=== PATIENT | female | born 1950 | race Caucasian/White ===

== ENCOUNTER 2017-05-03 12:04 | Inpatient (IN) | payer OTHER ==
[~2017-05-03 12:04] MED LIST: LISI-515 PO; METO25TA3 PO
[2017-05-03 18:00] VITALS: BP 169/82; PULSE 104; RESP 24; TEMP 98.5; O2SAT 98
[2017-05-03] MEDS ORDERED: MORPHINE SULFATE 2 MG/ML INJ ONE (19:46)
[2017-05-03] MEDS ORDERED: ONDANSETRON HCL 4 MG/2 ML VIAL ONE (19:46)
[2017-05-03 20:00] VITALS: BP 162/89; PULSE 101; RESP 21; TEMP 97.6; O2SAT 100
[2017-05-03] MEDS ORDERED: SODIUM CHLORIDE 0.9% FLUSH 10 ML FLUSH IV FLUSH PRN ×2 (20:00)
[2017-05-03] MEDS ORDERED: BISACODYL 10 MG SUPP RECTAL PRN (20:00)
[2017-05-03] MEDS ORDERED: ACETAMINOPHEN/HYDROcodone 325 MG/5 MG TAB PO PRN (20:00)
[2017-05-03] MEDS ORDERED: SENNOSIDES 8.6 MG TAB PO PRN (20:00)
[2017-05-03] MEDS ORDERED: GLUCAGON 1 MG/ML VIAL IM PRN (20:00)
[2017-05-03] MEDS ORDERED: DEXTROSE 50% IN WATER 50 ML VIAL(D50) IV PUSH PRN (20:00)
[2017-05-03] MEDS ORDERED: LACTULOSE SYRUP 20 GM/30 ML CUP PO PRN (20:00)
[2017-05-03] MEDS ORDERED: RESP: ALBUTEROL 2.5 MG/3 ML NEB (PRN) INH (20:00)
[2017-05-03] MEDS ORDERED: LABETALOL HCL 100 MG/20 ML VIAL IV PUSH PRN (20:00)
[2017-05-03] MEDS ORDERED: hydrALAZINE HCL 20 MG/ML VIAL IV PUSH PRN (20:00)
[2017-05-03] MEDS ORDERED: ACETAMINOPHEN 325 MG TAB PO PRN (20:00)
[2017-05-03] MEDS ORDERED: CHLORHEXIDINE GLUCONATE 2 % 1 PACK (2 CLOTHS) TOP PRN (20:00)
[2017-05-03] MEDS ORDERED: HEPARIN SODIUM - SQ 10,000 UNITS/ML VIAL SQ SCH (20:00)
[2017-05-03] MEDS ORDERED: MAGNESIUM HYDROXIDE SUSP 30 ML CUP PO PRN (20:00)
[2017-05-03] MEDS ORDERED: Vancomycin Consult Pharmacy 1 EA OTHER SCH (20:00)
[2017-05-03] MEDS ORDERED: NITROGLYCERIN 2% OINT 1 GM PACKET TOPICAL PRN (20:00)
[2017-05-03] MEDS ORDERED: MISCELLANEOUS NURSING INFORMATION XX SCH ×2 (20:00)
--- NOTE | 2017-05-03 20:05 | PD.PROCEDR ---
Procedure Note Procedure Thoracentesis, US guided Indication: Large right pleural effusion A time-out was completed verifying correct patient, procedure, site, positioning , and special equipment if applicable. The patients right side was prepped and draped in a sterile manner after the appropriate infiltration level was confirmed by ultrasound. 1% lidocaine was used anesthetize the surrounding skin. A 10-blade scalpel used to make the incision. The thoracentesis Angio cath was then introduced without difficulty and needle was removed. Catheter was connected to vacutainer bottle and -1500 ml of blood tinged pleural fluid was removed. A post-procedure chest x-ray was ordered and the fluid will be sent for several studies. Estimated Blood Loss: <1 ml The patient tolerated the procedure well and there were no immediate complications. Delmar Foster MD May 03, 2017 20:05
--- NOTE | 2017-05-03 20:34 | RADRPT ---
EXAM DATE/TIME: 05/03/2017 20:14 [facility] COMPARISON: No previous studies available for comparison. INDICATIONS : Post right side thoracentesis MEDICAL HISTORY : Hypertension. SURGICAL HISTORY : None. ENCOUNTER: Initial ACUITY: 1 day PAIN SCORE: 0/10 LOCATION: Right chest FINDINGS: A moderate-sized left pleural effusion is noted. Increased interstitial markings are noted bilaterall y consistent with probable moderate pulmonary vascular congestion. The heart is enlarged. Degenerativ e changes and scoliosis of the thoracic spine are noted. CONCLUSION: Moderate-sized left pleural effusion. Probable moderate pulmonary vascular congestion. Cardiomegaly. Degenerative changes and scoliosis of the thoracic spine. Yong Cox MD on May 03, 2017 at 20:32 Board Certified Radiologist. This report was verified electronically.
[2017-05-03] MEDS ORDERED: FUROSEMIDE 20 MG/2 ML VIAL IV PUSH SCH (20:45)
--- NOTE | 2017-05-03 20:46 | HHI.HP ---
[facility] Service Critical Care Medicine Primary Care Physician No Primary Care Physician Admission Diagnosis Diagnosis: (1) Acute hypoxemic respiratory failure Diagnosis: Principal (2) Sepsis Diagnosis: Principal (3) CAP (community acquired pneumonia) Diagnosis: Principal (4) Elevated brain natriuretic peptide (BNP) level Diagnosis: Principal (5) Elevated troponin Diagnosis: Principal (6) Probable CHF Diagnosis: Principal (7) Acute kidney injury Diagnosis: Principal (8) Hypertension Diagnosis: Secondary Chief Complaint: Shortness of breath and cough hypoxia Travel History International Travel<30 Days: No Contact w/Intl Traveler <30 Da: No Traveled to Known Affected Are: No Sepsis Criteria SIRS Criteria (2 or more): Heart rate over 90, RR > 20 or PaCO2 < 32 Sepsis Criteria (SIRS+source): Infect source susp/known Severe Sepsis (+one): Acute Oliguria/Renal Failure Criteria Outcome: Meets sepsis criteria History of Present Illness Patient is a 66-year-old female with past medical history only significant for hypertension who presented to the [facility] ED with 2 day history of productive cough increasing shortness of breath and weakness. She thought that she had flu but did not seek treatment. She also has nausea and vomiting and some epigastric abdominal pain. Initial oxygen saturation in [facility] ED 86% on room air. Tachycardic heart rate 107. An ABG on 3 L nasal cannula showed PO2 of 55. WBC count was normal, creatinine was elevated at 1.6 and a BNP was elevated at 2340 troponin elevated mildly at 0.23. Patient denies chest pain. A chest x-ray showed bilateral pleural effusions moderate- sized versus infiltrate. Patient received azithromycin and Rocephin in the ED. Transferred to [facility] for admission. I evaluated the patient in the [place] ICU. She appears to be in moderate distress due to dyspnea. Cannot lie down flat. Bedside ultrasound showed large bilateral pleural effusions. I performed a diagnostic and therapeutic right thoracentesis and removed 1.5 L of L blood tinged fluid. Fluid studies are pending at this time. Patient appears to have CHF and pneumonia. A 2D echo is pending. I will place patient on cefepime and azithromycin. Give single dose of vancomycin. Also due to elevated BNP and bilateral large effusions and hypoxia, start IV Lasix 20 mg every 12. Received 40 mg of Lasix and [place] ED. Review of Systems ROS Limitations: Clinical Condition, Other (as per HPI, limited due to SOB) Past Family Social History Allergies: Coded Allergies: No Known Allergies (Unverified , 05/03/17) Past Medical History Hypertension Past Surgical History No past surgical history Reported Medications Metoprolol Lisinopril Active Ordered Medications Received Rocephin and Zithromax and IV Lasix 40 mg in the return to ER Family History Niece had breast cancer bilaterally Social History Never smoked, no alcohol abuse Physical Exam Vital Signs Vital Signs Date Time Temp Pulse Resp B/P (MAP) Pulse Ox O2 Delivery O2 Flow Rate FiO2 05/03/17 18:00 98.5 104 24 169/82 (388) 98 Physical Exam GENERAL: 66-year-old ill-appearing female who is in moderate distress SKIN: warm/dry. HEAD: Atraumatic. Normocephalic. EYES: Pupils equal and round. No scleral icterus. No injection or drainage. ENT: No nasal bleeding or discharge. Mucous membranes moist. NECK: Trachea midline. No JVD. CARDIOVASCULAR: Tachycardic with heart rate 107. No murmur appreciated. RESPIRATORY: Air entry is diminished at the bilateral bases. Positive accessory muscle use, clearly has orthopnea. GASTROINTESTINAL: Abdomen soft, nondistended. Mild epigastric tenderness MUSCULOSKELETAL: No obvious deformities. No edema. NEUROLOGICAL: Awake and alert. No obvious cranial nerve deficits. Motor grossly within normal limits. Normal speech. Imaging Chest x-ray shows bilateral pleural effusions Septic Shock Reassessment Septic shock perfusion: reassessment completed Caprini VTE Risk Assessment Caprini VTE Risk Assessment: Mod/High Risk (score >= 2) VTE Pharm Contraindication: Hemorrhage Caprini Risk Assessment Model Point Value = 1 Point Value = 2 Point Value = 3 Point Value = 5 Age 41-60 Minor surgery BMI > 25 kg/m2 Swollen legs Varicose veins or History of unexplained or recurrent spontaneous Oral contraceptives or hormone replacement Sepsis (< 1 month) Serious lung disease, including pneumonia (< 1 month) Abnormal pulmonary function Acute myocardial infarction Congestive heart failure (< 1 month) History of inflammatory bowel disease Medical patient at bed rest Age 61-74 Arthroscopic surgery Major open surgery (> 45 min) Laparoscopic surgery (> 45 min) Malignancy Confined to bed (> 72 hours) Immobilizing plaster cast Central venous access Age >= 75 History of VTE Family history of VTE Factor V Leiden Prothrombin [id number] Lupus anticoagulant Anticardiolipin antibodies Elevated serum homocysteine Heparin-induced thrombocytopenia Other congenital or acquired thrombophilia Stroke (< 1 month) Elective arthroplasty Hip, pelvis, or leg fracture Acute spinal cord injury (< 1 month) Prophylaxis Regimen Total Risk Factor Score Risk Level Prophylaxis Regimen 0-1 Low Early ambulation 2 Moderate Order ONE of the following: *Sequential Compression Device (SCD) *Heparin 5000 units SQ BID 3-4 Higher Order ONE of the following medications: *Heparin 5000 units SQ TID *Enoxaparin/Lovenox 40 mg SQ daily (WT < 150 kg, CrCl > 30 mL/min) *Enoxaparin/Lovenox 30 mg SQ daily (WT < 150 kg, CrCl > 10-29 mL/min) *Enoxaparin/Lovenox 30 mg SQ BID (WT < 150 kg, CrCl > 30 mL/min) AND/OR *Sequential Compression Device (SCD) 5 or more Highest Order ONE of the following medications: *Heparin 5000 units SQ TID (Preferred with Epidurals) *Enoxaparin/Lovenox 40 mg SQ daily (WT < 150 kg, CrCl > 30 mL/min) *Enoxaparin/Lovenox 30 mg SQ daily (WT < 150 kg, CrCl > 10-29 mL/min) *Enoxaparin/Lovenox 30 mg SQ BID (WT < 150 kg, CrCl > 30 mL/min) AND *Sequential Compression Device (SCD) Assessment and Plan Assessment and Plan NEURO: Pain control -As needed morphine for pain along with Zofran for nausea and vomiting RESP: Acute hypoxemic respiratory failure Bilateral large pleural effusions, hemorrhagic Probable community-acquired pneumonia -Oxygen by partial nonrebreather to keep saturation more than 90% -DuoNeb every 6 hours as needed -Use BiPAP if needed -Fluid studies sent -Cefepime and azithromycin CV: Elevated BNP Mild troponin elevation Probable CHF -IV Lasix 20 mg every 12 -Cardiology consult, 2D echo -Blood pressure control with hydralazine, continue home metoprolol hold lisinopril -Hold ASA or Heparin due to hemorrhagic effusion GI: Epigastric abdominal pain -NPO, IV Protonix -CT abdomen pelvis stat : -Monitor renal function closely. Place Jiménez catheter. -IV Lasix as above monitor renal function closely ID: Sepsis Community-acquired pneumonia with effusion -IV vancomycin 1 g 1. Continue cefepime and azithromycin as ordered -Check blood cultures, urine culture, sputum culture, urine for Legionella and pneumococcal antigen, influenza A and B. HEME: -Monitor CBC, CMP, coags ENDO: -Electrolyte replacement per protocol PROPH: -Bilateral lower extremity SCDs/ROBEL. Avoid heparin due to hemorrhagic effusion. IV Protonix for GI prophylaxis LINES: -Utilize peripheral IVs, central line if needed CC time 45 min excluding procedures Code Status Full Discussed Condition With Bedside RN, patient and family Problem Qualifiers (1) Hypertension: Qualified Codes: I10 - Essential (primary) hypertension Delmar Foster MD May 03, 2017 20:46
[2017-05-03] MEDS ORDERED: MORPHINE SULFATE 2 MG/ML INJ IV PUSH PRN (21:00)
[2017-05-03] MEDS ORDERED: SODIUM CHLORIDE 0.9% FLUSH 10 ML FLUSH IV FLUSH SCH (21:00)
[2017-05-03] MEDS: RESP: ALBUTEROL 2.5 MG/IPRATROPIUM 0.5 MG NEB (SCH) INH (21:14)
[2017-05-03] MEDS ORDERED: VANCOMYCIN INJ 1,000 MG in SODIUM CHLOR 0.9% 250 ML INJ 250 ML IV ONE (21:15)
[2017-05-03 21:17] VITALS: O2SAT 97
[2017-05-03] MEDS: AZITHROMYCIN INJ 500 MG in SODIUM CHLOR 0.9% 250 ML INJ 250 ML IV SCH (21:33)
[2017-05-03] MEDS: CEFEPIME INJ 2,000 MG in SODIUM CHLORIDE 0.9% INJ 100 ML IV SCH (21:34)
[2017-05-03] MEDS: DOCUSATE SODIUM 50 MG/SENNA 8.6 MG TAB PO SCH (21:36)
[2017-05-03] MEDS: SODIUM CHLORIDE 0.9% FLUSH 10 ML FLUSH IV FLUSH SCH (21:36)
[2017-05-03 21:59] LABS: TOTAL PROTEIN,PLEURAL FLUID 1.8 GM/DL
[2017-05-03 22:00] LABS: ALBUMIN 3.3 GM/DL (3.4-5.0); AST (GOT) 27 U/L (15-37); BICARBONATE 25.3 MEQ/L (21.0-32.0); BLOOD UREA NITROGEN 40 MG/DL (7-18); CALCIUM 9.5 MG/DL (8.5-10.1); CHLORIDE 100 MEQ/L (98-107); CREATININE 1.69 MG/DL (0.50-1.00); GLOMERULAR FILTRATION RATE 30 ML/MIN (>89); GLUCOSE,RANDOM 204 MG/DL (74-106); SODIUM (NA) 142 MEQ/L (136-145)
[2017-05-03 22:01] LABS: ALT (GPT) 18 U/L (10-53)
[2017-05-03 22:15] LABS: ALKALINE PHOSPHATASE 103 U/L (45-117); TOTAL BILIRUBIN ADULT 0.4 MG/DL (0.2-1.0); TOTAL PROTEIN 6.6 GM/DL (6.4-8.2)
--- NOTE | 2017-05-03 22:34 | RADRPT ---
EXAM DATE/TIME: 05/03/2017 22:11 [facility] COMPARISON: CT THORAX W/O CONTRAST, May 03, 2017, 22:11. INDICATIONS : Patient complains of abdominal pain. ORAL CONTRAST: No oral contrast ingested. RADIATION DOSE: 16.37 CTDIvol (mGy) ; Combined studies - Thorax/Abdomen/Pelvis MEDICAL HISTORY : Cardiovascular disease. Congestive heart failure. SURGICAL HISTORY : None. ENCOUNTER: Initial ACUITY: 1 day PAIN SCALE: 5/10 LOCATION: abdomen TECHNIQUE: Volumetric scanning of the abdomen and pelvis was performed. Using automated exposure control and ad justment of the mA and/or kV according to patient size, radiation dose was kept as low as reasonably achievable to obtain optimal diagnostic quality images. DICOM format image data is available electro nically for review and comparison. FINDINGS: There is a moderate-sized left pleural effusion. Small right pleural effusion is noted. Diffuse alveo lar consolidation is noted involving the visualized portion of the right lung as well as to a lesser extent the left lung base consistent with asymmetric pulmonary edema versus pneumonia. The heart is e nlarged. Small pericardial effusion is noted. There is a complex pelvic mass measuring 9.5 x 11.8 x 13.9 cm which raises the possibility of left ov arnaldo neoplasm until proven otherwise. Some ascites is noted within the pelvis. The uterus is unremar kable. No bowel obstruction is noted. Evaluation of the solid organs of the abdomen is limited by the lack of intravenous contrast. CONCLUSION: 1. Complex pelvic mass measuring 9.5 x 11.8 x 13.9 cm which raises the possibility of left ovarian ne oplasm until proven otherwise. 2. Some ascites within the pelvis. 3. Moderate-sized left pleural effusion. 4. Small right pleural effusion. 5. Diffuse alveolar consolidation of the right lung and to a lesser extent the left lung base consist ent with asymmetric pulmonary edema versus pneumonia. 6. Cardiomegaly. 7. Small pericardial effusion. Yong Cox MD on May 03, 2017 at 22:26 Board Certified Radiologist. This report was verified electronically.
[2017-05-03 22:51] LABS: PLEURAL FLUID LYMPHS 49 %; PLEURAL FLUID MESOTHELIAL 6 %; PLEURAL FLUID MONOS 1 %; PLEURAL FLUID POLYS (SEGS) 44 %; PLEURAL FLUID RBC 11732 /MM3 (0-0); PLEURAL FLUID WBC 481 /MM3 (0-10)
[2017-05-03] MEDS ORDERED: VANCOMYCIN INJ 1,750 MG in SODIUM CHLORID 0.9% 500 ML INJ 500 ML IV ONE (23:00)
--- NOTE | 2017-05-03 23:06 | RADRPT ---
EXAM DATE/TIME: 05/03/2017 22:11 [facility] COMPARISON: No previous studies available for comparison. INDICATIONS : Bilateral infiltrates. RADIATION DOSE: 16.37 CTDIvol (mGy) ; Combined studies - Thorax/Abdomen/Pelvis MEDICAL HISTORY : Cardiovascular disease. Congestive heart failure. SURGICAL HISTORY : None. ENCOUNTER: Initial ACUITY: 1 day PAIN SCALE: 5/10 LOCATION: Bilateral chest TECHNIQUE: Volumetric scanning of the chest was performed. Using automated exposure control and adjustment of t he mA and/or kV according to patient size, radiation dose was kept as low as reasonably achievable to obtain optimal diagnostic quality images. DICOM format image data is available electronically for r eview and comparison. Follow-up recommendations for detected pulmonary nodules are based at a minimum on nodule size and pa tient risk factors according to Fleischner Society Guidelines. FINDINGS: There is a moderate-sized left pleural effusion and a small right pleural effusion. Diffuse alveolar consolidation is noted involving the right mid and lower lung field and to a lesser extent the aerate d portion of the left upper lung consistent with asymmetric pulmonary edema and/or pneumonia. Clinica l correlation is recommended. The heart is enlarged. Coronary artery calcifications are noted. Small pericardial effusion is noted no pulmonary nodule is noted. No significant mediastinal, hilar or axil vaishali lymphadenopathy is noted left basilar compressive atelectasis and/or infiltrate is noted. Degene rative changes are noted throughout the thoracic spine. Cholelithiasis is noted. CONCLUSION: 1. Moderate-sized left pleural effusion and small right pleural effusion. 2. Diffuse alveolar consolidation throughout the right mid and lower lung field and to a lesser exten t the aerated portion left upper lung consistent with asymmetric pulmonary edema and/or pneumonia. Cl inical correlation is recommended. 3. Left basilar compressive atelectasis and/or infiltrate. 4. Cardiomegaly and coronary artery calcifications. 5. Small pericardial effusion. 6. Cholelithiasis. 7. Degenerative changes within the thoracic spine. Yong Cox MD on May 03, 2017 at 23:01 Board Certified Radiologist. This report was verified electronically.
[2017-05-04] VITALS (32 sets, daily range): BP systolic 92–178; BP diastolic 55–90; PULSE 84–107; RESP 10–35; TEMP 97.3–98.6; O2SAT 92–99
[2017-05-04 02:09] LABS: AUTOMATED NEUTROPHIL # 8.6 TH/MM3 (1.8-7.7); BASOPHIL # 0.1 TH/MM3 (0-0.2); BASOPHIL % 0.9 % (0.0-2.0); HEMATOCRIT 30.6 % (35.0-46.0); HEMOGLOBIN 9.9 GM/DL (11.6-15.3); LYMPH % 6.7 % (9.0-44.0); LYMPHOCYTE # 0.7 TH/MM3 (1.0-4.8); MEAN CELL VOLUME 81.2 FL (80.0-100.0); MEAN CORPUSCULAR HEMOGLOBIN 26.2 PG (27.0-34.0); MEAN CORPUSCULAR HGB CONC 32.2 % (32.0-36.0); MEAN PLATELET VOLUME 7.8 FL (7.0-11.0); MONO % 5.6 % (0.0-8.0); MONOCYTE # 0.6 TH/MM3 (0-0.9); NEUT % 86.8 % (16.0-70.0); PLATELET COUNT 220 TH/MM3 (150-450); RED BLOOD COUNT 3.77 MIL/MM3 (4.00-5.30); RED CELL DISTRIBUTION WIDTH 14.7 % (11.6-17.2); WHITE BLOOD COUNT 9.9 TH/MM3 (4.0-11.0)
[2017-05-04 02:21] LABS: INTERNATIONAL NORMALIZED RATIO 1.3 RATIO; PROTHROMBIN TIME - PATIENT 13.1 SEC (9.8-11.6)
[2017-05-04 02:30] LABS: ALBUMIN 2.9 GM/DL (3.4-5.0); ALT (GPT) 16 U/L (10-53); AST (GOT) 23 U/L (15-37); BLOOD UREA NITROGEN 43 MG/DL (7-18); CALCIUM 8.8 MG/DL (8.5-10.1); CHLORIDE 103 MEQ/L (98-107); CHOLESTEROL 235 MG/DL (120-200); GLOMERULAR FILTRATION RATE 32 ML/MIN (>89); GLUCOSE,RANDOM 229 MG/DL (74-106); MAGNESIUM 1.5 MG/DL (1.5-2.5); SODIUM (NA) 142 MEQ/L (136-145); TRIGLYCERIDES 150 MG/DL (42-150)
[2017-05-04 02:39] LABS: ALKALINE PHOSPHATASE 81 U/L (45-117); CHOLESTEROL/ HDL RATIO 7.03 RATIO; HDL CHOLESTEROL 33.4 MG/DL (40.0-60.0); LDL CHOLESTEROL 172 MG/DL (0-99); PHOSPHORUS 4.4 MG/DL (2.5-4.9); TOTAL BILIRUBIN ADULT 0.4 MG/DL (0.2-1.0)
[2017-05-04 03:05] LABS: CA 125 228.9 U/ML (0.0-30.2); CA 19-9 28.5 U/ML (0.0-35.0)
[2017-05-04] MEDS: RESP: ALBUTEROL 2.5 MG/IPRATROPIUM 0.5 MG NEB (SCH) INH ×4 (03:49→21:19)
[2017-05-04] MEDS: CHLORHEXIDINE GLUCONATE 2 % 1 PACK (2 CLOTHS) TOP SCH (04:00)
--- NOTE | 2017-05-04 05:20 | RADRPT ---
EXAM DATE/TIME: 05/04/2017 04:23 [facility] COMPARISON: CT THORAX W/O CONTRAST, May 03, 2017, 22:11. CHEST SINGLE AP, May 03, 2017, 20:14. INDICATIONS : Shortness of breath, possible pulmonary disease. MEDICAL HISTORY : Hypertension. SURGICAL HISTORY : None. ENCOUNTER: Subsequent ACUITY: 2 days PAIN SCORE: Non-responsive. LOCATION: Bilateral chest FINDINGS: Persistent large left pleural effusion obscuring the entire left heart border. On the right side, in terval development of opacity obscuring the right hemidiaphragm and right heart border suggesting a c ombination of pleural effusion and consolidation. CONCLUSION: Large left pleural effusion stable. Significant increase in size of right pleural effusion, almost a s large as the contralateral side, with probable associated parenchymal consolidation. Bobby Brambila MD on May 04, 2017 at 5:18 Board Certified Radiologist. This report was verified electronically.
[2017-05-04 05:33] LABS: BACTERIA, URINE OCC /hpf; BILIRUBIN, URINE NEG (NEG); BLOOD, URINE NEG (NEG); GLUCOSE,URINE TRACE mg/dL (NEG); HYALINE CAST, URINE 7 /lpf (RARE); KETONE, URINE 10 mg/dL (NEG); NITRITE,URINE NEG (NEG); URINE COLOR YELLOW (YELLW/STRAW); URINE LEUKOCYTE ESTERASE NEG (NEG)
[2017-05-04] MEDS: CEFEPIME INJ 2,000 MG in SODIUM CHLORIDE 0.9% INJ 100 ML IV SCH ×3 (05:56→23:07)
[2017-05-04] MEDS: ONDANSETRON HCL 4 MG/2 ML VIAL IV PUSH PRN ×3 (06:03→14:24)
[2017-05-04] MEDS ORDERED: ASPIRIN 81 MG CHEW TAB CHEW SCH (09:00)
[2017-05-04] MEDS: DOCUSATE SODIUM 50 MG/SENNA 8.6 MG TAB PO SCH ×2 (09:00→21:00)
[2017-05-04] MEDS ORDERED: FUROSEMIDE 20 MG/2 ML VIAL IV PUSH SCH (09:00)
[2017-05-04] MEDS ORDERED: METOPROLOL TARTRATE 25 MG TAB PO SCH (09:00)
[2017-05-04] MEDS ORDERED: PANTOPRAZOLE SODIUM 40 MG VIAL IV PUSH SCH (09:00)
[2017-05-04] MEDS ORDERED: MIDAZOLAM HCL 2 MG/2 ML VIAL IV PUSH ONE (09:00)
[2017-05-04] MEDS: SODIUM CHLORIDE 0.9% FLUSH 10 ML FLUSH IV FLUSH SCH ×2 (09:00→21:11)
--- NOTE | 2017-05-04 09:07 | EKG ---
Date Performed: 05/03/2017 Time Performed: 20:36:44 PTAGE: 66 years EKG: SINUS TACHYCARDIA PATTERN CONSISTENT WITH PULMONARY DISEASE POSSIBLE RIGHT VENTRICULAR COND UCTION DELAY MODERATE VOLTAGE CRITERIA FOR LVH, CONSIDER NORMAL VARIANT INFERIOR MYOCARDIAL INFARCTIO N , OF INDETERMINATE AGE WITH POSTERIOR EXTENSION ST DEPRESSION, CONSIDER SUBENDOCARDIAL INJURY ABNOR MAL ECG NO PREVIOUS TRACING DOCTOR: Migue Harkins Interpretating Date/Time 05/04/2017 09:06:28
--- NOTE | 2017-05-04 09:32 | PD.PROCEDR ---
Procedure Note Procedure Date of procedure: [] Procedure: Left sided thoracentesis, ultrasound-guided Indication: Large left-sided pleural effusion Operators: Donis Delgado M.D. Details of procedure: Informed consent was obtained. The patient was laid supine with head of bed elevated approximately 30. The pleural effusion was localized with ultrasound device. The lateral chest wall was cleaned with ChloraPrep twice. Regional sterile drapes were applied. Other barrier precautions included sterile gloves and face mask. 1% lidocaine was used for local anesthesia. A skin incision was made with a scalpel blade. An 18 gauge introducer needle was inserted into the pleural space with return of 15 cc fluid, an 8 FR catheter was advanced, and the needle was removed. Approximately 900 mL of fluid was removed and sent for analysis and cultures. The catheter was removed and hemostasis was achieved by direct pressure. The site was cleansed with an alcohol swab and a Band-Aid was applied. Estimated blood loss: 1 cc Complications: None immediately apparent. Stat chest x-ray was ordered. Donis Delgado MD May 04, 2017 09:32
--- NOTE | 2017-05-04 10:01 | RADRPT ---
EXAM DATE/TIME: 05/04/2017 09:44 [facility] COMPARISON: CHEST SINGLE AP, May 04, 2017, 4:23. INDICATIONS : Post left sided thoracentesis MEDICAL HISTORY : Hypertension. SURGICAL HISTORY : None. ENCOUNTER: Initial ACUITY: 1 day PAIN SCORE: 0/10 LOCATION: Left chest FINDINGS: A single portable expiration view of the chest shows bibasilar consolidation more pronounced on the r ight. Tiny effusions bilaterally. The effusion on the left is smaller from the prior study. No pneumo thorax. Heart is normal in size. CONCLUSION: No pneumothorax following thoracentesis. Bibasilar consolidations more pronounced on the right with t iny bilateral pleural effusions. Bobby Herndon Jr., MD on May 04, 2017 at 9:59 Board Certified Radiologist. This report was verified electronically.
[2017-05-04] MEDS: PROCHLORPERAZINE INJ 10 MG/2 ML VIAL IV PUSH PRN ×2 (10:56→19:29)
[2017-05-04 11:02] LABS: ALBUMIN, PLEURAL FLUID 1.2 G/DL; TOTAL PROTEIN,PLEURAL FLUID 1.8 GM/DL
[2017-05-04 11:11] LABS: PLEURAL FLUID RBC 21638 /MM3 (0-0); PLEURAL FLUID WBC 614 /MM3 (0-10)
[2017-05-04 11:13] LABS: PLEURAL FLUID LYMPHS 80 %; PLEURAL FLUID MESOTHELIAL 3 %; PLEURAL FLUID MONOS 6 %; PLEURAL FLUID POLYS (SEGS) 11 %
[2017-05-04] MEDS ORDERED: HEPARIN-NS/PF FLUSH BAG 2,000 ML IV FLUSH ONE (11:14)
[2017-05-04] MEDS ORDERED: HEPARIN SODIUM - IV 10,000 UNITS/10 ML VIAL ONE (11:44)
[2017-05-04] MEDS ORDERED: FUROSEMIDE 40 MG/4 ML VIAL ONE (11:47)
[2017-05-04] MEDS ORDERED: CLOPIDOGREL 300 MG TAB ONE (11:57)
[2017-05-04] MEDS ORDERED: TIROFIBAN INFUSION INJ 250 ML IV ONE (11:57)
--- NOTE | 2017-05-04 12:00 | OTSOAPIP ---
RECEIVED OCCUPATIONAL THERAPY ORDERS FROM DR. ELAINE. REVIEWED ELECTRONIC MEDICAL RECORD. PATIENT IS S/P THORACENTESIS THIS MORNING FOR LEFT LUNG. ATTEMPTED TO SEE PATIENT THIS DATE FOR INITIAL EVALUATION HOWEVER UPON ARRIVAL, PATIENT PREPARING TO GO OFF FLOOR FOR CARDIAC CATHETERIZATION. WILL REATTEMPT TOMORROW. INTERDISCIPLINARY COMMUNICATION: REVIEWED ELECTRONIC MEDICAL RECORD, SPOKE WITH CESIA LING Therapist: Maggie Preston, OTR/L Signature on file
--- NOTE | 2017-05-04 12:19 | CATHPROC ---
[facility] HIS Report Study Information Study Number Admission Scheduled Start Study Start [id number] May 03 2017 5:52PM 05/04/2017 May 04 2017 10:52AM [facility] Service Cardiac Catheterization Admit Source Facility Department Emergency department [facility] - Senior Business Objects Developer Physician and Clinical Staff Initial Mario Root Industrial Tractor Driver Tim Stephenson,CESIA Industrial Tractor Driver Rae Mallory,CESIA Recorder Adelia Contreras,RT(R) ScrTara Pan,RT(R) (BS) Procedures Performed Procedure Location (Site) Vessel Name Coronary Angiograms LCA Left Coronary Coronary Angiograms RCA Right Coronary LV Gram-hand inj. LV LV Ventricle PTCA LAD Mid Left Coronary Stent LAD Mid Left Coronary Wire insertion Fem Art (right) Femoral Art Equipment Time New Car Make Ready Worker Description Size Mfg Part Number Used/Scraped [id number] 11:48 [employer] WIRE, ASAHI PROWATER 180CM 180CM Used *[id number] CATHETER, FR5 SWAN MIKE 11:29 PriceTag FR 5 [id number] *[id number] Used MONITOR TRANSDUCER, TRUWAVE [id number] 10:57 SANTILLAN ARAIZA * Used W/STOCKCOCK *[id number] 538-420 *[id number] 538-421 *[id number] *[id number] 10:57 MEDLINE INDUSTRIES PACK, CCL CUSTOM * Used *[id number] 10:57 [employer] PACER PEN, SKIN DUAL W/ RULER * Used *[id number] 11:50 MEDTRONIC BALLOON, 2.5 X 12MM EUPHORA 12MM Used *[id number] [id number] 11:54 MEDTRONIC STENT, 2.5 18 INTEGRITY 2.5 18 Used *[id number] 11:51 [facility] 30 ELANA INDEFLATOR Used *[id number] 11:46 [facility] SHEATH, FR6.5 PRELUDE 11CM FR 6.5 038ACT Used *[id number] 10:57 [facility] WIRE, 3MMJ .035 180CM 180CM Used *[id number] 10:57 NAMIC MANIFOLD, 4 PORT * Used *[id number] 10:57 NYCOMED OMNIPAQUE, 350 MG, 150ML 150ML [id number] Used [id number] 10:57 [employer] BLANKET,WARM AIR CCL * Used *[id number] [id number] 10:57 TERUMO MEDICAL SHEATH, FR4 TERUMO (10CM) FR 4 Used *[id number] 11:29 TERUMO MEDICAL SHEATH, FR6 TERUMO (10CM) FR 6 Used *[id number] Equipment Model, Serial, Lot Number and Expiration Data Description Model Number Serial Number Lot Number Expiration Date STENT, 2.5 18 INTEGRITY [id number] 10-18-2018 History: Current Medications Medication Dosage/Unit Route Frequency Last Date/Time Taken LISINOPRIL LOPRESSOR ASA LASIX History: Allergies Allergy Reaction No Known Allergies History: Risk Factors Family History of Hypertension Dyslipidemia Previous IN Previous Heart Failure Premature CAD Yes No No No No Prior Valve Prior PCI Prior CABG Surgery No No No Cerebrovascular Peripheral Artery Chronic Lung On Dialysis Diabetes Disease Disease Disease No No No No No History: Symptoms/Diagnosis Selection Items SOB History: Stress Tests Stress or Imaging Studies Performed No History: Other Current Smoker No Labs Hgb (g/dl) Hct (%) WBC (l/cumm) Platelets (thousands) 11.60-17.00 35.00-51.00 4.00-11.00 150.00-450.00 9.9 30.6 9.9 220 Glucose (mg/dl) BUN (mg/dl) Creatinine (mg/dl) BUN:Creatinine (1:x) 74.00-106.00 7.00-18.00 0.50-1.30 10.00-20.00 229 43 1.6 26.9 Na (meq/l) K (meq/l) 136.00-145.00 3.50-5.10 142 3.5 INR (PTT:PT) 0.90-1.10 1.3 Troponin I (ng/ml) 0.02-0.05 0.3 Medication Medication Total Dose (Bolus/Oral) Medication Total Dosage/Unit 1% XYLOCAINE 20 mL AGGRASTAT BOLUS 35.5 mL HEPARIN 5000 units LASIX 40 mg NTG (IC) 200 mcg PLAVIX 600 mg Medications (Bolus/Oral) Medication Time Given Dosage/Unit Administered By Reason 1% XYLOCAINE 05/04/2017 11:30:18 AM 20 mL Mario Beckett 20 mL 1% XYLOCAINE given in lab by Mario Beckett in Right Groin via Subcutaneous. HEPARIN 05/04/2017 11:44:50 AM 5000 units Tim Stephenson 5000 units HEPARIN given in lab by Tim Stephenson RN in Left Forearm via Peripheral IV. Ordered by Mario Morrison. LASIX 05/04/2017 11:49:34 AM 40 mg Rae Mallory 40 mg LASIX given in lab by Rae Mallory RN in Left Forearm via Peripheral IV. Ordered by Mario Beckett. NTG (IC) 05/04/2017 11:57:19 AM 200 mcg Tara Bose 200 mcg NTG (IC) given in lab by Tara Bose, RT(R) (BS) in Right Groin via Intra-coronary. Orde red by Mario Beckett. AGGRASTAT BOLUS 05/04/2017 12:01:21 PM 35.5 mL Tim Stephenson 35.5 mL AGGRASTAT BOLUS given in lab by Tim Stephenson RN in Left Forearm via Peripheral IV. Ordered by Mario Beckett. PLAVIX 05/04/2017 12:02:13 PM 600 mg Tim Stephenson 600 mg PLAVIX given in lab by Tim Stephenson RN via Oral. Ordered by Mario Beckett. Medication (Drip) Medication Time Given Dosage/Unit Concentration/Unit Diluent (ml) Solution AGGRASTAT DRIP 05/04/2017 12:04:51 PM 0.075 mcg/kg/min 12.5 mg 250 NaCl .9 0.075 mcg/kg/min AGGRASTAT DRIP given in lab by Tim Stephenson RN in Left Forearm via Peripheral IV. Pump/Drip Flow = 6.4 ml/hr using NaCl .9 with a concentration of 12.5 mg in 250 ml. Ordered by Mario eBckett. IV Solutions 05/04/2017 11:04:50 AM 50 mL (IV) NaCl .9 IV Solutions given in lab by Tim Stephenson RN in Left Forearm via Peripheral IV. Pump/Drip Flow usin g NaCl .9. Initial Case Assessment Cardiovascular HR Rhythm NIBP Chest Pain 89 SR 153/88 0 Edema Present Skin color Skin Moderate Normal Warm Dry Circulatory - Right Pulses Dorsalis Pedis Femoral d 3 Scale (0,1,2,3,4,d) Scale (0,1,2,3,4,d) Neurological State Oriented to time-place- Drowsy Moves all extremities person Respiration - General Respiration Rate SpO2 (%) O2 (lpm) (B/min) 8 95 6 Chronological Log Time Study Chronological Log 11:04:36 Patient Name, D.O.B, / Armband Verified By R.N. 11:04:37 Consent signed by the physician and the patient and verified by the Senior Business Objects Developer staff. 11:04:37 Pre-op and post- op instructions given; patient acknowledges understanding of instructions. 11:04:38 Verbal Stimulation=2 Physical Stimulation=1 Airway=1 Respiration=1 TOTAL=5. (0=absent, 1=li mited, 2=present) 11:04:40 Presedation assessment performed by Senior Business Objects Developer RN. 11:04:41 Patient has been NPO for More than 6Hrs. 11:04:42 Skin Breakdown- none 11:04:42 Patient Warmer Placed on the Table. 11:04:44 Mykel Prominences Protected 11:04:48 A # 20 IV was noted in the Forearm (left). Grade = 0 11:04:48 A # 20 IV was noted in the Forearm (right). Grade = 0 11:04:50 IV Solutions given in lab by Tim Stephenson RN in Left Forearm via Peripheral IV. Pump/Drip Flow using NaCl .9. 11:04:52 History and physical on the chart or being dictated. Assessment: Initial Case, HR=89 BPM, Rhythm=SR, BHNV=343/88 mmhg, Chest Pain=0, Edema=Mod, [place] r=Normal, Skin = Warm, Dry 11:04:53 Right Pulses: Mario Ped=d, Femoral=3 Neurological: State=Drowsy, Ox3, VILLEDA Respiration: Resp=8 B/min, SpO2=95 %, O2=6 lpm 11:11:57 Reference ECG taken Vitals capture started with the following parameters, Patient=Adult, Interval=5 min, Initial Pr dpfvld=931 mmHg, 11:12:02 Deflation Rate=5 mmHg, Cuff placed on Left Arm 11:12:38 HR=89 bpm, GIWS=186/88 mmhg, SpO2=96.0 %, Resp=6 B/min 11:17:00 Right groin prepped with 2% chlorhexidine, and draped after a 3 min. waiting time. 11:17:33 paged 11:17:40 HR=90 bpm, JXRS=538/87 mmhg, SpO2=94.0 %, Resp=20 B/min 11:19:21 MD arrived. 11:20:16 Pressure channel 1 zeroed. 11:22:41 HR=90 bpm, LFGH=834/84 mmhg, SpO2=94.0 %, Resp=8 B/min 11:27:40 HR=90 bpm, ABHW=067/87 mmhg, SpO2=94.0 %, Resp=14 B/min Time Out. Correct patient, correct procedure, correct physician, power injector not loaded with contrast with surgical 11:29:50 team present. Time Out Concurred by MD and individual staff in procedure. 11:30:03 Case Start 11:30:18 20 mL 1% XYLOCAINE given in lab by Mario Beckett in Right Groin via Subcutaneous. 11:31:07 Access site was Right Femoral Artery. 11:31:14 A SHEATH, FR4 TERUMO (10CM) FR 4 was advanced into the Fem Art (right) using the Percutaneo us technique. 11:31:54 Saturation: Site=Ao (Aorta) , O2=94.3 %, Hgb=9.9 gm/dl, Condition=Condition 1. Used in calc ulation. 11:32:27 Access site was Right Femoral Vein. 11:32:33 A SHEATH, FR6 TERUMO (10CM) FR 6 was advanced into the Fem Vein (right) using the Percutane ous technique. 11:32:41 HR=91 bpm, RQHW=562/88 mmhg, SpO2=94.0 %, Resp=13 B/min 11:33:07 A CATHETER, FR5 SWAN MIKE MONITOR FR 5 was inserted via Fem Vein (right) Recorded Pressure: PCW, HR=96, Condition=Condition 1 11:34:39 (Pulmonary Capillary Wedge) PCW 38/43/33 Recorded Pressure: MPA, HR=91, Condition=Condition 1 11:35:09 (Main Pulmonary Artery) MPA 62/31/46 11:35:19 Saturation: Site=PA (Pulmonary Artery) , O2=68.9 %, Hgb=9.9 gm/dl, Condition=Condition 1. U sed in calculation. Recorded Pressure: RV, HR=91, Condition=Condition 1 11:36:05 (Right Ventricle) RV 62/11/16 Recorded Pressure: RA, HR=91, Condition=Condition 1 11:36:20 (Right Atrium) RA 15/14/13 11:37:05 Saturation: Site=RA (Right Atrium) , O2=66 %, Hgb=9.9 gm/dl, Condition=Condition 1. Used in calculation. 11:37:14 [place] Mike Catheter Removed A JR 4.0 INFINITI CATHETER FR 4 was advanced over a wire. OMNIPAQUE, 350 MG, 150ML 150ML was us ed for 11:37:35 injections. 11:37:44 HR=91 bpm, QSRY=584/88 mmhg, SpO2=95.0 %, Resp=5 B/min Recorded Pressure: LV, HR=91, Condition=Condition 1 11:38:13 (Left Ventricle) LV 159/22/34 11:38:24 The LV was manually injected with 6 cc's and visualized. OMNIPAQUE, 350 MG, 150ML 150ML use d. Recorded Pressure: LV, Ao, HR=90, Condition=Condition 1 11:38:31 (Left Ventricle) LV 157/20/36, (Aorta) Ao 158/88/118 Recorded Pressure: Ao, HR=90, Condition=Condition 1 11:39:52 (Aorta) Ao 151/85/114 11:40:11 The RCA was injected and visualized at various angles. OMNIPAQUE, 350 MG, 150ML 150ML used . 11:40:28 Catheter was removed A JL 4.0 INFINITI CATHETER FR 4 was advanced over a wire. OMNIPAQUE, 350 MG, 150ML 150ML was us ed for 11:40:30 injections. 11:41:48 The LCA was injected and visualized at various angles. OMNIPAQUE, 350 MG, 150ML 150ML used . 11:42:45 HR=90 bpm, PJRI=819/85 mmhg, SpO2=94.0 %, Resp=6 B/min 11:44:33 Catheter was removed 11:44:50 5000 units HEPARIN given in lab by Tim Stephenson, RN in Left Forearm via Peripheral IV. Ord ered by Mario Beckett. A SHEATH, FR6.5 PRELUDE 11CM FR 6.5 was exchanged in the Fem Art (right). This was necessary in order to 11:45:43 accomodate a larger catheter. A XB 3.5 GUIDE CATHETER FR 6 was advanced over a wire. OMNIPAQUE, 350 MG, 150ML 150ML was used for 11:47:23 injections. 11:47:44 HR=90 bpm, JMQY=328/78 mmhg, SpO2=94.0 %, Resp=17 B/min 11:48:20 A WIRE, ASAHI PROWATER 180CM 180CM was inserted via Fem Art (right). 11:49:34 40 mg LASIX given in lab by Rae Mallory, RN in Left Forearm via Peripheral IV. Ordered b y Mario Beckett. 11:49:57 Interventional wire has crossed the lesion in the LAD A BALLOON, 2.5 X 12MM EUPHORA 12MM was inserted over WIRE, ASAHI PROWATER 180CM 180CM via the F em Art 11:50:18 (right). A BALLOON, 2.5 X 12MM EUPHORA 12MM over a WIRE, ASAHI PROWATER 180CM 180CM in the LAD Mid was i nflated 11:51:17 using a 30 ELANA INDEFLATOR at 6 elana for 18 sec. A BALLOON, 2.5 X 12MM EUPHORA 12MM over a WIRE, ASAHI PROWATER 180CM 180CM in the LAD Mid was i nflated 11:51:56 using a 30 ELANA INDEFLATOR at 5 elana for 14 sec. 11:52:47 HR=87 bpm, DTBT=722/64 mmhg, SpO2=95.0 %, Resp=17 B/min 11:53:04 Balloon Removed. 11:53:43 Activated Clotting Time Drawn An STENT, 2.5 18 INTEGRITY 2.5 18 Bare Metal Stent was inserted through a XB 3.5 GUIDE CATHETER FR 6 over a 11:54:32 WIRE, ASAHI PROWATER 180CM 180CM. A STENT, 2.5 18 INTEGRITY 2.5 18 was deployed using a 30 ELANA INDEFLATOR at 10 atmospheres for 1 5 seconds in 11:55:10 the LAD Mid. 11:56:49 Delivery device removed 200 mcg NTG (IC) given in lab by Tara Bose, RT(R) (BS) in Right Groin via Intra-coronary . Ordered by Sophy, 11:57:19 Mario. 11:57:38 HR=89 bpm, CNLI=118/79 mmhg, Resp=10 B/min 11:58:29 Wire removed 11:58:40 Case End 35.5 mL AGGRASTAT BOLUS given in lab by Tim Stephenson RN in Left Forearm via Peripheral IV. Or dered by Sophy 12:01:21 Mario. 12:02:13 600 mg PLAVIX given in lab by Tim Stephenson RN via Oral. Ordered by Mario Beckett. 12:02:47 HR=90 bpm, POQE=488/70 mmhg, Resp=22 B/min 12:04:01 In the Fem Art (right) the SHEATH, FR6 TERUMO (10CM) FR [address] by Tara Bose RT(R) (BS). 12:04:35 In the Fem Art (right) the SHEATH, FR6.5 PRELUDE 11CM FR 6.[address] by Tara Guevara RT(R) (BS). 0.075 mcg/kg/min AGGRASTAT DRIP given in lab by Tim Stephenson RN in Left Forearm via Periphera l IV. Pump/Drip 12:04:51 Flow = 6.4 ml/hr using NaCl .9 with a concentration of 12.5 mg in 250 ml. Ordered by Mario Beckett. 12:05:06 ACT (Normal Range 90-180) = 292 12:07:19 Sterile dressing applied to site 12:07:20 No case complications noted. 12:07:25 Cine recording checked. 12:07:27 IMC notified of successful intervention and to have A and V lines ready. 12:07:41 Bedside Report will be given. 12:07:42 Implantable Device card placed in patient's chart. 12:07:44 HR=91 bpm, DIMJ=887/82 mmhg, SpO2=93.0 %, Resp=13 B/min 12:07:48 A Left and Right Heart Cath was performed. 12:12:41 Vitals capture stopped. 12:12:49 Patient moved to bed. End Study - Contrast Media Used In Study Contrast Total Opened (mL) Total Used (mL) Total Wasted (mL) Omnipaque 110 110 0 End Study - Maximum Contrast Load Max Contrast Load (mL) 221.9 End Study - Radiation Exposure Fluoro Time (minutes) 6.6 End Study - Patient Disposition Complications Transferred To Interventional Outcome No Critical Care Bed successful
[2017-05-04] MEDS ORDERED: SODIUM CHLORIDE 0.9% FLUSH 10 ML FLUSH IV FLUSH PRN (12:30)
[2017-05-04] MEDS ORDERED: BACITRACIN OINT 0.9 GM PKT TOP ONE (12:30)
[2017-05-04] MEDS ORDERED: ATORVASTATIN 80 MG TAB PO ONE (12:30)
[2017-05-04] MEDS ORDERED: CLOPIDOGREL 300 MG TAB PO ONE (12:30)
[2017-05-04] MEDS ORDERED: MISC INFORMATION XX ONE (12:30)
--- NOTE | 2017-05-04 12:42 | MB ---
cc: Guanako Cash MD DATE OF CONSULT: 05/04/2017 TIME OF CONSULTATION: 9:45 a.m. CONSULTATION REQUESTED BY: The critical care service. REASON FOR CONSULTATION: The patient with a large pelvic mass, appears to be arising from the left adnexa. CHIEF COMPLAINT: 1. Ms. Simpson reports a several week history of progressive difficulty breathing. 2. General malaise. 3. Abdominal pain, belching and bloating, all of which is associated with decreased appetite. HISTORY OF PRESENT ILLNESS: Ms. Simpson is a 66-year-old female from [place], [place]. Ms Simpson presented to the [facility] in [place] with the above noted complaints. At presentation she was noted to be in hypoxic respiratory failure, she was initiated on oxygen supplementation via a Venturi mask, ABG was performed and she was noted to have an O2 partial pressure of 55 mmHg. She was transferred to [facility] and was admitted to the critical care unit. Imaging studies including CT scan of the chest, abdomen and pelvis was performed. She was noted to have a large left-sided pleural effusion associated with diffuse alveolar consolidation throughout the right mid and right lower lung. She was also noted to have cardiomegaly. CT scan of the abdomen revealed a large cystic mass involving the pelvis, the tumor appeared to arise from the left adnexa, there was concern for possible ovarian origin. Some ascites within the pelvis was noted. The oncology service has been asked to see her for further workup and management of these radiographic findings. 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 Thus far this hospitalization she has undergone a therapeutic/diagnostic left thoracentesis with removal of 900 mL of pleural fluid; this was performed at about 9:00 a.m. on 05/04/2017. PAST MEDICAL HISTORY: Hypertension. PAST SURGICAL HISTORY: The patient had a depressed skull fracture when she was a child. GYNECOLOGIC HISTORY: 4, para 4. Her children are aged between 48 and 30. SOCIAL HISTORY: The patient is , she lives at home with her adult daughter. The patient is originally from [place] but moved to [place] about 30 years ago. She had previously worked as an SALES PROMOTION REPRESENTATIVE. The patient denies having ever been a smoker. She denies alcohol abuse or illicit drug use. ALLERGIES: NO KNOWN DRUG ALLERGIES. FAMILY HISTORY: The patient's mother is living, she is healthy. Father at a younger age, he was murdered. The patient has a maternal aunt with history of breast cancer and a maternal cousin with breast cancer, both of them are living. MEDICATIONS: CURRENT INPATIENT MEDICATIONS: 1. Compazine 5 mg IV q. 6 hours as needed for nausea. 2. Zofran 4 mg IV q. 6 hours as needed for nausea. 3. Azithromycin 500 mg IV once daily. 4. Cefepime 2 grams IV q. 8 hours. 5. Vancomycin 1750 mg IV x 1. 6. DuoNebs 2.5 mg inhaled q. 2 hours as needed for wheezing. 7. Aspirin 162 mg chewable once a day. 8. Lasix 20 mg IV x 1. 9. Lasix 20 mg IV q. 12 hours. 10. Heparin 5000 units subcu q. 12 hours. 11. Lactulose 30 mL p.o. daily as needed for constipation. 12. Metoprolol 25 mg p.o. daily. REVIEW OF SYSTEMS: A 13-point review of systems are obtained with the following pertinent positives: GENERAL: The patient reports weakness, fatigue, loss of appetite and weight loss over the past two months. HEENT: Denies headaches, blurry vision, difficulty swallowing, soreness in the throat. RESPIRATORY: Reports difficultly breathing, cough without hemoptysis, phlegm production. CARDIOLOGY: Denies anginal-like chest pain, PND, orthopnea, she denies palpitations. GI: She reports nausea, she reports vomiting, she reports belching. She denies hematochezia or melena. : No complaints. MAINTENANCE CARPENTER: Denies any focal sensory or motor deficits. SKIN: No complaints. PHYSICAL EXAMINATION: VITAL SIGNS: Temperature 97.8 degrees Fahrenheit, heart rate 89 beats per minute, respiratory rate 12, blood pressure 156/80, 02 SATs are 97% on 6 liters via nasal cannula. GENERAL PHYSICAL APPEARANCE: Ms. Simpson is an elderly lady, she is sitting up in bed, she appears to be uncomfortable and nauseated. HEENT: Head is atraumatic, normocephalic, conjunctivae are mildly pale, sclerae are anicteric, EOMI, PERRLA. ORAL EXAM: No pharyngeal erythema. NECK: No palpable cervical or supraclavicular lymphadenopathy. RESPIRATORY EXAM: Good air movement bilaterally. Decreased bibasilar breath sounds, more so on the left compared to the right side, she has inspiratory crepitus. Relatively better air movement over the middle and upper lung zones. CARDIOVASCULAR: Regular rate and rhythm, S1, S2. No obvious murmurs, rubs or gallops. ABDOMINAL EXAM: Protuberant belly, soft, fullness noted in the pelvic area, some tenderness but no organ enlargement. LOWER EXTREMITIES: Bilateral pretibial edema. No calf tenderness, her limbs are cool to the touch. No other abnormal findings noted. LABORATORY FINDINGS: Blood work dated 05/04/2017: Sodium 142, potassium 3.5, chloride 103, bicarb 27, BUN 43, creatinine 1.6, EGFR is 32, random glucose 229, calcium 8.8, phosphorus 4.4, magnesium 1.5, total bilirubin 0.4, AST 23, ALT 16, alkaline phosphatase 81, troponin-I is elevated at 0.3, albumin is 2.9, triglycerides 150. CA-125 level is 229 (upper limit of normal is 30). IMAGING STUDIES: CT scan of the thorax dated 05/03/2017: Moderate-sized left-sided pleural effusion and small right-sided pleural effusion. Diffuse alveolar consolidation throughout the right middle and right lower lung field, and to a lesser extent the aerated portion of the left upper lung consistent with asymmetric pneumonia. CT scan of the abdomen and pelvis dated 05/03/2017 revealed a complex pelvic mass measuring 5.9 x 11.8 x 13.9 cm, concerning for left ovarian neoplasm until proven otherwise. Some ascites within the pelvis. Moderate-sized left-sided pleural effusion. ASSESSMENT: Ms. Simpson is a 66-year-old female who presents to [facility] with complaints of increasing difficulty breathing, cough, abdominal distention, pain and belching. She was noted to be in hypoxic respiratory failure. CT of the chest revealed a moderate to large-sized left-sided pleural effusion associated with alveolar infiltrates involving the right and the left lung concerning for multifocal pneumonia. She has undergone a therapeutic/diagnostic thoracentesis with 900 mL pleural fluid removed from the left hemithorax. CT imaging of the abdomen and pelvis revealed a large complex cystic mass arising from the left adnexa, findings were described as ovarian carcinoma until proven otherwise by our radiologist. Her CA-125 level is elevated as well. Additional medical issues that are active at this time include elevated cardiac enzymes as well as renal insufficiency, the chronicity of which is not known. RECOMMENDATIONS: 1. Large complex mass involving the left adnexa: Findings concerning for ovarian neoplasm. I will request our gynecologic oncologist, Dr. Becker to evaluate the patient on 05/06/2017. She will require a tissue diagnosis at some point to confirm the diagnosis. We have submitted about 900 mL of pleural fluid. I will request cytology on this to rule out malignant pleural effusion. 2. From an acute issue standpoint the patient has multiple issues which are ongoing which include multifocal pneumonia, possible acute coronary syndrome as well as renal insufficiency. I would recommend continuing antibiotic therapy for management of the pneumonia, I would like to allow cardiology to fully work up and optimize her cardiac condition and she ought to be hydrated for management of her renal insufficiency at this point. Possible ureteric obstruction secondary to pelvic/adnexal mass ought to be ruled out should her renal insufficiency not improve. The oncology/gynecologic oncology service will follow along with you. MD MARVEL Cole/TL/ , 10:35 AM , 12:00 PM
[2017-05-04] MEDS: TIROFIBAN INFUSION INJ 250 ML IV SCH ×2 (13:48→21:14)
[2017-05-04] MEDS: MORPHINE SULFATE 4 MG/ML INJ IV PUSH PRN (14:25)
--- NOTE | 2017-05-04 14:43 | HHI.CCPN ---
Subjective Remarks/Hospital Course Patient is a 66-year-old female with past medical history only significant for hypertension who presented to the [facility] ED with 2 day history of productive cough increasing shortness of breath and weakness. She thought that she had flu but did not seek treatment. She also has nausea and vomiting and some epigastric abdominal pain. Initial oxygen saturation in [facility] ED 86% on room air. Tachycardic heart rate 107. An ABG on 3 L nasal cannula showed PO2 of 55. WBC count was normal, creatinine was elevated at 1.6 and a BNP was elevated at 2340 troponin elevated mildly at 0.23. Patient denies chest pain. A chest x-ray showed bilateral pleural effusions moderate- sized versus infiltrate. Patient received azithromycin and Rocephin in the ED. Transferred to [facility] for admission. I evaluated the patient in the [place] ICU. She appears to be in moderate distress due to dyspnea. Cannot lie down flat. Bedside ultrasound showed large bilateral pleural effusions. I performed a diagnostic and therapeutic right thoracentesis and removed 1.5 L of L blood tinged fluid. Fluid studies are pending at this time. Patient appears to have CHF and pneumonia. A 2D echo is pending. I will place patient on cefepime and azithromycin. Give single dose of vancomycin. Also due to elevated BNP and bilateral large effusions and hypoxia, start IV Lasix 20 mg every 12. Received 40 mg of Lasix and [place] ED. Subjective 05/05: -900 cc blood-tinged fluid removed from left pleural effusion today. Stent placed LAD by Dr. Beckett. Currently on nasal cannula. Denies chest pain, main complaint is nausea. Objective Vital Signs Date Time Temp Pulse Resp B/P (MAP) Pulse Ox O2 Delivery O2 Flow Rate FiO2 05/04/17 10:00 89 05/04/17 08:00 97.8 22 156/80 (105) 97 05/04/17 07:46 Nasal Cannula 6.00 05/03/17 21:17 50 Intake and Output 05/04/17 05/04/17 05/05/17 08:00 16:00 00:00 Intake Total 600 ml Output Total 675 ml Balance -75 ml Result Diagram: 05/04/17 0157 05/04/17 0157 Other Results Microbiology Date/Time Source Procedure Growth Status 05/03/17 21:07 Blood Peripheral Aerobic Blood Culture - Preliminary NO GROWTH IN 1 DAY Resulted 05/03/17 21:07 Blood Peripheral Anaerobic Blood Culture - Preliminary NO GROWTH IN 1 DAY Resulted 05/03/17 20:00 Fluid Pleural Fluid Fungal Smear - Final NO FUNGAL ELEMENTS SEEN. Resulted 05/03/17 20:00 Fluid Pleural Fluid Fungal Culture Pending Resulted 05/04/17 04:39 Sputum Expectorated Sputum Gram Stain - Final Resulted 05/04/17 04:39 Sputum Expectorated Sputum Sputum Culture Pending Resulted 05/04/17 04:39 Urine Catheterized Urine Urine Culture Pending Received Imaging Last Impressions Chest X-Ray 05/04/17 0000 Signed Impressions: Service Date/Time: Thursday, May 04, 2017 09:44 - CONCLUSION: No pneumothorax following thoracentesis. Bibasilar consolidations more pronounced on the right with tiny bilateral pleural effusions. Bobby Herndon Jr., MD Chest CT 05/03/17 0000 Signed Impressions: Service Date/Time: Wednesday, May 03, 2017 22:11 - CONCLUSION: 1. Moderate- sized left pleural effusion and small right pleural effusion. 2. Diffuse alveolar consolidation throughout the right mid and lower lung field and to a lesser extent the aerated portion left upper lung consistent with asymmetric pulmonary edema and/or pneumonia. Clinical correlation is recommended. 3. Left basilar compressive atelectasis and/or infiltrate. 4. Cardiomegaly and coronary artery calcifications. 5. Small pericardial effusion. 6. Cholelithiasis. 7. Degenerative changes within the thoracic spine. Yong Cox MD Abdomen/Pelvis CT 05/03/17 0000 Signed Impressions: Service Date/Time: Wednesday, May 03, 2017 22:11 - CONCLUSION: 1. Complex pelvic mass measuring 9.5 x 11.8 x 13.9 cm which raises the possibility of left ovarian neoplasm until proven otherwise. 2. Some ascites within the pelvis. 3. Moderate-sized left pleural effusion. 4. Small right pleural effusion. 5. Diffuse alveolar consolidation of the right lung and to a lesser extent the left lung base consistent with asymmetric pulmonary edema versus pneumonia. 6. Cardiomegaly. 7. Small pericardial effusion. Yong Cox MD Objective Remarks GENERAL: 66-year-old male resting in bed in no acute distress SKIN: warm/dry. Well perfused HEAD: Atraumatic. Normocephalic. EYES: Pupils equal and round about 2 mm bilaterally and reactive. No scleral icterus. No injection or drainage. ENT: No nasal bleeding or discharge. Mucous membranes moist. NECK: Trachea midline. No JVD. CARDIOVASCULAR: T RRR. S1, S2 no S4. Without murmur. RESPIRATORY: Decreased breath sounds bilateral lower lobes right greater than left. No wheezing. GASTROINTESTINAL: Abdomen soft, nondistended. Hypoactive bowel sounds are appreciated. MUSCULOSKELETAL: No obvious deformities. No edema. NEUROLOGICAL: Awake and alert. No obvious cranial nerve deficits. Motor grossly within normal limits. Normal speech. Urinary Catheter: No Assessment to: Continue Vascular Central Line Catheter: No Assessment to: Continue A/P Assessment and Plan NEURO/PSYCH: Acetaminophen 650 mg p.o. every 6 hours as needed fever Hydrocodone/acetaminophen 5/325 1 tablet every 4 hours as needed pain 1-5 Morphine sulfate 2 mg IV every 3 hours as needed pain 6-10 RESP: Acute hypoxemic respiratory failure Bilateral large pleural effusions, hemorrhagic Community-acquired pneumonia Currently on nasal cannula to maintain saturations greater than equal to 92% Incentive spirometry while awake Albuterol/ipratropium aerosols every 6 hours with albuterol aerosols every 2 hours as needed dyspnea CT thorax revealed left greater than right pleural effusions, and small pericardial effusion. -Use BiPAP if needed -Pleural fluid studies have been sent on 05/03 and 05/04. Follow-up on results Pending serum LDH CV: Coronary artery disease status post stent to LAD 05/04 Non-STEMI Probable CHF 2D echo pending Dyslipidemia Cardiology consult with Dr. Beckett, 2D echo pending As needed blood pressure control with hydralazine, labetalol Nitropaste Currently on carvedilol 6.25 mg p.o. twice daily Continue with aspirin 162 mg p.o. daily on 05/05 along with clopidogrel bisulfate 25 mg p.o. daily as stent has been placed. Careful monitoring with hemorrhagic effusion Home medications include metoprolol tartrate 25 mg daily and lisinopril 20 mg p.o. daily. Cholesterol 235. LDL elevated 172. On atorvastatin 80 mg p.o. daily Continue furosemide 40 mg IV daily. GI: Epigastric abdominal pain Cholelithiasis Currently on ADA diet Pantoprazole for GI prophylaxis Docusate sodium/senna 1 tablet twice daily for bowel regimen Check amylase/lipase -CT abdomen pelvis did reveal cholelithiasis. See below guide Renal/: Acute kidney injury Negative urine eosinophils. Possible urethral obstruction with ovarian mass. Monitor urine output Accurate I's and O's No signs of hydronephrosis on CT abdomen/pelvis -Monitor renal function closely. Place Jiménez catheter. -IV Lasix as above monitor renal function closely ID: Sepsis Community-acquired pneumonia with effusion -IV vancomycin ordered per pharmacy protocol. Continue cefepime and azithromycin day #2 Follow-up on blood cultures, urine culture, sputum culture, urine for Legionella and pneumococcal antigen, influenza A and B. HEME: Normocytic anemia -Monitor CBC, CMP, coags ENDO: Hyperglycemia Sliding scale insulin with Novulin R with Accu-Cheks to maintain euglycemia before meals/at bedtime medium protocol Check hemoglobin A1c TSH 1.08 FEN Hypomagnesia Hypopotassemia 2 g mag sulfate IV 1 now. 30 mg KCl p.o. 1 now. Recheck in a.m. [employer] Pelvic mass 9.5 x 11.8 x 13.9 cm. Possible ovarian CA versus other Dr. Becker to evaluate 05/06. Dr. Cash currently following CA 125-228.9 PROPH: -Bilateral lower extremity SCDs/ROBEL. Avoid heparin due to hemorrhagic effusion with concomitant aspirin and clopidogrel bisulfate use. Protonix for GI prophylaxis LINES: -Utilize peripheral IVs, central line if needed Level 2 follow-up Donis Delgado MD May 04, 2017 14:43
[2017-05-04] MEDS ORDERED: GLUCAGON 1 MG/ML VIAL OTHER PRN (14:45)
[2017-05-04] MEDS ORDERED: DEXTROSE 50% IN WATER 50 ML VIAL(D50) IV PUSH PRN (14:45)
[2017-05-04] MEDS ORDERED: NITROGLYCERIN 2% OINT 1 GM PACKET TOPICAL PRN (14:45)
[2017-05-04] MEDS ORDERED: hydrALAZINE HCL 20 MG/ML VIAL IV PUSH PRN (14:45)
[2017-05-04] MEDS ORDERED: LABETALOL HCL 100 MG/20 ML VIAL IV PUSH PRN (14:45)
[2017-05-04] MEDS ORDERED: POTASSIUM CHLORIDE 10 MEQ CONTROLLED RELEASE TAB PO ONE (15:00)
[2017-05-04] MEDS: MAGNESIUM SULFATE 1 GM PREMIX 100 ML IV SCH ×2 (15:13→16:00)
--- NOTE | 2017-05-04 16:39 | MB ---
cc: Mario Beckett MD DATE OF CONSULT: 05/04/2017 HISTORY OF PRESENT ILLNESS: Bhumi is a very pleasant 66-year-old lady who has no significant past medical history began developing shortness of breath 2 days prior to admission. The shortness of breath became severe. She went to the emergency room. She denies any chest pain, fevers or chills, GI/ bleeding, pain, orthopnea, syncope, or dizziness. She is coughing up "phlegm." She also complains of nausea, vomiting, epigastric abdominal pain. Found to have a saturation of 86% in the [facility] ED. PAST MEDICAL HISTORY: Includes hypertension. ALLERGIES: NONE. SOCIAL HISTORY: Denies tobacco or alcohol use. MEDICATIONS PRIOR TO ADMISSION: Metoprolol and lisinopril. MEDICATIONS IN THE HOSPITAL: Metoprolol 25 daily, Lasix 20 IV b.i.d. PHYSICAL EXAMINATION: VITAL SIGNS: Blood pressure 156/80, pulse 89, temperature 97.8, respiratory rate 22, sats 97% on 6 L. GENERAL: Note, the patient is sitting up 30 degrees due to severe orthopnea. She is alert and oriented in no acute distress. NECK: Supple. No JVD. No bruit. CARDIOVASCULAR: S1, S2. No murmurs, rubs, gallops. LUNGS: Notable for decreased air movement at the bases bilaterally. ABDOMEN: Soft, nontender, nondistended with positive bowel sounds. EXTREMITIES: No extremity edema. IMAGING: Chest x-ray: Moderate size left pleural effusion, probable moderate pulmonary vascular congestion, cardiomegaly. Chest CT: Moderate size left pleural effusion, small right pleural effusion, diffuse alveolar consolidation throughout the right mid and lower lung field and to a lesser extent the area portion left upper lung consistent with asymmetric pulmonary edema and/or pneumonia, left basilar compressive atelectasis and/or infiltrate, cardiomegaly and coronary artery calcification, small pericardial effusion, cholelithiasis, degenerative changes within the thoracic spine. Abdominopelvic CT: Complex pelvic mass measuring 9.5 x 11.8 x 13.9 cm, which raises the possibility of left ovarian neoplasm until proven otherwise, some ascites within the pelvis, moderate size left pleural effusion, small right pleural effusion, diffuse alveolar consolidation of the right lung and to a lesser extent the left lung base consistent with asymmetric pulmonary edema versus pneumonia, cardiomegaly, small pericardial effusion. Chest x-ray from today: Large left pleural effusion, significant increase in the size of right pleural effusion almost as large as contralateral side with probable associated parenchymal consolidation. EKG reveals sinus tachycardia at 103 bpm, right bundle branch block, left anterior fascicular block. LABORATORY DATA: White count 9.9, hemoglobin 9.9, hematocrit 30.6, platelet count 220. Sodium 142, potassium 3.5, chloride 103, bicarb 27.0, BUN 43, creatinine 1.60, glucose 229. Troponin is 0.30. Albumin 2.9, LDL is 172. LFTs normal. CA-125 antigen is 228.9, which is high. TSH is 1.080. DIAGNOSES: She has the following diagnoses: 1. Non-ST elevated myocardial infarction. 2. Large ovarian mass. 3. Pleural effusions. 4. Decompensated congestive heart failure. 5. Pneumonia. 6. Hyperlipidemia. 7. Acute renal failure. 8. Hypokalemia. 9. Anemia. 10. Hypertension. 11. Left anterior fascicular block. 12. Right bundle branch block. DISCUSSION: At this point in time, the patient has a very high risk presentation with decompensated congestive heart failure, elevated troponin and [place] [employer] Class IV congestive heart failure. I have talked to Dr. Delgado about her case and anticipating that she may need surgery, we need to rule out high grade large myocardial territory-type stenosis. Therefore, I do think right heart catheterization and left heart catheterization are medically necessary. Mario Beckett MD AWC/cc , 12:26 PM , 04:38 PM
[2017-05-04] MEDS: INSULIN NovoLIN REGULAR SUPPLEMENTAL SCALE SQ SCH ×2 (17:00→21:00)
[2017-05-04] MEDS ORDERED: FUROSEMIDE 40 MG/4 ML VIAL IV PUSH SCH (18:00)
--- NOTE | 2017-05-04 20:03 | MR ---
cc: Mario Beckett MD, Arthur W MD 05/04/2017 PROCEDURE: Right heart catheterization, left heart catheterization, left angiography, coronary angiography, direct PCI bare metal stent of the mid LAD. INDICATIONS: Non-STEMI, decompensated congestive heart failure, cardiomyopathy, preoperative noncardiac surgery. PROCEDURE IN DETAIL: The patient was brought to the cardiac catheterization laboratory, prepped and draped in usual sterile fashion. Lidocaine 10 mL, 1% was used to locally anesthetize the right common femoral artery. A 4-Dutch sheath placed in right common femoral artery, 5.5 sheath placed in the right common femoral vein. Right heart catheterization was performed first with the following findings: The pulmonary capillary wedge pressure was 38/43/33, V wave to 43 mmHg. PA pressure 62/31/46. RV pressure 62/11/16. RA pressure 15/14/13. On 6 liters nasal cannula, the femoral artery sat was 94.3%, PA sat 68.9% and the right atrial sat was 66.0%. By Preet, the cardiac output is 6.5 liters per minute. Cardiac index 6 liters per m2 per minute and the SVR is 1241.9 dynes. Left heart catheterization was then performed with a 4-Dutch JR4, JL4 catheter with the following findings: LV pressure is 160/21/29. The ejection fraction is 40% to 45%. Wall motion appears to be preserved in all segments in the [place] view. I note there is also mitral annular calcification of mild to moderate degree fluoroscopically. The right coronary artery is dominant, appears to have diffuse disease in the proximal to mid segment up to 30% to 40% angiographically. Mid to distal segment has moderate diffuse disease 50% angiographically. The right SHAYY has a proximal 70% stenosis reference vessel diameter of 2.25 mm in diameter. Right PDA is tortuous reference vessel diameter of 2 mm with no focal segmental stenosis. The left main coronary artery has no significant disease angiographically. The left circumflex vessel is a small vessel which is a 3.0 vessel proximally and then tapers down to about a 2 mm vessel supplying a small obtuse marginal vessel. This transition is about 70% to 75% stenotic, reference vessel diameter of 1.5 mm. There appears to be two high OMs/ramus vessels that are small vessel, 1 to 1.5 mm reference vessel diameter with the more medial branch having no significant disease and the more lateral branch being smaller with a mid 75% stenosis. LAD has mild disease proximally up to 10% to 20% angiographically. The first diagonal artery is a small vessel, reference vessel diameter 1 mm, with mild diffuse disease in the proximal segment up to 20% to 30% angiographically. Second diagonal artery also is a small vessel, 0.5 mm reference vessel diameter, with an ostial 40% to 50% stenosis. The third diagonal artery also is a small vessel 0.5 mm in diameter with no significant disease angiographically. The LAD is probably a 3.5 vessel proximal to the first septal fnp and then tapers down to probably a 2.5 mm reference vessel diameter. Between the second and third diagonal artery, there does appear to be a high-grade stenosis, particularly comparing to the more proximal reference vessel diameter. The vessel distal to this lesion probably has a reference vessel diameter of 2 mm, so it is a little bit difficult to differentiate how much of this is focal stenosis versus partially related to vessel tapering. Nevertheless, it does appear to be high grade. The patient is in significant decompensated congestive heart failure, orthopneic, unable to lie beyond 30 degrees, has what appears to be severe MR with a V wave to 43 by right heart pressure determination. I do think it is medically necessary to attempt PCI of this vessel. She does have a newly discovered ovarian mass and may require surgery. However, again I think the patient would be very high risk to undergo anesthesia and any surgery with the very profoundly decompensated congestive heart failure and coronary artery disease. I can only speculate that revascularization of this middle LAD may improve her hemodynamics, oxygenation status and symptoms. Therefore, a 4-Dutch sheath was exchanged for a 6-Dutch sheath. Heparin 70 units/kg was given ACT 292. A 6- Dutch XB 3.5 guide 0.014 [place] guidewire and a 2.5 x 12 Euphora balloon were used to pre-dilate the lesion 2 inflations of up to 6 atmospheres. Note: With just the balloon across the lesion, contrast was partially obstructed and the patient's pressure dropped immediately from about 150 down to about 100. There was JAVIER II flow around the un-inflated balloon. I then placed a 2.5 x 18 Integrity stent deployed with 1 inflation of 10 atmospheres for 20 seconds. CONCLUSION: 1. Non-ST elevation myocardial infarction decompensated congestive heart failure, markedly elevated left ventricular diastolic pressure and V wave to 43 mmHg suggesting moderate to severe mitral regurgitation, moderate to severe pulmonary hypertension. Suspect the culprit 90% stenosis in the mid left anterior descending. 2. Successful percutaneous coronary intervention bare metal stent of the mid left anterior descending from 90% to 0% with JAVIER III flow. 3. Otherwise, moderate to severe 3-vessel coronary artery disease in a right dominant system. 4. Mild to moderate left ventricular systolic dysfunction, ejection fraction of 40% to 45%. The cardiac index is 3.7 liters per m2 per minute. 5. Recommend Plavix 600 mg by mouth load, then 75 mg a day for at least 2 weeks preferably 4 weeks, optimally 6 weeks and 12 to 15 months if tolerated thereafter per Food and Drug Administration guidelines. Aspirin 162 mg daily, Aggrastat drip. I have given the patient 40 of IV Lasix in the catheterization lab. We will increase her daily dose to 40 IV b.i.d. Note: At this point in time, the patient remains high risk for noncardiac procedure given the profoundly decompensated congestive heart failure and markedly elevated left ventricular diastolic pressure equal to 29 mmHg. Hopefully, her hemodynamics and respiratory status will improve with revascularization, diuresis and her preoperative risk will decrease. MD SHER Garcia//rh , 12:15 PM , 06:47 PM
[2017-05-04] MEDS ORDERED: SODIUM CHLORIDE 0.9% FLUSH 10 ML FLUSH IV FLUSH SCH (21:00)
[2017-05-04] MEDS ORDERED: CARVEDILOL 3.125 MG TAB PO SCH ×2 (21:00)
[2017-05-04] MEDS: AZITHROMYCIN INJ 500 MG in SODIUM CHLOR 0.9% 250 ML INJ 250 ML IV SCH (21:11)
[2017-05-04] MEDS: CARVEDILOL 3.125 MG TAB PO SCH (21:11)
[2017-05-05] VITALS (24 sets, daily range): BP systolic 91–166; BP diastolic 43–74; PULSE 66–98; RESP 13–28; TEMP 97.9–98.6; O2SAT 93–100
[2017-05-05] MEDS: PROCHLORPERAZINE INJ 10 MG/2 ML VIAL IV PUSH PRN ×2 (02:01→19:44)
[2017-05-05] MEDS: RESP: ALBUTEROL 2.5 MG/IPRATROPIUM 0.5 MG NEB (SCH) INH ×4 (03:02→20:23)
[2017-05-05] MEDS: CHLORHEXIDINE GLUCONATE 2 % 1 PACK (2 CLOTHS) TOP SCH (03:49)
[2017-05-05] MEDS: CEFEPIME INJ 2,000 MG in SODIUM CHLORIDE 0.9% INJ 100 ML IV SCH ×3 (05:28→22:45)
[2017-05-05 06:03] LABS: BASOPHIL % 0.3 % (0.0-2.0); EOSINOPHIL % 0.4 % (0.0-4.0); HEMATOCRIT 28.7 % (35.0-46.0); HEMOGLOBIN 9.7 GM/DL (11.6-15.3); LYMPH % 8.7 % (9.0-44.0); LYMPHOCYTE # 0.7 TH/MM3 (1.0-4.8); MEAN CELL VOLUME 81.1 FL (80.0-100.0); MEAN CORPUSCULAR HEMOGLOBIN 27.4 PG (27.0-34.0); MEAN CORPUSCULAR HGB CONC 33.8 % (32.0-36.0); MEAN PLATELET VOLUME 8.1 FL (7.0-11.0); MONOCYTE # 0.8 TH/MM3 (0-0.9); NEUT % 81.6 % (16.0-70.0); PLATELET COUNT 203 TH/MM3 (150-450); RED BLOOD COUNT 3.54 MIL/MM3 (4.00-5.30); WHITE BLOOD COUNT 8.5 TH/MM3 (4.0-11.0)
--- NOTE | 2017-05-05 06:05 | RADRPT ---
EXAM DATE/TIME: 05/05/2017 03:42 [facility] COMPARISON: CHEST SINGLE AP, May 04, 2017, 9:44. INDICATIONS : Shortness of breath, possible pulmonary disease. MEDICAL HISTORY : Hypertension. SURGICAL HISTORY : None. ENCOUNTER: Subsequent ACUITY: 3 days PAIN SCORE: Non-responsive. LOCATION: Bilateral chest FINDINGS: Persistent bilateral lower lung partially consolidative infiltrates, stable on the right and increase d on the left. The upper lungs are clear. CONCLUSION: Bilateral lower lung infiltrates, stable on the right, and increasing on the left. Bobby Brambila MD on May 05, 2017 at 6:03 Board Certified Radiologist. This report was verified electronically.
[2017-05-05 06:36] LABS: ALBUMIN 2.6 GM/DL (3.4-5.0); ALKALINE PHOSPHATASE 71 U/L (45-117); ALT (GPT) 15 U/L (10-53); AST (GOT) 38 U/L (15-37); BICARBONATE 27.3 MEQ/L (21.0-32.0); BLOOD UREA NITROGEN 49 MG/DL (7-18); CALCIUM 8.5 MG/DL (8.5-10.1); CHLORIDE 104 MEQ/L (98-107); CREATININE 1.69 MG/DL (0.50-1.00); GLOMERULAR FILTRATION RATE 30 ML/MIN (>89); GLUCOSE,RANDOM 198 MG/DL (74-106); MAGNESIUM 2.1 MG/DL (1.5-2.5); PHOSPHORUS 3.5 MG/DL (2.5-4.9); RANDOM VANCOMYCIN 12.8 COMMENT; SODIUM (NA) 141 MEQ/L (136-145); TOTAL BILIRUBIN ADULT 0.5 MG/DL (0.2-1.0); TOTAL PROTEIN 5.5 GM/DL (6.4-8.2)
[2017-05-05] MEDS: INSULIN NovoLIN REGULAR SUPPLEMENTAL SCALE SQ SCH ×4 (08:00→21:00)
[2017-05-05] MEDS: FUROSEMIDE 40 MG/4 ML VIAL IV PUSH SCH (09:00)
[2017-05-05] MEDS: ASPIRIN 81 MG CHEW TAB PO SCH (09:17)
[2017-05-05] MEDS: CARVEDILOL 3.125 MG TAB PO SCH ×2 (09:17→21:37)
[2017-05-05] MEDS: DOCUSATE SODIUM 50 MG/SENNA 8.6 MG TAB PO SCH ×2 (09:17→21:00)
[2017-05-05] MEDS: CLOPIDOGREL 75 MG TAB PO SCH (09:18)
[2017-05-05] MEDS: PANTOPRAZOLE SOD 40 MG DELAYED RELEASE TAB PO SCH (09:18)
--- NOTE | 2017-05-05 12:17 | ECHRPT ---
Indication: cp CONCLUSIONS Normal left ventricular size. The left ventricular systolic function is moderately reduced with an estimated ejection fraction in the range of 40-45%. Global hypokinesis Mild mitral valve regurgitation. No aortic valve regurgitation. No aortic valve stenosis. There is mild tricuspid valve regurgitation. The estimated pulmonary arterial pressure is 34.6 mmHg. BP: / HR: Rhythm: MEASUREMENTS (Male / Female) Normal Values Technical Quality:Fair 2D ECHO LV Diastolic Diameter PLAX 4.8 cm 4.2 - 5.9 / 3.9 - 5.3 cm LV Systolic Diameter PLAX 4.0 cm IVS Diastolic Thickness 1.8 cm 0.6 - 1.0 / 0.6 - 0.9 cm LVPW Diastolic Thickness 1.1 cm 0.6 - 1.0 / 0.6 - 0.9 cm LV Relative Wall Thickness 0.6 RV Internal Dim ED PLAX 2.6 cm M-MODE Aortic Root Diameter MM 3.0 cm LA Systolic Diameter MM 3.7 cm LA Ao Ratio MM 1.2 AV Cusp Separation MM 1.5 cm DOPPLER Mitral E Point Velocity 82.9 cm/s Mitral A Point Velocity 52.3 cm/s Mitral E to A Ratio 1.6 LV E' Lateral Velocity 4.7 cm/s Mitral E to LV E' Lateral Ratio 17.7 LV E' Septal Velocity 4.0 cm/s Mitral E to LV E' Septal Ratio 20.7 TR Peak Velocity 248.0 cm/s TR Peak Gradient 24.6 mmHg Right Atrial Pressure 10.0 mmHg Pulmonary Artery Systolic Pressu 34.6 mmHg Right Ventricular Systolic Press 34.6 mmHg FINDINGS LEFT VENTRICLE Normal left ventricular size. The left ventricular systolic function is moderately reduced with an estimated ejection fraction in the range of 40-45%. RIGHT VENTRICLE Normal right ventricular size and systolic function. LEFT ATRIUM The left atrial size is normal. RIGHT ATRIUM The right atrial size is normal. ATRIAL SEPTUM Normal atrial septal thickness without atrial level shunting by limited color doppler interrogation. AORTA The aortic root and proximal ascending aorta are normal in size on limited imaging. MITRAL VALVE Structurally normal mitral valve. Mild mitral valve regurgitation. AORTIC VALVE Trileaflet aortic valve. No aortic valve regurgitation. No aortic valve stenosis. TRICUSPID VALVE Structurally normal tricuspid valve. There is mild tricuspid valve regurgitation. The estimated pulmonary arterial pressure is 34.6 mmHg. PULMONARY VALVE No pulmonary valve regurgitation or stenosis. VESSELS The inferior vena cava is normal in size. PERICARDIUM No pericardial effusion. Mariel Venegas MD, FACC (Electronically Signed) Final Date:05 May 2017 12:16
--- NOTE | 2017-05-05 12:45 | PD.CARD.PN ---
Subjective Subjective Remarks feels much better Objective Medications Current Medications Medications (Trade) Dose Ordered Sig/Lidia Route Start Time Stop Time Status Last Admin (NS Flush) 2 ml UNSCH PRN IV FLUSH 05/03/17 20:00 (NS Flush) 2 ml BID IV FLUSH 05/03/17 21:00 05/04/17 21:11 (Tylenol) 650 mg Q6H PRN PO 05/03/17 20:00 ([place] 5-325 Mg) 1 tab Q4H PRN PO 05/03/17 20:00 (Morphine Inj) 2 mg Q2H PRN IV PUSH 05/03/17 20:00 05/04/17 14:25 (Zofran Inj) 4 mg Q6H PRN IV PUSH 05/03/17 20:00 05/04/17 14:24 (Duoneb Neb) 1 ampule Q6HR NEB INH 05/03/17 22:00 05/05/17 08:38 (Albuterol Neb) 2.5 mg Q2HR NEB PRN INH 05/03/17 20:00 Miscellaneous Information 1 Q361D XX 05/03/17 20:00 (Chlorhexidine 2% Cloth) 3 pack Taper DAILY@04 TOP 05/04/17 04:00 04/30/18 03:59 05/05/17 03:49 (Chlorhexidine 2% Cloth) 3 pack UNSCH PRN TOP 05/03/17 20:00 ([place]-Colace) 1 tab BID PO 05/03/17 21:00 05/05/17 09:17 (Milk Of Magnesia Liq) 30 ml Q12H PRN PO 05/03/17 20:00 (Senokot) 17.2 mg Q12H PRN PO 05/03/17 20:00 (Dulcolax Supp) 10 mg DAILY PRN RECTAL 05/03/17 20:00 (Lactulose Liq) 30 ml DAILY PRN PO 05/03/17 20:00 Pharmacy Profile Note 0 ml @ 0 mls/hr UNSCH OTHER 05/03/17 20:00 Cefepime HCl 2000 mg/Sodium Chloride 100 ml @ 200 mls/hr Q8H IV 05/03/17 22:00 05/05/17 05:28 Azithromycin 500 mg/Sodium Chloride 250 ml @ 250 mls/hr Q24H IV 05/03/17 20:00 05/04/17 21:11 (Compazine Inj) 5 mg Q6H PRN IV PUSH 05/04/17 10:30 05/04/17 19:29 (Lipitor) 80 mg HS PO 05/05/17 21:00 (Aspirin Chew) 162 mg DAILY PO 05/05/17 09:00 05/05/17 09:17 (Plavix) 75 mg DAILY PO 05/05/17 09:00 05/05/17 09:18 Tirofiban/Sodium Chloride 250 ml @ 6.39 mls/hr Q24H IV 05/04/17 14:00 05/05/17 13:59 05/04/17 21:14 (D50w (Vial) Inj) 50 ml UNSCH PRN IV PUSH 05/04/17 14:45 (Glucagon Inj) 1 mg UNSCH PRN OTHER 05/04/17 14:45 (NovoLIN R SUPPLEMENTAL SCALE) 1 ACHS SLIDING SCALE SQ 05/04/17 17:00 05/05/17 09:58 (Trandate Inj) 10 mg Q1HR PRN IV PUSH 05/04/17 14:45 (Apresoline Inj) 10 mg Q1HR PRN IV PUSH 05/04/17 14:45 (Nitroglycerin 2% Oint) 2 inch Q6HR PRN TOPICAL 05/04/17 14:45 (Lasix Inj) 40 mg DAILY IV PUSH 05/05/17 09:00 05/05/17 09:00 (Protonix) 40 mg DAILY PO 05/05/17 09:00 05/05/17 09:18 (Compazine Inj) 5 mg Q6H PRN IV PUSH 05/04/17 20:00 05/05/17 02:01 (Coreg) 3.125 mg BID PO 05/04/17 21:00 05/05/17 09:17 Vital Signs / I&O Vital Signs Date Time Temp Pulse Resp B/P (MAP) Pulse Ox O2 Delivery O2 Flow Rate FiO2 05/05/17 10:00 87 05/05/17 09:45 91 22 96 05/05/17 09:30 91 27 94 05/05/17 09:15 90 24 97 05/05/17 09:00 91 20 123/59 (80) 94 05/05/17 08:45 90 19 100 05/05/17 08:39 98 Nasal Cannula 2.00 05/05/17 08:30 87 14 97 05/05/17 08:15 87 16 97 05/05/17 08:00 91 05/05/17 08:00 98.0 91 18 116/60 (78) 97 05/05/17 06:00 86 05/05/17 04:00 91 05/05/17 04:00 97.9 91 16 136/73 (94) 97 05/05/17 03:02 94 Nasal Cannula 3.00 05/05/17 03:00 90 13 136/69 (91) 95 05/05/17 02:00 86 05/05/17 02:00 86 27 166/74 (104) 96 05/05/17 01:00 80 28 111/60 (77) 94 05/05/17 00:00 81 05/05/17 00:00 98.2 81 15 110/59 (76) 93 05/04/17 23:00 84 14 112/61 (78) 96 05/04/17 22:30 87 16 109/55 (73) 96 05/04/17 22:00 92 05/04/17 22:00 92 15 109/57 (74) 95 05/04/17 21:30 93 19 120/60 (80) 97 05/04/17 21:19 95 Nasal Cannula 3.00 05/04/17 21:00 91 24 111/59 (76) 96 05/04/17 20:30 94 16 111/61 (78) 96 05/04/17 20:15 94 20 112/58 (76) 95 05/04/17 20:00 98.6 92 16 103/57 (72) 96 Arterial Line 05/04/17 20:00 92 05/04/17 19:50 87 35 92/59 (70) 92 Arterial Line 05/04/17 18:00 96 05/04/17 17:00 96 10 138/82 (100) 97 05/04/17 17:00 96 10 138/82 (100) 97 05/04/17 16:00 98.0 93 22 138/78 (98) 98 05/04/17 16:00 96 10 123/61 (81) 97 05/04/17 16:00 96 05/04/17 15:15 96 10 123/61 (81) 97 05/04/17 15:00 95 13 124/60 (81) 97 05/04/17 14:45 93 15 131/61 (84) 99 05/04/17 14:30 91 17 173/83 (113) 95 05/04/17 14:15 93 18 167/81 (109) 95 05/04/17 14:00 96 05/04/17 14:00 94 15 175/87 (116) 99 05/04/17 13:45 93 20 173/85 (114) 97 05/04/17 13:30 93 16 176/87 (116) 98 05/04/17 13:15 93 18 174/90 (118) 98 05/04/17 13:00 93 16 178/90 (119) 99 05/04/17 12:45 92 18 177/89 (118) 97 I/O 05/04/17 05/04/17 05/04/17 05/05/17 05/05/17 05/05/17 07:00 15:00 23:00 07:00 15:00 23:00 Intake Total 850 ml 700 ml 757 ml Output Total 675 ml 800 ml 650 ml Balance 175 ml -100 ml 107 ml Intake Oral 250 ml 480 ml IV Total 850 ml 450 ml 277 ml Output Urine Total 675 ml 800 ml 650 ml # Voids 2 # Bowel Movements 0 Physical Exam GENERAL: SKIN: Warm and dry. HEAD: Normocephalic. EYES: No scleral icterus. No injection or drainage. NECK: Supple, trachea midline. No JVD or lymphadenopathy. CARDIOVASCULAR: Regular rate and rhythm without murmurs, gallops, or rubs. RESPIRATORY: Breath sounds equal bilaterally. No accessory muscle use. GASTROINTESTINAL: Abdomen soft, non-tender, nondistended. MUSCULOSKELETAL: No cyanosis, or edema. BACK: Nontender without obvious deformity. No CVA tenderness. Laboratory Laboratory Tests Test 05/05/17 05:07 White Blood Count 8.5 TH/MM3 Red Blood Count 3.54 MIL/MM3 Hemoglobin 9.7 GM/DL Hematocrit 28.7 % Mean Corpuscular Volume 81.1 FL Mean Corpuscular Hemoglobin 27.4 PG Mean Corpuscular Hemoglobin Concent 33.8 % Red Cell Distribution Width 15.0 % Platelet Count 203 TH/MM3 Mean Platelet Volume 8.1 FL Neutrophils (%) (Auto) 81.6 % Lymphocytes (%) (Auto) 8.7 % Monocytes (%) (Auto) 9.0 % Eosinophils (%) (Auto) 0.4 % Basophils (%) (Auto) 0.3 % Neutrophils # (Auto) 7.0 TH/MM3 Lymphocytes # (Auto) 0.7 TH/MM3 Monocytes # (Auto) 0.8 TH/MM3 Eosinophils # (Auto) 0.0 TH/MM3 Basophils # (Auto) 0.0 TH/MM3 CBC Comment DIFF FINAL Differential Comment Blood Urea Nitrogen 49 MG/DL Creatinine 1.69 MG/DL Random Glucose 198 MG/DL Total Protein 5.5 GM/DL Albumin 2.6 GM/DL Calcium Level 8.5 MG/DL Phosphorus Level 3.5 MG/DL Magnesium Level 2.1 MG/DL Alkaline Phosphatase 71 U/L Aspartate Amino Transf (AST/SGOT) 38 U/L Alanine Aminotransferase (ALT/SGPT) 15 U/L Total Bilirubin 0.5 MG/DL Sodium Level 141 MEQ/L Potassium Level 3.4 MEQ/L Chloride Level 104 MEQ/L Carbon Dioxide Level 27.3 MEQ/L Anion Gap 10 MEQ/L Estimat Glomerular Filtration Rate 30 ML/MIN Total Creatine Kinase 268 U/L Creatine Kinase MB 11.0 NG/ML Creatine Kinase MB % 4.1 % B-Type Natriuretic Peptide 1022 PG/ML Random Vancomycin Level 12.8 COMMENT Imaging Last 24 hours Impressions Chest X-Ray 05/05/17 0600 Signed Impressions: Service Date/Time: Friday, May 05, 2017 03:42 - CONCLUSION: Bilateral lower lung infiltrates, stable on the right, and increasing on the left. Bobby Brambila MD Assessment and Plan Problem List: (1) CAD (coronary artery disease) ICD Codes: I25.10 - Atherosclerotic heart disease of [place] coronary artery without angina pectoris (2) CHF (congestive heart failure) ICD Codes: I50.9 - Heart failure, unspecified (3) Cardiomyopathy ICD Codes: I42.9 - Cardiomyopathy, unspecified (4) Ovarian mass ICD Codes: N83.9 - Noninflammatory disorder of ovary, fallopian tube and broad ligament, unspecified (5) Acute hypoxemic respiratory failure ICD Codes: J96.01 - Acute respiratory failure with hypoxia Assessment and Plan 1.) CAD - pod#1 bms mid lad, clinically improved, continue aspirin, plavix, 2.) CHF - f/u bnp Mario Beckett MD May 05, 2017 12:45
--- NOTE | 2017-05-05 13:44 | HHI.CCPN ---
Subjective Remarks/Hospital Course Patient is a 66-year-old female with past medical history only significant for hypertension who presented to the [facility] ED with 2 day history of productive cough increasing shortness of breath and weakness. She thought that she had flu but did not seek treatment. She also has nausea and vomiting and some epigastric abdominal pain. Initial oxygen saturation in [facility] ED 86% on room air. Tachycardic heart rate 107. An ABG on 3 L nasal cannula showed PO2 of 55. WBC count was normal, creatinine was elevated at 1.6 and a BNP was elevated at 2340 troponin elevated mildly at 0.23. Patient denies chest pain. A chest x-ray showed bilateral pleural effusions moderate- sized versus infiltrate. Patient received azithromycin and Rocephin in the ED. Transferred to [facility] for admission. I evaluated the patient in the [place] ICU. She appears to be in moderate distress due to dyspnea. Cannot lie down flat. Bedside ultrasound showed large bilateral pleural effusions. I performed a diagnostic and therapeutic right thoracentesis and removed 1.5 L of L blood tinged fluid. Fluid studies are pending at this time. Patient appears to have CHF and pneumonia. A 2D echo is pending. I will place patient on cefepime and azithromycin. Give single dose of vancomycin. Also due to elevated BNP and bilateral large effusions and hypoxia, start IV Lasix 20 mg every 12. Received 40 mg of Lasix and [place] [facility]. Subjective 05/05: -900 cc blood-tinged fluid removed from left pleural effusion today. Stent placed LAD by Dr. Beckett. Currently on nasal cannula. Denies chest pain, main complaint is nausea. 05/05: FiO2 requirement significantly decreased, post thoracentesis yesterday. Currently on 3 L per nasal cannula. Patient continues to complain of moderate nausea relieved with Compazine. Denies any chest pain. Objective Vital Signs Date Time Temp Pulse Resp B/P (MAP) Pulse Ox O2 Delivery O2 Flow Rate FiO2 05/05/17 10:00 87 05/05/17 09:45 22 96 05/05/17 09:00 123/59 (80) 05/05/17 08:39 Nasal Cannula 2.00 05/05/17 08:00 98.0 05/03/17 21:17 50 Intake and Output 05/05/17 05/05/17 05/06/17 08:00 16:00 00:00 Intake Total 657 ml Output Total 650 ml Balance 7 ml Result Diagram: 05/05/17 0507 05/05/17 0507 Other Results Microbiology Date/Time Source Procedure Growth Status 05/04/17 04:39 Urine Catheterized Urine Legionella Antigen - Final PRESUMPTIVE NEGATIVE FOR LEGIONELLA P... Complete 05/04/17 04:39 Urine Catheterized Urine Streptococcus pneumoniae Antigen (M - Final PRESUMPTIVE NEGATIVE FOR STREPTOCOCCU... Complete Imaging Last Impressions Chest X-Ray 05/05/17 0600 Signed Impressions: Service Date/Time: Friday, May 05, 2017 03:42 - CONCLUSION: Bilateral lower lung infiltrates, stable on the right, and increasing on the left. Bobby Brambila MD Chest CT 05/03/17 0000 Signed Impressions: Service Date/Time: Wednesday, May 03, 2017 22:11 - CONCLUSION: 1. Moderate- sized left pleural effusion and small right pleural effusion. 2. Diffuse alveolar consolidation throughout the right mid and lower lung field and to a lesser extent the aerated portion left upper lung consistent with asymmetric pulmonary edema and/or pneumonia. Clinical correlation is recommended. 3. Left basilar compressive atelectasis and/or infiltrate. 4. Cardiomegaly and coronary artery calcifications. 5. Small pericardial effusion. 6. Cholelithiasis. 7. Degenerative changes within the thoracic spine. Yong Cox MD Abdomen/Pelvis CT 05/03/17 0000 Signed Impressions: Service Date/Time: Wednesday, May 03, 2017 22:11 - CONCLUSION: 1. Complex pelvic mass measuring 9.5 x 11.8 x 13.9 cm which raises the possibility of left ovarian neoplasm until proven otherwise. 2. Some ascites within the pelvis. 3. Moderate-sized left pleural effusion. 4. Small right pleural effusion. 5. Diffuse alveolar consolidation of the right lung and to a lesser extent the left lung base consistent with asymmetric pulmonary edema versus pneumonia. 6. Cardiomegaly. 7. Small pericardial effusion. Yong Cox MD Last Impressions Chest X-Ray 05/04/17 0000 Signed Impressions: Service Date/Time: Thursday, May 04, 2017 09:44 - CONCLUSION: No pneumothorax following thoracentesis. Bibasilar consolidations more pronounced on the right with tiny bilateral pleural effusions. Bobby Herndon Jr., MD Chest CT 05/03/17 Signed Impressions: Service Date/Time: Wednesday, May 03, 2017 22:11 - CONCLUSION: 1. Moderate- sized left pleural effusion and small right pleural effusion. 2. Diffuse alveolar consolidation throughout the right mid and lower lung field and to a lesser extent the aerated portion left upper lung consistent with asymmetric pulmonary edema and/or pneumonia. Clinical correlation is recommended. 3. Left basilar compressive atelectasis and/or infiltrate. 4. Cardiomegaly and coronary artery calcifications. 5. Small pericardial effusion. 6. Cholelithiasis. 7. Degenerative changes within the thoracic spine. Yong Cox MD Abdomen/Pelvis CT 05/03/17 Signed Impressions: Service Date/Time: Wednesday, May 03, 2017 22:11 - CONCLUSION: 1. Complex pelvic mass measuring 9.5 x 11.8 x 13.9 cm which raises the possibility of left ovarian neoplasm until proven otherwise. 2. Some ascites within the pelvis. 3. Moderate-sized left pleural effusion. 4. Small right pleural effusion. 5. Diffuse alveolar consolidation of the right lung and to a lesser extent the left lung base consistent with asymmetric pulmonary edema versus pneumonia. 6. Cardiomegaly. 7. Small pericardial effusion. Yong Cox MD Procedures 05/04-left thoracentesis-900 cc Objective Remarks GENERAL: 66-year-old male resting in bed in no acute distress SKIN: warm/dry. Well perfused HEAD: Atraumatic. Normocephalic. EYES: Pupils equal and round about 2 mm bilaterally and reactive. No scleral icterus. No injection or drainage. ENT: No nasal bleeding or discharge. Mucous membranes moist. NECK: Trachea midline. No JVD. CARDIOVASCULAR: Regular rate and rhythm. S1, S2 no S4. Without murmur. RESPIRATORY: Decreased breath sounds bilateral lower lobes right greater than left. No wheezing. GASTROINTESTINAL: Abdomen soft, nondistended. Hypoactive bowel sounds are appreciated. MUSCULOSKELETAL: No obvious deformities. No edema. NEUROLOGICAL: GCS 15 Awake and alert. No obvious cranial nerve deficits. Motor grossly within normal limits. Normal speech. Urinary Catheter: Yes Assessment to: Continue Jiménez insert reason: ICU Pt Getting Diuretics Date of Insertion: May 03, 2017 A/P Assessment and Plan NEURO/PSYCH: Acetaminophen 650 mg p.o. every 6 hours as needed fever Hydrocodone/acetaminophen 5/325 1 tablet every 4 hours as needed pain 1-5 Morphine sulfate 2 mg IV every 3 hours as needed pain 6-10 RESP: Acute hypoxemic respiratory failure Bilateral large pleural effusions, hemorrhagic Community-acquired pneumonia Currently on nasal cannula to maintain saturations greater than equal to 92% Incentive spirometry while awake Albuterol/ipratropium aerosols every 6 hours with albuterol aerosols every 2 hours as needed dyspnea CT thorax revealed left greater than right pleural effusions, and small pericardial effusion. -Use BiPAP if needed -Pleural fluid studies have been sent on 05/03 and 05/04. Follow-up on results -Serum LDH 321 - F/U CXR in am CV: Coronary artery disease status post stent to LAD 05/04 Non-STEMI CHF Dyslipidemia Cardiology consult with Dr. Beckett, 2D echo pending As needed blood pressure control with hydralazine, labetalol Nitropaste Currently on carvedilol 6.25 mg p.o. twice daily Continue with aspirin 162 mg p.o. daily on 05/05 along with clopidogrel bisulfate 25 mg p.o. daily as stent has been placed. Careful monitoring with hemorrhagic effusion Home medications include metoprolol tartrate 25 mg daily and lisinopril 20 mg p.o. daily. Cholesterol 235. LDL elevated 172. On atorvastatin 80 mg p.o. daily Continue furosemide 40 mg IV daily. 05/05 -2D Echo-EF 40-45 %, global hypokinesis,PAP 34, mild TR GI: Epigastric abdominal pain Cholelithiasis Currently on ADA diet Pantoprazole for GI prophylaxis Docusate sodium/senna 1 tablet twice daily for bowel regimen -CT abdomen pelvis did reveal cholelithiasis. See below guide Renal/: Acute kidney injury Negative urine eosinophils. Possible urethral obstruction with ovarian mass. Monitor urine output Accurate I's and O's No signs of hydronephrosis on CT abdomen/pelvis -Monitor renal function closely. Place Jiménez catheter. -IV Lasix as above monitor renal function closely- Creatinine 1.69 ID: Sepsis Community-acquired pneumonia with effusion -IV vancomycin ordered per pharmacy protocol. Continue cefepime and azithromycin day #2 Follow-up on blood cultures, urine culture, sputum culture, 3/ urine for Legionella and pneumococcal antigen, influenza A and B.- Negative HEME: Normocytic anemia -Monitor CBC, CMP, coags ENDO: Hyperglycemia Sliding scale insulin with Novulin R with Accu-Cheks to maintain euglycemia before meals/at bedtime medium protocol Hemoglobin A1c- pending TSH 1.08 FEN Electrolyte derangement Replete electrolytes per ICU protocol [employer] Pelvic mass 9.5 x 11.8 x 13.9 cm. Possible ovarian CA versus other Dr. Becker to evaluate 05/06. Dr. Cash currently following CA 125-228.9 PROPH: -Bilateral lower extremity SCDs/ROBEL. Avoid heparin due to hemorrhagic effusion with concomitant aspirin and clopidogrel bisulfate use. Protonix for GI prophylaxis LINES: -Utilize peripheral IVs, central line if needed Level 2 follow-up Physician Neena Arias MD May 05, 2017 13:44
[2017-05-05] MEDS ORDERED: VANCOMYCIN INJ 1,250 MG in SODIUM CHLOR 0.9% 250 ML INJ 250 ML IV ONE (16:00)
--- NOTE | 2017-05-05 16:59 | PD.ONC.PN ---
Subjective Subjective Remarks The patient was seen and examined, vital signs, labs, medications, procedure notes reviewed. Subjectively the patient admits her breathing is improved, she feels overall improved when compared to yesterday. She is laying in bed and it is hard for her to make eye contact, she seems very disinterested and somewhat withdrawn. She tells me she feels depressed, he tells me this is a chronic problem for her and that she has not been on treatment for depression in the past. She denies overt bleeding, chest pain and her breathing is better compared to yesterday. Objective Data Date Time Temp Pulse Resp B/P (MAP) Pulse Ox O2 Delivery O2 Flow Rate FiO2 05/05/17 16:00 66 05/05/17 16:00 98.6 82 22 113/55 (74) 98 05/05/17 14:00 66 05/05/17 12:00 98.6 98 22 91/43 (59) 98 05/05/17 12:00 66 05/05/17 10:00 87 05/05/17 09:45 91 22 96 05/05/17 09:30 91 27 94 05/05/17 09:15 90 24 97 05/05/17 09:00 91 20 123/59 (80) 94 05/05/17 08:45 90 19 100 05/05/17 08:39 98 Nasal Cannula 2.00 05/05/17 08:30 87 14 97 05/05/17 08:15 87 16 97 05/05/17 08:00 91 05/05/17 08:00 98.0 91 18 116/60 (78) 97 05/05/17 06:00 86 05/05/17 04:00 91 05/05/17 04:00 97.9 91 16 136/73 (94) 97 05/05/17 03:02 94 Nasal Cannula 3.00 05/05/17 03:00 90 13 136/69 (91) 95 05/05/17 02:00 86 05/05/17 02:00 86 27 166/74 (104) 96 05/05/17 01:00 80 28 111/60 (77) 94 05/05/17 00:00 81 05/05/17 00:00 98.2 81 15 110/59 (76) 93 05/04/17 23:00 84 14 112/61 (78) 96 05/04/17 22:30 87 16 109/55 (73) 96 05/04/17 22:00 92 05/04/17 22:00 92 15 109/57 (74) 95 05/04/17 21:30 93 19 120/60 (80) 97 05/04/17 21:19 95 Nasal Cannula 3.00 05/04/17 21:00 91 24 111/59 (76) 96 05/04/17 20:30 94 16 111/61 (78) 96 05/04/17 20:15 94 20 112/58 (76) 95 05/04/17 20:00 98.6 92 16 103/57 (72) 96 Arterial Line 05/04/17 20:00 92 05/04/17 19:50 87 35 92/59 (70) 92 Arterial Line 05/04/17 18:00 96 05/04/17 17:00 96 10 138/82 (100) 97 05/04/17 17:00 96 10 138/82 (100) 97 05/05/17 05/05/17 05/05/17 07:00 15:00 23:00 Intake Total 757 ml Output Total 650 ml Balance 107 ml Result Diagram: 05/05/17 0507 05/05/17 0507 Laboratory Results Laboratory Tests Test 05/05/17 05:07 White Blood Count 8.5 TH/MM3 Red Blood Count 3.54 MIL/MM3 Hemoglobin 9.7 GM/DL Hematocrit 28.7 % Mean Corpuscular Volume 81.1 FL Mean Corpuscular Hemoglobin 27.4 PG Mean Corpuscular Hemoglobin Concent 33.8 % Red Cell Distribution Width 15.0 % Platelet Count 203 TH/MM3 Mean Platelet Volume 8.1 FL Neutrophils (%) (Auto) 81.6 % Lymphocytes (%) (Auto) 8.7 % Monocytes (%) (Auto) 9.0 % Eosinophils (%) (Auto) 0.4 % Basophils (%) (Auto) 0.3 % Neutrophils # (Auto) 7.0 TH/MM3 Lymphocytes # (Auto) 0.7 TH/MM3 Monocytes # (Auto) 0.8 TH/MM3 Eosinophils # (Auto) 0.0 TH/MM3 Basophils # (Auto) 0.0 TH/MM3 CBC Comment DIFF FINAL Differential Comment Blood Urea Nitrogen 49 MG/DL Creatinine 1.69 MG/DL Random Glucose 198 MG/DL Total Protein 5.5 GM/DL Albumin 2.6 GM/DL Calcium Level 8.5 MG/DL Phosphorus Level 3.5 MG/DL Magnesium Level 2.1 MG/DL Alkaline Phosphatase 71 U/L Aspartate Amino Transf (AST/SGOT) 38 U/L Alanine Aminotransferase (ALT/SGPT) 15 U/L Total Bilirubin 0.5 MG/DL Sodium Level 141 MEQ/L Potassium Level 3.4 MEQ/L Chloride Level 104 MEQ/L Carbon Dioxide Level 27.3 MEQ/L Anion Gap 10 MEQ/L Estimat Glomerular Filtration Rate 30 ML/MIN Total Creatine Kinase 268 U/L Creatine Kinase MB 11.0 NG/ML Creatine Kinase MB % 4.1 % B-Type Natriuretic Peptide 1022 PG/ML Random Vancomycin Level 12.8 COMMENT Culture Results Microbiology Date/Time Source Procedure Growth Status 05/03/17 21:07 Blood Peripheral Aerobic Blood Culture - Preliminary NO GROWTH IN 2 DAYS Resulted 05/03/17 21:07 Blood Peripheral Anaerobic Blood Culture - Preliminary NO GROWTH IN 2 DAYS Resulted 05/03/17 21:01 Blood Peripheral Aerobic Blood Culture - Preliminary NO GROWTH IN 2 DAYS Resulted 05/03/17 21:01 Blood Peripheral Anaerobic Blood Culture - Preliminary NO GROWTH IN 2 DAYS Resulted 05/03/17 20:00 Fluid Pleural Fluid Fungal Smear - Final NO FUNGAL ELEMENTS SEEN. Resulted 05/03/17 20:00 Fluid Pleural Fluid Fungal Culture Pending Resulted 05/03/17 20:00 Fluid Pleural Fluid Acid Fast Stain - Final NO ACID FAST BACILLI SEEN Resulted 05/03/17 20:00 Fluid Pleural Fluid Mycobacterial Culture Pending Resulted 05/03/17 20:00 Fluid Pleural Fluid Gram Stain - Final Resulted 05/03/17 20:00 Fluid Pleural Fluid Body Fluid Culture - Preliminary NO GROWTH IN 48 HOURS. Resulted 05/04/17 04:39 Sputum Expectorated Sputum Gram Stain - Final Resulted 05/04/17 04:39 Sputum Expectorated Sputum Sputum Culture - Preliminary HEAVY GROWTH NORMAL RESPIRATORY PAMELA... Resulted 05/04/17 04:39 Urine Catheterized Urine Urine Culture - Preliminary NO GROWTH IN 24 HOURS. Resulted 05/04/17 04:39 Urine Catheterized Urine Legionella Antigen - Final PRESUMPTIVE NEGATIVE FOR LEGIONELLA P... Complete 05/04/17 04:39 Urine Catheterized Urine Streptococcus pneumoniae Antigen (M - Final PRESUMPTIVE NEGATIVE FOR STREPTOCOCCU... Complete Imaging Studies Last 24 hours Impressions Chest X-Ray 05/05/17 0600 Signed Impressions: Service Date/Time: Friday, May 05, 2017 03:42 - CONCLUSION: Bilateral lower lung infiltrates, stable on the right, and increasing on the left. Bobby Brambila MD Administered Medications Medications (Trade) Dose Ordered Sig/Lidia Route PRN Reason Start Time Stop Time Status Last Admin Dose Admin Sodium Chloride (NS Flush) 2 ml BID IV FLUSH 05/03/17 21:00 05/04/17 21:11 Morphine Sulfate (Morphine Inj) 2 mg Q2H PRN IV PUSH PAIN SCALE 6 TO 10 05/03/17 20:00 05/04/17 14:25 Ondansetron HCl (Zofran Inj) 4 mg Q6H PRN IV PUSH NAUSEA OR VOMITING 05/03/17 20:00 05/04/17 14:24 Albuterol/ Ipratropium (Duoneb Neb) 1 ampule Q6HR NEB INH 05/03/17 22:00 05/05/17 14:05 Chlorhexidine Gluconate (Chlorhexidine 2% Cloth) 3 pack Taper DAILY@04 TOP 05/04/17 04:00 04/30/18 03:59 05/05/17 03:49 Senna/Docusate Sodium ([place]-Colace) 1 tab BID PO 05/03/17 21:00 05/05/17 09:17 Cefepime HCl 2000 mg/Sodium Chloride 100 ml @ 200 mls/hr Q8H IV 05/03/17 22:00 05/05/17 05:28 Azithromycin 500 mg/Sodium Chloride 250 ml @ 250 mls/hr Q24H IV 05/03/17 20:00 05/04/17 21:11 Prochlorperazine Edisylate (Compazine Inj) 5 mg Q6H PRN IV PUSH NAUSEA OR VOMITING 05/04/17 10:30 05/04/17 19:29 Aspirin (Aspirin Chew) 162 mg DAILY PO 05/05/17 09:00 05/05/17 09:17 Clopidogrel Bisulfate (Plavix) 75 mg DAILY PO 05/05/17 09:00 05/05/17 09:18 Insulin Human Regular (NovoLIN R SUPPLEMENTAL SCALE) 1 ACHS SLIDING SCALE SQ 05/04/17 17:00 05/05/17 09:58 Furosemide (Lasix Inj) 40 mg DAILY IV PUSH 05/05/17 09:00 05/05/17 09:00 Pantoprazole Sodium (Protonix) 40 mg DAILY PO 05/05/17 09:00 05/05/17 09:18 Prochlorperazine Edisylate (Compazine Inj) 5 mg Q6H PRN IV PUSH Breakthrough nausea 05/04/17 20:00 05/05/17 02:01 Carvedilol (Coreg) 3.125 mg BID PO 05/04/17 21:00 05/05/17 09:17 Objective Remarks GENERAL PHYSICAL APPEARANCE: Ms. Simpson is an elderly lady, she is sitting up in bed, she appears to be uncomfortable and nauseated. HEENT: Head is atraumatic, normocephalic, conjunctivae are mildly pale, sclerae are anicteric, EOMI, PERRLA. ORAL EXAM: No pharyngeal erythema. NECK: No palpable cervical or supraclavicular lymphadenopathy. RESPIRATORY EXAM: Good air movement over the upper and middle lung zones, decreased bibasilar breath sounds. CARDIOVASCULAR: Regular rate and rhythm, S1, S2. No obvious murmurs, rubs or gallops. ABDOMINAL EXAM: Protuberant belly, soft, fullness noted in the pelvic area, some tenderness but no organ enlargement. LOWER EXTREMITIES: Bilateral pretibial edema. No calf tenderness, her limbs are cool to the touch. No other abnormal findings noted. Assessment/Plan Assessment Ms. Simpson is a 66-year-old female who presents to [facility] with complaints of increasing difficulty breathing, cough, abdominal distention, pain and belching. She was noted to be in hypoxic respiratory failure. CT of the chest revealed a moderate to large-sized left-sided pleural effusion associated with alveolar infiltrates involving the right and the left lung concerning for multifocal pneumonia. She has undergone a therapeutic/diagnostic thoracentesis with 900 mL pleural fluid removed from the left hemithorax. CT imaging of the abdomen and pelvis revealed a large complex cystic mass arising from the left adnexa, findings were described as ovarian carcinoma until proven otherwise by our radiologist. Her CA-125 level is elevated as well. Additional medical issues that are active at this time include elevated cardiac enzymes as well as renal insufficiency, the chronicity of which is not known. Plan 1. Left pelvic mass arising from the left ovary: Await pleural fluid cytology. 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 If her pleural fluid cytology is negative, it appears we will have to wait at least 4 weeks before the patient can be taken off of Plavix to perform a biopsy on the pelvic mass. Per Dr. Beckett's note, 6 weeks of Plavix therapy is considered optimal following placement of a bare metal stent. 2. Coronary artery disease associated with congestive heart failure: Status post bare metal stent placement on 05/04/2017 to the mid left anterior descending artery with pentecostalism of arterial flow. 3. Multifocal pneumonia: On broad-spectrum antibiotics. I will sign this patient out to Dr. Becker our gynecologic oncologist so he may evaluate the patient on 05/06/2017. Guanako Cash MD May 05, 2017 16:59
[2017-05-05] MEDS: SODIUM CHLORIDE 0.9% FLUSH 10 ML FLUSH IV FLUSH SCH ×2 (21:00→21:37)
[2017-05-05] MEDS: LORazepam 0.5 MG TAB PO PRN (21:37)
[2017-05-05] MEDS: ATORVASTATIN 80 MG TAB PO SCH (21:37)
[2017-05-05] MEDS: AZITHROMYCIN INJ 500 MG in SODIUM CHLOR 0.9% 250 ML INJ 250 ML IV SCH (21:37)
[2017-05-06] VITALS (14 sets, daily range): BP systolic 98–115; BP diastolic 50–61; PULSE 74–83; RESP 19–27; TEMP 97.6–98.4; O2SAT 91–99
[2017-05-06] MEDS: CHLORHEXIDINE GLUCONATE 2 % 1 PACK (2 CLOTHS) TOP SCH (04:00)
[2017-05-06] MEDS: RESP: ALBUTEROL 2.5 MG/IPRATROPIUM 0.5 MG NEB (SCH) INH ×4 (04:14→21:14)
--- NOTE | 2017-05-06 05:41 | RADRPT ---
EXAM DATE/TIME: 05/06/2017 04:08 [place] COMPARISON: CT THORAX W/O CONTRAST, May 03, 2017, 22:11. CHEST SINGLE AP, May 05, 2017, 3:42. INDICATIONS : Shortness of breath, possible pulmonary. MEDICAL HISTORY : Hypertension. SURGICAL HISTORY : None. ENCOUNTER: Subsequent ACUITY: 4 - 6 days PAIN SCORE: Non-responsive. LOCATION: Bilateral chest FINDINGS: Rotated portable AP view of the chest demonstrates a normal-sized cardiac silhouette. There are bibas ilar pleural-parenchymal opacities with increased airspace opacity in the left midlung zone. No pneum othorax is visualized. The bones and soft tissues demonstrate no acute finding. CONCLUSION: Persistent but increased bibasilar opacities likely representing pleural effusions with associated vo lume loss and/or airspace consolidation. Cristian Dewitt MD on May 06, 2017 at 5:38 Board Certified Radiologist. This report was verified electronically.
[2017-05-06] MEDS: CEFEPIME INJ 2,000 MG in SODIUM CHLORIDE 0.9% INJ 100 ML IV SCH ×3 (05:42→21:33)
[2017-05-06] MEDS: INSULIN NovoLIN REGULAR SUPPLEMENTAL SCALE SQ SCH ×4 (08:00→20:38)
[2017-05-06] MEDS ORDERED: IOHEXOL 350 MG/ML 100 ML BTL (for Cath Lab) OTHER ONE (08:24)
[2017-05-06] MEDS ORDERED: IOHEXOL 350 MG/ML 50 ML BTL (for Cath Lab) OTHER ONE (08:24)
--- NOTE | 2017-05-06 08:42 | PD.CONS ---
History of Present Illness Service wellness assistant/onc Consult Requested By Dr. Foster Reason for Consult pelvic mass appears to be arising from left ovary elevated CA 125 Primary Care Physician No Primary Care Physician Diagnoses: (1) Ovarian mass History of Present Illness This is a 66 year old female who presented to [facility] ER for respiratory distress. She reports she thought she had the flu and was having difficulty breathing for a couple of days. She denies any abdominal pain, vaginal bleeding or fevers. She states she has a PMH of reflux and thought that had gotten worse recently with nausea for the past few days. CT scan obtained in ER shown large left plural effusion, smaller right effusion and left large complex pelvic mass. Her oxygen saturation was low at 88% and the concern was with elevated BNP and troponin that she needed cardiac workup for CHF and cardiac event. She was transferred to [place] in [facility] to ICU for respiratory failure, CHF and cardiac evaluation. She was seen in consult by Dr. Beckett and cardiac cath shown blockage to LAD, stent placed and she was started on daily anticoagulation for which she will have to stay on for at least 6 weeks. She has also had bilateral drainage of plural effusions. She was seen in consult by Dr. Cash who ordered fluid to be sent for cytology in hopes to obtain diagnosis. Review of Systems Constitutional: COMPLAINS OF: Fatigue, Change in appetite Respiratory: COMPLAINS OF: Shortness of breath Cardiovascular: COMPLAINS OF: Lower Extremity Edema Gastrointestinal: COMPLAINS OF: Nausea Past Family Social History Allergies: Coded Allergies: No Known Allergies (Unverified , 05/03/17) Past Medical History Hypertension 4, para 4, all vaginal births Past Surgical History The patient had a depressed skull fracture when she was a child. Reported Medications per EMR Active Ordered Medications Current Medications Ondansetron HCl (Zofran Inj) 4 mg STK-MED ONCE .ROUTE Last administered on at 20:00; Start 05/03/17 at 19:46; Stop 05/03/17 at 19:47; Status DC Morphine Sulfate (Morphine Inj) 2 mg STK-MED ONCE .ROUTE ; Start 05/03/17 at 19: 46; Stop 05/03/17 at 19:47; Status DC Sodium Chloride (NS Flush) 2 ml UNSCH PRN IV FLUSH FLUSH AFTER USING IV ACCESS ; Start 05/03/17 at 20:00 Sodium Chloride (NS Flush) 2 ml BID IV FLUSH Last administered on 05/05/17at 21: 00; Start 05/03/17 at 21:00 Acetaminophen (Tylenol) 650 mg Q6H PRN PO FOR FEVER; Start 05/03/17 at 20:00 Acetaminophen/ Hydrocodone Bitart (Hudson 5-325 Mg) 1 tab Q4H PRN PO PAIN SCALE 1 TO 5; Start 05/03/17 at 20:00 Morphine Sulfate (Morphine Inj) 2 mg Q2H PRN IV PUSH PAIN SCALE 6 TO 10 Last administered on 05/04/17at 14:25; Start 05/03/17 at 20:00 Pantoprazole Sodium (Protonix Inj) 40 mg DAILY IV PUSH Last administered on 05/04at 09:39; Start 05/04/17 at 09:00; Stop 05/04/17 at 14:45; Status DC Ondansetron HCl (Zofran Inj) 4 mg Q6H PRN IV PUSH NAUSEA OR VOMITING Last administered on 05/04/17at 14:24; Start 05/03/17 at 20:00 Albuterol/ Ipratropium (Duoneb Neb) 1 ampule Q6HR NEB INH Last administered on 05/06/17at 04:14; Start 05/03/17 at 22:00 Albuterol Sulfate (Albuterol Neb) 2.5 mg Q2HR NEB PRN INH SOB/WHEEZING; Start 05/03/17 at 20:00 Heparin Sodium (Porcine) (Heparin Inj) 5,000 units Q12H SQ Last administered on 05/03/17at 21:34; Start 05/03/17 at 20:00; Stop 05/04/17 at 12:50; Status DC Miscellaneous Information 1 Q361D XX ; Start 05/03/17 at 20:00 Chlorhexidine Gluconate (Chlorhexidine 2% Cloth) 3 pack Taper DAILY@04 TOP Last administered on 05/05/17at 03:49; Start 05/04/17 at 04:00; Stop 04/30/18 at 03 :59 Chlorhexidine Gluconate (Chlorhexidine 2% Cloth) 3 pack UNSCH PRN TOP HYGIENIC CARE; Start 05/03/17 at 20:00 Senna/Docusate Sodium (Carolina-Colace) 1 tab BID PO Last administered on 05/05/17at 09:17; Start 05/03/17 at 21:00 Magnesium Hydroxide (Milk Of Magnesia Liq) 30 ml Q12H PRN PO Mild constipation ; Start 05/03/17 at 20:00 Sennosides (Senokot) 17.2 mg Q12H PRN PO Moderate constipation; Start 05/03/17 at 20:00 Bisacodyl (Dulcolax Supp) 10 mg DAILY PRN RECTAL SEVERE CONSITIPATION; Start at 20:00 Lactulose (Lactulose Liq) 30 ml DAILY PRN PO SEVERE CONSITIPATION; Start at 20:00 Dextrose (D50w (Vial) Inj) 50 ml UNSCH PRN IV PUSH HYPOGLYCEMIA-SEE COMMENTS; Start 05/03/17 at 20:00; Stop 05/04/17 at 14:33; Status DC Glucagon (Glucagon Inj) 1 mg STAT PRN IM HYPOGLYCEMIA-SEE COMMENTS; Start at 20:00; Stop 05/04/17 at 14:33; Status DC Sodium Chloride (NS Flush) 2 ml UNSCH PRN IV FLUSH FLUSH AFTER USING IV ACCESS ; Start 05/03/17 at 20:00; Status UNV Sodium Chloride (NS Flush) 2 ml BID IV FLUSH ; Start 05/03/17 at 21:00; Status UNV Pharmacy Profile Note 0 ml @ 0 mls/hr UNSCH OTHER ; Start 05/03/17 at 20:00 Cefepime HCl 2000 mg/Sodium Chloride 100 ml @ 200 mls/hr Q8H IV Last administered on 05/06/17at 05:42; Start 05/03/17 at 22:00 Azithromycin 500 mg/Sodium Chloride 250 ml @ 250 mls/hr Q24H IV Last administered on 05/05/17at 21:37; Start 05/03/17 at 20:00 Miscellaneous Information 1 Q361D XX ; Start 05/03/17 at 20:00; Status UNV Aspirin (Aspirin Chew) 162 mg DAILY CHEW Last administered on 05/04/17at 09:40; Start 05/04/17 at 09:00; Stop 05/04/17 at 12:50; Status DC Metoprolol Tartrate (Lopressor) 25 mg DAILY PO Last administered on 05/04/17at 09 :40; Start 05/04/17 at 09:00; Stop 05/04/17 at 12:33; Status DC Labetalol HCl (Trandate Inj) 10 mg Q1HR PRN IV PUSH SBP>160, DBP>90, HR>65 Last administered on 05/04/17at 06:37; Start 05/03/17 at 20:00; Stop 05/04/17 at 14: 41; Status DC Hydralazine HCl (Apresoline Inj) 10 mg Q1HR PRN IV PUSH SBP>160, DBP>90 Last administered on 05/04/17at 14:25; Start 05/03/17 at 20:00; Stop 05/04/17 at 14:41; Status DC Nitroglycerin (Nitroglycerin 2% Oint) 2 inch Q6HR PRN TOPICAL SBP>160, DBP>90; Start 05/03/17 at 20:00; Stop 05/04/17 at 14:42; Status DC Furosemide (Lasix Inj) 20 mg ONCE IV PUSH ; Start 05/03/17 at 20:45; Stop at 21:00; Status DC Furosemide (Lasix Inj) 20 mg BID@,18 IV PUSH Last administered on 05/04/17at 09 :40; Start 05/04/17 at 09:00; Stop 05/04/17 at 12:29; Status DC Morphine Sulfate (Morphine Inj) 2 mg Q3H PRN IV PUSH pain 5-10; Start 05/03/17 at 21:00; Stop 05/04/17 at 14:45; Status DC Vancomycin HCl 1750 mg/Sodium Chloride 517.5 ml @ 250 mls/hr ONCE ONCE IV Last administered on 05/03/17at 23:53; Start 05/03/17 at 23:00; Stop 05/04/17 at 01: 04; Status DC Vancomycin HCl 1000 mg/Sodium Chloride 250 ml @ 250 mls/hr ONCE ONCE IV ; Start 05/03/17 at 21:15; Stop 05/03/17 at 22:14; Status UNV Midazolam HCl (Versed Inj) 2 mg ONCE ONCE IV PUSH Last administered on at 09:38; Start 05/04/17 at 09:00; Stop 05/04/17 at 09:01; Status DC Fentanyl Citrate (fentaNYL INJ) 50 mcg ONCE ONCE IV PUSH Last administered on 05/04/17at 09:39; Start 05/04/17 at 09:00; Stop 05/04/17 at 09:01; Status DC Prochlorperazine Edisylate (Compazine Inj) 5 mg Q6H PRN IV PUSH NAUSEA OR VOMITING Last administered on 05/05/17at 19:44; Start 05/04/17 at 10:30 Heparin Sodium/ Sodium Chloride 2,000 ml @ As Directed STK-MED ONCE IV FLUSH ; Start 05/04/17 at 11:14; Stop 05/04/17 at 11:15; Status DC Heparin Sodium (Porcine) (Heparin Inj) 10,000 units STK-MED ONCE .ROUTE ; Start 05/04/17 at 11:44; Stop 05/04/17 at 11:45; Status DC Furosemide (Lasix Inj) 40 mg STK-MED ONCE .ROUTE ; Start 05/04/17 at 11:47; Stop 05/04/17 at 11:48; Status DC Clopidogrel Bisulfate (Plavix) 600 mg STK-MED ONCE .ROUTE ; Start 05/04/17 at 11: 57; Stop 05/04/17 at 11:58; Status DC Tirofiban/Sodium Chloride 250 ml @ As Directed STK-MED ONCE IV ; Start 05/04/17 at 11:57; Stop 05/04/17 at 11:58; Status DC Furosemide (Lasix Inj) 40 mg BID@ IV PUSH ; Start 05/04/17 at 18:00; Stop at 18:00; Status DC Atorvastatin Calcium (Lipitor) 80 mg ONCE ONCE PO Last administered on at 14:12; Start 05/04/17 at 12:30; Stop 05/04/17 at 12:45; Status DC Atorvastatin Calcium (Lipitor) 80 mg HS PO Last administered on 05/05/17at 21:37 ; Start 05/05/17 at 21:00 Sodium Chloride (NS Flush) 2 ml UNSCH PRN IV FLUSH FLUSH AFTER USING IV ACCESS ; Start 05/04/17 at 12:30; Stop 05/04/17 at 12:50; Status DC Sodium Chloride (NS Flush) 2 ml BID IV FLUSH ; Start 05/04/17 at 21:00; Stop 05/04 at 21:00; Status DC Aspirin (Aspirin Chew) 162 mg DAILY PO Last administered on 05/05/17at 09:17; Start 05/05/17 at 09:00 Clopidogrel Bisulfate (Plavix) 600 mg ONCE ONCE PO ; Start 05/04/17 at 12:30; Stop 05/04/17 at 12:48; Status DC Clopidogrel Bisulfate (Plavix) 75 mg DAILY PO Last administered on 05/05/17at 09: 18; Start 05/05/17 at 09:00 Tirofiban/Sodium Chloride 250 ml @ 6.39 mls/hr Q24H IV Last administered on 05/04/17at 21:14; Start 05/04/17 at 14:00; Stop 05/05/17 at 13:59; Status DC Miscellaneous Information 1 ONCE ONCE XX ; Start 05/04/17 at 12:30; Stop at 12:49; Status DC Bacitracin (Bacitracin Oint Packet) 0.9 gm ONCE ONCE TOP ; Start 05/04/17 at 12: 30; Stop 05/04/17 at 12:47; Status DC Carvedilol (Coreg) 3.125 mg BID PO ; Start 05/04/17 at 21:00; Stop 05/04/17 at 21: 00; Status DC Dextrose (D50w (Vial) Inj) 50 ml UNSCH PRN IV PUSH HYPOGLYCEMIA-SEE COMMENTS; Start 05/04/17 at 14:45 Glucagon (Glucagon Inj) 1 mg UNSCH PRN OTHER HYPOGLYCEMIA-SEE COMMENTS; Start 05/04/17 at 14:45 Insulin Human Regular (NovoLIN R SUPPLEMENTAL SCALE) 1 ACHS SLIDING SCALE SQ Last administered on 05/05/17at 17:00; Start 05/04/17 at 17:00 Labetalol HCl (Trandate Inj) 10 mg Q1HR PRN IV PUSH SBP>160, DBP>90, HR>65; Start 05/04/17 at 14:45 Hydralazine HCl (Apresoline Inj) 10 mg Q1HR PRN IV PUSH SBP>160, DBP>90; Start 05/04/17 at 14:45 Nitroglycerin (Nitroglycerin 2% Oint) 2 inch Q6HR PRN TOPICAL SBP>160, DBP>90; Start 05/04/17 at 14:45 Carvedilol (Coreg) 6.25 mg BID PO ; Start 05/04/17 at 21:00; Stop 05/04/17 at 21: 00; Status DC Furosemide (Lasix Inj) 40 mg DAILY IV PUSH Last administered on 05/05/17 09:00 ; Start 05/05/17 at 09:00 Pantoprazole Sodium (Protonix) 40 mg DAILY PO Last administered on 05/05/17 09: 18; Start 05/05/17 at 09:00 Magnesium Sulfate/ Dextrose 100 ml @ 100 mls/hr Q1H IV Last administered on 16:00; Start 05/04/17 at 15:00; Stop 05/04/17 at 16:59; Status DC Potassium Chloride (KCl) 30 meq ONCE ONCE PO Last administered on 05/04/17at 15: 12; Start 05/04/17 at 15:00; Stop 05/04/17 at 15:01; Status DC Prochlorperazine Edisylate (Compazine Inj) 5 mg Q6H PRN IV PUSH Breakthrough nausea Last administered on 05/05/17at 02:01; Start 05/04/17 at 20:00 Carvedilol (Coreg) 3.125 mg BID PO Last administered on 05/05/17at 21:37; Start 05/04/17 at 21:00 Vancomycin HCl 1250 mg/Sodium Chloride 262.5 ml @ 250 mls/hr ONCE ONCE IV Last administered on 05/05/17 16:00; Start 05/05/17 at 16:00; Stop 05/05/17 at 17: 02; Status DC Citalopram Hydrobromide (CeleXA) 20 mg DAILY PO ; Start 05/06/17 at 09:00 Lorazepam (Ativan) 0.5 mg Q8H PRN PO ANXIETY Last administered on 05/05/17 21: 37; Start 05/05/17 at 21:15 Family History denies any cancer Social History The patient is , she lives at home with her adult daughter. worked as IT COMPLIANCE MANAGER Physical Exam Vital Signs Vital Signs Date Time Temp Pulse Resp B/P (MAP) Pulse Ox O2 Delivery O2 Flow Rate FiO2 05/06/17 06:00 81 05/06/17 04:00 98.3 81 19 115/61 (79) 91 05/06/17 04:00 81 05/06/17 02:00 77 05/06/17 00:00 98.3 74 19 101/54 (70) 94 05/06/17 00:00 74 05/05/17 22:00 82 05/05/17 20:23 95 Nasal Cannula 3.00 05/05/17 20:00 81 05/05/17 20:00 98.2 81 25 106/58 (74) 98 05/05/17 18:00 66 05/05/17 16:00 66 05/05/17 16:00 98.6 82 22 113/55 (74) 98 05/05/17 14:00 66 05/05/17 12:00 98.6 98 22 91/43 (59) 98 05/05/17 12:00 66 05/05/17 10:00 87 05/05/17 09:45 91 22 96 05/05/17 09:30 91 27 94 05/05/17 09:15 90 24 97 05/05/17 09:00 91 20 123/59 (80) 94 05/05/17 08:45 90 19 100 05/05/17 08:39 98 Nasal Cannula 2.00 05/05/17 08:30 87 14 97 Physical Exam GENERAL: This is a well-nourished, well-developed patient, in no apparent distress. SKIN: No rashes, ecchymoses or lesions. Cool and dry. HEAD: Atraumatic. Normocephalic. No temporal or scalp tenderness. EYES: Pupils equal round and reactive. Extraocular motions intact. No scleral icterus. No injection or drainage. CARDIOVASCULAR: Regular rate and rhythm without murmurs, gallops, or rubs. RESPIRATORY: Clear to auscultation. Breath sounds equal bilaterally. No wheezes , rales, or rhonchi. diminished in bases bilat GASTROINTESTINAL: Abdomen soft, non-tender, nondistended. No guarding. MUSCULOSKELETAL: Extremities without clubbing, cyanosis, or edema. Negative Homans sign bilaterally. NEUROLOGICAL: Awake and alert. Normal speech. Laboratory Date/Time Source Procedure Growth Status 05/03/17 21:07 Blood Peripheral Aerobic Blood Culture - Preliminary NO GROWTH IN 2 DAYS Resulted 05/03/17 21:07 Blood Peripheral Anaerobic Blood Culture - Preliminary NO GROWTH IN 2 DAYS Resulted 05/03/17 20:00 Fluid Pleural Fluid Fungal Smear - Final NO FUNGAL ELEMENTS SEEN. Resulted 05/03/17 20:00 Fluid Pleural Fluid Fungal Culture Pending Resulted 05/04/17 04:39 Sputum Expectorated Sputum Gram Stain - Final Resulted 05/04/17 04:39 Sputum Expectorated Sputum Sputum Culture - Preliminary HEAVY GROWTH NORMAL RESPIRATORY PAMELA... Resulted 05/04/17 04:39 Urine Catheterized Urine Urine Culture - Preliminary NO GROWTH IN 24 HOURS. Resulted Result Diagram: 05/05/17 0507 05/05/17 0507 Imaging Last Impressions Chest X-Ray 05/06/17 0600 Signed Impressions: Service Date/Time: Saturday, May 06, 2017 04:08 - CONCLUSION: Persistent but increased bibasilar opacities likely representing pleural effusions with associated volume loss and/or airspace consolidation. Cristian Dewitt MD Chest CT 05/03/17 0000 Signed Impressions: Service Date/Time: Wednesday, May 03, 2017 22:11 - CONCLUSION: 1. Moderate- sized left pleural effusion and small right pleural effusion. 2. Diffuse alveolar consolidation throughout the right mid and lower lung field and to a lesser extent the aerated portion left upper lung consistent with asymmetric pulmonary edema and/or pneumonia. Clinical correlation is recommended. 3. Left basilar compressive atelectasis and/or infiltrate. 4. Cardiomegaly and coronary artery calcifications. 5. Small pericardial effusion. 6. Cholelithiasis. 7. Degenerative changes within the thoracic spine. Yong Cox MD Abdomen/Pelvis CT 05/03/17 0000 Signed Impressions: Service Date/Time: Wednesday, May 03, 2017 22:11 - CONCLUSION: 1. Complex pelvic mass measuring 9.5 x 11.8 x 13.9 cm which raises the possibility of left ovarian neoplasm until proven otherwise. 2. Some ascites within the pelvis. 3. Moderate-sized left pleural effusion. 4. Small right pleural effusion. 5. Diffuse alveolar consolidation of the right lung and to a lesser extent the left lung base consistent with asymmetric pulmonary edema versus pneumonia. 6. Cardiomegaly. 7. Small pericardial effusion. Yong Cox MD Assessment and Plan Problem List: (1) Ovarian mass ICD Codes: N83.9 - Noninflammatory disorder of ovary, fallopian tube and broad ligament, unspecified Status: Acute Plan: patient's recent LAD stent placement and anticoagulation therapy limits ability to consider surgery at this time plural effusion drainage was sent for cytology and is pending. CA 125: 228.9 I explained to patient we maybe able to get diagnosis from cytology but possible that we will not. If we do then once she is cleared by cardiology and discharged home then we can see her as outpt and further discuss with her starting IV chemotherapy and then the possible consideration of surgery in the future. If we do not get a diagnosis then we are in a difficult position having to wait and get clearance from her cardiology doctors to be able to either consider surgery or possible IR to biopsy mass in hopes of obtaining diagnosis. patient stated understanding. no questions at this time. Physician Attestation This consult will be discussed with Dr. Becker in detail and any orders will follow. Breann Elias May 06, 2017 08:42
[2017-05-06] MEDS: SODIUM CHLORIDE 0.9% FLUSH 10 ML FLUSH IV FLUSH SCH ×2 (08:44→20:34)
[2017-05-06] MEDS: FUROSEMIDE 40 MG/4 ML VIAL IV PUSH SCH (08:44)
[2017-05-06] MEDS: PROCHLORPERAZINE INJ 10 MG/2 ML VIAL IV PUSH PRN ×2 (08:44→14:10)
[2017-05-06] MEDS: DOCUSATE SODIUM 50 MG/SENNA 8.6 MG TAB PO SCH ×2 (09:17→20:45)
[2017-05-06] MEDS: CITALOPRAM HYDROBROMIDE 20 MG TAB PO SCH (09:41)
[2017-05-06] MEDS: CLOPIDOGREL 75 MG TAB PO SCH (09:41)
[2017-05-06] MEDS: ASPIRIN 81 MG CHEW TAB PO SCH (09:41)
[2017-05-06] MEDS: CARVEDILOL 3.125 MG TAB PO SCH ×2 (09:41→20:35)
[2017-05-06] MEDS: PANTOPRAZOLE SOD 40 MG DELAYED RELEASE TAB PO SCH (09:41)
[2017-05-06] MEDS: LORazepam 0.5 MG TAB PO PRN ×2 (10:46→20:35)
--- NOTE | 2017-05-06 15:27 | MB ---
cc: Jacque Becker MD DATE OF CONSULT: 05/06/2017 PHYSICIAN REQUESTING CONSULTATION: Delmar Foster MD, hair boiler operator REASON FOR CONSULTATION: Pelvic mass, ascites, pleural effusions. REASON FOR ADMISSION: Respiratory distress, cardiac event. She is seen, her findings are reviewed, she is counseled by me and examined by me in conjunction with a nurse practitioner (Breann Elias). I agree with her findings, assessment, and plan of care. HISTORY OF PRESENT ILLNESS: This is a 66-year-old female who presented in respiratory distress, found to have bilateral effusions, especially on the left side. Troponin was elevated. There was evidence of congestive heart failure. She is undergoing cardiac evaluation and cardiac cath showed a blockage at the left anterior descending artery. Stent was placed and now she is on anticoagulation. Advice is to stay on that for at least 6 weeks. She has also had her bilateral pleural effusions drained, each drained separately. The fluid has been sent for cytology. Results are pending. In the process of evaluation, imaging showed a large mass in the left pelvis that seems to be probably arising from the left ovary. It is complex in nature with both cystic and solid components. It extends to the level of the umbilicus. Its largest measurement is estimated to be 14 cm in diameter. Three-dimensionally, it seems a bit larger than that. There is ascites, pleural effusions, pericardial effusion as noted. There is also diffuse alveolar consolidation, right lung, cardiomegaly, small pericardial effusion. What is not seen is any obvious omental thickening, intraperitoneal nodules, or retroperitoneal adenopathy. Labs show AFP normal at 2.1, CA 19-9 normal at 28.5, CA-125 modestly elevated at 229. Most recent H and H 9.7, and 28.7, white count 8.5, platelets 203. Electrolytes: Potassium 3.4 BUN and creatinine 49 and 1.69. Glucose 198. PAST MEDICAL HISTORY, SURGICAL HISTORY, MEDICATIONS, FAMILY HISTORY, REVIEW OF SYSTEMS, ALLERGIES: They are all reviewed and as are documented in the chart. Nothing to add in that regard. From a Credit Assessment Analyst history or symptomatology, she reports no postmenopausal bleeding. She has not had any pain or sense of distention in her pelvis or abdomen. She was completely unaware of this mass effect until she presented to the emergency room with cardiac and respiratory symptomatology. Her abdomen is nontender. She does report only some nausea, although she has been able to eat and drink. No other significant symptomatology. PHYSICAL EXAMINATION: She is afebrile, pulse ranging 74-83, respirations 19-27, blood pressure 107-115/56-61, O2 saturations currently 97%. She is alert and oriented x 3. Respirations are mildly labored at rest. SKIN: Warm and dry. ABDOMEN: Mildly distended. On deep palpation, the mass effect can be outlined in the right lower quadrant, extends to the level of the umbilicus. There is no other mass or nodularity. Small amount of ascites. GYNECOLOGIC: Exam deferred until more optimal setting. EXTREMITIES: No palpable cords. NEUROVASCULAR: Intact. Time is spent in discussion with her. She is accompanied by her sister and her daughter, who are in the room. I explained the reason for Credit Assessment Analyst/Oncology consultation, explained the findings of the complex mass and the fluid. It is uncertain whether or not the ascites, pleural effusion, cardiac effusion are due to her cardiac and pulmonary issues or whether or not they are related to the mass. There are benign masses that can create ascites and pleural effusions, although more commonly it is associated with a malignant mass. There is a modestly elevated CA-125. Fluid has been obtained for cytology with results forthcoming. I explained that at some point, we may want to consider surgical resection. Whatever this is, be it benign or malignant, it has probably been there for many, many months. It has been asymptomatic and given her current cardiac events and her current performance status as well as the need for anticoagulation, we would not recommend surgical intervention at any time in the near future. We will wait to see if cytology of the fluid answers questions regarding benign versus malignant, as confirmation of malignancy could potentially have us considering chemotherapy prior to or in lieu of surgery, depending on her overall status. Discussion ensued, questions were answered. We agree that she would be seeing me at some point as an outpatient followup in my office. I will follow along in her care as an inpatient as well, but from a Credit Assessment Analyst/Oncology standpoint, no immediate intervention recommended from a surgical standpoint. ASSESSMENT: 1. Large complex mass of probable ovarian origin with ascites, pleural effusion, cardiac effusion, modestly elevated CA-125. 2. Fluid has been sent for cytology, results pending. 3. Current cardiac and respiratory status with need for anticoagulation after stent placement precludes any recommendations for surgery at this time. 4. Extensive discussion. PLAN: 1. Continue present management. Priority is on her cardiac and pulmonary issues. 2. We will await cytology results. This may impact our recommendations. 3. At some point when she is cleared from a cardiac and respiratory standpoint, we may need to reevaluate and reconsider the issue of surgical resection of pelvic mass. Thank you for the consultation. We will follow along in her care. Jacque Becker MD KLM/TI , 02:59 PM , 03:25 PM
[2017-05-06 16:12] LABS: HEMOGLOBIN A1C 9.2 % (4.3-6.0)
--- NOTE | 2017-05-06 16:13 | HHI.CCPN ---
Subjective Remarks/Hospital Course Patient is a 66-year-old female with past medical history only significant for hypertension who presented to the [facility] ED with 2 day history of productive cough increasing shortness of breath and weakness. She thought that she had flu but did not seek treatment. She also has nausea and vomiting and some epigastric abdominal pain. Initial oxygen saturation in [facility] ED 86% on room air. Tachycardic heart rate 107. An ABG on 3 L nasal cannula showed PO2 of 55. WBC count was normal, creatinine was elevated at 1.6 and a BNP was elevated at 2340 troponin elevated mildly at 0.23. Patient denies chest pain. A chest x-ray showed bilateral pleural effusions moderate- sized versus infiltrate. Patient received azithromycin and Rocephin in the ED. Transferred to [facility] for admission. I evaluated the patient in the [place] ICU. She appears to be in moderate distress due to dyspnea. Cannot lie down flat. Bedside ultrasound showed large bilateral pleural effusions. I performed a diagnostic and therapeutic right thoracentesis and removed 1.5 L of L blood tinged fluid. Fluid studies are pending at this time. Patient appears to have CHF and pneumonia. A 2D echo is pending. I will place patient on cefepime and azithromycin. Give single dose of vancomycin. Also due to elevated BNP and bilateral large effusions and hypoxia, start IV Lasix 20 mg every 12. Received 40 mg of Lasix and [facility] ED. Subjective 05/05: -900 cc blood-tinged fluid removed from left pleural effusion today. Stent placed LAD by Dr. Beckett. Currently on nasal cannula. Denies chest pain, main complaint is nausea. 05/05: FiO2 requirement significantly decreased, post thoracentesis yesterday. Currently on 3 L per nasal cannula. Patient continues to complain of moderate nausea relieved with Compazine. Denies any chest pain. 05/06: Chest x-ray revealing continued pleural effusions. Potassium level pending , planned Lasix 40 mg IV x 1 dose today. Patient tolerating smoothie shakes, continues to have a poor appetite. Objective Vital Signs Date Time Temp Pulse Resp B/P (MAP) Pulse Ox O2 Delivery O2 Flow Rate FiO2 05/06/17 14:00 74 05/06/17 12:00 97.6 27 107/59 (75) 97 05/06/17 09:17 Nasal Cannula 4.00 05/03/17 21:17 50 Intake and Output 05/06/17 05/06/17 05/07/17 08:00 16:00 00:00 Intake Total 480 ml Output Total 950 ml Balance -470 ml Result Diagram: 05/05/17 0507 05/05/17 0507 Other Results Microbiology Date/Time Source Procedure Growth Status 05/03/17 20:00 Fluid Pleural Fluid Gram Stain - Final Complete 05/03/17 20:00 Fluid Pleural Fluid Body Fluid Culture - Final NO GROWTH IN 72 HRS.--AEROBICALLY OR ... Complete 05/04/17 04:39 Sputum Expectorated Sputum Gram Stain - Final Complete 05/04/17 04:39 Sputum Expectorated Sputum Sputum Culture - Final HEAVY GROWTH NORMAL RESPIRATORY PAMELA Complete 05/04/17 04:39 Urine Catheterized Urine Urine Culture - Final NO GROWTH IN 48 HOURS. Complete 05/04/17 04:39 Urine Catheterized Urine Legionella Antigen - Final PRESUMPTIVE NEGATIVE FOR LEGIONELLA P... Complete 05/04/17 04:39 Urine Catheterized Urine Streptococcus pneumoniae Antigen (M - Final PRESUMPTIVE NEGATIVE FOR STREPTOCOCCU... Complete Imaging Last Impressions Chest X-Ray 05/05/17 0600 Signed Impressions: Service Date/Time: Friday, May 05, 2017 03:42 - CONCLUSION: Bilateral lower lung infiltrates, stable on the right, and increasing on the left. Bobby Brambila MD Chest CT 05/03/17 0000 Signed Impressions: Service Date/Time: Wednesday, May 03, 2017 22:11 - CONCLUSION: 1. Moderate- sized left pleural effusion and small right pleural effusion. 2. Diffuse alveolar consolidation throughout the right mid and lower lung field and to a lesser extent the aerated portion left upper lung consistent with asymmetric pulmonary edema and/or pneumonia. Clinical correlation is recommended. 3. Left basilar compressive atelectasis and/or infiltrate. 4. Cardiomegaly and coronary artery calcifications. 5. Small pericardial effusion. 6. Cholelithiasis. 7. Degenerative changes within the thoracic spine. Yong Cox MD Abdomen/Pelvis CT 05/03/17 0000 Signed Impressions: Service Date/Time: Wednesday, May 03, 2017 22:11 - CONCLUSION: 1. Complex pelvic mass measuring 9.5 x 11.8 x 13.9 cm which raises the possibility of left ovarian neoplasm until proven otherwise. 2. Some ascites within the pelvis. 3. Moderate-sized left pleural effusion. 4. Small right pleural effusion. 5. Diffuse alveolar consolidation of the right lung and to a lesser extent the left lung base consistent with asymmetric pulmonary edema versus pneumonia. 6. Cardiomegaly. 7. Small pericardial effusion. Yong Cox MD Last Impressions Chest X-Ray 05/04/17 Signed Impressions: Service Date/Time: Thursday, May 04, 2017 09:44 - CONCLUSION: No pneumothorax following thoracentesis. Bibasilar consolidations more pronounced on the right with tiny bilateral pleural effusions. Bobby Herndon Jr., MD Chest CT 05/03/17 0000 Signed Impressions: Service Date/Time: Wednesday, May 03, 2017 22:11 - CONCLUSION: 1. Moderate- sized left pleural effusion and small right pleural effusion. 2. Diffuse alveolar consolidation throughout the right mid and lower lung field and to a lesser extent the aerated portion left upper lung consistent with asymmetric pulmonary edema and/or pneumonia. Clinical correlation is recommended. 3. Left basilar compressive atelectasis and/or infiltrate. 4. Cardiomegaly and coronary artery calcifications. 5. Small pericardial effusion. 6. Cholelithiasis. 7. Degenerative changes within the thoracic spine. Yong Cox MD Abdomen/Pelvis CT 05/03/17 Signed Impressions: Service Date/Time: Wednesday, May 03, 2017 22:11 - CONCLUSION: 1. Complex pelvic mass measuring 9.5 x 11.8 x 13.9 cm which raises the possibility of left ovarian neoplasm until proven otherwise. 2. Some ascites within the pelvis. 3. Moderate-sized left pleural effusion. 4. Small right pleural effusion. 5. Diffuse alveolar consolidation of the right lung and to a lesser extent the left lung base consistent with asymmetric pulmonary edema versus pneumonia. 6. Cardiomegaly. 7. Small pericardial effusion. Yong Cox MD Procedures 05/04-left thoracentesis-900 cc Objective Remarks GENERAL: 66-year-old male resting in bed in no acute distress SKIN: warm/dry. Well perfused HEAD: Atraumatic. Normocephalic. EYES: Pupils equal and round about 2 mm bilaterally and reactive. No scleral icterus. No injection or drainage. ENT: No nasal bleeding or discharge. Mucous membranes moist. NECK: Trachea midline. No JVD. CARDIOVASCULAR: Regular rate and rhythm. S1, S2 no S4. Without murmur. RESPIRATORY: Decreased breath sounds bilateral lower lobes right greater than left. No wheezing.O2 via nasal cannula @ 4LPM GASTROINTESTINAL: Abdomen soft, nondistended. Hypoactive bowel sounds are appreciated. MUSCULOSKELETAL: No obvious deformities. No edema. NEUROLOGICAL: GCS 15 Awake and alert. No obvious cranial nerve deficits. Motor grossly within normal limits. Normal speech. Date of Insertion: May 03, 2017 A/P Assessment and Plan NEURO/PSYCH: Acetaminophen 650 mg p.o. every 6 hours as needed fever Hydrocodone/acetaminophen 5/325 1 tablet every 4 hours as needed pain 1-5 Morphine sulfate 2 mg IV every 3 hours as needed pain 6-10 RESP: Acute hypoxemic respiratory failure Bilateral large pleural effusions, hemorrhagic Community-acquired pneumonia Currently on nasal cannula to maintain saturations greater than equal to 92% Incentive spirometry while awake Albuterol/ipratropium aerosols every 6 hours with albuterol aerosols every 2 hours as needed dyspnea CT thorax revealed left greater than right pleural effusions, and small pericardial effusion. -Use BiPAP if needed -Pleural fluid studies have been sent on 05/03 and 05/04. Follow-up on results -Serum LDH 321 - 05/06 CXR - pleural effusions CV: Coronary artery disease status post stent to LAD 05/04 Non-STEMI CHF Dyslipidemia Cardiology consult with Dr. Beckett, 2D echo pending As needed blood pressure control with hydralazine, labetalol Nitropaste Currently on carvedilol 6.25 mg p.o. twice daily Continue with aspirin 162 mg p.o. daily on 05/05 along with clopidogrel bisulfate 25 mg p.o. daily as stent has been placed. Careful monitoring with hemorrhagic effusion Home medications include metoprolol tartrate 25 mg daily and lisinopril 20 mg p.o. daily. Cholesterol 235. LDL elevated 172. On atorvastatin 80 mg p.o. daily Continue furosemide 40 mg IV daily. 05/05 -2D Echo-EF 40-45 %, global hypokinesis,PAP 34, mild TR Pt to follow up with outpatient office Dr. Beckett visit on 21 May 2017 GI: Epigastric abdominal pain Cholelithiasis Currently on ADA diet Pantoprazole for GI prophylaxis Docusate sodium/senna 1 tablet twice daily for bowel regimen -CT abdomen pelvis did reveal cholelithiasis. See below guide Renal/: Acute kidney injury Negative urine eosinophils. Possible urethral obstruction with ovarian mass. Monitor urine output Accurate I's and O's No signs of hydronephrosis on CT abdomen/pelvis -Monitor renal function closely. Place Jiménez catheter. -IV Lasix as above monitor renal function closely ID: Sepsis Community-acquired pneumonia with effusion -IV vancomycin ordered per pharmacy protocol. Continue cefepime and azithromycin day #2 Follow-up on blood cultures, urine culture, sputum culture, 3/4 urine for Legionella and pneumococcal antigen, influenza A and B.- Negative HEME: Normocytic anemia -Monitor CBC, CMP, coags ENDO: Hyperglycemia Sliding scale insulin with Novulin R with Accu-Cheks to maintain euglycemia before meals/at bedtime medium protocol Hemoglobin A1c- pending TSH 1.08 FEN Electrolyte derangement Replete electrolytes per ICU protocol [employer] Pelvic mass 9.5 x 11.8 x 13.9 cm. Possible ovarian CA versus other Dr. Becker to evaluate 3/. Dr. Cash currently following CA 125-228.9 PROPH: -Bilateral lower extremity SCDs/ROBEL. Avoid heparin due to hemorrhagic effusion with concomitant aspirin and clopidogrel bisulfate use. Protonix for GI prophylaxis LINES: -Utilize peripheral IVs, central line if needed Level 2 [facility]. [facility] Physician Neena Arias MD May 06, 2017 16:13
[2017-05-06] MEDS ORDERED: POTASSIUM CHLORIDE 25 MEQ EFFERVESCENT TAB PO PRN (16:15)
[2017-05-06] MEDS ORDERED: POTASSIUM PHOSPHATE MONOBASIC 500 MG TAB PO/TUBE PRN (16:15)
[2017-05-06] MEDS ORDERED: MAGNESIUM OXIDE 400 MG TAB PO PRN (16:15)
[2017-05-06] MEDS ORDERED: MAGNESIUM SULFATE INJ 2 GM in SODIUM CHLORIDE 0.9% INJ 96 ML IV PRN (16:15)
[2017-05-06] MEDS ORDERED: MAGNESIUM SULFATE INJ 4 GM in SODIUM CHLORIDE 0.9% INJ 92 ML IV PRN (16:15)
[2017-05-06] MEDS ORDERED: SODIUM PHOSPHATE INJ 30 MMOL in SODIUM CHLOR 0.9% 250 ML INJ 240 ML IV PRN (16:15)
[2017-05-06] MEDS ORDERED: POTASSIUM PHOSPHATE MONOBASIC 500 MG TAB PO PRN (16:15)
[2017-05-06] MEDS ORDERED: POTASSIUM PHOSPHATE INJ 30 MMOL in SODIUM CHLOR 0.9% 250 ML INJ 250 ML IV PRN (16:15)
[2017-05-06] MEDS ORDERED: POTASSIUM CHLOR 20 MEQ PREMIX 100 ML IV PRN (16:15)
[2017-05-06] MEDS ORDERED: POTASSIUM CHLOR 40 MEQ PREMIX 100 ML IV PRN ×2 (16:15)
[2017-05-06 17:39] LABS: HEMOGLOBIN 8.7 GM/DL (11.6-15.3); MEAN CELL VOLUME 79.4 FL (80.0-100.0); MEAN CORPUSCULAR HEMOGLOBIN 27.6 PG (27.0-34.0); MEAN CORPUSCULAR HGB CONC 34.8 % (32.0-36.0); MEAN PLATELET VOLUME 8.2 FL (7.0-11.0); PLATELET COUNT 152 TH/MM3 (150-450); RED BLOOD COUNT 3.15 MIL/MM3 (4.00-5.30); RED CELL DISTRIBUTION WIDTH 15.1 % (11.6-17.2); WHITE BLOOD COUNT 7.1 TH/MM3 (4.0-11.0)
[2017-05-06 18:02] LABS: BICARBONATE 30.1 MEQ/L (21.0-32.0); CALCIUM 8.8 MG/DL (8.5-10.1); CREATININE 2.29 MG/DL (0.50-1.00); MAGNESIUM 1.8 MG/DL (1.5-2.5)
[2017-05-06 18:04] LABS: PHOSPHORUS 2.7 MG/DL (2.5-4.9)
[2017-05-06 18:05] LABS: RANDOM VANCOMYCIN 21.8 COMMENT
[2017-05-06] MEDS: POTASSIUM CHLOR 20 MEQ PREMIX 100 ML IV PRN ×3 (18:43→23:52)
[2017-05-06] MEDS: PROCHLORPERAZINE MALEATE 5 MG TAB PO PRN ×2 (18:43→21:32)
[2017-05-06] MEDS ORDERED: FUROSEMIDE 40 MG/4 ML VIAL IV PUSH ONE (18:45)
--- NOTE | 2017-05-06 20:19 | PD.CARD.PN ---
Subjective Subjective Remarks feels better Objective Medications Current Medications Medications (Trade) Dose Ordered Sig/Lidia Route Start Time Stop Time Status Last Admin (NS Flush) 2 ml UNSCH PRN IV FLUSH 05/03/17 20:00 (NS Flush) 2 ml BID IV FLUSH 05/03/17 21:00 05/06/17 08:44 (Tylenol) 650 mg Q6H PRN PO 05/03/17 20:00 ([place] 5-325 Mg) 1 tab Q4H PRN PO 05/03/17 20:00 (Morphine Inj) 2 mg Q2H PRN IV PUSH 05/03/17 20:00 05/04/17 14:25 (Zofran Inj) 4 mg Q6H PRN IV PUSH 05/03/17 20:00 05/04/17 14:24 (Duoneb Neb) 1 ampule Q6HR NEB INH 05/03/17 22:00 05/06/17 16:20 (Albuterol Neb) 2.5 mg Q2HR NEB PRN INH 05/03/17 20:00 Miscellaneous Information 1 Q361D XX 05/03/17 20:00 (Chlorhexidine 2% Cloth) 3 pack Taper DAILY@04 TOP 05/04/17 04:00 04/30/18 03:59 05/05/17 03:49 (Chlorhexidine 2% Cloth) 3 pack UNSCH PRN TOP 05/03/17 20:00 ([place]-Colace) 1 tab BID PO 05/03/17 21:00 05/05/17 09:17 (Milk Of Magnesia Liq) 30 ml Q12H PRN PO 05/03/17 20:00 (Senokot) 17.2 mg Q12H PRN PO 05/03/17 20:00 (Dulcolax Supp) 10 mg DAILY PRN RECTAL 05/03/17 20:00 (Lactulose Liq) 30 ml DAILY PRN PO 05/03/17 20:00 Pharmacy Profile Note 0 ml @ 0 mls/hr UNSCH OTHER 05/03/17 20:00 Cefepime HCl 2000 mg/Sodium Chloride 100 ml @ 200 mls/hr Q8H IV 05/03/17 22:00 05/06/17 14:10 Azithromycin 500 mg/Sodium Chloride 250 ml @ 250 mls/hr Q24H IV 05/03/17 20:00 05/05/17 21:37 (Compazine Inj) 5 mg Q6H PRN IV PUSH 05/04/17 10:30 05/06/17 14:10 (Lipitor) 80 mg HS PO 05/05/17 21:00 05/05/17 21:37 (Aspirin Chew) 162 mg DAILY PO 05/05/17 09:00 05/06/17 09:41 (Plavix) 75 mg DAILY PO 05/05/17 09:00 05/06/17 09:41 (D50w (Vial) Inj) 50 ml UNSCH PRN IV PUSH 05/04/17 14:45 (Glucagon Inj) 1 mg UNSCH PRN OTHER 05/04/17 14:45 (NovoLIN R SUPPLEMENTAL SCALE) 1 ACHS SLIDING SCALE SQ 05/04/17 17:00 05/06/17 13:09 (Trandate Inj) 10 mg Q1HR PRN IV PUSH 05/04/17 14:45 (Apresoline Inj) 10 mg Q1HR PRN IV PUSH 05/04/17 14:45 (Nitroglycerin 2% Oint) 2 inch Q6HR PRN TOPICAL 05/04/17 14:45 (Lasix Inj) 40 mg DAILY IV PUSH 05/05/17 09:00 05/06/17 08:44 (Protonix) 40 mg DAILY PO 05/05/17 09:00 05/06/17 09:41 (Compazine Inj) 5 mg Q6H PRN IV PUSH 05/04/17 20:00 05/05/17 02:01 (Coreg) 3.125 mg BID PO 05/04/17 21:00 05/06/17 09:41 (CeleXA) 20 mg DAILY PO 05/06/17 09:00 05/06/17 09:41 (Ativan) 0.5 mg Q8H PRN PO 05/05/17 21:15 05/06/17 10:46 Potassium Chloride 100 ml @ 50 mls/hr Q2H PRN IV 05/06/17 16:15 Potassium Chloride 100 ml @ 50 mls/hr Q2H PRN IV 05/06/17 16:15 05/06/17 18:43 (K-Lyte Cl Eff) 50 meq UNSCH PRN PO 05/06/17 16:15 Potassium Chloride 100 ml @ 25 mls/hr UNSCH PRN IV 05/06/17 16:15 Potassium Chloride 100 ml @ 50 mls/hr Q2H PRN IV 05/06/17 16:15 Magnesium Sulfate 4 gm/Sodium Chloride 100 ml @ 50 mls/hr UNSCH PRN IV 05/06/17 16:15 (Mag-Ox) 800 mg UNSCH PRN PO 05/06/17 16:15 Magnesium Sulfate 2 gm/Sodium Chloride 100 ml @ 50 mls/hr UNSCH PRN IV 05/06/17 16:15 (K-Phos) 2,000 mg Q4H PRN PO 05/06/17 16:15 Sodium Phosphate 30 mmol/Sodium Chloride 250 ml @ 42 mls/hr UNSCH PRN IV 05/06/17 16:15 (K-Phos) 2,000 mg UNSCH PRN PO/TUBE 05/06/17 16:15 Potassium Phosphate 30 mmol/ Sodium Chloride 260 ml @ 42 mls/hr UNSCH PRN IV 05/06/17 16:15 (Compazine) 5 mg Q6H PRN PO 05/06/17 17:30 05/06/17 18:43 (Compazine) 5 mg Q6H PRN PO 05/06/17 17:30 Vital Signs / I&O Vital Signs Date Time Temp Pulse Resp B/P (MAP) Pulse Ox O2 Delivery O2 Flow Rate FiO2 05/06/17 18:00 75 05/06/17 16:00 98.3 78 24 98/50 (66) 92 05/06/17 16:00 78 05/06/17 14:00 74 05/06/17 12:00 79 05/06/17 12:00 97.6 79 27 107/59 (75) 97 05/06/17 10:00 83 05/06/17 09:17 99 Nasal Cannula 4.00 05/06/17 08:00 74 05/06/17 08:00 74 05/06/17 08:00 98.3 74 23 112/56 (74) 95 05/06/17 06:00 81 05/06/17 04:00 98.3 81 19 115/61 (79) 91 05/06/17 04:00 81 05/06/17 02:00 77 05/06/17 00:00 98.3 74 19 101/54 (70) 94 05/06/17 00:00 74 05/05/17 22:00 82 05/05/17 20:23 95 Nasal Cannula 3.00 I/O 05/05/17 05/05/17 05/05/17 05/06/17 05/06/17 05/06/17 07:00 15:00 23:00 07:00 15:00 23:00 Intake Total 757 ml 1354 ml 580 ml 100 ml 350 ml Output Total 650 ml 1500 ml 950 ml 350 ml Balance 107 ml -146 ml -370 ml 100 ml 0 ml Intake Oral 480 ml 480 ml 480 ml 350 ml IV Total 277 ml 874 ml 100 ml 100 ml Output Urine Total 650 ml 1500 ml 950 ml 350 ml # Bowel Movements 0 Physical Exam GENERAL: SKIN: Warm and dry. HEAD: Normocephalic. EYES: No scleral icterus. No injection or drainage. NECK: Supple, trachea midline. No JVD or lymphadenopathy. CARDIOVASCULAR: Regular rate and rhythm without murmurs, gallops, or rubs. RESPIRATORY: Breath sounds equal bilaterally. No accessory muscle use. GASTROINTESTINAL: Abdomen soft, non-tender, nondistended. MUSCULOSKELETAL: No cyanosis, or edema. BACK: Nontender without obvious deformity. No CVA tenderness. Laboratory Laboratory Tests Test 05/06/17 16:02 White Blood Count 7.1 TH/MM3 Red Blood Count 3.15 MIL/MM3 Hemoglobin 8.7 GM/DL Hematocrit 25.0 % Mean Corpuscular Volume 79.4 FL Mean Corpuscular Hemoglobin 27.6 PG Mean Corpuscular Hemoglobin Concent 34.8 % Red Cell Distribution Width 15.1 % Platelet Count 152 TH/MM3 Mean Platelet Volume 8.2 FL Blood Urea Nitrogen 49 MG/DL Creatinine 2.29 MG/DL Random Glucose 111 MG/DL Calcium Level 8.8 MG/DL Phosphorus Level 2.7 MG/DL Magnesium Level 1.8 MG/DL Sodium Level 141 MEQ/L Potassium Level 3.0 MEQ/L Chloride Level 101 MEQ/L Carbon Dioxide Level 30.1 MEQ/L Anion Gap 10 MEQ/L Estimat Glomerular Filtration Rate 21 ML/MIN B-Type Natriuretic Peptide 1275 PG/ML Random Vancomycin Level 21.8 COMMENT Imaging Last 24 hours Impressions Chest X-Ray 05/06/17 0600 Signed Impressions: Service Date/Time: Saturday, May 06, 2017 04:08 - CONCLUSION: Persistent but increased bibasilar opacities likely representing pleural effusions with associated volume loss and/or airspace consolidation. Cristian Dewitt MD Assessment and Plan Problem List: (1) CAD (coronary artery disease) ICD Codes: I25.10 - Atherosclerotic heart disease of [place] coronary artery without angina pectoris (2) CHF (congestive heart failure) ICD Codes: I50.9 - Heart failure, unspecified (3) Cardiomyopathy ICD Codes: I42.9 - Cardiomyopathy, unspecified (4) Ovarian mass ICD Codes: N83.9 - Noninflammatory disorder of ovary, fallopian tube and broad ligament, unspecified Status: Acute (5) Acute hypoxemic respiratory failure ICD Codes: J96.01 - Acute respiratory failure with hypoxia Assessment and Plan 1.) CAD - pod#2 bms mid lad, clinically improved, continue aspirin, plavix, 2.) CHF - continue coreg, lasix, altagracia held due to arf, f/u bnp/bmp Mario Beckett MD May 06, 2017 20:19
[2017-05-06] MEDS: AZITHROMYCIN INJ 500 MG in SODIUM CHLOR 0.9% 250 ML INJ 250 ML IV SCH (20:34)
[2017-05-06] MEDS: ATORVASTATIN 80 MG TAB PO SCH (20:35)
[2017-05-07] VITALS (9 sets, daily range): BP systolic 94–112; BP diastolic 57–67; PULSE 73–85; RESP 16–29; TEMP 97.8–98.6; O2SAT 92–96
[2017-05-07] MEDS: MORPHINE SULFATE 4 MG/ML INJ IV PUSH PRN (01:05)
[2017-05-07] MEDS: PROCHLORPERAZINE MALEATE 5 MG TAB PO PRN ×4 (01:05→18:03)
[2017-05-07] MEDS: POTASSIUM CHLOR 20 MEQ PREMIX 100 ML IV PRN (02:18)
[2017-05-07] MEDS: RESP: ALBUTEROL 2.5 MG/IPRATROPIUM 0.5 MG NEB (SCH) INH ×4 (03:40→20:51)
[2017-05-07] MEDS: CHLORHEXIDINE GLUCONATE 2 % 1 PACK (2 CLOTHS) TOP SCH (04:00)
[2017-05-07] MEDS: CEFEPIME INJ 2,000 MG in SODIUM CHLORIDE 0.9% INJ 100 ML IV SCH ×3 (05:22→22:36)
--- NOTE | 2017-05-07 06:22 | RADRPT ---
EXAM DATE/TIME: 05/07/2017 05:03 [place] COMPARISON: CHEST SINGLE AP, May 06, 2017, 4:08. INDICATIONS : Short of breath. MEDICAL HISTORY : Hypertension. SURGICAL HISTORY : None. ENCOUNTER: Subsequent ACUITY: 4 - 6 days PAIN SCORE: 0/10 LOCATION: Bilateral chest FINDINGS: Portable AP view of the chest demonstrates a normal-sized cardiac silhouette. Lungs are markedly unde rinflated. There are moderate-sized bibasilar pleural-parenchymal opacities, left greater than right. No pneumothorax is visualized. Bones and soft tissues demonstrate no acute finding. CONCLUSION: Persistent moderate-sized bibasilar opacities representing pleural effusions with associated volume l oss and/or airspace consolidation. The changes on the left have slightly increased from yesterday's e xamination. Cristian Dewitt MD on May 07, 2017 at 6:19 Board Certified Radiologist. This report was verified electronically.
[2017-05-07 06:35] LABS: AUTOMATED NEUTROPHIL # 4.3 TH/MM3 (1.8-7.7); BASOPHIL % 0.5 % (0.0-2.0); EOSINOPHIL # 0.2 TH/MM3 (0-0.4); EOSINOPHIL % 2.5 % (0.0-4.0); HEMATOCRIT 25.1 % (35.0-46.0); HEMOGLOBIN 8.5 GM/DL (11.6-15.3); LYMPH % 13.7 % (9.0-44.0); LYMPHOCYTE # 0.8 TH/MM3 (1.0-4.8); MEAN CELL VOLUME 80.3 FL (80.0-100.0); MEAN CORPUSCULAR HEMOGLOBIN 27.1 PG (27.0-34.0); MEAN CORPUSCULAR HGB CONC 33.7 % (32.0-36.0); MEAN PLATELET VOLUME 8.2 FL (7.0-11.0); MONOCYTE # 0.7 TH/MM3 (0-0.9); NEUT % 72.3 % (16.0-70.0); PLATELET COUNT 141 TH/MM3 (150-450); RED BLOOD COUNT 3.12 MIL/MM3 (4.00-5.30)
[2017-05-07 07:09] LABS: BICARBONATE 29.2 MEQ/L (21.0-32.0); CALCIUM 8.2 MG/DL (8.5-10.1); CREATININE 2.35 MG/DL (0.50-1.00); MAGNESIUM 1.7 MG/DL (1.5-2.5); PHOSPHORUS 2.9 MG/DL (2.5-4.9); RANDOM VANCOMYCIN 18.5 COMMENT
[2017-05-07] MEDS: INSULIN NovoLIN REGULAR SUPPLEMENTAL SCALE SQ SCH ×4 (08:00→21:00)
--- NOTE | 2017-05-07 10:22 | HHI.PR ---
Subjective Remarks Follow-up respiratory failure, pleural effusions, pneumonia. Patient states that her shortness of breath has improved. She complains of nausea, but no vomiting. No diarrhea or constipation. Objective Vitals Vital Signs Date Time Temp Pulse Resp B/P (MAP) Pulse Ox O2 Delivery O2 Flow Rate FiO2 05/07/17 10:03 93 Nasal Cannula 3.00 05/07/17 08:52 96 Simple Mask 8.00 05/07/17 08:50 96 Nasal Cannula 4.00 Humidified 05/07/17 08:00 80 05/07/17 08:00 97.8 80 18 112/58 (76) 95 05/07/17 07:12 92 Simple Mask 8.00 05/07/17 04:00 80 05/07/17 04:00 98.4 80 16 108/61 (77) 93 05/07/17 00:00 98.6 73 110/57 (74) 96 05/07/17 00:00 73 05/06/17 22:00 77 05/06/17 21:18 93 Nasal Cannula 4.00 05/06/17 20:00 81 05/06/17 20:00 98.4 80 22 110/57 (74) 94 05/06/17 19:00 98 Nasal Cannula 4.00 05/06/17 18:00 75 05/06/17 16:00 98.3 78 24 98/50 (66) 92 05/06/17 16:00 78 05/06/17 14:00 74 05/06/17 12:00 79 05/06/17 12:00 97.6 79 27 107/59 (75) 97 I/O 05/06/17 05/06/17 05/06/17 05/07/17 05/07/17 05/07/17 07:00 15:00 23:00 07:00 15:00 23:00 Intake Total 580 ml 100 ml 800 ml 400 ml Output Total 950 ml 350 ml 250 ml 250 ml Balance -370 ml 100 ml 450 ml 150 ml -250 ml Intake Oral 480 ml 350 ml IV Total 100 ml 100 ml 450 ml 400 ml Output Urine Total 950 ml 350 ml 250 ml 250 ml # Bowel Movements 0 0 Result Diagram: 05/07/1743405/07/17434 Imaging Last Impressions Chest X-Ray 05/07/17 06 Signed Impressions: Service Date/Time: Sunday, May 07, 2017 05:03 - CONCLUSION: Persistent moderate-sized bibasilar opacities representing pleural effusions with associated volume loss and/or airspace consolidation. The changes on the left have slightly increased from yesterday's examination. Cristian Dewitt MD Chest CT 05/03/17 0000 Signed Impressions: Service Date/Time: Wednesday, May 03, 2017 22:11 - CONCLUSION: 1. Moderate- sized left pleural effusion and small right pleural effusion. 2. Diffuse alveolar consolidation throughout the right mid and lower lung field and to a lesser extent the aerated portion left upper lung consistent with asymmetric pulmonary edema and/or pneumonia. Clinical correlation is recommended. 3. Left basilar compressive atelectasis and/or infiltrate. 4. Cardiomegaly and coronary artery calcifications. 5. Small pericardial effusion. 6. Cholelithiasis. 7. Degenerative changes within the thoracic spine. Yong Cox MD Abdomen/Pelvis CT 05/03/17 0000 Signed Impressions: Service Date/Time: Wednesday, May 03, 2017 22:11 - CONCLUSION: 1. Complex pelvic mass measuring 9.5 x 11.8 x 13.9 cm which raises the possibility of left ovarian neoplasm until proven otherwise. 2. Some ascites within the pelvis. 3. Moderate-sized left pleural effusion. 4. Small right pleural effusion. 5. Diffuse alveolar consolidation of the right lung and to a lesser extent the left lung base consistent with asymmetric pulmonary edema versus pneumonia. 6. Cardiomegaly. 7. Small pericardial effusion. Yong Cox MD Objective Remarks General: No acute distress. Heart: Regular rate and rhythm. No murmur. Lungs: Decreased breath sounds throughout. No wheezing noted. Abdomen: Soft, nontender, nondistended. Extremities: No lower extremity edema. SCDs. Psych: Alert and oriented. Procedures 3/-left thoracentesis-900 cc Urinary Catheter: Yes Assessment to: Remove Date of Insertion: May 03, 2017 Vascular Central Line Catheter: No A/P Problem List: (1) Acute hypoxemic respiratory failure ICD Code: J96.01 - Acute respiratory failure with hypoxia (2) Sepsis ICD Code: A41.9 - Sepsis, unspecified organism (3) CAP (community acquired pneumonia) ICD Code: J18.9 - Pneumonia, unspecified organism (4) Elevated brain natriuretic peptide (BNP) level ICD Code: R79.89 - Other specified abnormal findings of blood chemistry (5) Elevated troponin ICD Code: R74.8 - Abnormal levels of other serum enzymes (6) Probable CHF (7) Acute kidney injury ICD Code: N17.9 - Acute kidney failure, unspecified (8) Hypertension ICD Code: I10 - Essential (primary) hypertension Assessment and Plan 1. Acute hypoxemic respiratory failure, bilateral pleural effusions, community- acquired pneumonia: Continue supplemental oxygen. Continue antibiotics. Continue bronchodilators, incentive spirometry. Status post thoracentesis. Patient had increased oxygen requirement overnight. Now weaned back to 3 L per nasal cannula. Consult pulmonology. 2. Coronary artery disease, non-ST elevation HI: Status post cardiac catheterization with stent placement. Continue aspirin and Plavix. 3. Congestive heart failure, chronic systolic: Continue beta-darvin, aspirin, Plavix, DELANO inhibitor, statin. 4. Hyperlipidemia: Continue statin. 5. Acute kidney injury superimposed on chronic kidney disease: Consult nephrology. Monitor strict intake/output. Jiménez catheter in place. 6. Hypokalemia: Improved. Monitor labs and supplement as needed. 7. Pelvic mass: Appreciate medical and gynecologic oncology recommendations. Cytology is pending from thoracentesis. 8. DVT prophylaxis: ROBEL Linares. Chemical prophylaxis contraindicated secondary to hemorrhagic pleural effusion. 9. GI prophylaxis: Protonix. Problem Qualifiers (1) Hypertension: Qualified Codes: I10 - Essential (primary) hypertension Marino Moore MD May 07, 2017 10:22
[2017-05-07] MEDS: ASPIRIN 81 MG CHEW TAB PO SCH (10:26)
[2017-05-07] MEDS: CITALOPRAM HYDROBROMIDE 20 MG TAB PO SCH (10:26)
[2017-05-07] MEDS: CLOPIDOGREL 75 MG TAB PO SCH (10:26)
[2017-05-07] MEDS: CARVEDILOL 3.125 MG TAB PO SCH ×2 (10:26→19:36)
[2017-05-07] MEDS: PANTOPRAZOLE SOD 40 MG DELAYED RELEASE TAB PO SCH (10:27)
[2017-05-07] MEDS: DOCUSATE SODIUM 50 MG/SENNA 8.6 MG TAB PO SCH ×2 (10:30→19:36)
[2017-05-07] MEDS: SODIUM CHLORIDE 0.9% FLUSH 10 ML FLUSH IV FLUSH SCH ×2 (10:30→22:38)
--- NOTE | 2017-05-07 12:57 | PD.CONS ---
HPI Consult Requested By Reason for Consult Acute renal sufficiency. Question of chronic kidney disease. Primary Care Physician No Primary Care Physician History of Present Illness This patient is a 66-year-old female apparently was not having regular medical follow-up prior to this admission. She presented to the emergency room and Deltasone or complaining of shortness of breath and was noted to have evidence of a large left pleural effusion as well as a smaller right pleural effusion. Evaluation included an echocardiogram which showed an ejection fraction that was reduced and she subsequently underwent cardiac catheterization May with placement of a cardiac stent in the LAD. Patient also has a history of progressive weight loss and imaging studies have revealed the presence of a large left adnexal mass in the pelvis. Oncology following the patient. Creatinine level at time of presentation 1.69 with an estimated GFR of 30. No previous values available. Creatinine level has deteriorated to 2.35 with an estimated GFR of 21. Patient has been receiving vancomycin, Protonix as well as furosemide. Furosemide was reduced on day of consultation from 40 mg IV daily to 20 mg IV daily. Review of Systems Constitutional: COMPLAINS OF: Fatigue, Weight loss, DENIES: Diaphoretic episodes, Fever, Weight gain, Chills, Dizziness, Change in appetite, Night Sweats Cardiovascular: COMPLAINS OF: Dyspnea on Exertion (improved since admission.), Lower Extremity Edema (improved.), Orthopnea (improved.), DENIES: Chest pain, Palpitations, Syncope, PND, Claudication Gastrointestinal: DENIES: Abdominal pain, Black stools, Bloody stools, Constipation, Diarrhea, Nausea, Vomiting, Difficulty Swallowing, Anorexia Past Family Social History Allergies: Coded Allergies: No Known Allergies (Unverified , 05/03/17) Past Medical History Poor medical follow-up predating this admission. Hypertension. Newly diagnosed left adnexal mass. Newly diagnosed coronary disease with placement of stent LAD this admission. Newly diagnosed CHF this admission. Past Surgical History Cardiac catheterization as above. Reported Medications Reported Meds & Active Scripts Active Reported Metoprolol Tartrate 25 Mg Tab 25 Mg PO DAILY Lisinopril 20 Mg Tab 25 Mg PO DAILY Active Ordered Medications Current Medications Ondansetron HCl (Zofran Inj) 4 mg STK-MED ONCE .ROUTE Last administered on at 20:00; Start 05/03/17 at 19:46; Stop 05/03/17 at 19:47; Status DC Morphine Sulfate (Morphine Inj) 2 mg STK-MED ONCE .ROUTE ; Start 05/03/17 at 19: 46; Stop 05/03/17 at 19:47; Status DC Sodium Chloride (NS Flush) 2 ml UNSCH PRN IV FLUSH FLUSH AFTER USING IV ACCESS ; Start 05/03/17 at 20:00 Sodium Chloride (NS Flush) 2 ml BID IV FLUSH Last administered on 05/07/17at 10: 30; Start 05/03/17 at 21:00 Acetaminophen (Tylenol) 650 mg Q6H PRN PO FOR FEVER; Start 05/03/17 at 20:00 Acetaminophen/ Hydrocodone Bitart ([place] 5-325 Mg) 1 tab Q4H PRN PO PAIN SCALE 1 TO 5; Start 05/03/17 at 20:00 Morphine Sulfate (Morphine Inj) 2 mg Q2H PRN IV PUSH PAIN SCALE 6 TO 10 Last administered on 05/07/17at 01:05; Start 05/03/17 at 20:00 Pantoprazole Sodium (Protonix Inj) 40 mg DAILY IV PUSH Last administered on 05/04at 09:39; Start 05/04/17 at 09:00; Stop 05/04/17 at 14:45; Status DC Ondansetron HCl (Zofran Inj) 4 mg Q6H PRN IV PUSH NAUSEA OR VOMITING Last administered on 05/04/17at 14:24; Start 05/03/17 at 20:00 Albuterol/ Ipratropium (Duoneb Neb) 1 ampule Q6HR NEB INH Last administered on 05/07/17at 10:03; Start 05/03/17 at 22:00; Stop 05/07/17 at 10:15; Status DC Albuterol Sulfate (Albuterol Neb) 2.5 mg Q2HR NEB PRN INH SOB/WHEEZING; Start 05/03/17 at 20:00 Heparin Sodium (Porcine) (Heparin Inj) 5,000 units Q12H SQ Last administered on 05/03/17at 21:34; Start 05/03/17 at 20:00; Stop 05/04/17 at 12:50; Status DC Miscellaneous Information 1 Q361D XX ; Start 05/03/17 at 20:00 Chlorhexidine Gluconate (Chlorhexidine 2% Cloth) 3 pack Taper DAILY@04 TOP Last administered on 05/07/17at 04:00; Start 05/04/17 at 04:00; Stop 04/30/18 at 03 :59 Chlorhexidine Gluconate (Chlorhexidine 2% Cloth) 3 pack UNSCH PRN TOP HYGIENIC CARE; Start 05/03/17 at 20:00 Senna/Docusate Sodium ([place]-Colace) 1 tab BID PO Last administered on 05/05/17at 09:17; Start 05/03/17 at 21:00 Magnesium Hydroxide (Milk Of Magnesia Liq) 30 ml Q12H PRN PO Mild constipation ; Start 05/03/17 at 20:00 Sennosides (Senokot) 17.2 mg Q12H PRN PO Moderate constipation; Start 05/03/17 at 20:00 Bisacodyl (Dulcolax Supp) 10 mg DAILY PRN RECTAL SEVERE CONSITIPATION; Start at 20:00 Lactulose (Lactulose Liq) 30 ml DAILY PRN PO SEVERE CONSITIPATION; Start at 20:00 Dextrose (D50w (Vial) Inj) 50 ml UNSCH PRN IV PUSH HYPOGLYCEMIA-SEE COMMENTS; Start 05/03/17 at 20:00; Stop 05/04/17 at 14:33; Status DC Glucagon (Glucagon Inj) 1 mg STAT PRN IM HYPOGLYCEMIA-SEE COMMENTS; Start at 20:00; Stop 05/04/17 at 14:33; Status DC Sodium Chloride (NS Flush) 2 ml UNSCH PRN IV FLUSH FLUSH AFTER USING IV ACCESS ; Start 05/03/17 at 20:00; Status UNV Sodium Chloride (NS Flush) 2 ml BID IV FLUSH ; Start 05/03/17 at 21:00; Status UNV Pharmacy Profile Note 0 ml @ 0 mls/hr UNSCH OTHER ; Start 05/03/17 at 20:00 Cefepime HCl 2000 mg/Sodium Chloride 100 ml @ 200 mls/hr Q8H IV Last administered on 05/07/17at 05:22; Start 05/03/17 at 22:00 Azithromycin 500 mg/Sodium Chloride 250 ml @ 250 mls/hr Q24H IV Last administered on 05/06/17at 20:34; Start 05/03/17 at 20:00 Miscellaneous Information 1 Q361D XX ; Start 05/03/17 at 20:00; Status UNV Aspirin (Aspirin Chew) 162 mg DAILY CHEW Last administered on 05/04/17at 09:40; Start 05/04/17 at 09:00; Stop 05/04/17 at 12:50; Status DC Metoprolol Tartrate (Lopressor) 25 mg DAILY PO Last administered on 05/04/17at 09 :40; Start 05/04/17 at 09:00; Stop 05/04/17 at 12:33; Status DC Labetalol HCl (Trandate Inj) 10 mg Q1HR PRN IV PUSH SBP>160, DBP>90, HR>65 Last administered on 05/04/17at 06:37; Start 05/03/17 at 20:00; Stop 05/04/17 at 14: 41; Status DC Hydralazine HCl (Apresoline Inj) 10 mg Q1HR PRN IV PUSH SBP>160, DBP>90 Last administered on 05/04/17at 14:25; Start 05/03/17 at 20:00; Stop 05/04/17 at 14:41; Status DC Nitroglycerin (Nitroglycerin 2% Oint) 2 inch Q6HR PRN TOPICAL SBP>160, DBP>90; Start 05/03/17 at 20:00; Stop 05/04/17 at 14:42; Status DC Furosemide (Lasix Inj) 20 mg ONCE IV PUSH ; Start 05/03/17 at 20:45; Stop at 21:00; Status DC Furosemide (Lasix Inj) 20 mg BID@,18 IV PUSH Last administered on 05/04/17at 09 :40; Start 05/04/17 at 09:00; Stop 05/04/17 at 12:29; Status DC Morphine Sulfate (Morphine Inj) 2 mg Q3H PRN IV PUSH pain 5-10; Start 05/03/17 at 21:00; Stop 05/04/17 at 14:45; Status DC Vancomycin HCl 1750 mg/Sodium Chloride 517.5 ml @ 250 mls/hr ONCE ONCE IV Last administered on 05/03/17at 23:53; Start 05/03/17 at 23:00; Stop 05/04/17 at 01: 04; Status DC Vancomycin HCl 1000 mg/Sodium Chloride 250 ml @ 250 mls/hr ONCE ONCE IV ; Start 05/03/17 at 21:15; Stop 05/03/17 at 22:14; Status UNV Midazolam HCl (Versed Inj) 2 mg ONCE ONCE IV PUSH Last administered on at 09:38; Start 05/04/17 at 09:00; Stop 05/04/17 at 09:01; Status DC Fentanyl Citrate (fentaNYL INJ) 50 mcg ONCE ONCE IV PUSH Last administered on 05/04/17at 09:39; Start 05/04/17 at 09:00; Stop 05/04/17 at 09:01; Status DC Prochlorperazine Edisylate (Compazine Inj) 5 mg Q6H PRN IV PUSH NAUSEA OR VOMITING Last administered on 05/06/17at 14:10; Start 05/04/17 at 10:30 Heparin Sodium/ Sodium Chloride 2,000 ml @ As Directed STK-MED ONCE IV FLUSH ; Start 05/04/17 at 11:14; Stop 05/04/17 at 11:15; Status DC Heparin Sodium (Porcine) (Heparin Inj) 10,000 units STK-MED ONCE .ROUTE ; Start 05/04/17 at 11:44; Stop 05/04/17 at 11:45; Status DC Furosemide (Lasix Inj) 40 mg STK-MED ONCE .ROUTE ; Start 05/04/17 at 11:47; Stop 05/04/17 at 11:48; Status DC Clopidogrel Bisulfate (Plavix) 600 mg STK-MED ONCE .ROUTE ; Start 05/04/17 at 11: 57; Stop 05/04/17 at 11:58; Status DC Tirofiban/Sodium Chloride 250 ml @ As Directed STK-MED ONCE IV ; Start 05/04/17 at 11:57; Stop 05/04/17 at 11:58; Status DC Furosemide (Lasix Inj) 40 mg BID@18 IV PUSH ; Start 05/04/17 at 18:00; Stop at 18:00; Status DC Atorvastatin Calcium (Lipitor) 80 mg ONCE ONCE PO Last administered on at 14:12; Start 05/04/17 at 12:30; Stop 05/04/17 at 12:45; Status DC Atorvastatin Calcium (Lipitor) 80 mg HS PO Last administered on 05/06/17at 20:35 ; Start 05/05/17 at 21:00 Sodium Chloride (NS Flush) 2 ml UNSCH PRN IV FLUSH FLUSH AFTER USING IV ACCESS ; Start 05/04/17 at 12:30; Stop 05/04/17 at 12:50; Status DC Sodium Chloride (NS Flush) 2 ml BID IV FLUSH ; Start 05/04/17 at 21:00; Stop 05/04 at 21:00; Status DC Aspirin (Aspirin Chew) 162 mg DAILY PO Last administered on 05/07/17at 10:26; Start 05/05/17 at 09:00 Clopidogrel Bisulfate (Plavix) 600 mg ONCE ONCE PO ; Start 05/04/17 at 12:30; Stop 05/04/17 at 12:48; Status DC Clopidogrel Bisulfate (Plavix) 75 mg DAILY PO Last administered on 05/07/17at 10: 26; Start 05/05/17 at 09:00 Tirofiban/Sodium Chloride 250 ml @ 6.39 mls/hr Q24H IV Last administered on 05/04/17at 21:14; Start 05/04/17 at 14:00; Stop 05/05/17 at 13:59; Status DC Miscellaneous Information 1 ONCE ONCE XX ; Start 05/04/17 at 12:30; Stop at 12:49; Status DC Bacitracin (Bacitracin Oint Packet) 0.9 gm ONCE ONCE TOP ; Start 05/04/17 at 12: 30; Stop 05/04/17 at 12:47; Status DC Carvedilol (Coreg) 3.125 mg BID PO ; Start 05/04/17 at 21:00; Stop 05/04/17 at 21: 00; Status DC Dextrose (D50w (Vial) Inj) 50 ml UNSCH PRN IV PUSH HYPOGLYCEMIA-SEE COMMENTS; Start 05/04/17 at 14:45 Glucagon (Glucagon Inj) 1 mg UNSCH PRN OTHER HYPOGLYCEMIA-SEE COMMENTS; Start 05/04/17 at 14:45 Insulin Human Regular (NovoLIN R SUPPLEMENTAL SCALE) 1 ACHS SLIDING SCALE SQ Last administered on 05/06/17at 20:38; Start 05/04/17 at 17:00 Labetalol HCl (Trandate Inj) 10 mg Q1HR PRN IV PUSH SBP>160, DBP>90, HR>65; Start 05/04/17 at 14:45 Hydralazine HCl (Apresoline Inj) 10 mg Q1HR PRN IV PUSH SBP>160, DBP>90; Start 05/04/17 at 14:45 Nitroglycerin (Nitroglycerin 2% Oint) 2 inch Q6HR PRN TOPICAL SBP>160, DBP>90; Start 05/04/17 at 14:45 Carvedilol (Coreg) 6.25 mg BID PO ; Start 05/04/17 at 21:00; Stop 05/04/17 at 21: 00; Status DC Furosemide (Lasix Inj) 40 mg DAILY IV PUSH Last administered on 05/06/17at 08:44 ; Start 05/05/17 at 09:00; Stop 05/07/17 at 10:15; Status DC Pantoprazole Sodium (Protonix) 40 mg DAILY PO Last administered on 05/07/17at 10: 27; Start 05/05/17 at 09:00 Magnesium Sulfate/ Dextrose 100 ml @ 100 mls/hr Q1H IV Last administered on 05/04/17at 16:00; Start 05/04/17 at 15:00; Stop 05/04/17 at 16:59; Status DC Potassium Chloride (KCl) 30 meq ONCE ONCE PO Last administered on 05/04/17at 15: 12; Start 05/04/17 at 15:00; Stop 05/04/17 at 15:01; Status DC Prochlorperazine Edisylate (Compazine Inj) 5 mg Q6H PRN IV PUSH Breakthrough nausea Last administered on 05/05/17at 02:01; Start 05/04/17 at 20:00 Carvedilol (Coreg) 3.125 mg BID PO Last administered on 05/07/17 10:26; Start 05/04/17 at 21:00 Vancomycin HCl 1250 mg/Sodium Chloride 262.5 ml @ 250 mls/hr ONCE ONCE IV Last administered on 05/05/17at 16:00; Start 05/05/17 at 16:00; Stop 05/05/17 at 17: 02; Status DC Citalopram Hydrobromide (CeleXA) 20 mg DAILY PO Last administered on 05/07/17at 10:26; Start 05/06/17 at 09:00 Lorazepam (Ativan) 0.5 mg Q8H PRN PO ANXIETY Last administered on 05/06/17at 20: 35; Start 05/05/17 at 21:15 Iohexol (OMNIPAQUE 350 INJ (Bar Attendant)) 100 ml STK-MED ONCE OTHER ; Start at 08:24; Stop 05/06/17 at 08:25; Status DC Iohexol (OMNIPAQUE 350 INJ (Bar Attendant)) 50 ml STK-MED ONCE OTHER ; Start 05/06/17 at 08:24; Stop 05/06/17 at 08:25; Status DC Potassium Chloride 100 ml @ 50 mls/hr Q2H PRN IV For Potassium 2.8 - 3.2 mEq/L ; Start 05/06/17 at 16:15 Potassium Chloride 100 ml @ 50 mls/hr Q2H PRN IV For Potassium 2.8 - 3.2 mEq/ L Last administered on 05/07/17at 02:18; Start 05/06/17 at 16:15 Potassium Bicarb/ Potassium Chloride (K-Lyte Cl Eff) 50 meq UNSCH PRN PO For Potassium 3.3 - 3.5 mEq/L; Start 05/06/17 at 16:15 Potassium Chloride 100 ml @ 25 mls/hr UNSCH PRN IV For Potassium 3.3 - 3.5 mEq /L; Start 05/06/17 at 16:15 Potassium Chloride 100 ml @ 50 mls/hr Q2H PRN IV For Potassium 3.3 - 3.5 mEq/L ; Start 05/06/17 at 16:15 Magnesium Sulfate 4 gm/Sodium Chloride 100 ml @ 50 mls/hr UNSCH PRN IV For Magnesium 0.9 - 1.1 mg/dL; Start 05/06/17 at 16:15 Magnesium Oxide (Mag-Ox) 800 mg UNSCH PRN PO For Magnesium 1.2 - 1.6 mg/dL; Start 05/06/17 at 16:15 Magnesium Sulfate 2 gm/Sodium Chloride 100 ml @ 50 mls/hr UNSCH PRN IV For Magnesium 1.2 - 1.6 mg/dL; Start 05/06/17 at 16:15 Potassium Phosphate (K-Phos) 2,000 mg Q4H PRN PO For Phosphorus < 2.5 mg/dL; Start 05/06/17 at 16:15 Sodium Phosphate 30 mmol/Sodium Chloride 250 ml @ 42 mls/hr UNSCH PRN IV For Phosphorus < 2.5 mg/dL; Start 05/06/17 at 16:15 Potassium Phosphate (K-Phos) 2,000 mg UNSCH PRN PO/TUBE SEE LABEL COMMENTS; Start 05/06/17 at 16:15 Potassium Phosphate 30 mmol/ Sodium Chloride 260 ml @ 42 mls/hr UNSCH PRN IV SEE LABEL COMMENTS; Start 05/06/17 at 16:15 Prochlorperazine Maleate (Compazine) 5 mg Q6H PRN PO NAUSEA OR VOMITING Last administered on 05/07/17at 08:40; Start 05/06/17 at 17:30 Prochlorperazine Maleate (Compazine) 5 mg Q6H PRN PO BREAKTHROUGH NAUSEA Last administered on 05/07/17at 05:22; Start 05/06/17 at 17:30 Furosemide (Lasix Inj) 40 mg ONCE ONCE IV PUSH Last administered on 05/07/17at 05:23; Start 05/06/17 at 18:45; Stop 05/06/17 at 18:46; Status DC Vancomycin HCl 1000 mg/Sodium Chloride 250 ml @ 250 mls/hr ONCE ONCE IV ; Start 05/07/17 at 16:00; Stop 05/07/17 at 16:59 Albuterol/ Ipratropium (Duoneb Neb) 1 ampule Q6HR NEB INH ; Start 05/07/17 at 16 :00 Furosemide (Lasix Inj) 20 mg DAILY IV PUSH ; Start 05/08/17 at 09:00 Family History Noncontributory to current complaint. Social History Please see H&P for details. Physical Exam Vital Signs Vital Signs Date Time Temp Pulse Resp B/P (MAP) Pulse Ox O2 Delivery O2 Flow Rate FiO2 05/07/17 12:00 81 05/07/17 12:00 98.3 81 23 111/59 (76) 94 05/07/17 10:03 93 Nasal Cannula 3.00 05/07/17 08:52 96 Simple Mask 8.00 05/07/17 08:50 96 Nasal Cannula 4.00 Humidified 05/07/17 08:00 80 05/07/17 08:00 97.8 80 18 112/58 (76) 95 05/07/17 07:12 92 Simple Mask 8.00 05/07/17 04:00 80 05/07/17 04:00 98.4 80 16 108/61 (77) 93 05/07/17 00:00 98.6 73 110/57 (74) 96 05/07/17 00:00 73 05/06/17 22:00 77 05/06/17 21:18 93 Nasal Cannula 4.00 05/06/17 20:00 81 05/06/17 20:00 98.4 80 22 110/57 (74) 94 05/06/17 19:00 98 Nasal Cannula 4.00 05/06/17 18:00 75 05/06/17 16:00 98.3 78 24 98/50 (66) 92 05/06/17 16:00 78 05/06/17 14:00 74 Physical Exam GENERAL: Patient appeared older than her stated age. Chronic ill appearance. SKIN: Warm and dry. HEAD: Normocephalic. EYES: No scleral icterus. No injection or drainage. NECK: Supple, trachea midline. No JVD or lymphadenopathy. CARDIOVASCULAR: Regular rate and rhythm without murmurs, gallops, or rubs. RESPIRATORY: Breath sounds equal bilaterally. No accessory muscle use. GASTROINTESTINAL: Abdomen soft, non-tender, nondistended. MUSCULOSKELETAL: No cyanosis, or edema. BACK: Nontender without obvious deformity. No CVA tenderness. Laboratory Laboratory Tests Test 05/06/17 16:02 05/07/17 04:35 White Blood Count 7.1 6.0 Red Blood Count 3.15 3.12 Hemoglobin 8.7 8.5 Hematocrit 25.0 25.1 Mean Corpuscular Volume 79.4 80.3 Mean Corpuscular Hemoglobin 27.6 27.1 Mean Corpuscular Hemoglobin Concent 34.8 33.7 Red Cell Distribution Width 15.1 15.0 Platelet Count 152 141 Mean Platelet Volume 8.2 8.2 Blood Urea Nitrogen 49 49 Creatinine 2.29 2.35 Random Glucose 111 115 Calcium Level 8.8 8.2 Phosphorus Level 2.7 2.9 Magnesium Level 1.8 1.7 Sodium Level 141 139 Potassium Level 3.0 4.0 Chloride Level 101 103 Carbon Dioxide Level 30.1 29.2 Anion Gap 10 7 Estimat Glomerular Filtration Rate 21 21 B-Type Natriuretic Peptide 1275 1215 Random Vancomycin Level 21.8 18.5 Neutrophils (%) (Auto) 72.3 Lymphocytes (%) (Auto) 13.7 Monocytes (%) (Auto) 11.0 Eosinophils (%) (Auto) 2.5 Basophils (%) (Auto) 0.5 Neutrophils # (Auto) 4.3 Lymphocytes # (Auto) 0.8 Monocytes # (Auto) 0.7 Eosinophils # (Auto) 0.2 Basophils # (Auto) 0.0 CBC Comment DIFF FINAL Differential Comment Date/Time Source Procedure Growth Status 05/03/17 21:07 Blood Peripheral Aerobic Blood Culture - Preliminary NO GROWTH IN 4 DAYS Resulted 05/03/17 21:07 Blood Peripheral Anaerobic Blood Culture - Preliminary NO GROWTH IN 4 DAYS Resulted 05/03/17 20:00 Fluid Pleural Fluid Fungal Smear - Final NO FUNGAL ELEMENTS SEEN. Resulted 05/03/17 20:00 Fluid Pleural Fluid Fungal Culture Pending Resulted 05/04/17 04:39 Sputum Expectorated Sputum Gram Stain - Final Complete 05/04/17 04:39 Sputum Expectorated Sputum Sputum Culture - Final HEAVY GROWTH NORMAL RESPIRATORY PAMELA Complete 05/04/17 04:39 Urine Catheterized Urine Urine Culture - Final NO GROWTH IN 48 HOURS. Complete Result Diagram: 05/07/17 0435 05/07/17 0435 Imaging Last 48 hours Impressions Chest X-Ray 05/07/17 06 Signed Impressions: Service Date/Time: Sunday, May 07, 2017 05:03 - CONCLUSION: Persistent moderate-sized bibasilar opacities representing pleural effusions with associated volume loss and/or airspace consolidation. The changes on the left have slightly increased from yesterday's examination. Cristian Dewitt MD Chest X-Ray 05/06/17 06 Signed Impressions: Service Date/Time: Saturday, May 06, 2017 04:08 - CONCLUSION: Persistent but increased bibasilar opacities likely representing pleural effusions with associated volume loss and/or airspace consolidation. Cristian Dewitt MD Assessment and Plan Problem List: (1) Acute renal injury ICD Codes: N17.9 - Acute kidney failure, unspecified Status: Acute Plan: May be related to some degree of contrast nephrotoxicity status post cat a catheterization. A hemodynamic factors may be contributory with need for diuresis with congestive heart failure. Vancomycin toxicity is also a consideration. Would recommend reevaluation of vancomycin utilization pending stabilization of renal function. Disease consultation if required. Check renal ultrasound. Urine for eosinophils. C3, C4 (2) CKD (chronic kidney disease) stage 3, GFR 30-59 ml/min ICD Codes: N18.3 - Chronic kidney disease, stage 3 (moderate) Plan: Patient may have chronic kidney disease related to nephrosclerosis of hypertension but unfortunately previous recent outpatient laboratory studies are not available as apparently patient has been somewhat poorly followed as an outpatient from a medical point of view. (3) Pelvic mass ICD Codes: R19.00 - Intra-abdominal and pelvic swelling, mass and lump, unspecified site Plan: Oncology following patient. (4) CHF (congestive heart failure) ICD Codes: I50.9 - Heart failure, unspecified (5) Cardiomyopathy ICD Codes: I42.9 - Cardiomyopathy, unspecified Status: Chronic Plan: Status post chronic catheterization with placement of a stent LAD May. Problem Qualifiers (1) CHF (congestive heart failure): Agatha Rosales MD May 07, 2017 12:57
[2017-05-07 15:00] LABS: LIPASE BODY FLUID LESS THAN 10 U/L; LIPASE SOURCE PLEURAL
--- NOTE | 2017-05-07 15:12 | RADRPT ---
EXAM DATE/TIME: 05/07/2017 14:35 [facility] COMPARISON: CT ABDOMEN & PELVIS W/O CONTRAST, May 03, 2017, 22:11. CHEST SINGLE AP, May 07, 2017, 5:03. INDICATIONS : Increased BUN/Creatinine. MEDICAL HISTORY : Hypertension. Congestive heart failure. SURGICAL HISTORY : Tonsillectomy. ENCOUNTER: Initial ACUITY: 1 day PAIN SCORE: 0/10 LOCATION: Bilateral flank MEASUREMENTS: RIGHT KIDNEY: 11.7 x 4.5 x 4.5 cm LEFT KIDNEY: 11.8 x 5.9 x 5.6 cm FINDINGS: RIGHT KIDNEY: Renal cortex is normal in thickness and echotexture. No hydronephrosis, stone, or mass. LEFT KIDNEY: Renal cortex is normal in thickness and echotexture. No hydronephrosis, stone, or mass. BLADDER: There is a large complex mass in the pelvis. This has been previously described on patient's prior CT abdomen/pelvis. There is some free fluid in the pelvis. This mass measures 11.3 x 10.7 x 12.0 cm. Th e urinary bladder is not well visualized. There are bilateral pleural effusions. CONCLUSION: 1. No evidence of hydronephrosis. 2. Bilateral pleural effusions. 3. Large complex cystic/solid mass in the pelvis. Max Carvajal MD on May 07, 2017 at 15:08 Board Certified Radiologist. This report was verified electronically.
[2017-05-07] MEDS ORDERED: VANCOMYCIN 1,000 MG/NS 250 ML IV ONE ×2 (16:00)
[2017-05-07 16:24] LABS: AMYLASE BODY FLUID 17 U/L; AMYLASE BODY FLUID TYPE PLEURAL
--- NOTE | 2017-05-07 17:19 | PD.CARD.PN ---
Subjective Subjective Remarks feels better Objective Medications Current Medications Medications (Trade) Dose Ordered Sig/Lidia Route Start Time Stop Time Status Last Admin (NS Flush) 2 ml UNSCH PRN IV FLUSH 05/03/17 20:00 (NS Flush) 2 ml BID IV FLUSH 05/03/17 21:00 05/07/17 10:30 (Tylenol) 650 mg Q6H PRN PO 05/03/17 20:00 ([place] 5-325 Mg) 1 tab Q4H PRN PO 05/03/17 20:00 (Morphine Inj) 2 mg Q2H PRN IV PUSH 05/03/17 20:00 05/07/17 01:05 (Zofran Inj) 4 mg Q6H PRN IV PUSH 05/03/17 20:00 05/04/17 14:24 (Albuterol Neb) 2.5 mg Q2HR NEB PRN INH 05/03/17 20:00 Miscellaneous Information 1 Q361D XX 05/03/17 20:00 (Chlorhexidine 2% Cloth) 3 pack Taper DAILY@04 TOP 05/04/17 04:00 04/30/18 03:59 05/07/17 04:00 (Chlorhexidine 2% Cloth) 3 pack UNSCH PRN TOP 05/03/17 20:00 ([place]-Colace) 1 tab BID PO 05/03/17 21:00 05/05/17 09:17 (Milk Of Magnesia Liq) 30 ml Q12H PRN PO 05/03/17 20:00 (Senokot) 17.2 mg Q12H PRN PO 05/03/17 20:00 (Dulcolax Supp) 10 mg DAILY PRN RECTAL 05/03/17 20:00 (Lactulose Liq) 30 ml DAILY PRN PO 05/03/17 20:00 Pharmacy Profile Note 0 ml @ 0 mls/hr UNSCH OTHER 05/03/17 20:00 Cefepime HCl 2000 mg/Sodium Chloride 100 ml @ 200 mls/hr Q8H IV 05/03/17 22:00 05/07/17 14:29 Azithromycin 500 mg/Sodium Chloride 250 ml @ 250 mls/hr Q24H IV 05/03/17 20:00 05/06/17 20:34 (Compazine Inj) 5 mg Q6H PRN IV PUSH 05/04/17 10:30 05/06/17 14:10 (Lipitor) 80 mg HS PO 05/05/17 21:00 05/06/17 20:35 (Aspirin Chew) 162 mg DAILY PO 05/05/17 09:00 05/07/17 10:26 (Plavix) 75 mg DAILY PO 05/05/17 09:00 05/07/17 10:26 (D50w (Vial) Inj) 50 ml UNSCH PRN IV PUSH 05/04/17 14:45 (Glucagon Inj) 1 mg UNSCH PRN OTHER 05/04/17 14:45 (NovoLIN R SUPPLEMENTAL SCALE) 1 ACHS SLIDING SCALE SQ 05/04/17 17:00 05/07/17 12:49 (Trandate Inj) 10 mg Q1HR PRN IV PUSH 05/04/17 14:45 (Apresoline Inj) 10 mg Q1HR PRN IV PUSH 05/04/17 14:45 (Nitroglycerin 2% Oint) 2 inch Q6HR PRN TOPICAL 05/04/17 14:45 (Protonix) 40 mg DAILY PO 05/05/17 09:00 05/07/17 10:27 (Compazine Inj) 5 mg Q6H PRN IV PUSH 05/04/17 20:00 05/05/17 02:01 (Coreg) 3.125 mg BID PO 05/04/17 21:00 05/07/17 10:26 (CeleXA) 20 mg DAILY PO 05/06/17 09:00 05/07/17 10:26 (Ativan) 0.5 mg Q8H PRN PO 05/05/17 21:15 05/06/17 20:35 (Compazine) 5 mg Q6H PRN PO 05/06/17 17:30 05/07/17 08:40 (Compazine) 5 mg Q6H PRN PO 05/06/17 17:30 05/07/17 05:22 (Duoneb Neb) 1 ampule Q6HR NEB INH 05/07/17 16:00 05/07/17 16:54 (Lasix Inj) 20 mg DAILY IV PUSH 05/08/17 09:00 Vital Signs / I&O Vital Signs Date Time Temp Pulse Resp B/P (MAP) Pulse Ox O2 Delivery O2 Flow Rate FiO2 05/07/17 16:00 84 3/6/18 16:00 98.3 84 29 94/67 (76) 93 05/07/17 12:00 81 05/07/17 12:00 98.3 81 23 111/59 (76) 94 05/07/17 10:03 93 Nasal Cannula 3.00 05/07/17 08:52 96 Simple Mask 8.00 05/07/17 08:50 96 Nasal Cannula 4.00 Humidified 05/07/17 08:00 80 05/07/17 08:00 97.8 80 18 112/58 (76) 95 05/07/17 07:12 92 Simple Mask 8.00 05/07/17 04:00 80 05/07/17 04:00 98.4 80 16 108/61 (77) 93 05/07/17 00:00 98.6 73 110/57 (74) 96 05/07/17 00:00 73 05/06/17 22:00 77 05/06/17 21:18 93 Nasal Cannula 4.00 05/06/17 20:00 81 05/06/17 20:00 98.4 80 22 110/57 (74) 94 05/06/17 19:00 98 Nasal Cannula 4.00 05/06/17 18:00 75 I/O 05/06/17 05/06/17 05/06/17 05/07/17 05/07/17 05/07/17 07:00 15:00 23:00 07:00 15:00 23:00 Intake Total 580 ml 100 ml 800 ml 400 ml Output Total 950 ml 350 ml 250 ml 250 ml 500 ml Balance -370 ml 100 ml 450 ml 150 ml -250 ml -500 ml Intake Oral 480 ml 350 ml IV Total 100 ml 100 ml 450 ml 400 ml Output Urine Total 950 ml 350 ml 250 ml 250 ml 500 ml # Bowel Movements 0 0 1 Physical Exam GENERAL: SKIN: Warm and dry. HEAD: Normocephalic. EYES: No scleral icterus. No injection or drainage. NECK: Supple, trachea midline. No JVD or lymphadenopathy. CARDIOVASCULAR: Regular rate and rhythm without murmurs, gallops, or rubs. RESPIRATORY: Breath sounds equal bilaterally. No accessory muscle use. GASTROINTESTINAL: Abdomen soft, non-tender, nondistended. MUSCULOSKELETAL: No cyanosis, or edema. BACK: Nontender without obvious deformity. No CVA tenderness. Laboratory Laboratory Tests Test 05/07/17 04:35 White Blood Count 6.0 TH/MM3 Red Blood Count 3.12 MIL/MM3 Hemoglobin 8.5 GM/DL Hematocrit 25.1 % Mean Corpuscular Volume 80.3 FL Mean Corpuscular Hemoglobin 27.1 PG Mean Corpuscular Hemoglobin Concent 33.7 % Red Cell Distribution Width 15.0 % Platelet Count 141 TH/MM3 Mean Platelet Volume 8.2 FL Neutrophils (%) (Auto) 72.3 % Lymphocytes (%) (Auto) 13.7 % Monocytes (%) (Auto) 11.0 % Eosinophils (%) (Auto) 2.5 % Basophils (%) (Auto) 0.5 % Neutrophils # (Auto) 4.3 TH/MM3 Lymphocytes # (Auto) 0.8 TH/MM3 Monocytes # (Auto) 0.7 TH/MM3 Eosinophils # (Auto) 0.2 TH/MM3 Basophils # (Auto) 0.0 TH/MM3 CBC Comment DIFF FINAL Differential Comment Blood Urea Nitrogen 49 MG/DL Creatinine 2.35 MG/DL Random Glucose 115 MG/DL Calcium Level 8.2 MG/DL Phosphorus Level 2.9 MG/DL Magnesium Level 1.7 MG/DL Sodium Level 139 MEQ/L Potassium Level 4.0 MEQ/L Chloride Level 103 MEQ/L Carbon Dioxide Level 29.2 MEQ/L Anion Gap 7 MEQ/L Estimat Glomerular Filtration Rate 21 ML/MIN B-Type Natriuretic Peptide 1215 PG/ML Random Vancomycin Level 18.5 COMMENT Imaging Last 24 hours Impressions Chest X-Ray 05/07/17 0600 Signed Impressions: Service Date/Time: Sunday, May 07, 2017 05:03 - CONCLUSION: Persistent moderate-sized bibasilar opacities representing pleural effusions with associated volume loss and/or airspace consolidation. The changes on the left have slightly increased from yesterday's examination. Cristian Dewitt MD Renal Ultrasound 05/07/17 0000 Signed Impressions: Service Date/Time: Sunday, May 07, 2017 14:35 - CONCLUSION: 1. No evidence of hydronephrosis. 2. Bilateral pleural effusions. 3. Large complex cystic/ solid mass in the pelvis. Max Carvajal MD Assessment and Plan Problem List: (1) CAD (coronary artery disease) ICD Codes: I25.10 - Atherosclerotic heart disease of [place] coronary artery without angina pectoris (2) CHF (congestive heart failure) ICD Codes: I50.9 - Heart failure, unspecified (3) Cardiomyopathy ICD Codes: I42.9 - Cardiomyopathy, unspecified Status: Chronic (4) Ovarian mass ICD Codes: N83.9 - Noninflammatory disorder of ovary, fallopian tube and broad ligament, unspecified Status: Acute (5) Acute hypoxemic respiratory failure ICD Codes: J96.01 - Acute respiratory failure with hypoxia Assessment and Plan 1.) CAD - pod#3 bms mid lad, clinically improved, continue aspirin, plavix, 2.) CHF - continue coreg, lasix, altagracia held due to arf, f/u bnp/bmp Problem Qualifiers (1) CHF (congestive heart failure): Mario Beckett MD May 07, 2017 17:19
[2017-05-07 17:59] LABS: BACTERIA, URINE RARE /hpf; BILIRUBIN, URINE NEG (NEG); BLOOD, URINE MOD (NEG); GLUCOSE,URINE 150 mg/dL (NEG); KETONE, URINE TRACE mg/dL (NEG); MUCUS URINE FEW /lpf (OCC); NITRITE,URINE NEG (NEG); PH, URINE 5.5 (5.0-8.5); SQUAMOUS EPITHELIAL CELL URINE 2 /hpf (0-5); URINE COLOR YELLOW (YELLW/STRAW); URINE LEUKOCYTE ESTERASE MOD (NEG)
[2017-05-07] MEDS: ONDANSETRON HCL 4 MG/2 ML VIAL IV PUSH PRN (19:35)
[2017-05-07] MEDS: AZITHROMYCIN INJ 500 MG in SODIUM CHLOR 0.9% 250 ML INJ 250 ML IV SCH (19:35)
[2017-05-07] MEDS: LORazepam 0.5 MG TAB PO PRN (19:36)
[2017-05-07] MEDS: ATORVASTATIN 80 MG TAB PO SCH (19:36)
[2017-05-07] MEDS: PROCHLORPERAZINE INJ 10 MG/2 ML VIAL IV PUSH PRN (22:35)
[2017-05-08] VITALS (12 sets, daily range): BP systolic 107–131; BP diastolic 58–67; PULSE 76–91; RESP 17–29; TEMP 97.6–98.6; O2SAT 91–100
[2017-05-08] MEDS ORDERED: LORazepam 2 MG/ML VIAL IV PUSH ONE (00:45)
[2017-05-08] MEDS: RESP: ALBUTEROL 2.5 MG/IPRATROPIUM 0.5 MG NEB (SCH) INH ×4 (03:36→19:51)
[2017-05-08] MEDS: CHLORHEXIDINE GLUCONATE 2 % 1 PACK (2 CLOTHS) TOP SCH (04:00)
[2017-05-08 05:38] LABS: AUTOMATED NEUTROPHIL # 3.7 TH/MM3 (1.8-7.7); BASOPHIL % 0.4 % (0.0-2.0); EOSINOPHIL # 0.1 TH/MM3 (0-0.4); EOSINOPHIL % 2.2 % (0.0-4.0); HEMATOCRIT 26.2 % (35.0-46.0); HEMOGLOBIN 8.6 GM/DL (11.6-15.3); LYMPH % 16.9 % (9.0-44.0); LYMPHOCYTE # 0.9 TH/MM3 (1.0-4.8); MEAN CELL VOLUME 80.3 FL (80.0-100.0); MEAN CORPUSCULAR HEMOGLOBIN 26.5 PG (27.0-34.0); MEAN PLATELET VOLUME 8.7 FL (7.0-11.0); MONO % 12.8 % (0.0-8.0); MONOCYTE # 0.7 TH/MM3 (0-0.9); NEUT % 67.7 % (16.0-70.0); PLATELET COUNT 129 TH/MM3 (150-450); RED BLOOD COUNT 3.26 MIL/MM3 (4.00-5.30); RED CELL DISTRIBUTION WIDTH 14.8 % (11.6-17.2); WHITE BLOOD COUNT 5.4 TH/MM3 (4.0-11.0)
[2017-05-08 05:53] LABS: BICARBONATE 28.5 MEQ/L (21.0-32.0); CALCIUM 8.6 MG/DL (8.5-10.1); CREATININE 2.36 MG/DL (0.50-1.00); MAGNESIUM 1.7 MG/DL (1.5-2.5)
[2017-05-08] MEDS: CEFEPIME INJ 2,000 MG in SODIUM CHLORIDE 0.9% INJ 100 ML IV SCH (06:00)
[2017-05-08 06:09] LABS: COMPLEMENT C3 91 MG/DL (90-180); COMPLEMENT C4 26 MG/DL (10-40)
[2017-05-08] MEDS: INSULIN NovoLIN REGULAR SUPPLEMENTAL SCALE SQ SCH ×4 (08:00→21:00)
--- NOTE | 2017-05-08 08:35 | HHI.PR ---
Subjective Remarks Follow-up respiratory failure, nausea, pleural effusions, pneumonia. The patient has continued to have nausea. She has not been able to tolerate medications by mouth. She states that she feels anxious. She was given 1 dose of IV Ativan overnight, and states that it helped her significantly. Objective Vitals Vital Signs Date Time Temp Pulse Resp B/P (MAP) Pulse Ox O2 Delivery O2 Flow Rate FiO2 05/08/17 07:16 96 Partial Rebreather 12.00 05/08/17 04:30 98 Partial Rebreather 12.00 05/08/17 04:00 79 05/08/17 04:00 97.7 79 21 107/58 (74) 94 05/08/17 02:00 80 05/08/17 00:00 83 05/08/17 00:00 97.6 83 24 115/63 (80) 98 05/07/17 20:53 94 Nasal Cannula 4.00 05/07/17 20:00 85 05/07/17 20:00 98.4 85 29 93 05/07/17 19:00 95 Nasal Cannula 2.00 05/07/17 16:00 84 05/07/17 16:00 98.3 84 29 94/67 (76) 93 05/07/17 12:00 81 05/07/17 12:00 98.3 81 23 111/59 (76) 94 05/07/17 10:03 93 Nasal Cannula 3.00 05/07/17 08:52 96 Simple Mask 8.00 05/07/17 08:50 96 Nasal Cannula 4.00 Humidified I/O 05/07/17 05/07/17 05/07/17 05/08/17 05/08/17 05/08/17 06:59 14:59 22:59 06:59 14:59 22:59 Intake Total 400 ml 850 ml 40 ml Output Total 250 ml 250 ml 500 ml Balance 150 ml -250 ml 350 ml 40 ml Intake Oral 750 ml 40 ml IV Total 400 ml 100 ml Output Urine Total 250 ml 250 ml 500 ml # Bowel Movements 0 1 1 Result Diagram: 05/08/1743405/08/17434 Imaging Last Impressions Chest X-Ray 05/07/17 0600 Signed Impressions: Service Date/Time: Sunday, May 07, 2017 05:03 - CONCLUSION: Persistent moderate-sized bibasilar opacities representing pleural effusions with associated volume loss and/or airspace consolidation. The changes on the left have slightly increased from yesterday's examination. Cristian Dewitt MD Renal Ultrasound 05/07/17 0000 Signed Impressions: Service Date/Time: Sunday, May 07, 2017 14:35 - CONCLUSION: 1. No evidence of hydronephrosis. 2. Bilateral pleural effusions. 3. Large complex cystic/ solid mass in the pelvis. Max Carvajal MD Chest CT 05/03/17 0000 Signed Impressions: Service Date/Time: Wednesday, May 03, 2017 22:11 - CONCLUSION: 1. Moderate- sized left pleural effusion and small right pleural effusion. 2. Diffuse alveolar consolidation throughout the right mid and lower lung field and to a lesser extent the aerated portion left upper lung consistent with asymmetric pulmonary edema and/or pneumonia. Clinical correlation is recommended. 3. Left basilar compressive atelectasis and/or infiltrate. 4. Cardiomegaly and coronary artery calcifications. 5. Small pericardial effusion. 6. Cholelithiasis. 7. Degenerative changes within the thoracic spine. Yong Cox MD Abdomen/Pelvis CT 05/03/17 0000 Signed Impressions: Service Date/Time: Wednesday, May 03, 2017 22:11 - CONCLUSION: 1. Complex pelvic mass measuring 9.5 x 11.8 x 13.9 cm which raises the possibility of left ovarian neoplasm until proven otherwise. 2. Some ascites within the pelvis. 3. Moderate-sized left pleural effusion. 4. Small right pleural effusion. 5. Diffuse alveolar consolidation of the right lung and to a lesser extent the left lung base consistent with asymmetric pulmonary edema versus pneumonia. 6. Cardiomegaly. 7. Small pericardial effusion. Yong Cox MD Objective Remarks General: No acute distress. On nonrebreather mask. Heart: Regular rate and rhythm. No murmur. Lungs: Decreased breath sounds throughout. No wheezing noted. Abdomen: Soft, nontender, nondistended. Extremities: No lower extremity edema. SCDs. Psych: Alert and oriented. Procedures 05/04-left thoracentesis-900 cc Urinary Catheter: No Vascular Central Line Catheter: No A/P Problem List: (1) Acute hypoxemic respiratory failure ICD Code: J96.01 - Acute respiratory failure with hypoxia (2) Sepsis ICD Code: A41.9 - Sepsis, unspecified organism (3) CAP (community acquired pneumonia) ICD Code: J18.9 - Pneumonia, unspecified organism (4) Elevated brain natriuretic peptide (BNP) level ICD Code: R79.89 - Other specified abnormal findings of blood chemistry (5) Elevated troponin ICD Code: R74.8 - Abnormal levels of other serum enzymes (6) Probable CHF (7) Acute kidney injury ICD Code: N17.9 - Acute kidney failure, unspecified (8) Hypertension ICD Code: I10 - Essential (primary) hypertension Assessment and Plan 1. Acute hypoxemic respiratory failure, bilateral pleural effusions, community- acquired pneumonia: Continue supplemental oxygen. Continue antibiotics. Continue bronchodilators, incentive spirometry. Status post thoracentesis. Requiring nonrebreather. Pulmonology consult is pending. Vancomycin discontinued secondary to renal failure. Infectious disease consult pending. 2. Coronary artery disease, non-ST elevation CA: Status post cardiac catheterization with stent placement. Continue aspirin and Plavix. 3. Congestive heart failure, chronic systolic: Continue beta-darvin, aspirin, Plavix, DELANO inhibitor, statin. 4. Hyperlipidemia: Continue statin. 5. Acute kidney injury superimposed on chronic kidney disease: Appreciate nephrology recommendations. Monitor strict intake/output. Jiménez catheter in place. Creatinine remains elevated. 6. Hypokalemia: Improved. Monitor labs and supplement as needed. 7. Pelvic mass: Appreciate medical and gynecologic oncology recommendations. Cytology from thoracentesis is negative for malignant cells. 8. DVT prophylaxis: SCDs, ROBEL hose. Chemical prophylaxis contraindicated secondary to hemorrhagic pleural effusion. 9. GI prophylaxis: Protonix. Problem Qualifiers (1) Hypertension: Qualified Codes: I10 - Essential (primary) hypertension Marino Moore MD May 08, 2017 08:34
[2017-05-08] MEDS: ASPIRIN 81 MG CHEW TAB PO SCH (08:52)
[2017-05-08] MEDS: CARVEDILOL 3.125 MG TAB PO SCH ×2 (08:52→21:00)
[2017-05-08] MEDS: PANTOPRAZOLE SOD 40 MG DELAYED RELEASE TAB PO SCH (08:52)
[2017-05-08] MEDS: CLOPIDOGREL 75 MG TAB PO SCH (08:52)
[2017-05-08] MEDS: CITALOPRAM HYDROBROMIDE 20 MG TAB PO SCH (08:52)
[2017-05-08] MEDS: DOCUSATE SODIUM 50 MG/SENNA 8.6 MG TAB PO SCH ×2 (08:52→21:00)
[2017-05-08] MEDS: SODIUM CHLORIDE 0.9% FLUSH 10 ML FLUSH IV FLUSH SCH ×2 (08:53→21:48)
[2017-05-08] MEDS: FUROSEMIDE 40 MG/4 ML VIAL IV PUSH SCH (08:53)
--- NOTE | 2017-05-08 10:16 | EKG ---
Date Performed: 05/08/2017 Time Performed: 09:10:26 PTAGE: 66 years EKG: Sinus rhythm INCOMPLETE RIGHT BUNDLE BRANCH BLOCK VOLTAGE CRITERIA FOR LVH INFERIOR MYOCARDIAL INFARCTION , PROBA GOSIA OLD ST DEVIATION AND MODERATE T-WAVE ABNORMALITY, CONSIDER LATERAL ISCHEMIA ABNORMAL ECG PREVIOUS TRACING : 05/03/2017 20.36 DOCTOR: Migue Harkins Interpretating Date/Time 05/08/2017 10:15:00
[2017-05-08] MEDS: PROCHLORPERAZINE INJ 10 MG/2 ML VIAL IV PUSH PRN ×2 (12:51→18:36)
--- NOTE | 2017-05-08 14:18 | PD.CARD.PN ---
Subjective Subjective Remarks denies chest pain Objective Medications Current Medications Medications (Trade) Dose Ordered Sig/Lidia Route Start Time Stop Time Status Last Admin (NS Flush) 2 ml UNSCH PRN IV FLUSH 05/03/17 20:00 (NS Flush) 2 ml BID IV FLUSH 05/03/17 21:00 05/08/17 08:53 (Tylenol) 650 mg Q6H PRN PO 05/03/17 20:00 ([place] 5-325 Mg) 1 tab Q4H PRN PO 05/03/17 20:00 (Morphine Inj) 2 mg Q2H PRN IV PUSH 05/03/17 20:00 05/07/17 01:05 (Zofran Inj) 4 mg Q6H PRN IV PUSH 05/03/17 20:00 05/07/17 19:35 (Albuterol Neb) 2.5 mg Q2HR NEB PRN INH 05/03/17 20:00 Miscellaneous Information 1 Q361D XX 05/03/17 20:00 (Chlorhexidine 2% Cloth) 3 pack Taper DAILY@04 TOP 05/04/17 04:00 04/30/18 03:59 05/07/17 04:00 (Chlorhexidine 2% Cloth) 3 pack UNSCH PRN TOP 05/03/17 20:00 ([place]-Colace) 1 tab BID PO 05/03/17 21:00 05/08/17 08:52 (Milk Of Magnesia Liq) 30 ml Q12H PRN PO 05/03/17 20:00 (Senokot) 17.2 mg Q12H PRN PO 05/03/17 20:00 (Dulcolax Supp) 10 mg DAILY PRN RECTAL 05/03/17 20:00 (Lactulose Liq) 30 ml DAILY PRN PO 05/03/17 20:00 Azithromycin 500 mg/Sodium Chloride 250 ml @ 250 mls/hr Q24H IV 05/03/17 20:00 05/07/17 19:35 (Compazine Inj) 5 mg Q6H PRN IV PUSH 05/04/17 10:30 05/08/17 12:51 (Lipitor) 80 mg HS PO 05/05/17 21:00 05/06/17 20:35 (Aspirin Chew) 162 mg DAILY PO 05/05/17 09:00 05/08/17 08:52 (Plavix) 75 mg DAILY PO 05/05/17 09:00 05/08/17 08:52 (D50w (Vial) Inj) 50 ml UNSCH PRN IV PUSH 05/04/17 14:45 (Glucagon Inj) 1 mg UNSCH PRN OTHER 05/04/17 14:45 (NovoLIN R SUPPLEMENTAL SCALE) 1 ACHS SLIDING SCALE SQ 05/04/17 17:00 05/07/17 18:04 (Trandate Inj) 10 mg Q1HR PRN IV PUSH 05/04/17 14:45 (Apresoline Inj) 10 mg Q1HR PRN IV PUSH 05/04/17 14:45 (Nitroglycerin 2% Oint) 2 inch Q6HR PRN TOPICAL 05/04/17 14:45 (Protonix) 40 mg DAILY PO 05/05/17 09:00 05/08/17 08:52 (Compazine Inj) 5 mg Q6H PRN IV PUSH 05/04/17 20:00 05/05/17 02:01 (Coreg) 3.125 mg BID PO 05/04/17 21:00 05/08/17 08:52 (CeleXA) 20 mg DAILY PO 05/06/17 09:00 05/08/17 08:52 (Ativan) 0.5 mg Q8H PRN PO 05/05/17 21:15 05/07/17 19:36 (Compazine) 5 mg Q6H PRN PO 05/06/17 17:30 05/07/17 18:03 (Compazine) 5 mg Q6H PRN PO 05/06/17 17:30 05/07/17 05:22 (Duoneb Neb) 1 ampule Q6HR NEB INH 05/07/17 16:00 05/08/17 07:15 (Lasix Inj) 20 mg DAILY IV PUSH 05/08/17 09:00 05/08/17 08:53 (Ativan Inj) 0.25 mg Q6H PRN IV PUSH 05/08/17 08:30 Cefepime HCl 1000 mg/Sodium Chloride 100 ml @ 200 mls/hr Q12H IV 05/08/17 18:00 Vital Signs / I&O Vital Signs Date Time Temp Pulse Resp B/P (MAP) Pulse Ox O2 Delivery O2 Flow Rate FiO2 05/08/17 12:00 98.4 84 29 131/64 (86) 100 05/08/17 12:00 84 05/08/17 08:00 98.6 91 23 122/64 (83) 100 05/08/17 08:00 91 05/08/17 07:16 96 Partial Rebreather 12.00 05/08/17 07:00 98 Partial Non-Rebreather 05/08/17 04:30 98 Partial Rebreather 12.00 05/08/17 04:00 79 05/08/17 04:00 97.7 79 21 107/58 (74) 94 05/08/17 02:00 80 05/08/17 00:00 83 05/08/17 00:00 97.6 83 24 115/63 (80) 98 05/07/17 20:53 94 Nasal Cannula 4.00 05/07/17 20:00 85 05/07/17 20:00 98.4 85 29 93 05/07/17 19:00 95 Nasal Cannula 2.00 05/07/17 16:00 84 05/07/17 16:00 98.3 84 29 94/67 (76) 93 I/O 05/07/17 05/07/17 05/07/17 05/08/17 05/08/17 05/08/17 07:00 15:00 23:00 07:00 15:00 23:00 Intake Total 400 ml 850 ml 40 ml Output Total 250 ml 250 ml 500 ml Balance 150 ml -250 ml 350 ml 40 ml Intake Oral 750 ml 40 ml IV Total 400 ml 100 ml Output Urine Total 250 ml 250 ml 500 ml # Bowel Movements 0 1 1 Physical Exam GENERAL: SKIN: Warm and dry. HEAD: Normocephalic. EYES: No scleral icterus. No injection or drainage. NECK: Supple, trachea midline. No JVD or lymphadenopathy. CARDIOVASCULAR: Regular rate and rhythm without murmurs, gallops, or rubs. RESPIRATORY: Breath sounds equal bilaterally. No accessory muscle use. GASTROINTESTINAL: Abdomen soft, non-tender, nondistended. MUSCULOSKELETAL: No cyanosis, or edema. BACK: Nontender without obvious deformity. No CVA tenderness. Laboratory Laboratory Tests Test 05/07/17 16:30 05/08/17 04:35 Urine Color YELLOW Urine Turbidity HAZY Urine pH 5.5 Urine Specific [place] 1.020 Urine Protein 100 mg/dL Urine Glucose (UA) 150 mg/dL Urine Ketones TRACE mg/dL Urine Occult Blood MOD Urine Nitrite NEG Urine Bilirubin NEG Urine Urobilinogen LESS THAN 2.0 MG/DL Urine Leukocyte Esterase MOD Urine RBC /hpf Urine WBC 9 /hpf Urine Squamous Epithelial Cells 2 /hpf Urine Bacteria RARE /hpf Urine Mucus FEW /lpf Urine Eosinophils NONE SEEN /HPF White Blood Count 5.4 TH/MM3 Red Blood Count 3.26 MIL/MM3 Hemoglobin 8.6 GM/DL Hematocrit 26.2 % Mean Corpuscular Volume 80.3 FL Mean Corpuscular Hemoglobin 26.5 PG Mean Corpuscular Hemoglobin Concent 33.0 % Red Cell Distribution Width 14.8 % Platelet Count 129 TH/MM3 Mean Platelet Volume 8.7 FL Neutrophils (%) (Auto) 67.7 % Lymphocytes (%) (Auto) 16.9 % Monocytes (%) (Auto) 12.8 % Eosinophils (%) (Auto) 2.2 % Basophils (%) (Auto) 0.4 % Neutrophils # (Auto) 3.7 TH/MM3 Lymphocytes # (Auto) 0.9 TH/MM3 Monocytes # (Auto) 0.7 TH/MM3 Eosinophils # (Auto) 0.1 TH/MM3 Basophils # (Auto) 0.0 TH/MM3 CBC Comment DIFF FINAL Differential Comment Blood Urea Nitrogen 52 MG/DL Creatinine 2.36 MG/DL Random Glucose 130 MG/DL Calcium Level 8.6 MG/DL Magnesium Level 1.7 MG/DL Sodium Level 140 MEQ/L Potassium Level 3.7 MEQ/L Chloride Level 103 MEQ/L Carbon Dioxide Level 28.5 MEQ/L Anion Gap 9 MEQ/L Estimat Glomerular Filtration Rate 21 ML/MIN B-Type Natriuretic Peptide 1646 PG/ML Total Protein 5.1 GM/DL Parathyroid Hormone (Intact) 125.7 PG/ML Complement C3 91 MG/DL Complement C4 26 MG/DL Hepatitis C Antibody NEGATIVE Assessment and Plan Problem List: (1) CAD (coronary artery disease) ICD Codes: I25.10 - Atherosclerotic heart disease of [place] coronary artery without angina pectoris (2) CHF (congestive heart failure) ICD Codes: I50.9 - Heart failure, unspecified (3) Cardiomyopathy ICD Codes: I42.9 - Cardiomyopathy, unspecified Status: Chronic (4) Ovarian mass ICD Codes: N83.9 - Noninflammatory disorder of ovary, fallopian tube and broad ligament, unspecified Status: Acute (5) Acute hypoxemic respiratory failure ICD Codes: J96.01 - Acute respiratory failure with hypoxia Assessment and Plan 1.) CAD - pod#4 bms mid lad, clinically improved, continue aspirin, plavix, 2.) CHF - bnp increasing, continue coreg, lasix, altagracia held due to arf, D/w Dr Wong, ekg today without ishemia, suggesting deteriorating nonischemic cardiomyopathy; will need renal to assist in dosing diuretics 3.) I am on vacation until may 21, 2017, Dr Calvert covering me Problem Qualifiers (1) CHF (congestive heart failure): Mario Beckett MD May 08, 2017 14:18
--- NOTE | 2017-05-08 15:01 | MB ---
cc: Ino Blackwell MD DATE OF CONSULT: 05/08/2017 REQUESTING PHYSICIAN: Dr. Moore REASON FOR CONSULTATION: Pneumonia. HISTORY OF PRESENT ILLNESS: This is a 66-year-old white female who was admitted to the hospital on May 03, 2017. The patient was noted to have new onset congestive heart failure. She was admitted with shortness of breath and cough, now with hypoxia. She was noted to have decreased oxygen saturation in the emergency department. Chest x-ray showed bilateral pleural effusions. She was started on IV antibiotics and admitted to the hospital. The patient underwent bilateral thoracentesis with removal of large amount of pleural fluid. She was felt to have community acquired pneumonia. The pleural fluid was hemorrhagic. Further workup revealed a mass in the abdomen which was felt likely to be arising from the ovaries, it is currently being worked up. The mass was detected on CT scan of the abdomen. Chest x-ray showed bilateral effusions and bibasilar opacities. Yesterday chest x-ray shows changes on the left side increased from previous. The patient is on oxygen via non-rebreather mask. She is awake and she is alert. She was given Ativan for restlessness yesterday evening. She was noted to have some vomiting yesterday evening as well. She denies fever or chills. She notes mild abdominal pain. She denies other complaints besides. The patient's daughter Radha is at bedside. Radha reports that the patient has been ill for about 2 months. At one point she felt that she had the flu and had been mostly tired and was not eating and was losing weight. The white blood cell count has been normal since admission. She has been afebrile since admission. The estimated GFR on admission was 30. Today the estimated GFR is 21. She is being diuresed currently. The patient was evaluated by cardiology and she underwent stent of the mid left anterior descending artery. She was felt to have a non-ST elevation myocardial infarction. The patient has no cough and no sputum production. The patient was also receiving intravenous vancomycin. PAST MEDICAL HISTORY: 1. Hypertension. 2. Newly diagnosed congestive heart failure. 3. Newly diagnosed left adnexal mass. 4. Post LAD stent this admission. ALLERGIES: NO KNOWN DRUG ALLERGIES MEDICATIONS: 1. Lasix 2. Ativan p.r.n. 3. Celexa 4. Lipitor 5. Aspirin 6. Plavix 7. Coreg 8. Protonix 9. Cefepime 10. Azithromycin SOCIAL HISTORY: No tobacco, no alcohol, no illicit drugs noted. FAMILY HISTORY: Noncontributory. REVIEW OF SYSTEMS: Significant for mild abdominal pain. Otherwise, negative on 10-point review. PHYSICAL EXAMINATION: GENERAL: This is a well-developed female who is in no acute distress. She is awake and alert upon being aroused. She looks a little lethargic. VITAL SIGNS: Temperature 98.6. Blood pressure 131/64. Heart rate 84. HEENT: Head is atraumatic. Extraocular movement is grossly intact. Pupils are reactive to light. No icterus. No conjunctival erythema. Oropharynx moist mucosa. No visible lesions. NECK: Supple without adenopathy or swelling. LUNGS: Marked decreased breath sounds throughout. HEART: Regular, S1 and S2. No murmurs, rubs or gallops. ABDOMEN: Bowel sounds present, soft, no tenderness appreciated. RECTAL: Not performed. EXTREMITIES: No clubbing, cyanosis or edema. SKIN: No rash. NEURO: No gross focal findings. PSYCHIATRIC: The patient is calm and cooperative. LABORATORY DATA: WBC 5.4, platelets 129, hemoglobin 8.6, 67% neutrophils, 16% lymphocytes, 12% monocytes, creatinine 2.29, BUN 49, estimated GFR 21, sodium 141. Total bilirubin on 05/05 was 0.5. BNP 1275. Pleural fluid culture from 05/03/17 has no growth. Sputum culture from 05/04/17 reveals heavy growth of normal respiratory shad. Urine culture from 05/04/17 has no growth at 48 hours. IMPRESSION: 1. Bilateral bibasilar opacities which are persistent. Likely representing pleural effusion. 2. Potential pneumonia. Difficult to determine the cause of the bilateral effusions. However, the patient has no fever and white blood cell count is normal. 3. Acute kidney disease. 4. Pelvic mass being evaluated. RECOMMENDATIONS: 1. Agree with having discontinued vancomycin. 2. Continue the cefepime but change to 1 gram IV every 12 hours. 3. Continue azithromycin. 4. Obtain procalcitonin level. 5. Diuresis. 6. Will follow clinical status. Thank you for this consultation. I will monitor the patient's progress along with you and will make further recommendations on followup. MD RACHELLE Gold/DOMONIQUE/rr , 12:08 PM , 12:53 PM [facility]
--- NOTE | 2017-05-08 16:00 | HHI.NPPN ---
Subjective History of Present Illness This patient is a 66-year-old female apparently was not having regular medical follow-up prior to this admission. She presented to the emergency room and Deltasone or complaining of shortness of breath and was noted to have evidence of a large left pleural effusion as well as a smaller right pleural effusion. Evaluation included an echocardiogram which showed an ejection fraction that was reduced and she subsequently underwent cardiac catheterization May with placement of a cardiac stent in the LAD. Patient also has a history of progressive weight loss and imaging studies have revealed the presence of a large left adnexal mass in the pelvis. Oncology following the patient. Creatinine level at time of presentation 1.69 with an estimated GFR of 30. No previous values available. Creatinine level has deteriorated to 2.35 with an estimated GFR of 21. Patient has been receiving vancomycin, Protonix as well as furosemide. Furosemide was reduced on day of consultation from 40 mg IV daily to 20 mg IV daily. Interval History Pt resting today Daughter present in room Jim[place] removed and UOP picking up Objective Data Data Vital Signs Date Time Temp Pulse Resp B/P (MAP) Pulse Ox O2 Delivery O2 Flow Rate FiO2 05/08/17 12:00 98.4 84 29 131/64 (86) 100 05/08/17 12:00 84 05/08/17 08:00 98.6 91 23 122/64 (83) 100 05/08/17 08:00 91 05/08/17 07:16 96 Partial Rebreather 12.00 05/08/17 07:00 98 Partial Non-Rebreather 05/08/17 04:30 98 Partial Rebreather 12.00 05/08/17 04:00 79 05/08/17 04:00 97.7 79 21 107/58 (74) 94 05/08/17 02:00 80 05/08/17 00:00 83 05/08/17 00:00 97.6 83 24 115/63 (80) 98 05/07/17 20:53 94 Nasal Cannula 4.00 05/07/17 20:00 85 05/07/17 20:00 98.4 85 29 93 05/07/17 19:00 95 Nasal Cannula 2.00 05/07/17 16:00 84 05/07/17 16:00 98.3 84 29 94/67 (76) 93 -: 05/08/17 0435 05/08/17 0435 Imaging Last Impressions Chest X-Ray 05/07/17 0600 Signed Impressions: Service Date/Time: Sunday, May 07, 2017 05:03 - CONCLUSION: Persistent moderate-sized bibasilar opacities representing pleural effusions with associated volume loss and/or airspace consolidation. The changes on the left have slightly increased from yesterday's examination. Cristian Dewitt MD Renal Ultrasound 05/07/17 0000 Signed Impressions: Service Date/Time: Sunday, May 07, 2017 14:35 - CONCLUSION: 1. No evidence of hydronephrosis. 2. Bilateral pleural effusions. 3. Large complex cystic/ solid mass in the pelvis. Max Carvajal MD Chest CT 05/03/17 0000 Signed Impressions: Service Date/Time: Wednesday, May 03, 2017 22:11 - CONCLUSION: 1. Moderate- sized left pleural effusion and small right pleural effusion. 2. Diffuse alveolar consolidation throughout the right mid and lower lung field and to a lesser extent the aerated portion left upper lung consistent with asymmetric pulmonary edema and/or pneumonia. Clinical correlation is recommended. 3. Left basilar compressive atelectasis and/or infiltrate. 4. Cardiomegaly and coronary artery calcifications. 5. Small pericardial effusion. 6. Cholelithiasis. 7. Degenerative changes within the thoracic spine. Yong Cox MD Abdomen/Pelvis CT 05/03/17 0000 Signed Impressions: Service Date/Time: Wednesday, May 03, 2017 22:11 - CONCLUSION: 1. Complex pelvic mass measuring 9.5 x 11.8 x 13.9 cm which raises the possibility of left ovarian neoplasm until proven otherwise. 2. Some ascites within the pelvis. 3. Moderate-sized left pleural effusion. 4. Small right pleural effusion. 5. Diffuse alveolar consolidation of the right lung and to a lesser extent the left lung base consistent with asymmetric pulmonary edema versus pneumonia. 6. Cardiomegaly. 7. Small pericardial effusion. Yong Cox MD Medication Review Current Medications Medications (Trade) Dose Ordered Sig/Lidia Route Start Time Stop Time Status Last Admin (NS Flush) 2 ml UNSCH PRN IV FLUSH 05/03/17 20:00 (NS Flush) 2 ml BID IV FLUSH 05/03/17 21:00 05/08/17 08:53 (Tylenol) 650 mg Q6H PRN PO 05/03/17 20:00 ([place] 5-325 Mg) 1 tab Q4H PRN PO 05/03/17 20:00 (Morphine Inj) 2 mg Q2H PRN IV PUSH 05/03/17 20:00 05/07/17 01:05 (Zofran Inj) 4 mg Q6H PRN IV PUSH 05/03/17 20:00 05/07/17 19:35 (Albuterol Neb) 2.5 mg Q2HR NEB PRN INH 05/03/17 20:00 Miscellaneous Information 1 Q361D XX 05/03/17 20:00 (Chlorhexidine 2% Cloth) 3 pack Taper DAILY@04 TOP 05/04/17 04:00 04/30/18 03:59 05/07/17 04:00 (Chlorhexidine 2% Cloth) 3 pack UNSCH PRN TOP 05/03/17 20:00 ([place]-Colace) 1 tab BID PO 05/03/17 21:00 05/08/17 08:52 (Milk Of Magnesia Liq) 30 ml Q12H PRN PO 05/03/17 20:00 (Senokot) 17.2 mg Q12H PRN PO 05/03/17 20:00 (Dulcolax Supp) 10 mg DAILY PRN RECTAL 05/03/17 20:00 (Lactulose Liq) 30 ml DAILY PRN PO 05/03/17 20:00 Azithromycin 500 mg/Sodium Chloride 250 ml @ 250 mls/hr Q24H IV 05/03/17 20:00 05/07/17 19:35 (Compazine Inj) 5 mg Q6H PRN IV PUSH 05/04/17 10:30 05/08/17 12:51 (Lipitor) 80 mg HS PO 05/05/17 21:00 05/06/17 20:35 (Aspirin Chew) 162 mg DAILY PO 05/05/17 09:00 05/08/17 08:52 (Plavix) 75 mg DAILY PO 05/05/17 09:00 05/08/17 08:52 (D50w (Vial) Inj) 50 ml UNSCH PRN IV PUSH 05/04/17 14:45 (Glucagon Inj) 1 mg UNSCH PRN OTHER 05/04/17 14:45 (NovoLIN R SUPPLEMENTAL SCALE) 1 ACHS SLIDING SCALE SQ 05/04/17 17:00 05/07/17 18:04 (Trandate Inj) 10 mg Q1HR PRN IV PUSH 05/04/17 14:45 (Apresoline Inj) 10 mg Q1HR PRN IV PUSH 05/04/17 14:45 (Nitroglycerin 2% Oint) 2 inch Q6HR PRN TOPICAL 05/04/17 14:45 (Protonix) 40 mg DAILY PO 05/05/17 09:00 05/08/17 08:52 (Compazine Inj) 5 mg Q6H PRN IV PUSH 05/04/17 20:00 05/05/17 02:01 (Coreg) 3.125 mg BID PO 05/04/17 21:00 05/08/17 08:52 (CeleXA) 20 mg DAILY PO 05/06/17 09:00 05/08/17 08:52 (Ativan) 0.5 mg Q8H PRN PO 05/05/17 21:15 05/07/17 19:36 (Compazine) 5 mg Q6H PRN PO 05/06/17 17:30 05/07/17 18:03 (Compazine) 5 mg Q6H PRN PO 05/06/17 17:30 05/07/17 05:22 (Duoneb Neb) 1 ampule Q6HR NEB INH 05/07/17 16:00 05/08/17 14:50 (Lasix Inj) 20 mg DAILY IV PUSH 05/08/17 09:00 05/08/17 08:53 (Ativan Inj) 0.25 mg Q6H PRN IV PUSH 05/08/17 08:30 Cefepime HCl 1000 mg/Sodium Chloride 100 ml @ 200 mls/hr Q12H IV 05/08/17 18:00 Physical Exam General Appearance: No Acute Distress, Comfortable Neck Neck Exam: Neck Supple, Trachea Midline Pulmonary Resp Exam: Breath Sounds Equal, Diminished Breath Sounds Cardiology CV Exam: Regular, Normal Sinus Rhythm Extremeties Extremities Exam: Trace Edema (bilat ankles) Assessment/Plan Problem List: (1) Acute renal injury ICD Codes: N17.9 - Acute kidney failure, unspecified Status: Acute Plan: May be related to some degree of contrast nephrotoxicity s/p cardiac cath as well as Vancomycin exposure. May be some hemodynamic factors may be contributory with need for diuresis with congestive heart failure. Vanco has been discontinued Renal US shows no signs of obstruction Urine eos negative Will continue on gentle diuresis and monitoring of renal functions. Advised daughter that if contrast and/or Vancomycin injury, there is nothing that can be done to reverse that the kidneys basically have to heal themselves. Medications should be adjusted for the patient's renal functions (2) CKD (chronic kidney disease) stage 3, GFR 30-59 ml/min ICD Codes: N18.3 - Chronic kidney disease, stage 3 (moderate) Plan: Patient may have chronic kidney disease related to nephrosclerosis of hypertension but unfortunately previous recent outpatient laboratory studies are not available as apparently patient has been somewhat poorly followed as an outpatient from a medical point of view. (3) Pelvic mass ICD Codes: R19.00 - Intra-abdominal and pelvic swelling, mass and lump, unspecified site Plan: Oncology following patient. (4) CHF (congestive heart failure) ICD Codes: I50.9 - Heart failure, unspecified Plan: Continue on diuresis as before. (5) Cardiomyopathy ICD Codes: I42.9 - Cardiomyopathy, unspecified Status: Chronic Plan: Status post chronic catheterization with placement of a stent LAD May. Problem Qualifiers (1) CHF (congestive heart failure): Elsa Roger May 08, 2017 16:00
[2017-05-08] MEDS ORDERED: CEFEPIME INJ 1,000 MG in SODIUM CHLORIDE 0.9% INJ 100 ML IV SCH (18:00)
[2017-05-08] MEDS: CEFEPIME INJ 1,000 MG in SODIUM CHLORIDE 0.9% INJ 100 ML IV SCH (18:36)
--- NOTE | 2017-05-08 18:46 | MB ---
cc: Trey Yang MD DATE OF CONSULT: 05/08/2017 REASON FOR CONSULTATION: Respiratory failure, question pneumonia. HISTORY OF PRESENT ILLNESS: Ms. Simpson is a 66-year-old female who was admitted with increasing shortness of breath, hypoxemia, new onset congestive heart failure. CT scan of the chest revealed evidence of bibasilar atelectasis, effusions, the possibility of pneumonia as well entertained. The patient has been started on antibiotic therapy. Continues to require oxygen therapy. Infectious disease has seen the patient and antibiotic therapy has been adjusted as needed. The patient denies history of fever or chills. CT scan of the abdomen revealed evidence of a periaortic mass, which is being evaluated at present. PAST MEDICAL HISTORY: 1. Hypertension. 2. Congestive heart failure. 3. Coronary artery disease. 4. LAD stent placement. MEDICATIONS AT PRESENT: Include: Cefepime, Zithromax, Protonix, Coreg, Plavix, Lipitor, Celexa, Lasix, Ativan, aspirin. ALLERGIES: NONE KNOWN TO MEDICATION. FAMILY HISTORY: Noncontributory. SYSTEMS REVIEW: A 12-point review of systems as per HPI and past history, otherwise negative. PHYSICAL EXAMINATION: GENERAL: The patient is alert. VITAL SIGNS: Temperature 98, pulse 80, respiration 18, blood pressure 130/60. HEENT: Unremarkable. Eyes without icterus. NECK: Without adenopathy or thyroid enlargement, central trachea. CHEST: Decreased breath sounds both lung bases. CARDIAC: PMI distant. S1, S2 audible, 1/6 ejection systolic murmur left sternal border. ABDOMEN: Lax. Bowel sounds audible. EXTREMITIES: No clubbing, cyanosis or edema. LABORATORY STUDIES: White count 5.4, hemoglobin 8.6, hematocrit 25, platelets 129,000. BUN of 49, creatinine 2.2. IMAGING STUDIES: CT scan of the chest: Bilateral effusions, possible underlying pneumonia, IMPRESSION: 1. Bilateral pleural effusions. 2. Pneumonia less likely by CT. 3. Renal insufficiency. 4. Periaortic mass. PLAN: The patient has been treated with antibiotic therapy. She does not have symptoms of acute infection at this point in terms of fever and leukocytosis, however, pneumonia is obviously a possibility to be entertained. To continue antibiotic therapy, bronchodilator therapy, pulmonary toilet. Consider bronchoscopic examination if she fails to improve or her chest x-ray worsens. Her oxygenation is adequate at present, however, she does require high oxygenation. I do thank you for asking me to partake in Ms. Simpson' care. MD JOHNNY Barber/CHRISTINE , 05:26 PM , 06:44 PM
[2017-05-08] MEDS: ATORVASTATIN 80 MG TAB PO SCH (21:00)
[2017-05-08] MEDS: LORazepam 2 MG/ML VIAL IV PUSH PRN (21:47)
[2017-05-08] MEDS: AZITHROMYCIN INJ 500 MG in SODIUM CHLOR 0.9% 250 ML INJ 250 ML IV SCH (21:47)
[2017-05-09] VITALS (11 sets, daily range): BP systolic 115–152; BP diastolic 60–77; PULSE 74–91; RESP 18–39; TEMP 97.2–98.4; O2SAT 93–99
[2017-05-09] MEDS: CHLORHEXIDINE GLUCONATE 2 % 1 PACK (2 CLOTHS) TOP SCH (01:02)
[2017-05-09] MEDS: LORazepam 2 MG/ML VIAL IV PUSH PRN (01:02)
[2017-05-09] MEDS: PROCHLORPERAZINE INJ 10 MG/2 ML VIAL IV PUSH PRN ×3 (01:02→16:54)
[2017-05-09] MEDS: RESP: ALBUTEROL 2.5 MG/IPRATROPIUM 0.5 MG NEB (SCH) INH ×4 (03:23→21:10)
[2017-05-09] MEDS: CEFEPIME INJ 1,000 MG in SODIUM CHLORIDE 0.9% INJ 100 ML IV SCH ×2 (05:00→17:01)
[2017-05-09 05:15] LABS: AUTOMATED NEUTROPHIL # 6.2 TH/MM3 (1.8-7.7); BASOPHIL # 0.1 TH/MM3 (0-0.2); BASOPHIL % 0.8 % (0.0-2.0); EOSINOPHIL # 0.3 TH/MM3 (0-0.4); HEMATOCRIT 26.8 % (35.0-46.0); LYMPH % 9.7 % (9.0-44.0); LYMPHOCYTE # 0.8 TH/MM3 (1.0-4.8); MEAN CELL VOLUME 80.2 FL (80.0-100.0); MEAN CORPUSCULAR HGB CONC 33.7 % (32.0-36.0); MEAN PLATELET VOLUME 8.7 FL (7.0-11.0); MONO % 12.1 % (0.0-8.0); NEUT % 74.4 % (16.0-70.0); PLATELET COUNT 139 TH/MM3 (150-450); RED BLOOD COUNT 3.34 MIL/MM3 (4.00-5.30); RED CELL DISTRIBUTION WIDTH 14.9 % (11.6-17.2); WHITE BLOOD COUNT 8.3 TH/MM3 (4.0-11.0)
[2017-05-09 05:42] LABS: BICARBONATE 28.5 MEQ/L (21.0-32.0); CALCIUM 8.5 MG/DL (8.5-10.1); CREATININE 2.02 MG/DL (0.50-1.00)
[2017-05-09] MEDS: INSULIN NovoLIN REGULAR SUPPLEMENTAL SCALE SQ SCH ×4 (08:00→21:00)
[2017-05-09] MEDS: FUROSEMIDE 40 MG/4 ML VIAL IV PUSH SCH (08:08)
[2017-05-09] MEDS: CARVEDILOL 3.125 MG TAB PO SCH ×2 (08:10→21:00)
[2017-05-09] MEDS: SODIUM CHLORIDE 0.9% FLUSH 10 ML FLUSH IV FLUSH SCH ×2 (08:10→21:00)
[2017-05-09] MEDS: POTASSIUM CHLORIDE 10 MEQ CAP PO SCH ×2 (08:10→21:00)
[2017-05-09] MEDS: PANTOPRAZOLE SOD 40 MG DELAYED RELEASE TAB PO SCH (08:11)
[2017-05-09] MEDS: CLOPIDOGREL 75 MG TAB PO SCH (08:11)
[2017-05-09] MEDS: CITALOPRAM HYDROBROMIDE 20 MG TAB PO SCH (08:11)
[2017-05-09] MEDS: ASPIRIN 81 MG CHEW TAB PO SCH (08:11)
[2017-05-09] MEDS: DOCUSATE SODIUM 50 MG/SENNA 8.6 MG TAB PO SCH ×2 (08:25→21:00)
--- NOTE | 2017-05-09 08:39 | HHI.PR ---
Subjective Remarks Follow up respiratory failure, nausea. The patient states that she feels "a little better" today. Still with nausea, but was able to eat some cereal yesterday. Dyspnea is stable. Objective Vitals Vital Signs Date Time Temp Pulse Resp B/P (MAP) Pulse Ox O2 Delivery O2 Flow Rate FiO2 05/09/17 07:03 93 Partial Rebreather 9.00 05/09/17 06:00 77 05/09/17 04:00 98.3 85 30 135/66 (89) 95 05/09/17 04:00 85 05/09/17 02:00 84 05/09/17 00:00 98 Simple Mask 05/09/17 00:00 80 05/09/17 00:00 98.4 80 39 115/60 (78) 98 05/08/17 23:30 100 Partial Rebreather 10.00 05/08/17 22:00 81 05/08/17 20:00 80 05/08/17 20:00 98.3 80 21 129/67 (87) 98 05/08/17 19:49 91 Nasal Cannula 5.00 05/08/17 19:15 98 Nasal Cannula 4.00 05/08/17 16:00 98.3 76 17 114/59 (77) 92 05/08/17 16:00 76 05/08/17 12:00 98.4 84 29 131/64 (86) 100 05/08/17 12:00 84 I/O 05/08/17 05/08/17 05/08/17 05/09/17 05/09/17 05/09/17 07:00 15:00 23:00 07:00 15:00 23:00 Intake Total 40 ml 425 ml 200 ml Output Total 800 ml 750 ml Balance 40 ml -375 ml -550 ml Intake Oral 40 ml 225 ml IV Total 200 ml 200 ml Output Urine Total 800 ml 750 ml # Bowel Movements 1 0 2 Result Diagram: 05/09/1742405/09/17424 Imaging Last Impressions Chest X-Ray 05/07/17 06 Signed Impressions: Service Date/Time: Sunday, May 07, 2017 05:03 - CONCLUSION: Persistent moderate-sized bibasilar opacities representing pleural effusions with associated volume loss and/or airspace consolidation. The changes on the left have slightly increased from yesterday's examination. Cristian Dewitt MD Renal Ultrasound 05/07/17 0000 Signed Impressions: Service Date/Time: Sunday, May 07, 2017 14:35 - CONCLUSION: 1. No evidence of hydronephrosis. 2. Bilateral pleural effusions. 3. Large complex cystic/ solid mass in the pelvis. Max Carvajal MD Chest CT 05/03/17 0000 Signed Impressions: Service Date/Time: Wednesday, May 03, 2017 22:11 - CONCLUSION: 1. Moderate- sized left pleural effusion and small right pleural effusion. 2. Diffuse alveolar consolidation throughout the right mid and lower lung field and to a lesser extent the aerated portion left upper lung consistent with asymmetric pulmonary edema and/or pneumonia. Clinical correlation is recommended. 3. Left basilar compressive atelectasis and/or infiltrate. 4. Cardiomegaly and coronary artery calcifications. 5. Small pericardial effusion. 6. Cholelithiasis. 7. Degenerative changes within the thoracic spine. Yong Cox MD Abdomen/Pelvis CT 05/03/17 0000 Signed Impressions: Service Date/Time: Wednesday, May 03, 2017 22:11 - CONCLUSION: 1. Complex pelvic mass measuring 9.5 x 11.8 x 13.9 cm which raises the possibility of left ovarian neoplasm until proven otherwise. 2. Some ascites within the pelvis. 3. Moderate-sized left pleural effusion. 4. Small right pleural effusion. 5. Diffuse alveolar consolidation of the right lung and to a lesser extent the left lung base consistent with asymmetric pulmonary edema versus pneumonia. 6. Cardiomegaly. 7. Small pericardial effusion. Yong Cox MD Objective Remarks General: No acute distress. On nonrebreather mask. Heart: Regular rate and rhythm. No murmur. Lungs: Decreased breath sounds throughout. No wheezing noted. Abdomen: Soft, nontender, nondistended. Extremities: No lower extremity edema. SCDs. Psych: Alert and oriented. Procedures 3/-left thoracentesis-900 cc Urinary Catheter: No Vascular Central Line Catheter: No A/P Problem List: (1) Acute hypoxemic respiratory failure ICD Code: J96.01 - Acute respiratory failure with hypoxia (2) Sepsis ICD Code: A41.9 - Sepsis, unspecified organism (3) CAP (community acquired pneumonia) ICD Code: J18.9 - Pneumonia, unspecified organism (4) Elevated brain natriuretic peptide (BNP) level ICD Code: R79.89 - Other specified abnormal findings of blood chemistry (5) Elevated troponin ICD Code: R74.8 - Abnormal levels of other serum enzymes (6) Probable CHF (7) Acute kidney injury ICD Code: N17.9 - Acute kidney failure, unspecified (8) Hypertension ICD Code: I10 - Essential (primary) hypertension Assessment and Plan 1. Acute hypoxemic respiratory failure, bilateral pleural effusions, community- acquired pneumonia: Continue supplemental oxygen. Continue Cefepime, azithromycin. Continue bronchodilators, incentive spirometry. Status post thoracentesis. Requiring nonrebreather. Vancomycin discontinued secondary to renal failure. Appreciate infectious disease, pulmonology recommendations. 2. Coronary artery disease, non-ST elevation SC: Status post cardiac catheterization with stent placement. Continue aspirin and Plavix. 3. Congestive heart failure, chronic systolic: Continue beta-darvin, aspirin, Plavix, DELANO inhibitor, statin. 4. Hyperlipidemia: Continue statin. 5. Acute kidney injury superimposed on chronic kidney disease: Appreciate nephrology recommendations. Monitor strict intake/output. Creatinine trending down. 6. Hypokalemia: Improved. Monitor labs and supplement as needed. 7. Pelvic mass: Appreciate medical and gynecologic oncology recommendations. Not able to do surgery at this point due to need for Plavix for cardiac stent. Cytology from thoracentesis is negative for malignant cells. 8. DVT prophylaxis: ROBEL Linares. Chemical prophylaxis contraindicated secondary to hemorrhagic pleural effusion. 9. GI prophylaxis: Protonix. Problem Qualifiers (1) Hypertension: Qualified Codes: I10 - Essential (primary) hypertension Marino Moore MD May 09, 2017 08:39
--- NOTE | 2017-05-09 09:29 | PD.ONC.PN ---
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 If we were to consider surgical intervention for pelvic mass she would have to be off of anticoagulation and we would need cardiac clearance. Objective Data Date Time Temp Pulse Resp B/P (MAP) Pulse Ox O2 Delivery O2 Flow Rate FiO2 05/09/17 07:03 93 Partial Rebreather 9.00 05/09/17 06:00 77 05/09/17 04:00 98.3 85 30 135/66 (89) 95 05/09/17 04:00 85 05/09/17 02:00 84 05/09/17 00:00 98 Simple Mask 05/09/17 00:00 80 05/09/17 00:00 98.4 80 39 115/60 (78) 98 05/08/17 23:30 100 Partial Rebreather 10.00 05/08/17 22:00 81 05/08/17 20:00 80 05/08/17 20:00 98.3 80 21 129/67 (87) 98 05/08/17 19:49 91 Nasal Cannula 5.00 05/08/17 19:15 98 Nasal Cannula 4.00 05/08/17 16:00 98.3 76 17 114/59 (77) 92 05/08/17 16:00 76 05/08/17 12:00 98.4 84 29 131/64 (86) 100 05/08/17 12:00 84 05/09/17 05/09/17 05/09/17 07:00 15:00 23:00 Intake Total 200 ml Output Total 750 ml Balance -550 ml Result Diagram: 05/09/17 0425 05/09/17 0425 Laboratory Results Laboratory Tests Test 05/09/17 04:25 White Blood Count 8.3 TH/MM3 Red Blood Count 3.34 MIL/MM3 Hemoglobin 9.0 GM/DL Hematocrit 26.8 % Mean Corpuscular Volume 80.2 FL Mean Corpuscular Hemoglobin 27.0 PG Mean Corpuscular Hemoglobin Concent 33.7 % Red Cell Distribution Width 14.9 % Platelet Count 139 TH/MM3 Mean Platelet Volume 8.7 FL Neutrophils (%) (Auto) 74.4 % Lymphocytes (%) (Auto) 9.7 % Monocytes (%) (Auto) 12.1 % Eosinophils (%) (Auto) 3.0 % Basophils (%) (Auto) 0.8 % Neutrophils # (Auto) 6.2 TH/MM3 Lymphocytes # (Auto) 0.8 TH/MM3 Monocytes # (Auto) 1.0 TH/MM3 Eosinophils # (Auto) 0.3 TH/MM3 Basophils # (Auto) 0.1 TH/MM3 CBC Comment DIFF FINAL Differential Comment Blood Urea Nitrogen 47 MG/DL Creatinine 2.02 MG/DL Random Glucose 123 MG/DL Calcium Level 8.5 MG/DL Sodium Level 140 MEQ/L Potassium Level 3.4 MEQ/L Chloride Level 104 MEQ/L Carbon Dioxide Level 28.5 MEQ/L Anion Gap 8 MEQ/L Estimat Glomerular Filtration Rate 25 ML/MIN Administered Medications Medications (Trade) Dose Ordered Sig/Lidia Route PRN Reason Start Time Stop Time Status Last Admin Dose Admin Sodium Chloride (NS Flush) 2 ml BID IV FLUSH 05/03/17 21:00 05/09/17 08:10 Morphine Sulfate (Morphine Inj) 2 mg Q2H PRN IV PUSH PAIN SCALE 6 TO 10 05/03/17 20:00 05/07/17 01:05 Ondansetron HCl (Zofran Inj) 4 mg Q6H PRN IV PUSH NAUSEA OR VOMITING 05/03/17 20:00 05/07/17 19:35 Chlorhexidine Gluconate (Chlorhexidine 2% Cloth) Taper DAILY@04 TOP 05/04/17 04:00 04/30/18 03:59 05/09/17 01:02 Senna/Docusate Sodium ([place]-Colace) 1 tab BID PO 05/03/17 21:00 05/08/17 08:52 Azithromycin 500 mg/Sodium Chloride 250 ml @ 250 mls/hr Q24H IV 05/03/17 20:00 05/08/17 21:47 Prochlorperazine Edisylate (Compazine Inj) 5 mg Q6H PRN IV PUSH NAUSEA OR VOMITING 05/04/17 10:30 05/09/17 08:06 Atorvastatin Calcium (Lipitor) 80 mg HS PO 05/05/17 21:00 05/06/17 20:35 Aspirin (Aspirin Chew) 162 mg DAILY PO 05/05/17 09:00 05/09/17 08:11 Clopidogrel Bisulfate (Plavix) 75 mg DAILY PO 05/05/17 09:00 05/09/17 08:11 Insulin Human Regular (NovoLIN R SUPPLEMENTAL SCALE) 1 ACHS SLIDING SCALE SQ 05/04/17 17:00 05/07/17 18:04 Pantoprazole Sodium (Protonix) 40 mg DAILY PO 05/05/17 09:00 05/09/17 08:11 Prochlorperazine Edisylate (Compazine Inj) 5 mg Q6H PRN IV PUSH Breakthrough nausea 05/04/17 20:00 05/05/17 02:01 Carvedilol (Coreg) 3.125 mg BID PO 05/04/17 21:00 05/09/17 08:10 Citalopram Hydrobromide (CeleXA) 20 mg DAILY PO 05/06/17 09:00 05/09/17 08:11 Lorazepam (Ativan) 0.5 mg Q8H PRN PO ANXIETY 05/05/17 21:15 05/07/17 19:36 Prochlorperazine Maleate (Compazine) 5 mg Q6H PRN PO NAUSEA OR VOMITING 05/06/17 17:30 05/07/17 18:03 Prochlorperazine Maleate (Compazine) 5 mg Q6H PRN PO BREAKTHROUGH NAUSEA 05/06/17 17:30 05/07/17 05:22 Albuterol/ Ipratropium (Duoneb Neb) 1 ampule Q6HR NEB INH 05/07/17 16:00 05/08/17 19:51 Furosemide (Lasix Inj) 20 mg DAILY IV PUSH 05/08/17 09:00 05/09/17 08:08 Lorazepam (Ativan Inj) 0.25 mg Q6H PRN IV PUSH ANXIETY 05/08/17 08:30 05/09/17 01:02 Cefepime HCl 1000 mg/Sodium Chloride 100 ml @ 200 mls/hr Q12H IV 05/08/17 18:00 05/09/17 05:00 Potassium Chloride (KCl) 10 meq BID PO 05/09/17 09:00 05/09/17 08:10 Objective Remarks GENERAL: frail, mild distress SKIN: Warm and dry. HEAD: Normocephalic. EYES: No scleral icterus. No injection or drainage. CARDIOVASCULAR: Regular rate and rhythm RESPIRATORY: getting breathing treatment MUSCULOSKELETAL: Adequate muscle tone. NEUROLOGICAL: No obvious focal deficit. Awake, alert, and oriented x3. PSYCHIATRIC: Appropriate mood and affect; insight and judgment normal. Assessment/Plan Plan 1. Left pelvic mass arising from the left ovary: cytology was negative for malignant cells. patient will follow up in construction assistant/onc clinic 6-8 weeks after discharge from hospital. If surgical intervention is considered she will need cardiac clearance and need to be off of anticoagulation. 2. Coronary artery disease associated with congestive heart failure: Status post stent placement on 05/04/2017 to the mid left anterior descending artery with muslim of arterial flow.Per Dr. Beckett's note, 6 weeks of Plavix therapy is considered optimal following placement of a bare metal stent. 3. Multifocal pneumonia: On broad-spectrum antibiotics, ID consulted, Dr. Yang consulted and following. Attending Statement Discussed with Dr. Becker and he is in agreement. Breann Elias May 09, 2017 09:29
--- NOTE | 2017-05-09 13:07 | HHI.IDPN ---
Note Infectious Disease Note Patient is currently on oxygen via nasal cannula. She is awake and alert. She feels improved. She denies pain. Denies shortness of breath. Afebrile. She is being diuresed. Admitted to the hospital on May 03, 2017. The patient was noted to have new onset congestive heart failure. She was admitted with shortness of breath and cough. The patient underwent bilateral thoracentesis with removal of large amount of pleural fluid. She was felt to have community acquired pneumonia. The pleural fluid was hemorrhagic. Further workup revealed a mass in the abdomen which was felt likely to be arising from the ovaries. PAST MEDICAL HISTORY: 1. Hypertension. 2. Newly diagnosed congestive heart failure. 3. Newly diagnosed left adnexal mass. 4. Post LAD stent this admission. ALLERGIES: NO KNOWN DRUG ALLERGIES MEDICATIONS: Current Medications Medications (Trade) Dose Ordered Sig/Lidia Route PRN Reason Start Time Stop Time Status Last Admin Dose Admin Sodium Chloride (NS Flush) 2 ml UNSCH PRN IV FLUSH FLUSH AFTER USING IV ACCESS 05/03/17 20:00 Sodium Chloride (NS Flush) 2 ml BID IV FLUSH 05/03/17 21:00 05/09/17 08:10 Acetaminophen (Tylenol) 650 mg Q6H PRN PO FOR FEVER 05/03/17 20:00 Acetaminophen/ Hydrocodone Bitart ([place] 5-325 Mg) 1 tab Q4H PRN PO PAIN SCALE 1 TO 5 05/03/17 20:00 Morphine Sulfate (Morphine Inj) 2 mg Q2H PRN IV PUSH PAIN SCALE 6 TO 10 05/03/17 20:00 05/07/17 01:05 Ondansetron HCl (Zofran Inj) 4 mg Q6H PRN IV PUSH NAUSEA OR VOMITING 05/03/17 20:00 05/07/17 19:35 Albuterol Sulfate (Albuterol Neb) 2.5 mg Q2HR NEB PRN INH SOB/WHEEZING 05/03/17 20:00 Miscellaneous Information 1 Q361D XX 05/03/17 20:00 Chlorhexidine Gluconate (Chlorhexidine 2% Cloth) Taper DAILY@04 TOP 05/04/17 04:00 04/30/18 03:59 05/09/17 01:02 Chlorhexidine Gluconate (Chlorhexidine 2% Cloth) 3 pack UNSCH PRN TOP HYGIENIC CARE 05/03/17 20:00 Senna/Docusate Sodium ([place]-Colace) 1 tab BID PO 05/03/17 21:00 05/08/17 08:52 Magnesium Hydroxide (Milk Of Magnesia Liq) 30 ml Q12H PRN PO Mild constipation 05/03/17 20:00 Sennosides (Senokot) 17.2 mg Q12H PRN PO Moderate constipation 05/03/17 20:00 Bisacodyl (Dulcolax Supp) 10 mg DAILY PRN RECTAL SEVERE CONSITIPATION 05/03/17 20:00 Lactulose (Lactulose Liq) 30 ml DAILY PRN PO SEVERE CONSITIPATION 05/03/17 20:00 Azithromycin 500 mg/Sodium Chloride 250 ml @ 250 mls/hr Q24H IV 05/03/17 20:00 05/08/17 21:47 Prochlorperazine Edisylate (Compazine Inj) 5 mg Q6H PRN IV PUSH NAUSEA OR VOMITING 05/04/17 10:30 05/09/17 08:06 Atorvastatin Calcium (Lipitor) 80 mg HS PO 05/05/17 21:00 05/06/17 20:35 Aspirin (Aspirin Chew) 162 mg DAILY PO 05/05/17 09:00 05/09/17 08:11 Clopidogrel Bisulfate (Plavix) 75 mg DAILY PO 05/05/17 09:00 05/09/17 08:11 Dextrose (D50w (Vial) Inj) 50 ml UNSCH PRN IV PUSH HYPOGLYCEMIA-SEE COMMENTS 05/04/17 14:45 Glucagon (Glucagon Inj) 1 mg UNSCH PRN OTHER HYPOGLYCEMIA-SEE COMMENTS 05/04/17 14:45 Insulin Human Regular (NovoLIN R SUPPLEMENTAL SCALE) 1 ACHS SLIDING SCALE SQ 05/04/17 17:00 05/07/17 18:04 Labetalol HCl (Trandate Inj) 10 mg Q1HR PRN IV PUSH SBP>160, DBP>90, HR>65 05/04/17 14:45 Hydralazine HCl (Apresoline Inj) 10 mg Q1HR PRN IV PUSH SBP>160, DBP>90 05/04/17 14:45 Nitroglycerin (Nitroglycerin 2% Oint) 2 inch Q6HR PRN TOPICAL SBP>160, DBP>90 05/04/17 14:45 Pantoprazole Sodium (Protonix) 40 mg DAILY PO 05/05/17 09:00 05/09/17 08:11 Prochlorperazine Edisylate (Compazine Inj) 5 mg Q6H PRN IV PUSH Breakthrough nausea 05/04/17 20:00 05/05/17 02:01 Carvedilol (Coreg) 3.125 mg BID PO 05/04/17 21:00 05/09/17 08:10 Citalopram Hydrobromide (CeleXA) 20 mg DAILY PO 05/06/17 09:00 05/09/17 08:11 Lorazepam (Ativan) 0.5 mg Q8H PRN PO ANXIETY 05/05/17 21:15 05/07/17 19:36 Prochlorperazine Maleate (Compazine) 5 mg Q6H PRN PO NAUSEA OR VOMITING 05/06/17 17:30 05/07/17 18:03 Prochlorperazine Maleate (Compazine) 5 mg Q6H PRN PO BREAKTHROUGH NAUSEA 05/06/17 17:30 05/07/17 05:22 Albuterol/ Ipratropium (Duoneb Neb) 1 ampule Q6HR NEB INH 05/07/17 16:00 05/09/17 09:15 Furosemide (Lasix Inj) 20 mg DAILY IV PUSH 05/08/17 09:00 05/09/17 08:08 Lorazepam (Ativan Inj) 0.25 mg Q6H PRN IV PUSH ANXIETY 05/08/17 08:30 05/09/17 01:02 Cefepime HCl 1000 mg/Sodium Chloride 100 ml @ 200 mls/hr Q12H IV 05/08/17 18:00 05/09/17 05:00 Potassium Chloride (KCl) 10 meq BID PO 05/09/17 09:00 05/09/17 08:10 OBJECTIVE: Vital Signs Date Time Temp Pulse Resp B/P (MAP) Pulse Ox O2 Delivery O2 Flow Rate FiO2 05/09/17 10:00 77 05/09/17 08:00 98.2 91 23 143/71 (95) 96 05/09/17 08:00 91 05/09/17 07:03 93 Partial Rebreather 9.00 05/09/17 07:00 97 Partial Non-Rebreather 05/09/17 06:00 77 05/09/17 04:00 98.3 85 30 135/66 (89) 95 05/09/17 04:00 85 05/09/17 02:00 84 05/09/17 00:00 98 Simple Mask 05/09/17 00:00 80 05/09/17 00:00 98.4 80 39 115/60 (78) 98 05/08/17 23:30 100 Partial Rebreather 10.00 05/08/17 22:00 81 05/08/17 20:00 80 05/08/17 20:00 98.3 80 21 129/67 (87) 98 05/08/17 19:49 91 Nasal Cannula 5.00 05/08/17 19:15 98 Nasal Cannula 4.00 05/08/17 16:00 98.3 76 17 114/59 (77) 92 05/08/17 16:00 76 Laboratory Tests Test 05/08/17 04:35 05/09/17 04:25 White Blood Count 5.4 TH/MM3 8.3 TH/MM3 Red Blood Count 3.26 MIL/MM3 3.34 MIL/MM3 Hemoglobin 8.6 GM/DL 9.0 GM/DL Hematocrit 26.2 % 26.8 % Mean Corpuscular Volume 80.3 FL 80.2 FL Mean Corpuscular Hemoglobin 26.5 PG 27.0 PG Mean Corpuscular Hemoglobin Concent 33.0 % 33.7 % Red Cell Distribution Width 14.8 % 14.9 % Platelet Count 129 TH/MM3 139 TH/MM3 Mean Platelet Volume 8.7 FL 8.7 FL Neutrophils (%) (Auto) 67.7 % 74.4 % Lymphocytes (%) (Auto) 16.9 % 9.7 % Monocytes (%) (Auto) 12.8 % 12.1 % Eosinophils (%) (Auto) 2.2 % 3.0 % Basophils (%) (Auto) 0.4 % 0.8 % Neutrophils # (Auto) 3.7 TH/MM3 6.2 TH/MM3 Lymphocytes # (Auto) 0.9 TH/MM3 0.8 TH/MM3 Monocytes # (Auto) 0.7 TH/MM3 1.0 TH/MM3 Eosinophils # (Auto) 0.1 TH/MM3 0.3 TH/MM3 Basophils # (Auto) 0.0 TH/MM3 0.1 TH/MM3 CBC Comment DIFF FINAL DIFF FINAL Differential Comment Laboratory Tests Test 05/08/17 04:35 05/09/17 04:25 Blood Urea Nitrogen 52 MG/DL 47 MG/DL Creatinine 2.36 MG/DL 2.02 MG/DL Random Glucose 130 MG/DL 123 MG/DL Calcium Level 8.6 MG/DL 8.5 MG/DL Magnesium Level 1.7 MG/DL Sodium Level 140 MEQ/L 140 MEQ/L Potassium Level 3.7 MEQ/L 3.4 MEQ/L Chloride Level 103 MEQ/L 104 MEQ/L Carbon Dioxide Level 28.5 MEQ/L 28.5 MEQ/L Anion Gap 9 MEQ/L 8 MEQ/L Estimat Glomerular Filtration Rate 21 ML/MIN 25 ML/MIN B-Type Natriuretic Peptide 1646 PG/ML Total Protein 5.1 GM/DL Procalcitonin 0.18 ng/mL Parathyroid Hormone (Intact) 125.7 PG/ML IMAGING: Chest X-Ray 05/07/17 0600 Signed Impressions: Service Date/Time: Sunday, May 07, 2017 05:03 - CONCLUSION: Persistent moderate-sized bibasilar opacities representing pleural effusions with associated volume loss and/or airspace consolidation. The changes on the left have slightly increased from yesterday's examination. Cristian Dewitt MD Renal Ultrasound 05/07/17 0000 Signed Impressions: Service Date/Time: Sunday, May 07, 2017 14:35 - CONCLUSION: 1. No evidence of hydronephrosis. 2. Bilateral pleural effusions. 3. Large complex cystic/ solid mass in the pelvis. Max Carvajal MD Chest CT 05/03/17 0000 Signed Impressions: Service Date/Time: Wednesday, May 03, 2017 22:11 - CONCLUSION: 1. Moderate- sized left pleural effusion and small right pleural effusion. 2. Diffuse alveolar consolidation throughout the right mid and lower lung field and to a lesser extent the aerated portion left upper lung consistent with asymmetric pulmonary edema and/or pneumonia. Clinical correlation is recommended. 3. Left basilar compressive atelectasis and/or infiltrate. 4. Cardiomegaly and coronary artery calcifications. 5. Small pericardial effusion. 6. Cholelithiasis. 7. Degenerative changes within the thoracic spine. Yong Cox MD Abdomen/Pelvis CT 05/03/17 0000 Signed Impressions: Service Date/Time: Wednesday, May 03, 2017 22:11 - CONCLUSION: 1. Complex pelvic mass measuring 9.5 x 11.8 x 13.9 cm which raises the possibility of left ovarian neoplasm until proven otherwise. 2. Some ascites within the pelvis. 3. Moderate-sized left pleural effusion. 4. Small right pleural effusion. 5. Diffuse alveolar consolidation of the right lung and to a lesser extent the left lung base consistent with asymmetric pulmonary edema versus pneumonia. 6. Cardiomegaly. 7. Small pericardial effusion. Yong Cox MD PHYSICAL EXAMINATION: GENERAL: No acute distress. Awake and alert and oriented. HEENT: Extraocular movement is grossly intact. Pupils are reactive to light. No icterus. No conjunctival erythema. Oropharynx moist mucosa. No visible lesions. NECK: Supple without adenopathy or swelling. LUNGS: Decreased breath sounds at the bases. No rhonchi. HEART: Regular, S1 and S2. No murmurs, rubs or gallops. ABDOMEN: Bowel sounds present, soft, no tenderness appreciated. EXTREMITIES: No clubbing, cyanosis or edema. SKIN: No rash. NEURO: No gross focal findings. PSYCHIATRIC: Calm and cooperative. IMPRESSION: 1. Bilateral bibasilar opacities which are persistent. Likely representing pleural effusion. 2. Potential pneumonia. Difficult to determine the cause of the bilateral effusions. However, the patient has no fever and white blood cell count is normal. Pro-calcitonin level is low. Currently without clinical evidence suggesting pneumonia. 3. Acute kidney disease. 4. Pelvic mass. RECOMMENDATIONS: 1. Discontinue cefepime. 2. Discontinue azithromycin. 3. Continue to diuresis diuresis. 4. Monitor without antibiotics. 5. The clinical status. 6. Follow temperature and white blood cell count. Ino Blackwell MD May 09, 2017 13:07
--- NOTE | 2017-05-09 15:19 | HHI.PR ---
Subjective Remarks ALERT NO DISTRESS Objective Vital Signs Date Time Temp Pulse Resp B/P (MAP) Pulse Ox O2 Delivery O2 Flow Rate FiO2 05/09/17 12:00 97.8 77 18 141/70 (93) 93 05/09/17 12:00 77 05/09/17 10:00 77 05/09/17 08:00 98.2 91 23 143/71 (95) 96 05/09/17 08:00 91 05/09/17 07:03 93 Partial Rebreather 9.00 05/09/17 07:00 97 Partial Non-Rebreather 05/09/17 06:00 77 05/09/17 04:00 98.3 85 30 135/66 (89) 95 05/09/17 04:00 85 05/09/17 02:00 84 05/09/17 00:00 98 Simple Mask 05/09/17 00:00 80 05/09/17 00:00 98.4 80 39 115/60 (78) 98 05/08/17 23:30 100 Partial Rebreather 10.00 05/08/17 22:00 81 05/08/17 20:00 80 05/08/17 20:00 98.3 80 21 129/67 (87) 98 05/08/17 19:49 91 Nasal Cannula 5.00 05/08/17 19:15 98 Nasal Cannula 4.00 05/08/17 16:00 98.3 76 17 114/59 (77) 92 05/08/17 16:00 76 I/O 05/08/17 05/08/17 05/08/17 05/09/17 05/09/17 05/09/17 06:59 14:59 22:59 06:59 14:59 22:59 Intake Total 40 ml 425 ml 200 ml Output Total 800 ml 750 ml Balance 40 ml -375 ml -550 ml Intake Oral 40 ml 225 ml IV Total 200 ml 200 ml Output Urine Total 800 ml 750 ml # Bowel Movements 1 0 2 Result Diagram: 05/09/1742405/09/17424 Objective Remarks GENERAL: SKIN: Warm and dry. HEAD: Atraumatic. Normocephalic. EYES: Pupils equal and round. No scleral icterus. No injection or drainage. ENT: No nasal bleeding or discharge. Mucous membranes pink and moist. NECK: Trachea midline. No JVD. CARDIOVASCULAR: Regular rate and rhythm. RESPIRATORY: No accessory muscle use. DECREASE BREATH SOUNDS AT BASIS. GASTROINTESTINAL: Abdomen soft, non-tender, nondistended. Hepatic and splenic margins not palpable. MUSCULOSKELETAL: Extremities without clubbing, cyanosis, or edema. No obvious deformities. NEUROLOGICAL: Awake and alert. No obvious cranial nerve deficits. Motor grossly within normal limits. Five out of 5 muscle strength in the arms and legs. Normal speech. PSYCHIATRIC: Appropriate mood and affect; insight and judgment normal. Assessment and Plan Assessment and Plan RESPIRATORY FAILURE BIBASILAR EFFUSIONS/ INFILTRATES PLAN O2 ANTIBX F/U CXRAY Trey Yang MD May 09, 2017 15:19
--- NOTE | 2017-05-09 17:46 | HHI.NPPN ---
Subjective History of Present Illness This patient is a 66-year-old female apparently was not having regular medical follow-up prior to this admission. She presented to the emergency room complaining of shortness of breath and was noted to have evidence of a large left pleural effusion as well as a smaller right pleural effusion. Evaluation included an echocardiogram which showed an ejection fraction that was reduced and she subsequently underwent cardiac catheterization May with placement of a cardiac stent in the LAD. Patient also has a history of progressive weight loss and imaging studies have revealed the presence of a large left adnexal mass in the pelvis. Oncology following the patient. Creatinine level at time of presentation 1.69 with an estimated GFR of 30. No previous values available. Creatinine level has deteriorated to 2.35 with an estimated GFR of 21. Patient has been receiving vancomycin, Protonix as well as furosemide. Furosemide was reduced on day of consultation from 40 mg IV daily to 20 mg IV daily. Interval History Patient indicating that she is feeling somewhat better. Objective Data Data Vital Signs Date Time Temp Pulse Resp B/P (MAP) Pulse Ox O2 Delivery O2 Flow Rate FiO2 05/09/17 16:00 82 05/09/17 16:00 97.4 82 19 152/77 (102) 94 05/09/17 12:00 97.8 77 18 141/70 (93) 93 05/09/17 12:00 77 05/09/17 10:00 77 05/09/17 08:00 98.2 91 23 143/71 (95) 96 05/09/17 08:00 91 05/09/17 07:03 93 Partial Rebreather 9.00 05/09/17 07:00 97 Partial Non-Rebreather 05/09/17 06:00 77 05/09/17 04:00 98.3 85 30 135/66 (89) 95 05/09/17 04:00 85 05/09/17 02:00 84 05/09/17 00:00 98 Simple Mask 05/09/17 00:00 80 05/09/17 00:00 98.4 80 39 115/60 (78) 98 05/08/17 23:30 100 Partial Rebreather 10.00 05/08/17 22:00 81 05/08/17 20:00 80 05/08/17 20:00 98.3 80 21 129/67 (87) 98 05/08/17 19:49 91 Nasal Cannula 5.00 05/08/17 19:15 98 Nasal Cannula 4.00 -: 05/09/17 0425 05/09/17 0425 Physical Exam General Appearance: No Acute Distress, Comfortable Neck Neck Exam: Neck Supple, Trachea Midline Pulmonary Resp Exam: Breath Sounds Equal, Diminished Breath Sounds Cardiology CV Exam: Regular, Normal Sinus Rhythm Extremeties Extremities Exam: Trace Edema (bilat ankles) Assessment/Plan Problem List: (1) Acute renal injury ICD Codes: N17.9 - Acute kidney failure, unspecified Status: Acute Plan: May be related to some degree of contrast nephrotoxicity s/p cardiac cath as well as Vancomycin exposure. May be some hemodynamic factors may be contributory with need for diuresis with congestive heart failure. Vanco has been discontinued Renal US shows no signs of obstruction Urine eos negative Renal indices continue to improve. Patient's previous baseline is not available currently. At this point in time we'll see patient intermittently. Recommend she follow-up with a outpatient glove brusher if the renal indices are not returned to baseline by time of discharge. Medications should be adjusted for the patient's renal functions (2) CKD (chronic kidney disease) stage 3, GFR 30-59 ml/min ICD Codes: N18.3 - Chronic kidney disease, stage 3 (moderate) Plan: Patient may have chronic kidney disease related to nephrosclerosis of hypertension but unfortunately previous recent outpatient laboratory studies are not available as apparently patient has been somewhat poorly followed as an outpatient from a medical point of view. (3) Pelvic mass ICD Codes: R19.00 - Intra-abdominal and pelvic swelling, mass and lump, unspecified site Plan: Oncology following patient. (4) CHF (congestive heart failure) ICD Codes: I50.9 - Heart failure, unspecified Plan: Continue on diuresis as before. (5) Cardiomyopathy ICD Codes: I42.9 - Cardiomyopathy, unspecified Status: Chronic Plan: Status post chronic catheterization with placement of a stent LAD May. Problem Qualifiers (1) CHF (congestive heart failure): Agatha Rosales MD May 09, 2017 17:46
[2017-05-09] MEDS: AZITHROMYCIN INJ 500 MG in SODIUM CHLOR 0.9% 250 ML INJ 250 ML IV SCH (20:00)
[2017-05-09] MEDS: ATORVASTATIN 80 MG TAB PO SCH (21:00)
[2017-05-09 22:14] LABS: ALB/GLOB RATIO (SPE) 1.46 (1.39-2.23)
[2017-05-10] VITALS (9 sets, daily range): BP systolic 127–150; BP diastolic 66–77; PULSE 74–87; RESP 17–25; TEMP 97.4–98.8; O2SAT 90–99
[2017-05-10] MEDS: RESP: ALBUTEROL 2.5 MG/IPRATROPIUM 0.5 MG NEB (SCH) INH ×4 (03:52→22:10)
[2017-05-10] MEDS: CHLORHEXIDINE GLUCONATE 2 % 1 PACK (2 CLOTHS) TOP SCH (04:00)
[2017-05-10 04:30] LABS: BASOPHIL # 0.1 TH/MM3 (0-0.2); BASOPHIL % 0.8 % (0.0-2.0); EOSINOPHIL # 0.3 TH/MM3 (0-0.4); EOSINOPHIL % 3.8 % (0.0-4.0); HEMOGLOBIN 9.5 GM/DL (11.6-15.3); LYMPH % 11.2 % (9.0-44.0); MEAN CELL VOLUME 79.6 FL (80.0-100.0); MEAN PLATELET VOLUME 8.7 FL (7.0-11.0); MONOCYTE # 1.2 TH/MM3 (0-0.9); NEUT % 70.2 % (16.0-70.0); PLATELET COUNT 144 TH/MM3 (150-450); RED BLOOD COUNT 3.52 MIL/MM3 (4.00-5.30); RED CELL DISTRIBUTION WIDTH 14.7 % (11.6-17.2); WHITE BLOOD COUNT 8.5 TH/MM3 (4.0-11.0)
[2017-05-10] MEDS: PROCHLORPERAZINE INJ 10 MG/2 ML VIAL IV PUSH PRN ×4 (04:45→17:57)
[2017-05-10 04:53] LABS: BICARBONATE 29.2 MEQ/L (21.0-32.0); CALCIUM 8.4 MG/DL (8.5-10.1); CREATININE 1.55 MG/DL (0.50-1.00); MAGNESIUM 1.5 MG/DL (1.5-2.5)
[2017-05-10] MEDS: CEFEPIME INJ 1,000 MG in SODIUM CHLORIDE 0.9% INJ 100 ML IV SCH (06:33)
[2017-05-10] MEDS: INSULIN NovoLIN REGULAR SUPPLEMENTAL SCALE SQ SCH ×4 (06:33→21:00)
[2017-05-10] MEDS ORDERED: MAGNESIUM SULFATE 1 GM PREMIX 100 ML IV ONE (08:00)
[2017-05-10] MEDS: POTASSIUM CHLOR 20 MEQ PREMIX 100 ML IV SCH ×2 (08:34→10:47)
[2017-05-10] MEDS: FUROSEMIDE 40 MG/4 ML VIAL IV PUSH SCH ×2 (08:35→17:57)
[2017-05-10] MEDS: SODIUM CHLORIDE 0.9% FLUSH 10 ML FLUSH IV FLUSH SCH ×2 (08:35→21:00)
[2017-05-10] MEDS: DOCUSATE SODIUM 50 MG/SENNA 8.6 MG TAB PO SCH (08:36)
[2017-05-10] MEDS: CITALOPRAM HYDROBROMIDE 20 MG TAB PO SCH (08:36)
[2017-05-10] MEDS: POTASSIUM CHLORIDE 10 MEQ CAP PO SCH ×2 (08:36→21:00)
[2017-05-10] MEDS: CARVEDILOL 3.125 MG TAB PO SCH ×2 (08:36→21:00)
[2017-05-10] MEDS: CLOPIDOGREL 75 MG TAB PO SCH (08:36)
[2017-05-10] MEDS: PANTOPRAZOLE SOD 40 MG DELAYED RELEASE TAB PO SCH (08:36)
[2017-05-10] MEDS: ASPIRIN 81 MG CHEW TAB PO SCH (08:36)
--- NOTE | 2017-05-10 09:26 | RADRPT ---
EXAM DATE/TIME: 05/10/2017 08:28 [facility] COMPARISON: CHEST SINGLE AP, May 07, 2017, 5:03. INDICATIONS : Short of breath and evaluate for pneumoina. MEDICAL HISTORY : Hypertension. Congestive heart failure. SURGICAL HISTORY : Tonsillectomy. ENCOUNTER: Subsequent ACUITY: 3 days PAIN SCORE: 0/10 LOCATION: Bilateral chest FINDINGS: \Increasing bibasilar consolidative changes and pleural effusion. Cardiac silhouette is obscured. The portion of the bony skeleton visualized is unremarkable. CONCLUSION: Increasing consolidation and pleural effusion. Significant pleural effusion is suspected. Srikanth Fox MD FACR on May 10, 2017 at 9:18 Board Certified Radiologist. This report was verified electronically.
[2017-05-10] MEDS ORDERED: FUROSEMIDE 20 MG/2 ML VIAL IV PUSH ONE (12:30)
--- NOTE | 2017-05-10 12:38 | HHI.PR ---
Subjective Remarks Follow up pleural effusion, pneumonia. Patient reports occasional nausea, but less than before. Breathing is "about the same". No chest pain. Objective Vitals Vital Signs Date Time Temp Pulse Resp B/P (MAP) Pulse Ox O2 Delivery O2 Flow Rate FiO2 05/10/17 08:00 78 05/10/17 08:00 97.7 78 18 139/71 (93) 90 05/10/17 07:19 92 Nasal Cannula 4.00 05/10/17 07:00 94 Nasal Cannula 4.00 05/10/17 04:00 78 05/10/17 04:00 98.0 78 20 127/66 (86) 98 05/10/17 00:00 74 05/10/17 00:00 97.4 74 18 138/68 (91) 94 05/09/17 21:10 99 Nasal Cannula 5.00 05/09/17 20:00 97.2 81 20 135/68 (90) 96 05/09/17 20:00 74 05/09/17 19:00 100 Partial Non-Rebreather 05/09/17 16:00 82 05/09/17 16:00 97.4 82 19 152/77 (102) 94 I/O 05/09/17 05/09/17 05/09/17 05/10/17 05/10/17 05/10/17 07:00 15:00 23:00 07:00 15:00 23:00 Intake Total 200 ml 160 ml 500 ml 200 ml Output Total 750 ml 750 ml 550 ml Balance -550 ml -590 ml -50 ml 200 ml Intake Oral 60 ml 150 ml IV Total 200 ml 100 ml 350 ml 200 ml Output Urine Total 750 ml 750 ml 550 ml # Voids 7 # Bowel Movements 2 0 Result Diagram: 05/10/17 0340 05/10/17 0340 Imaging Last Impressions Chest X-Ray 05/10/17 0000 Signed Impressions: Service Date/Time: Wednesday, May 10, 2017 08:28 - CONCLUSION: Increasing consolidation and pleural effusion. Significant pleural effusion is suspected. Srikanth Fox MD FACR Renal Ultrasound 05/07/17 0000 Signed Impressions: Service Date/Time: Sunday, May 07, 2017 14:35 - CONCLUSION: 1. No evidence of hydronephrosis. 2. Bilateral pleural effusions. 3. Large complex cystic/ solid mass in the pelvis. Max J. Siragusa, MD Chest CT 05/03/17 Signed Impressions: Service Date/Time: Wednesday, May 03, 2017 22:11 - CONCLUSION: 1. Moderate- sized left pleural effusion and small right pleural effusion. 2. Diffuse alveolar consolidation throughout the right mid and lower lung field and to a lesser extent the aerated portion left upper lung consistent with asymmetric pulmonary edema and/or pneumonia. Clinical correlation is recommended. 3. Left basilar compressive atelectasis and/or infiltrate. 4. Cardiomegaly and coronary artery calcifications. 5. Small pericardial effusion. 6. Cholelithiasis. 7. Degenerative changes within the thoracic spine. Yong Cox MD Abdomen/Pelvis CT 05/03/17 Signed Impressions: Service Date/Time: Wednesday, May 03, 2017 22:11 - CONCLUSION: 1. Complex pelvic mass measuring 9.5 x 11.8 x 13.9 cm which raises the possibility of left ovarian neoplasm until proven otherwise. 2. Some ascites within the pelvis. 3. Moderate-sized left pleural effusion. 4. Small right pleural effusion. 5. Diffuse alveolar consolidation of the right lung and to a lesser extent the left lung base consistent with asymmetric pulmonary edema versus pneumonia. 6. Cardiomegaly. 7. Small pericardial effusion. Yong Cox MD Objective Remarks General: No acute distress. On nasal cannula. Heart: Regular rate and rhythm. No murmur. Lungs: Decreased breath sounds throughout, L>R. No wheezing noted. Abdomen: Soft, nontender, nondistended. Extremities: No lower extremity edema. SCDs. Psych: Alert and oriented. Procedures 05/04-left thoracentesis-900 cc Urinary Catheter: No Vascular Central Line Catheter: No A/P Problem List: (1) Acute hypoxemic respiratory failure ICD Code: J96.01 - Acute respiratory failure with hypoxia (2) Sepsis ICD Code: A41.9 - Sepsis, unspecified organism (3) CAP (community acquired pneumonia) ICD Code: J18.9 - Pneumonia, unspecified organism (4) Elevated brain natriuretic peptide (BNP) level ICD Code: R79.89 - Other specified abnormal findings of blood chemistry (5) Elevated troponin ICD Code: R74.8 - Abnormal levels of other serum enzymes (6) Probable CHF (7) Acute kidney injury ICD Code: N17.9 - Acute kidney failure, unspecified (8) Hypertension ICD Code: I10 - Essential (primary) hypertension Assessment and Plan 1. Acute hypoxemic respiratory failure, bilateral pleural effusions, community- acquired pneumonia: Continue supplemental oxygen. Continue bronchodilators, incentive spirometry. Status post right thoracentesis on 05/03/17. Now on nasal cannula. Vancomycin discontinued secondary to renal failure. Appreciate infectious disease, pulmonology recommendations. Antibiotics discontinued by infectious disease. CXR shows worsening pleural effusion L>R. Ultrasound guided thoracentesis ordered. 2. Coronary artery disease, non-ST elevation [place]: Status post cardiac catheterization with stent placement. Continue aspirin and Plavix. 3. Congestive heart failure, chronic systolic: Continue beta-darvin, aspirin, Plavix, DELANO inhibitor, statin. 4. Hyperlipidemia: Continue statin. 5. Acute kidney injury superimposed on chronic kidney disease: Appreciate nephrology recommendations. Monitor strict intake/output. Creatinine trending down. 6. Hypokalemia: Improved. Monitor labs and supplement as needed. 7. Pelvic mass: Appreciate medical and gynecologic oncology recommendations. Not able to do surgery at this point due to need for Plavix for cardiac stent. Cytology from thoracentesis is negative for malignant cells. 8. DVT prophylaxis: SCDs, ROBEL solomon. Chemical prophylaxis contraindicated secondary to hemorrhagic pleural effusion. 9. GI prophylaxis: Protonix. Problem Qualifiers (1) Hypertension: Qualified Codes: I10 - Essential (primary) hypertension Marino Moore MD May 10, 2017 12:38
[2017-05-10] MEDS: ONDANSETRON HCL 4 MG/2 ML VIAL IV PUSH PRN (13:42)
--- NOTE | 2017-05-10 15:50 | HHI.IDPN ---
Note Infectious Disease Note Patient is currently on oxygen via nasal cannula. She is awake and alert. No complaints. Denies shortness of breath. Afebrile. Admitted to the hospital on May 03, 2017. The patient was noted to have new onset congestive heart failure. She was admitted with shortness of breath and cough. The patient underwent bilateral thoracentesis with removal of large amount of pleural fluid. She was felt to have community acquired pneumonia. The pleural fluid was hemorrhagic. Further workup revealed a mass in the abdomen which was felt likely to be arising from the ovaries. PAST MEDICAL HISTORY: 1. Hypertension. 2. Newly diagnosed congestive heart failure. 3. Newly diagnosed left adnexal mass. 4. Post LAD stent this admission. ALLERGIES: NO KNOWN DRUG ALLERGIES MEDICATIONS: Current Medications Medications (Trade) Dose Ordered Sig/Lidia Route PRN Reason Start Time Stop Time Status Last Admin Dose Admin Sodium Chloride (NS Flush) 2 ml UNSCH PRN IV FLUSH FLUSH AFTER USING IV ACCESS 05/03/17 20:00 Sodium Chloride (NS Flush) 2 ml BID IV FLUSH 05/03/17 21:00 05/10/17 08:35 Acetaminophen (Tylenol) 650 mg Q6H PRN PO FOR FEVER 05/03/17 20:00 Acetaminophen/ Hydrocodone Bitart ([place] 5-325 Mg) 1 tab Q4H PRN PO PAIN SCALE 1 TO 5 05/03/17 20:00 Morphine Sulfate (Morphine Inj) 2 mg Q2H PRN IV PUSH PAIN SCALE 6 TO 10 05/03/17 20:00 05/07/17 01:05 Ondansetron HCl (Zofran Inj) 4 mg Q6H PRN IV PUSH NAUSEA OR VOMITING 05/03/17 20:00 05/10/17 13:42 Albuterol Sulfate (Albuterol Neb) 2.5 mg Q2HR NEB PRN INH SOB/WHEEZING 05/03/17 20:00 Miscellaneous Information 1 [id number] XX 05/03/17 20:00 Chlorhexidine Gluconate (Chlorhexidine 2% Cloth) Taper DAILY@04 TOP 05/04/17 04:00 04/30/18 03:59 05/09/17 01:02 Chlorhexidine Gluconate (Chlorhexidine 2% Cloth) 3 pack UNSCH PRN TOP HYGIENIC CARE 05/03/17 20:00 Senna/Docusate Sodium ([place]-Colace) 1 tab BID PO 05/03/17 21:00 05/09/17 21:00 Magnesium Hydroxide (Milk Of Magnesia Liq) 30 ml Q12H PRN PO Mild constipation 05/03/17 20:00 Sennosides (Senokot) 17.2 mg Q12H PRN PO Moderate constipation 05/03/17 20:00 Bisacodyl (Dulcolax Supp) 10 mg DAILY PRN RECTAL SEVERE CONSITIPATION 05/03/17 20:00 Lactulose (Lactulose Liq) 30 ml DAILY PRN PO SEVERE CONSITIPATION 05/03/17 20:00 Azithromycin 500 mg/Sodium Chloride 250 ml @ 250 mls/hr Q24H IV 05/03/17 20:00 05/09/17 20:00 Prochlorperazine Edisylate (Compazine Inj) 5 mg Q6H PRN IV PUSH NAUSEA OR VOMITING 05/04/17 10:30 05/10/17 10:51 Atorvastatin Calcium (Lipitor) 80 mg HS PO 05/05/17 21:00 05/09/17 21:00 Aspirin (Aspirin Chew) 162 mg DAILY PO 05/05/17 09:00 05/10/17 08:36 Clopidogrel Bisulfate (Plavix) 75 mg DAILY PO 05/05/17 09:00 05/10/17 08:36 Dextrose (D50w (Vial) Inj) 50 ml UNSCH PRN IV PUSH HYPOGLYCEMIA-SEE COMMENTS 05/04/17 14:45 Glucagon (Glucagon Inj) 1 mg UNSCH PRN OTHER HYPOGLYCEMIA-SEE COMMENTS 05/04/17 14:45 Insulin Human Regular (NovoLIN R SUPPLEMENTAL SCALE) 1 ACHS SLIDING SCALE SQ 05/04/17 17:00 05/10/17 12:13 Labetalol HCl (Trandate Inj) 10 mg Q1HR PRN IV PUSH SBP>160, DBP>90, HR>65 05/04/17 14:45 Hydralazine HCl (Apresoline Inj) 10 mg Q1HR PRN IV PUSH SBP>160, DBP>90 05/04/17 14:45 Nitroglycerin (Nitroglycerin 2% Oint) 2 inch Q6HR PRN TOPICAL SBP>160, DBP>90 05/04/17 14:45 Pantoprazole Sodium (Protonix) 40 mg DAILY PO 05/05/17 09:00 05/10/17 08:36 Prochlorperazine Edisylate (Compazine Inj) 5 mg Q6H PRN IV PUSH Breakthrough nausea 05/04/17 20:00 05/10/17 14:43 Carvedilol (Coreg) 3.125 mg BID PO 05/04/17 21:00 05/10/17 08:36 Citalopram Hydrobromide (CeleXA) 20 mg DAILY PO 05/06/17 09:00 05/10/17 08:36 Lorazepam (Ativan) 0.5 mg Q8H PRN PO ANXIETY 05/05/17 21:15 05/07/17 19:36 Prochlorperazine Maleate (Compazine) 5 mg Q6H PRN PO NAUSEA OR VOMITING 05/06/17 17:30 05/07/17 18:03 Prochlorperazine Maleate (Compazine) 5 mg Q6H PRN PO BREAKTHROUGH NAUSEA 05/06/17 17:30 05/07/17 05:22 Albuterol/ Ipratropium (Duoneb Neb) 1 ampule Q6HR NEB INH 05/07/17 16:00 05/10/17 07:18 Lorazepam (Ativan Inj) 0.25 mg Q6H PRN IV PUSH ANXIETY 05/08/17 08:30 05/09/17 01:02 Cefepime HCl 1000 mg/Sodium Chloride 100 ml @ 200 mls/hr Q12H IV 05/08/17 18:00 05/10/17 06:33 Furosemide (Lasix Inj) 20 mg BID@0900,1800 IV PUSH 05/10/17 18:00 Potassium Chloride (KCl) 20 meq BID PO 05/10/17 21:00 OBJECTIVE: Vital Signs Date Time Temp Pulse Resp B/P (MAP) Pulse Ox O2 Delivery O2 Flow Rate FiO2 05/10/17 12:00 98.0 76 25 150/77 (101) 99 05/10/17 12:00 76 05/10/17 08:00 78 05/10/17 08:00 97.7 78 18 139/71 (93) 90 05/10/17 07:19 92 Nasal Cannula 4.00 05/10/17 07:00 94 Nasal Cannula 4.00 05/10/17 04:00 78 05/10/17 04:00 98.0 78 20 127/66 (86) 98 05/10/17 00:00 74 05/10/17 00:00 97.4 74 18 138/68 (91) 94 05/09/17 21:10 99 Nasal Cannula 5.00 05/09/17 20:00 97.2 81 20 135/68 (90) 96 05/09/17 20:00 74 05/09/17 19:00 100 Partial Non-Rebreather 05/09/17 16:00 82 05/09/17 16:00 97.4 82 19 152/77 (102) 94 Laboratory Tests Test 05/09/17 04:25 05/10/17 03:40 White Blood Count 8.3 TH/MM3 8.5 TH/MM3 Red Blood Count 3.34 MIL/MM3 3.52 MIL/MM3 Hemoglobin 9.0 GM/DL 9.5 GM/DL Hematocrit 26.8 % 28.0 % Mean Corpuscular Volume 80.2 FL 79.6 FL Mean Corpuscular Hemoglobin 27.0 PG 27.0 PG Mean Corpuscular Hemoglobin Concent 33.7 % 34.0 % Red Cell Distribution Width 14.9 % 14.7 % Platelet Count 139 TH/MM3 144 TH/MM3 Mean Platelet Volume 8.7 FL 8.7 FL Neutrophils (%) (Auto) 74.4 % 70.2 % Lymphocytes (%) (Auto) 9.7 % 11.2 % Monocytes (%) (Auto) 12.1 % 14.0 % Eosinophils (%) (Auto) 3.0 % 3.8 % Basophils (%) (Auto) 0.8 % 0.8 % Neutrophils # (Auto) 6.2 TH/MM3 6.0 TH/MM3 Lymphocytes # (Auto) 0.8 TH/MM3 1.0 TH/MM3 Monocytes # (Auto) 1.0 TH/MM3 1.2 TH/MM3 Eosinophils # (Auto) 0.3 TH/MM3 0.3 TH/MM3 Basophils # (Auto) 0.1 TH/MM3 0.1 TH/MM3 CBC Comment DIFF FINAL DIFF FINAL Differential Comment Laboratory Tests Test 05/09/17 04:25 05/10/17 03:40 Blood Urea Nitrogen 47 MG/DL 39 MG/DL Creatinine 2.02 MG/DL 1.55 MG/DL Random Glucose 123 MG/DL 124 MG/DL Calcium Level 8.5 MG/DL 8.4 MG/DL Sodium Level 140 MEQ/L 140 MEQ/L Potassium Level 3.4 MEQ/L 3.1 MEQ/L Chloride Level 104 MEQ/L 103 MEQ/L Carbon Dioxide Level 28.5 MEQ/L 29.2 MEQ/L Anion Gap 8 MEQ/L 8 MEQ/L Estimat Glomerular Filtration Rate 25 ML/MIN 33 ML/MIN Magnesium Level 1.5 MG/DL IMAGING: Chest X-Ray 05/10/17 0000 Signed Impressions: Service Date/Time: Wednesday, May 10, 2017 08:28 - CONCLUSION: Increasing consolidation and pleural effusion. Significant pleural effusion is suspected. Srikanth Fox MD FACR Chest X-Ray 05/07/17 0600 Signed Impressions: Service Date/Time: Sunday, May 07, 2017 05:03 - CONCLUSION: Persistent moderate-sized bibasilar opacities representing pleural effusions with associated volume loss and/or airspace consolidation. The changes on the left have slightly increased from yesterday's examination. Cristian Dewitt MD Renal Ultrasound 05/07/17 0000 Signed Impressions: Service Date/Time: Sunday, May 07, 2017 14:35 - CONCLUSION: 1. No evidence of hydronephrosis. 2. Bilateral pleural effusions. 3. Large complex cystic/ solid mass in the pelvis. Max Carvajal MD Chest CT 05/03/17 0000 Signed Impressions: Service Date/Time: Wednesday, May 03, 2017 22:11 - CONCLUSION: 1. Moderate- sized left pleural effusion and small right pleural effusion. 2. Diffuse alveolar consolidation throughout the right mid and lower lung field and to a lesser extent the aerated portion left upper lung consistent with asymmetric pulmonary edema and/or pneumonia. Clinical correlation is recommended. 3. Left basilar compressive atelectasis and/or infiltrate. 4. Cardiomegaly and coronary artery calcifications. 5. Small pericardial effusion. 6. Cholelithiasis. 7. Degenerative changes within the thoracic spine. Yong Cox MD Abdomen/Pelvis CT 05/03/17 0000 Signed Impressions: Service Date/Time: Wednesday, May 03, 2017 22:11 - CONCLUSION: 1. Complex pelvic mass measuring 9.5 x 11.8 x 13.9 cm which raises the possibility of left ovarian neoplasm until proven otherwise. 2. Some ascites within the pelvis. 3. Moderate-sized left pleural effusion. 4. Small right pleural effusion. 5. Diffuse alveolar consolidation of the right lung and to a lesser extent the left lung base consistent with asymmetric pulmonary edema versus pneumonia. 6. Cardiomegaly. 7. Small pericardial effusion. Yong Cox MD PHYSICAL EXAMINATION: GENERAL: No acute distress. Awake and alert and oriented. HEENT: Extraocular movement is grossly intact. Pupils are reactive to light. No icterus. No conjunctival erythema. Oropharynx moist mucosa. No visible lesions. NECK: Supple without adenopathy or swelling. LUNGS: Decreased breath sounds. No rhonchi. HEART: Regular, S1 and S2. No murmurs, rubs or gallops. ABDOMEN: Bowel sounds present, soft, no tenderness. EXTREMITIES: No clubbing, cyanosis or edema. SKIN: No rash. NEURO: No gross focal findings. PSYCHIATRIC: Calm and cooperative. IMPRESSION: 1. Bilateral bibasilar opacities which are persistent. Likely representing pleural effusion. May need to have repeated thoracentesis. 2. Potential pneumonia. No fever and white blood cell count is normal. Pro-calcitonin level is low. Currently without clinical evidence suggesting pneumonia. 3. Acute kidney disease. 4. Pelvic mass. RECOMMENDATIONS: 1. Continue to diuresis. 2. Monitor without antibiotics. 3. Monitor the clinical status. Ino Blackwell MD May 10, 2017 15:50
--- NOTE | 2017-05-10 16:10 | HHI.PR ---
Subjective Remarks ALERT NO DISTRESS Objective Vital Signs Date Time Temp Pulse Resp B/P (MAP) Pulse Ox O2 Delivery O2 Flow Rate FiO2 05/10/17 12:00 98.0 76 25 150/77 (101) 99 05/10/17 12:00 76 05/10/17 08:00 78 05/10/17 08:00 97.7 78 18 139/71 (93) 90 05/10/17 07:19 92 Nasal Cannula 4.00 05/10/17 07:00 94 Nasal Cannula 4.00 05/10/17 04:00 78 05/10/17 04:00 98.0 78 20 127/66 (86) 98 05/10/17 00:00 74 05/10/17 00:00 97.4 74 18 138/68 (91) 94 05/09/17 21:10 99 Nasal Cannula 5.00 05/09/17 20:00 97.2 81 20 135/68 (90) 96 05/09/17 20:00 74 05/09/17 19:00 100 Partial Non-Rebreather I/O 05/09/17 05/09/17 05/09/17 05/10/17 05/10/17 05/10/17 07:00 15:00 23:00 07:00 15:00 23:00 Intake Total 200 ml 160 ml 500 ml 300 ml Output Total 750 ml 750 ml 550 ml Balance -550 ml -590 ml -50 ml 300 ml Intake Oral 60 ml 150 ml IV Total 200 ml 100 ml 350 ml 300 ml Output Urine Total 750 ml 750 ml 550 ml # Voids 7 # Bowel Movements 2 0 Result Diagram: 05/10/17 03405/10/17 034 Objective Remarks GENERAL: SKIN: Warm and dry. HEAD: Atraumatic. Normocephalic. EYES: Pupils equal and round. No scleral icterus. No injection or drainage. ENT: No nasal bleeding or discharge. Mucous membranes pink and moist. NECK: Trachea midline. No JVD. CARDIOVASCULAR: Regular rate and rhythm. RESPIRATORY: No accessory muscle use. DECREASE BREATH SOUNDS AT BASIS. GASTROINTESTINAL: Abdomen soft, non-tender, nondistended. Hepatic and splenic margins not palpable. MUSCULOSKELETAL: Extremities without clubbing, cyanosis, or edema. No obvious deformities. NEUROLOGICAL: Awake and alert. No obvious cranial nerve deficits. Motor grossly within normal limits. Five out of 5 muscle strength in the arms and legs. Normal speech. PSYCHIATRIC: Appropriate mood and affect; insight and judgment normal. Assessment and Plan Assessment and Plan RESPIRATORY FAILURE BIBASILAR EFFUSIONS/ INFILTRATES IMPROVING PLAN O2 ANTIBX Trey Yang MD May 10, 2017 16:10
--- NOTE | 2017-05-10 16:18 | MB ---
cc: Jacque Becker MD,Delmar Moore,Marino Blackwell,Ino Beckett,Mario Rocha MD DATE OF CONSULT: 05/10/2017 This is a consult note followup. I met with Bhumi Simpson again today. She is accompanied by a gentleman I believe is a family member. I explained the result of the cytology from the pleural fluid. They do not show any malignant cells and this is followup to consult for a large complex predominantly cystic pelvic mass. I explained that negative cytology does not exclude the possibility of malignancy but it does not confirm with any certainty that the mass is malignant, nor are the effusions and ascites necessarily malignant. They could reactive to this mass. It could be due to her underlying congestive heart failure given her recent heart attack as there is some pericardial fluid, pleural fluid and some ascites and it could all be related to her cardiac and pulmonary issues. Nevertheless, with her recent cardiac event, compromised performance status, stent that was placed and the need for anticoagulation therapy, combined with the asymptomatic nature of this mass, the fact that there was an incidental findings on imaging, we recommend no further intervention in the immediate time period. I explained that if she gets to a point where her performance status improved, she gets to the point where she no longer requires anticoagulation therapy and/or she could be cleared from cardiology to stop anticoagulation therapy and if she wished surgical resection of this mass to clarify diagnosis and alleviate any future problems, this could be considered. Accordingly, I will put our office number in the computer system. She is made aware of it to contact our office for followup but we would need to see her probably for at least 8 weeks, which would be beyond the period of initial anticoagulation. We can talk in more detail at that time. But in synopsis, I believe the risk of morbidity and mortality to take her to surgery at this time far exceed any benefit, both from diagnostic or therapeutic standpoint, as she needs to recovery from a cardiac and pulmonary standpoint before considering any additional intervention. Discussion ensued, questions were answered, she expressed good understanding and agreed. At this time, we will sign off on her care but we will be happy to see her as an outpatient if she wishes further evaluation. Please have her call our office at [phone] to set up an appointment approximately 8 weeks after discharge. MD BLANCA Salas , 02:47 PM , 04:16 PM
[2017-05-10] MEDS: ATORVASTATIN 80 MG TAB PO SCH (21:00)
[2017-05-11] VITALS (20 sets, daily range): BP systolic 123–147; BP diastolic 60–78; PULSE 74–93; RESP 16–24; TEMP 98.6–99.2; O2SAT 93–99
[2017-05-11] MEDS: PROCHLORPERAZINE INJ 10 MG/2 ML VIAL IV PUSH PRN ×6 (02:00→21:09)
[2017-05-11] MEDS: CHLORHEXIDINE GLUCONATE 2 % 1 PACK (2 CLOTHS) TOP SCH ×2 (04:00→23:41)
[2017-05-11] MEDS: RESP: ALBUTEROL 2.5 MG/IPRATROPIUM 0.5 MG NEB (SCH) INH ×3 (04:22→14:49)
[2017-05-11 05:03] LABS: AUTOMATED NEUTROPHIL # 6.3 TH/MM3 (1.8-7.7); BASOPHIL % 0.5 % (0.0-2.0); EOSINOPHIL # 0.2 TH/MM3 (0-0.4); EOSINOPHIL % 2.7 % (0.0-4.0); HEMATOCRIT 26.7 % (35.0-46.0); HEMOGLOBIN 9.2 GM/DL (11.6-15.3); LYMPH % 9.1 % (9.0-44.0); LYMPHOCYTE # 0.8 TH/MM3 (1.0-4.8); MEAN CELL VOLUME 78.9 FL (80.0-100.0); MEAN CORPUSCULAR HEMOGLOBIN 27.2 PG (27.0-34.0); MEAN CORPUSCULAR HGB CONC 34.5 % (32.0-36.0); MEAN PLATELET VOLUME 8.5 FL (7.0-11.0); MONO % 14.6 % (0.0-8.0); MONOCYTE # 1.3 TH/MM3 (0-0.9); NEUT % 73.1 % (16.0-70.0); PLATELET COUNT 153 TH/MM3 (150-450); RED BLOOD COUNT 3.39 MIL/MM3 (4.00-5.30); RED CELL DISTRIBUTION WIDTH 14.8 % (11.6-17.2); WHITE BLOOD COUNT 8.7 TH/MM3 (4.0-11.0)
[2017-05-11 05:10] LABS: BICARBONATE 31.9 MEQ/L (21.0-32.0); CALCIUM 8.5 MG/DL (8.5-10.1); CREATININE 1.32 MG/DL (0.50-1.00); MAGNESIUM 1.5 MG/DL (1.5-2.5)
[2017-05-11] MEDS ORDERED: POTASSIUM PHOSPHATE INJ 30 MMOL in SODIUM CHLOR 0.9% 250 ML INJ 250 ML IV PRN (07:30)
[2017-05-11] MEDS ORDERED: POTASSIUM CHLORIDE 25 MEQ EFFERVESCENT TAB PO PRN (07:30)
[2017-05-11] MEDS ORDERED: SODIUM PHOSPHATE INJ 30 MMOL in SODIUM CHLOR 0.9% 250 ML INJ 240 ML IV PRN (07:30)
[2017-05-11] MEDS ORDERED: MAGNESIUM SULFATE INJ 2 GM in SODIUM CHLORIDE 0.9% INJ 96 ML IV PRN (07:30)
[2017-05-11] MEDS ORDERED: POTASSIUM PHOSPHATE MONOBASIC 500 MG TAB PO PRN (07:30)
[2017-05-11] MEDS ORDERED: POTASSIUM CHLOR 20 MEQ PREMIX 100 ML IV PRN (07:30)
[2017-05-11] MEDS ORDERED: MAGNESIUM SULFATE INJ 4 GM in SODIUM CHLORIDE 0.9% INJ 92 ML IV PRN (07:30)
[2017-05-11] MEDS ORDERED: POTASSIUM CHLOR 40 MEQ PREMIX 100 ML IV PRN ×2 (07:30)
[2017-05-11] MEDS ORDERED: POTASSIUM PHOSPHATE MONOBASIC 500 MG TAB PO/TUBE PRN (07:30)
[2017-05-11] MEDS: INSULIN NovoLIN REGULAR SUPPLEMENTAL SCALE SQ SCH ×4 (08:00→21:00)
--- NOTE | 2017-05-11 08:55 | HHI.PR ---
Subjective Remarks Follow up pleural effusion, pneumonia. Unable to do thoracentesis yesterday due to Plavix. Patient states that she feels a little better today. Nausea is better than it was yesterday afternoon. Breathing is "about the same". Patient denies chest pain. Objective Vitals Vital Signs Date Time Temp Pulse Resp B/P (MAP) Pulse Ox O2 Delivery O2 Flow Rate FiO2 05/11/17 08:00 Nasal Cannula 3.00 05/11/17 08:00 88 05/11/17 08:00 99.2 88 21 136/62 (86) 93 05/11/17 07:06 95 Nasal Cannula 3.00 05/11/17 07:00 86 16 139/64 (89) 96 05/11/17 07:00 86 05/11/17 06:00 74 05/11/17 04:22 95 Nasal Cannula 3.00 05/11/17 04:00 74 19 128/60 (82) 96 05/11/17 04:00 74 05/11/17 02:00 93 05/11/17 00:00 98.7 76 24 145/70 (95) 96 05/11/17 00:00 93 05/10/17 22:20 96 Nasal Cannula 3.00 05/10/17 22:10 98 Nasal Cannula 4.00 05/10/17 20:00 87 05/10/17 20:00 98.8 78 18 150/72 (98) 95 05/10/17 19:00 95 Nasal Cannula 4.00 05/10/17 16:00 75 05/10/17 16:00 98.2 75 17 132/73 (92) 95 05/10/17 12:00 98.0 76 25 150/77 (101) 99 05/10/17 12:00 76 I/O 05/10/17 05/10/17 05/10/17 05/11/17 05/11/17 05/11/17 07:00 15:00 23:00 07:00 15:00 23:00 Intake Total 500 ml 400 ml 60 ml 200 ml Output Total 550 ml 1000 ml 850 ml Balance -50 ml 400 ml -940 ml -650 ml Intake Oral 150 ml 60 ml IV Total 350 ml 400 ml 200 ml Output Urine Total 550 ml 1000 ml 850 ml # Voids 11 Result Diagram: 05/11/17 0419 05/11/17 0419 Imaging Last Impressions Chest X-Ray 05/10/17 0000 Signed Impressions: Service Date/Time: Wednesday, May 10, 2017 08:28 - CONCLUSION: Increasing consolidation and pleural effusion. Significant pleural effusion is suspected. Srikanth Fox MD FACR Renal Ultrasound 05/07/17 0000 Signed Impressions: Service Date/Time: Sunday, May 07, 2017 14:35 - CONCLUSION: 1. No evidence of hydronephrosis. 2. Bilateral pleural effusions. 3. Large complex cystic/ solid mass in the pelvis. Max Carvajal MD Chest CT 05/03/17 0000 Signed Impressions: Service Date/Time: Wednesday, May 03, 2017 22:11 - CONCLUSION: 1. Moderate- sized left pleural effusion and small right pleural effusion. 2. Diffuse alveolar consolidation throughout the right mid and lower lung field and to a lesser extent the aerated portion left upper lung consistent with asymmetric pulmonary edema and/or pneumonia. Clinical correlation is recommended. 3. Left basilar compressive atelectasis and/or infiltrate. 4. Cardiomegaly and coronary artery calcifications. 5. Small pericardial effusion. 6. Cholelithiasis. 7. Degenerative changes within the thoracic spine. Yong Cox MD Abdomen/Pelvis CT 05/03/17 0000 Signed Impressions: Service Date/Time: Wednesday, May 03, 2017 22:11 - CONCLUSION: 1. Complex pelvic mass measuring 9.5 x 11.8 x 13.9 cm which raises the possibility of left ovarian neoplasm until proven otherwise. 2. Some ascites within the pelvis. 3. Moderate-sized left pleural effusion. 4. Small right pleural effusion. 5. Diffuse alveolar consolidation of the right lung and to a lesser extent the left lung base consistent with asymmetric pulmonary edema versus pneumonia. 6. Cardiomegaly. 7. Small pericardial effusion. Yong Cox MD Objective Remarks General: No acute distress. On nasal cannula. Heart: Regular rate and rhythm. No murmur. Lungs: Decreased breath sounds throughout, L>R. No wheezing noted. Abdomen: Soft, nontender, nondistended. Extremities: No lower extremity edema. SCDs. Psych: Alert and oriented. Procedures 3/-left thoracentesis-900 cc Urinary Catheter: No Vascular Central Line Catheter: No A/P Problem List: (1) Acute hypoxemic respiratory failure ICD Code: J96.01 - Acute respiratory failure with hypoxia (2) Sepsis ICD Code: A41.9 - Sepsis, unspecified organism (3) CAP (community acquired pneumonia) ICD Code: J18.9 - Pneumonia, unspecified organism (4) Elevated brain natriuretic peptide (BNP) level ICD Code: R79.89 - Other specified abnormal findings of blood chemistry (5) Elevated troponin ICD Code: R74.8 - Abnormal levels of other serum enzymes (6) Probable CHF (7) Acute kidney injury ICD Code: N17.9 - Acute kidney failure, unspecified (8) Hypertension ICD Code: I10 - Essential (primary) hypertension Assessment and Plan 1. Acute hypoxemic respiratory failure, bilateral pleural effusions, community- acquired pneumonia: Continue supplemental oxygen. Continue bronchodilators, incentive spirometry. Status post right thoracentesis on 05/03/17. Now on nasal cannula. Vancomycin discontinued secondary to renal failure. Appreciate infectious disease, pulmonology recommendations. Antibiotics discontinued by infectious disease. CXR shows worsening pleural effusion L>R. Unable to do repeat thoracentesis as patient is on Plavix. 2. Coronary artery disease, non-ST elevation SD: Status post cardiac catheterization with stent placement. Continue aspirin and Plavix. 3. Congestive heart failure, chronic systolic: Continue beta-darvin, aspirin, Plavix, DELANO inhibitor, statin. 4. Hyperlipidemia: Continue statin. 5. Acute kidney injury superimposed on chronic kidney disease: Appreciate nephrology recommendations. Monitor strict intake/output. Creatinine trending down. 6. Hypokalemia: Potassium remains low. Monitor labs and supplement per electrolyte protocol. 7. Pelvic mass: Appreciate medical and gynecologic oncology recommendations. Not able to do surgery at this point due to need for Plavix for cardiac stent. Cytology from thoracentesis is negative for malignant cells. 8. DVT prophylaxis: SCDs, ROBEL hose. Chemical prophylaxis contraindicated secondary to hemorrhagic pleural effusion. 9. GI prophylaxis: Protonix. Problem Qualifiers (1) Hypertension: Qualified Codes: I10 - Essential (primary) hypertension Marino Moore MD May 11, 2017 08:55
[2017-05-11] MEDS: CARVEDILOL 3.125 MG TAB PO SCH ×2 (09:00→21:09)
[2017-05-11] MEDS: POTASSIUM CHLORIDE 10 MEQ CAP PO SCH ×2 (09:00→21:00)
[2017-05-11] MEDS: DOCUSATE SODIUM 50 MG/SENNA 8.6 MG TAB PO SCH ×3 (09:00→21:00)
[2017-05-11] MEDS: ASPIRIN 81 MG CHEW TAB PO SCH (10:22)
[2017-05-11] MEDS: CLOPIDOGREL 75 MG TAB PO SCH (10:22)
[2017-05-11] MEDS: CITALOPRAM HYDROBROMIDE 20 MG TAB PO SCH (10:22)
[2017-05-11] MEDS: PANTOPRAZOLE SOD 40 MG DELAYED RELEASE TAB PO SCH (10:23)
--- NOTE | 2017-05-11 10:50 | HHI.PR ---
Subjective Remarks Patient is sitting up in bed in NAD. On 3L oxygen. Afebrile. Objective Vital Signs Vital Signs Date Time Temp Pulse Resp B/P (MAP) Pulse Ox O2 Delivery O2 Flow Rate FiO2 05/11/17 08:00 Nasal Cannula 3.00 05/11/17 08:00 88 05/11/17 08:00 99.2 88 21 136/62 (86) 93 05/11/17 07:06 95 Nasal Cannula 3.00 05/11/17 07:00 86 16 139/64 (89) 96 05/11/17 07:00 86 05/11/17 06:00 74 05/11/17 04:22 95 Nasal Cannula 3.00 05/11/17 04:00 74 19 128/60 (82) 96 05/11/17 04:00 74 05/11/17 02:00 93 05/11/17 00:00 98.7 76 24 145/70 (95) 96 05/11/17 00:00 93 05/10/17 22:20 96 Nasal Cannula 3.00 05/10/17 22:10 98 Nasal Cannula 4.00 05/10/17 20:00 87 05/10/17 20:00 98.8 78 18 150/72 (98) 95 05/10/17 19:00 95 Nasal Cannula 4.00 05/10/17 16:00 75 05/10/17 16:00 98.2 75 17 132/73 (92) 95 05/10/17 12:00 98.0 76 25 150/77 (101) 99 05/10/17 12:00 76 I/O 05/10/17 05/10/17 05/10/17 05/11/17 05/11/17 05/11/17 07:00 15:00 23:00 07:00 15:00 23:00 Intake Total 500 ml 400 ml 60 ml 200 ml Output Total 550 ml 1000 ml 850 ml Balance -50 ml 400 ml -940 ml -650 ml Intake Oral 150 ml 60 ml IV Total 350 ml 400 ml 200 ml Output Urine Total 550 ml 1000 ml 850 ml # Voids 11 Result Diagram: 05/11/17 0419 05/11/17 0419 Other Results Last Impressions Chest X-Ray 05/10/17 0000 Signed Impressions: Service Date/Time: Wednesday, May 10, 2017 08:28 - CONCLUSION: Increasing consolidation and pleural effusion. Significant pleural effusion is suspected. Srikanth Fox MD FACR Renal Ultrasound 05/07/17 0000 Signed Impressions: Service Date/Time: Sunday, May 07, 2017 14:35 - CONCLUSION: 1. No evidence of hydronephrosis. 2. Bilateral pleural effusions. 3. Large complex cystic/ solid mass in the pelvis. Max Carvajal MD Chest CT 05/03/17 0000 Signed Impressions: Service Date/Time: Wednesday, May 03, 2017 22:11 - CONCLUSION: 1. Moderate- sized left pleural effusion and small right pleural effusion. 2. Diffuse alveolar consolidation throughout the right mid and lower lung field and to a lesser extent the aerated portion left upper lung consistent with asymmetric pulmonary edema and/or pneumonia. Clinical correlation is recommended. 3. Left basilar compressive atelectasis and/or infiltrate. 4. Cardiomegaly and coronary artery calcifications. 5. Small pericardial effusion. 6. Cholelithiasis. 7. Degenerative changes within the thoracic spine. Yong Cox MD Abdomen/Pelvis CT 05/03/17 0000 Signed Impressions: Service Date/Time: Wednesday, May 03, 2017 22:11 - CONCLUSION: 1. Complex pelvic mass measuring 9.5 x 11.8 x 13.9 cm which raises the possibility of left ovarian neoplasm until proven otherwise. 2. Some ascites within the pelvis. 3. Moderate-sized left pleural effusion. 4. Small right pleural effusion. 5. Diffuse alveolar consolidation of the right lung and to a lesser extent the left lung base consistent with asymmetric pulmonary edema versus pneumonia. 6. Cardiomegaly. 7. Small pericardial effusion. Yong Cox MD Objective Remarks GENERAL: Patient is 66yo siting in bed in [facility] SKIN: Warm and dry. HEAD: Normocephalic. EYES: No scleral icterus. No injection or drainage. NECK: Supple, trachea midline. No JVD or lymphadenopathy. CARDIOVASCULAR: Regular rate and rhythm without murmurs, gallops, or rubs. RESPIRATORY: Breath sounds equal bilaterally. No accessory muscle use. GASTROINTESTINAL: Abdomen soft, non-tender, nondistended. MUSCULOSKELETAL: No cyanosis, or edema. Neuro: Awake and alert. A/P Assessment and Plan 1)Resp [place] 2)Pneumonia 3)Pleural effusion s/p US guided right thoracentesis on 2- 1.5L removed 4)CHF 5)ADRIANA- improving 6)HTN Plan Continue with oxygen keep sats >92% Bronchodilators Continue with Lasix 20mg BID Off abx- ID is following- monitor for signs of infections ( Fever, WBC) Will proceed with US guided thoracentesis for recurrent pleural effusions s/p US guided right thoracentesis on 3/2- 1.5L removed (transudative fluid) likely 2nd CHF Echo showed EF 40-45% Continue treatment plan Jesse Bowling MD May 11, 2017 10:50
[2017-05-11] MEDS: POTASSIUM CHLOR 20 MEQ PREMIX 100 ML IV PRN ×2 (10:51→21:08)
[2017-05-11] MEDS: FUROSEMIDE 40 MG/4 ML VIAL IV PUSH SCH ×2 (12:04→18:01)
[2017-05-11] MEDS: SODIUM CHLORIDE 0.9% FLUSH 10 ML FLUSH IV FLUSH SCH ×2 (12:04→21:09)
[2017-05-11] MEDS: ATORVASTATIN 80 MG TAB PO SCH (21:09)
[2017-05-12] VITALS (19 sets, daily range): BP systolic 121–148; BP diastolic 58–78; PULSE 74–85; RESP 0–22; TEMP 97.5–99; O2SAT 91–99
[2017-05-12] MEDS: PROCHLORPERAZINE INJ 10 MG/2 ML VIAL IV PUSH PRN ×5 (04:11→21:18)
[2017-05-12] MEDS: PANTOPRAZOLE SOD 40 MG DELAYED RELEASE TAB PO SCH (07:51)
[2017-05-12] MEDS: CARVEDILOL 3.125 MG TAB PO SCH ×2 (07:51→21:14)
[2017-05-12] MEDS: CITALOPRAM HYDROBROMIDE 20 MG TAB PO SCH (07:51)
[2017-05-12] MEDS: ASPIRIN 81 MG CHEW TAB PO SCH (07:52)
[2017-05-12] MEDS: POTASSIUM CHLORIDE 10 MEQ CAP PO SCH ×2 (07:52→21:13)
[2017-05-12] MEDS: SODIUM CHLORIDE 0.9% FLUSH 10 ML FLUSH IV FLUSH SCH ×2 (07:54→21:15)
[2017-05-12] MEDS: INSULIN NovoLIN REGULAR SUPPLEMENTAL SCALE SQ SCH ×4 (08:00→21:00)
[2017-05-12] MEDS: FUROSEMIDE 40 MG/4 ML VIAL IV PUSH SCH ×2 (08:06→18:45)
[2017-05-12] MEDS: DOCUSATE SODIUM 50 MG/SENNA 8.6 MG TAB PO SCH ×2 (08:06→21:14)
[2017-05-12] MEDS: CLOPIDOGREL 75 MG TAB PO SCH (08:08)
--- NOTE | 2017-05-12 09:47 | HHI.PR ---
Subjective Remarks No events overnight. On 3L oxygen. Afebrile. Looks comfortable. Objective Vital Signs Vital Signs Date Time Temp Pulse Resp B/P (MAP) Pulse Ox O2 Delivery O2 Flow Rate FiO2 05/12/17 08:00 99.0 85 17 147/70 (95) 98 05/12/17 08:00 Nasal Cannula 3.00 05/12/17 08:00 85 05/12/17 07:06 96 Nasal Cannula 1.00 05/12/17 07:00 77 05/12/17 07:00 77 13 122/61 (81) 94 05/12/17 06:00 74 05/12/17 04:00 96 Nasal Cannula 3.00 05/12/17 04:00 98.7 78 19 133/69 (90) 96 05/12/17 04:00 78 05/12/17 02:00 76 05/12/17 00:00 91 Nasal Cannula 3.00 05/12/17 00:00 75 05/12/17 00:00 98.4 75 20 121/58 (79) 91 05/11/17 22:00 75 05/11/17 20:00 83 05/11/17 20:00 97 Nasal Cannula 3.00 05/11/17 20:00 98.6 83 19 135/62 (86) 97 05/11/17 19:04 95 Nasal Cannula 3.00 05/11/17 17:00 83 22 123/78 (93) 94 05/11/17 16:00 82 05/11/17 16:00 Nasal Cannula 3.00 05/11/17 16:00 98.6 82 19 131/70 (90) 95 05/11/17 15:00 80 05/11/17 15:00 80 18 141/73 (95) 97 05/11/17 14:00 79 05/11/17 14:00 79 18 147/76 (99) 97 05/11/17 13:00 79 17 135/69 (91) 97 05/11/17 13:00 79 05/11/17 12:00 86 23 130/62 (84) 99 05/11/17 12:00 Nasal Cannula 3.00 05/11/17 12:00 86 05/11/17 11:00 90 18 147/65 (92) 95 05/11/17 11:00 90 05/11/17 10:00 85 05/11/17 10:00 85 18 141/63 (89) 94 I/O 05/11/17 05/11/17 05/11/17 05/12/17 05/12/17 05/12/17 07:00 15:00 23:00 07:00 15:00 23:00 Intake Total 200 ml 250 ml Output Total 850 ml 600 ml Balance -650 ml -350 ml Intake Oral 150 ml IV Total 200 ml 100 ml Output Urine Total 850 ml 600 ml # Bowel Movements 0 Result Diagram: 05/11/17 0419 05/11/17 0419 Other Results Last Impressions Chest X-Ray 05/10/17 0000 Signed Impressions: Service Date/Time: Wednesday, May 10, 2017 08:28 - CONCLUSION: Increasing consolidation and pleural effusion. Significant pleural effusion is suspected. Srikanth Fox MD FACR Renal Ultrasound 05/07/17 0000 Signed Impressions: Service Date/Time: Sunday, May 07, 2017 14:35 - CONCLUSION: 1. No evidence of hydronephrosis. 2. Bilateral pleural effusions. 3. Large complex cystic/ solid mass in the pelvis. Max Carvajal MD Chest CT 05/03/17 0000 Signed Impressions: Service Date/Time: Wednesday, May 03, 2017 22:11 - CONCLUSION: 1. Moderate- sized left pleural effusion and small right pleural effusion. 2. Diffuse alveolar consolidation throughout the right mid and lower lung field and to a lesser extent the aerated portion left upper lung consistent with asymmetric pulmonary edema and/or pneumonia. Clinical correlation is recommended. 3. Left basilar compressive atelectasis and/or infiltrate. 4. Cardiomegaly and coronary artery calcifications. 5. Small pericardial effusion. 6. Cholelithiasis. 7. Degenerative changes within the thoracic spine. Yong Cox MD Abdomen/Pelvis CT 05/03/17 0000 Signed Impressions: Service Date/Time: Wednesday, May 03, 2017 22:11 - CONCLUSION: 1. Complex pelvic mass measuring 9.5 x 11.8 x 13.9 cm which raises the possibility of left ovarian neoplasm until proven otherwise. 2. Some ascites within the pelvis. 3. Moderate-sized left pleural effusion. 4. Small right pleural effusion. 5. Diffuse alveolar consolidation of the right lung and to a lesser extent the left lung base consistent with asymmetric pulmonary edema versus pneumonia. 6. Cardiomegaly. 7. Small pericardial effusion. Yong Cox MD Objective Remarks GENERAL: Patient is 66yo siting in bed in NAD SKIN: Warm and dry. HEAD: Normocephalic. EYES: No scleral icterus. No injection or drainage. NECK: Supple, trachea midline. No JVD or lymphadenopathy. CARDIOVASCULAR: Regular rate and rhythm without murmurs, gallops, or rubs. RESPIRATORY: Breath sounds equal bilaterally. No accessory muscle use. GASTROINTESTINAL: Abdomen soft, non-tender, nondistended. MUSCULOSKELETAL: No cyanosis, or edema. Neuro: Awake and alert. A/P Assessment and Plan 1)Resp [place] 2)Pneumonia 3)Pleural effusion s/p US guided right thoracentesis on 3/2- 1.5L removed 4)CHF 5)ADRIANA- improving 6)HTN Plan Continue with oxygen keep sats >92% Bronchodilators, check CXR in am Continue with Lasix 20mg BID Off abx- ID is following- monitor for signs of infections ( Fever, WBC) Will need US guided thoracentesis for recurrent pleural effusions. s/p US guided right thoracentesis on 3/2- 1.5L removed (transudative fluid) likely 2nd CHF Echo showed EF 40-45% Continue treatment plan Jesse Bowling MD May 12, 2017 09:47
[2017-05-12 11:50] LABS: BICARBONATE 31.1 MEQ/L (21.0-32.0); CREATININE 1.34 MG/DL (0.50-1.00); MAGNESIUM 1.5 MG/DL (1.5-2.5)
[2017-05-12] MEDS: MAGNESIUM OXIDE 400 MG TAB PO PRN ×2 (12:05→21:13)
[2017-05-12] MEDS: POTASSIUM CHLOR 20 MEQ PREMIX 100 ML IV PRN (14:12)
--- NOTE | 2017-05-12 16:08 | HHI.PR ---
Subjective Remarks Follow-up renal insufficiency, pleural effusion. Patient states that her breathing is about the same. She reports nausea is "pretty much constant". Objective Vitals Vital Signs Date Time Temp Pulse Resp B/P (MAP) Pulse Ox O2 Delivery O2 Flow Rate FiO2 05/12/17 14:00 74 05/12/17 13:00 78 19 145/75 (98) 98 05/12/17 13:00 78 05/12/17 12:00 Nasal Cannula 3.00 05/12/17 12:00 76 19 139/77 (97) 99 05/12/17 12:00 76 05/12/17 11:00 75 05/12/17 11:00 75 18 140/75 (96) 98 05/12/17 10:00 78 21 136/69 (91) 98 05/12/17 10:00 85 05/12/17 09:00 80 05/12/17 09:00 80 22 133/66 (88) 95 05/12/17 08:00 99.0 85 17 147/70 (95) 98 05/12/17 08:00 Nasal Cannula 3.00 05/12/17 08:00 85 05/12/17 07:06 96 Nasal Cannula 1.00 05/12/17 07:00 77 05/12/17 07:00 77 13 122/61 (81) 94 05/12/17 06:00 74 05/12/17 04:00 96 Nasal Cannula 3.00 05/12/17 04:00 98.7 78 19 133/69 (90) 96 05/12/17 04:00 78 05/12/17 02:00 76 05/12/17 00:00 91 Nasal Cannula 3.00 05/12/17 00:00 75 05/12/17 00:00 98.4 75 20 121/58 (79) 91 05/11/17 22:00 75 05/11/17 20:00 83 05/11/17 20:00 97 Nasal Cannula 3.00 05/11/17 20:00 98.6 83 19 135/62 (86) 97 05/11/17 19:04 95 Nasal Cannula 3.00 05/11/17 17:00 83 22 123/78 (93) 94 I/O 05/11/17 05/11/17 05/11/17 05/12/17 05/12/1705/12/18 07:00 15:00 23:00 07:00 15:00 23:00 Intake Total 200 ml 250 ml Output Total 850 ml 600 ml Balance -650 ml -350 ml Intake Oral 150 ml IV Total 200 ml 100 ml Output Urine Total 850 ml 600 ml # Bowel Movements 0 Result Diagram: 05/11/17 0419 05/12/17 1057 Imaging Last Impressions Chest X-Ray 05/10/17 0000 Signed Impressions: Service Date/Time: Wednesday, May 10, 2017 08:28 - CONCLUSION: Increasing consolidation and pleural effusion. Significant pleural effusion is suspected. Srikanth Fox MD FACR Renal Ultrasound 05/07/17 0000 Signed Impressions: Service Date/Time: Sunday, May 07, 2017 14:35 - CONCLUSION: 1. No evidence of hydronephrosis. 2. Bilateral pleural effusions. 3. Large complex cystic/ solid mass in the pelvis. Max Carvajal MD Chest CT 05/03/17 0000 Signed Impressions: Service Date/Time: Wednesday, May 03, 2017 22:11 - CONCLUSION: 1. Moderate- sized left pleural effusion and small right pleural effusion. 2. Diffuse alveolar consolidation throughout the right mid and lower lung field and to a lesser extent the aerated portion left upper lung consistent with asymmetric pulmonary edema and/or pneumonia. Clinical correlation is recommended. 3. Left basilar compressive atelectasis and/or infiltrate. 4. Cardiomegaly and coronary artery calcifications. 5. Small pericardial effusion. 6. Cholelithiasis. 7. Degenerative changes within the thoracic spine. Yong Cox MD Abdomen/Pelvis CT 05/03/17 0000 Signed Impressions: Service Date/Time: Wednesday, May 03, 2017 22:11 - CONCLUSION: 1. Complex pelvic mass measuring 9.5 x 11.8 x 13.9 cm which raises the possibility of left ovarian neoplasm until proven otherwise. 2. Some ascites within the pelvis. 3. Moderate-sized left pleural effusion. 4. Small right pleural effusion. 5. Diffuse alveolar consolidation of the right lung and to a lesser extent the left lung base consistent with asymmetric pulmonary edema versus pneumonia. 6. Cardiomegaly. 7. Small pericardial effusion. Yong Cox MD Objective Remarks General: No acute distress. On nasal cannula. Heart: Regular rate and rhythm. No murmur. Lungs: Decreased breath sounds throughout, L>R. No wheezing noted. Abdomen: Soft, nontender, nondistended. Extremities: No lower extremity edema. SCDs. Psych: Alert and oriented. Procedures 05/04-left thoracentesis-900 cc Urinary Catheter: No Vascular Central Line Catheter: No A/P Problem List: (1) Acute hypoxemic respiratory failure ICD Code: J96.01 - Acute respiratory failure with hypoxia (2) Sepsis ICD Code: A41.9 - Sepsis, unspecified organism (3) CAP (community acquired pneumonia) ICD Code: J18.9 - Pneumonia, unspecified organism (4) Elevated brain natriuretic peptide (BNP) level ICD Code: R79.89 - Other specified abnormal findings of blood chemistry (5) Elevated troponin ICD Code: R74.8 - Abnormal levels of other serum enzymes (6) Probable CHF (7) Acute kidney injury ICD Code: N17.9 - Acute kidney failure, unspecified (8) Hypertension ICD Code: I10 - Essential (primary) hypertension Assessment and Plan 1. Acute hypoxemic respiratory failure, bilateral pleural effusions, community- acquired pneumonia: Continue supplemental oxygen. Continue bronchodilators, incentive spirometry. Status post right thoracentesis on 05/03/17. Now on nasal cannula. Vancomycin discontinued secondary to renal failure. Appreciate infectious disease, pulmonology recommendations. Antibiotics discontinued by infectious disease. CXR shows worsening pleural effusion L>R. Repeat thoracentesis ordered again by pulmonology. Repeat chest x-ray ordered for tomorrow. 2. Coronary artery disease, non-ST elevation [place]: Status post cardiac catheterization with stent placement. Continue aspirin and Plavix. 3. Congestive heart failure, chronic systolic: Continue beta-darvin, aspirin, Plavix, DELANO inhibitor, statin. 4. Hyperlipidemia: Continue statin. 5. Acute kidney injury superimposed on chronic kidney disease: Appreciate nephrology recommendations. Monitor strict intake/output. Creatinine has improved. 6. Hypokalemia: Potassium remains low. Monitor labs and supplement per electrolyte protocol. 7. Pelvic mass: Appreciate medical and gynecologic oncology recommendations. Not able to do surgery at this point due to need for Plavix for cardiac stent. Cytology from thoracentesis is negative for malignant cells. 8. DVT prophylaxis: SCDs, ROBEL solomon. 9. GI prophylaxis: Protonix. Problem Qualifiers (1) Hypertension: Qualified Codes: I10 - Essential (primary) hypertension Stoverink,Marino D. MD May 12, 2017 16:08
[2017-05-12 21:05] LABS: MAGNESIUM 1.4 MG/DL (1.5-2.5)
[2017-05-12] MEDS: ATORVASTATIN 80 MG TAB PO SCH (21:14)
[2017-05-13] VITALS (20 sets, daily range): BP systolic 120–147; BP diastolic 64–74; PULSE 72–81; RESP 11–30; TEMP 97.6–98.9; O2SAT 95–100
[2017-05-13] MEDS: PROCHLORPERAZINE INJ 10 MG/2 ML VIAL IV PUSH PRN ×2 (03:50→18:19)
[2017-05-13] MEDS: CHLORHEXIDINE GLUCONATE 2 % 1 PACK (2 CLOTHS) TOP SCH (03:54)
--- NOTE | 2017-05-13 05:20 | RADRPT ---
EXAM DATE/TIME: 05/13/2017 03:48 [facility] COMPARISON: CHEST SINGLE AP, May 10, 2017, 8:28. INDICATIONS : Shortness of breath, possible pulmonary disease. MEDICAL HISTORY : Hypertension. Congestive heart failure. SURGICAL HISTORY : Tonsillectomy. ENCOUNTER: Subsequent ACUITY: 1 week PAIN SCORE: Non-responsive. LOCATION: Bilateral chest FINDINGS: A single portable frontal view of the chest show small bilateral pleural effusions with associated co nsolidations within the bases. This is unchanged. Heart is normal in size. CONCLUSION: Unchanged bilateral pleural effusions and associated atelectasis versus infiltrates. Bobby Herndon Jr., MD on May 13, 2017 at 5:18 Board Certified Radiologist. This report was verified electronically.
[2017-05-13 05:31] LABS: AUTOMATED NEUTROPHIL # 4.2 TH/MM3 (1.8-7.7); BASOPHIL # 0.1 TH/MM3 (0-0.2); EOSINOPHIL # 0.2 TH/MM3 (0-0.4); HEMATOCRIT 27.9 % (35.0-46.0); HEMOGLOBIN 9.1 GM/DL (11.6-15.3); LYMPH % 18.7 % (9.0-44.0); LYMPHOCYTE # 1.3 TH/MM3 (1.0-4.8); MEAN CELL VOLUME 80.7 FL (80.0-100.0); MEAN CORPUSCULAR HEMOGLOBIN 26.4 PG (27.0-34.0); MEAN CORPUSCULAR HGB CONC 32.8 % (32.0-36.0); MEAN PLATELET VOLUME 8.8 FL (7.0-11.0); MONO % 16.7 % (0.0-8.0); MONOCYTE # 1.2 TH/MM3 (0-0.9); NEUT % 60.6 % (16.0-70.0); PLATELET COUNT 200 TH/MM3 (150-450); RED BLOOD COUNT 3.45 MIL/MM3 (4.00-5.30); WHITE BLOOD COUNT 6.9 TH/MM3 (4.0-11.0)
[2017-05-13 05:37] LABS: BICARBONATE 31.4 MEQ/L (21.0-32.0); CALCIUM 8.9 MG/DL (8.5-10.1); CREATININE 1.19 MG/DL (0.50-1.00)
[2017-05-13] MEDS: INSULIN NovoLIN REGULAR SUPPLEMENTAL SCALE SQ SCH ×4 (08:00→21:00)
[2017-05-13] MEDS: CLOPIDOGREL 75 MG TAB PO SCH (08:18)
[2017-05-13] MEDS: ASPIRIN 81 MG CHEW TAB PO SCH (08:18)
[2017-05-13] MEDS: POTASSIUM CHLORIDE 10 MEQ CAP PO SCH ×2 (08:19→21:17)
[2017-05-13] MEDS: PANTOPRAZOLE SOD 40 MG DELAYED RELEASE TAB PO SCH (08:19)
[2017-05-13] MEDS: CARVEDILOL 3.125 MG TAB PO SCH ×2 (08:19→21:16)
[2017-05-13] MEDS: DOCUSATE SODIUM 50 MG/SENNA 8.6 MG TAB PO SCH ×2 (08:19→21:00)
[2017-05-13] MEDS: FUROSEMIDE 40 MG/4 ML VIAL IV PUSH SCH ×2 (08:19→18:25)
[2017-05-13] MEDS: CITALOPRAM HYDROBROMIDE 20 MG TAB PO SCH (08:19)
[2017-05-13] MEDS: SODIUM CHLORIDE 0.9% FLUSH 10 ML FLUSH IV FLUSH SCH ×2 (08:20→21:18)
--- NOTE | 2017-05-13 08:54 | HHI.PR ---
Subjective Remarks Follow up nausea, renal failure, pleural effusion. Patient states that she feels a little better today. She still has nausea, but it is controlled if she asks for the antiemetic regularly. Denies chest pain, dyspnea. Objective Vitals Vital Signs Date Time Temp Pulse Resp B/P (MAP) Pulse Ox O2 Delivery O2 Flow Rate FiO2 05/13/17 07:20 96 Nasal Cannula 1.00 05/13/17 06:00 75 05/13/17 04:00 95 Nasal Cannula 3.00 05/13/17 04:00 75 05/13/17 04:00 98.9 75 22 144/73 (96) 95 05/13/17 02:00 72 05/13/17 00:00 97.6 77 16 120/68 (85) 96 05/13/17 00:00 77 05/13/17 00:00 96 Nasal Cannula 3.00 05/12/17 22:00 78 05/12/17 20:38 96 Nasal Cannula 1.00 05/12/17 20:00 78 05/12/17 20:00 95 Nasal Cannula 3.00 05/12/17 20:00 97.5 78 13 148/73 (98) 96 05/12/17 18:00 76 19 126/63 (84) 97 05/12/17 18:00 76 05/12/17 17:00 81 17 138/76 (96) 98 05/12/17 17:00 81 05/12/17 16:00 Nasal Cannula 3.00 05/12/17 16:00 74 05/12/17 16:00 74 0 138/78 (98) 97 05/12/17 14:00 74 05/12/17 13:00 78 19 145/75 (98) 98 05/12/17 13:00 78 05/12/17 12:00 Nasal Cannula 3.00 05/12/17 12:00 76 19 139/77 (97) 99 05/12/17 12:00 76 05/12/17 11:00 75 05/12/17 11:00 75 18 140/75 (96) 98 05/12/17 10:00 78 21 136/69 (91) 98 05/12/17 10:00 85 05/12/17 09:00 80 05/12/17 09:00 80 22 133/66 (88) 95 I/O 05/12/17 05/12/17 05/12/17 05/13/17 05/13/17 05/13/17 07:00 15:00 23:00 07:00 15:00 23:00 Intake Total 250 ml 480 ml 300 ml Output Total 600 ml 550 ml Balance -350 ml 480 ml -250 ml Intake Oral 150 ml 480 ml 300 ml IV Total 100 ml Output Urine Total 600 ml 550 ml # Voids 3 # Bowel Movements 0 0 0 Result Diagram: 05/13/1733605/13/17336 Imaging Last Impressions Chest X-Ray 05/13/17 0600 Signed Impressions: Service Date/Time: Saturday, May 13, 2017 03:48 - CONCLUSION: Unchanged bilateral pleural effusions and associated atelectasis versus infiltrates. Bobby Herndon Jr., MD Renal Ultrasound 05/07/17 0000 Signed Impressions: Service Date/Time: Sunday, May 07, 2017 14:35 - CONCLUSION: 1. No evidence of hydronephrosis. 2. Bilateral pleural effusions. 3. Large complex cystic/ solid mass in the pelvis. Max Carvajal MD Chest CT 05/03/17 0000 Signed Impressions: Service Date/Time: Wednesday, May 03, 2017 22:11 - CONCLUSION: 1. Moderate- sized left pleural effusion and small right pleural effusion. 2. Diffuse alveolar consolidation throughout the right mid and lower lung field and to a lesser extent the aerated portion left upper lung consistent with asymmetric pulmonary edema and/or pneumonia. Clinical correlation is recommended. 3. Left basilar compressive atelectasis and/or infiltrate. 4. Cardiomegaly and coronary artery calcifications. 5. Small pericardial effusion. 6. Cholelithiasis. 7. Degenerative changes within the thoracic spine. Yong Cox MD Abdomen/Pelvis CT 05/03/17 0000 Signed Impressions: Service Date/Time: Wednesday, May 03, 2017 22:11 - CONCLUSION: 1. Complex pelvic mass measuring 9.5 x 11.8 x 13.9 cm which raises the possibility of left ovarian neoplasm until proven otherwise. 2. Some ascites within the pelvis. 3. Moderate-sized left pleural effusion. 4. Small right pleural effusion. 5. Diffuse alveolar consolidation of the right lung and to a lesser extent the left lung base consistent with asymmetric pulmonary edema versus pneumonia. 6. Cardiomegaly. 7. Small pericardial effusion. Yong Cox MD Objective Remarks General: No acute distress. Heart: Regular rate and rhythm. No murmur. Lungs: Decreased breath sounds throughout, L>R. No wheezing noted. Abdomen: Soft, nontender, nondistended. Extremities: No lower extremity edema. SCDs. Psych: Alert and oriented. Procedures 05/04-left thoracentesis-900 cc Urinary Catheter: No Vascular Central Line Catheter: No A/P Problem List: (1) Acute hypoxemic respiratory failure ICD Code: J96.01 - Acute respiratory failure with hypoxia (2) Sepsis ICD Code: A41.9 - Sepsis, unspecified organism (3) CAP (community acquired pneumonia) ICD Code: J18.9 - Pneumonia, unspecified organism (4) Elevated brain natriuretic peptide (BNP) level ICD Code: R79.89 - Other specified abnormal findings of blood chemistry (5) Elevated troponin ICD Code: R74.8 - Abnormal levels of other serum enzymes (6) Probable CHF (7) Acute kidney injury ICD Code: N17.9 - Acute kidney failure, unspecified (8) Hypertension ICD Code: I10 - Essential (primary) hypertension Assessment and Plan 1. Acute hypoxemic respiratory failure, bilateral pleural effusions, community- acquired pneumonia: Continue supplemental oxygen. Continue bronchodilators, incentive spirometry. Status post right thoracentesis on 05/03/17. Now on nasal cannula. Vancomycin discontinued secondary to renal failure. Appreciate infectious disease, pulmonology recommendations. Antibiotics discontinued by infectious disease. CXR shows worsening pleural effusion L>R. Repeat thoracentesis ordered again by pulmonology. Repeat chest x-ray shows bilateral pleural effusions are unchanged. 2. Coronary artery disease, non-ST elevation [place]: Status post cardiac catheterization with stent placement. Continue aspirin and Plavix. 3. Congestive heart failure, chronic systolic: Continue beta-darvin, aspirin, Plavix, DELANO inhibitor, statin. 4. Hyperlipidemia: Continue statin. 5. Acute kidney injury superimposed on chronic kidney disease: Appreciate nephrology recommendations. Monitor strict intake/output. Creatinine has improved. 6. Hypokalemia: Potassium remains low. Monitor labs and supplement per electrolyte protocol. 7. Pelvic mass: Appreciate medical and gynecologic oncology recommendations. Not able to do surgery at this point due to need for Plavix for cardiac stent. Cytology from thoracentesis is negative for malignant cells. 8. DVT prophylaxis: SCDs, ROBEL solomon. 9. GI prophylaxis: Protonix. Discharge Planning Transfer to medical/surgical floor when a bed is available. Problem Qualifiers (1) Hypertension: Qualified Codes: I10 - Essential (primary) hypertension Marino Moore MD May 13, 2017 08:54
[2017-05-13] MEDS: ONDANSETRON HCL 4 MG/2 ML VIAL IV PUSH PRN ×2 (12:21→18:14)
--- NOTE | 2017-05-13 16:07 | HHI.PR ---
Subjective Remarks ALERT NO DISTRESS sitting in bed Objective Vital Signs Date Time Temp Pulse Resp B/P (MAP) Pulse Ox O2 Delivery O2 Flow Rate FiO2 05/13/17 14:00 80 15 95 05/13/17 14:00 80 05/13/17 13:58 80 05/13/17 13:58 80 17 136/66 (89) 95 05/13/17 13:00 76 20 98 05/13/17 13:00 76 05/13/17 12:00 76 05/13/17 12:00 98.6 76 25 136/66 (89) 99 05/13/17 12:00 Nasal Cannula 2.00 50 05/13/17 10:00 75 05/13/17 09:09 78 11 147/71 (96) 97 05/13/17 09:00 79 30 96 05/13/17 08:00 74 05/13/17 08:00 Nasal Cannula 2.00 50 05/13/17 08:00 97.9 78 19 133/64 (87) 96 05/13/17 07:20 96 Nasal Cannula 1.00 05/13/17 06:00 75 05/13/17 04:00 95 Nasal Cannula 3.00 05/13/17 04:00 75 05/13/17 04:00 98.9 75 22 144/73 (96) 95 05/13/17 02:00 72 05/13/17 00:00 97.6 77 16 120/68 (85) 96 05/13/17 00:00 77 05/13/17 00:00 96 Nasal Cannula 3.00 05/12/17 22:00 78 05/12/17 20:38 96 Nasal Cannula 1.00 05/12/17 20:00 78 05/12/17 20:00 95 Nasal Cannula 3.00 05/12/17 20:00 97.5 78 13 148/73 (98) 96 05/12/17 18:00 76 19 126/63 (84) 97 05/12/17 18:00 76 05/12/17 17:00 81 17 138/76 (96) 98 05/12/17 17:00 81 I/O 05/12/17 05/12/17 05/12/17 05/13/17 05/13/17 05/13/17 07:00 15:00 23:00 07:00 15:00 23:00 Intake Total 250 ml 480 ml 300 ml Output Total 600 ml 550 ml Balance -350 ml 480 ml -250 ml Intake Oral 150 ml 480 ml 300 ml IV Total 100 ml Output Urine Total 600 ml 550 ml # Voids 3 # Bowel Movements 0 0 0 Result Diagram: 05/13/1733605/13/17336 Objective Remarks GENERAL: SKIN: Warm and dry. HEAD: Atraumatic. Normocephalic. EYES: Pupils equal and round. No scleral icterus. No injection or drainage. ENT: No nasal bleeding or discharge. Mucous membranes pink and moist. NECK: Trachea midline. No JVD. CARDIOVASCULAR: Regular rate and rhythm. RESPIRATORY: No accessory muscle use. DECREASE BREATH SOUNDS AT BASIS. GASTROINTESTINAL: Abdomen soft, non-tender, nondistended. Hepatic and splenic margins not palpable. MUSCULOSKELETAL: Extremities without clubbing, cyanosis, or edema. No obvious deformities. NEUROLOGICAL: Awake and alert. No obvious cranial nerve deficits. Motor grossly within normal limits. Five out of 5 muscle strength in the arms and legs. Normal speech. PSYCHIATRIC: Appropriate mood and affect; insight and judgment normal. Assessment and Plan Assessment and Plan RESPIRATORY FAILURE BIBASILAR EFFUSIONS/ INFILTRATES IMPROVING PLAN O2 ANTIBX OK for med floor Trey Yang MD May 13, 2017 16:07
--- NOTE | 2017-05-13 17:12 | HHI.IDPN ---
Note Infectious Disease Note Patient is awake and alert. She is on oxygen 2 L via nasal cannula. Notes occasional cough but not bringing up sputum. Denies shortness of breath. Afebrile. Receiving diuretics. Chest x-ray continues to show bilateral effusions. Admitted to the hospital on May 03, 2017. The patient was noted to have new onset congestive heart failure. She was admitted with shortness of breath and cough. The patient underwent bilateral thoracentesis with removal of large amount of pleural fluid. She was felt to have community acquired pneumonia. The pleural fluid was hemorrhagic. Further workup revealed a mass in the abdomen which was felt likely to be arising from the ovaries. PAST MEDICAL HISTORY: 1. Hypertension. 2. Newly diagnosed congestive heart failure. 3. Newly diagnosed left adnexal mass. 4. Post LAD stent this admission. ALLERGIES: NO KNOWN DRUG ALLERGIES MEDICATIONS: Current Medications Medications (Trade) Dose Ordered Sig/Lidia Route PRN Reason Start Time Stop Time Status Last Admin Dose Admin Sodium Chloride (NS Flush) 2 ml UNSCH PRN IV FLUSH FLUSH AFTER USING IV ACCESS 05/03/17 20:00 05/12/17 16:19 Sodium Chloride (NS Flush) 2 ml BID IV FLUSH 05/03/17 21:00 05/13/17 08:20 Acetaminophen (Tylenol) 650 mg Q6H PRN PO FOR FEVER 05/03/17 20:00 Acetaminophen/ Hydrocodone Bitart ([place] 5-325 Mg) 1 tab Q4H PRN PO PAIN SCALE 1 TO 5 05/03/17 20:00 Morphine Sulfate (Morphine Inj) 2 mg Q2H PRN IV PUSH PAIN SCALE 6 TO 10 05/03/17 20:00 05/07/17 01:05 Ondansetron HCl (Zofran Inj) 4 mg Q6H PRN IV PUSH NAUSEA OR VOMITING 05/03/17 20:00 05/13/17 12:21 Albuterol Sulfate (Albuterol Neb) 2.5 mg Q2HR NEB PRN INH SOB/WHEEZING 05/03/17 20:00 Miscellaneous Information 1 [id number] XX 05/03/17 20:00 Chlorhexidine Gluconate (Chlorhexidine 2% Cloth) Taper DAILY@04 TOP 05/04/17 04:00 04/30/18 03:59 05/09/17 01:02 Chlorhexidine Gluconate (Chlorhexidine 2% Cloth) 3 pack UNSCH PRN TOP HYGIENIC CARE 05/03/17 20:00 Senna/Docusate Sodium ([place]-Colace) 1 tab BID PO 05/03/17 21:00 05/13/17 08:19 Magnesium Hydroxide (Milk Of Magnesia Liq) 30 ml Q12H PRN PO Mild constipation 05/03/17 20:00 Sennosides (Senokot) 17.2 mg Q12H PRN PO Moderate constipation 05/03/17 20:00 Bisacodyl (Dulcolax Supp) 10 mg DAILY PRN RECTAL SEVERE CONSITIPATION 05/03/17 20:00 Lactulose (Lactulose Liq) 30 ml DAILY PRN PO SEVERE CONSITIPATION 05/03/17 20:00 Prochlorperazine Edisylate (Compazine Inj) 5 mg Q6H PRN IV PUSH NAUSEA OR VOMITING 05/04/17 10:30 05/13/17 03:50 Atorvastatin Calcium (Lipitor) 80 mg HS PO 05/05/17 21:00 05/12/17 21:14 Aspirin (Aspirin Chew) 162 mg DAILY PO 05/05/17 09:00 05/13/17 08:18 Clopidogrel Bisulfate (Plavix) 75 mg DAILY PO 05/05/17 09:00 05/13/17 08:18 Dextrose (D50w (Vial) Inj) 50 ml UNSCH PRN IV PUSH HYPOGLYCEMIA-SEE COMMENTS 05/04/17 14:45 Glucagon (Glucagon Inj) 1 mg UNSCH PRN OTHER HYPOGLYCEMIA-SEE COMMENTS 05/04/17 14:45 Insulin Human Regular (NovoLIN R SUPPLEMENTAL SCALE) 1 ACHS SLIDING SCALE SQ 05/04/17 17:00 05/10/17 12:13 Labetalol HCl (Trandate Inj) 10 mg Q1HR PRN IV PUSH SBP>160, DBP>90, HR>65 05/04/17 14:45 Hydralazine HCl (Apresoline Inj) 10 mg Q1HR PRN IV PUSH SBP>160, DBP>90 05/04/17 14:45 Nitroglycerin (Nitroglycerin 2% Oint) 2 inch Q6HR PRN TOPICAL SBP>160, DBP>90 05/04/17 14:45 Pantoprazole Sodium (Protonix) 40 mg DAILY PO 05/05/17 09:00 05/13/17 08:19 Prochlorperazine Edisylate (Compazine Inj) 5 mg Q6H PRN IV PUSH Breakthrough nausea 05/04/17 20:00 05/12/17 16:19 Carvedilol (Coreg) 3.125 mg BID PO 05/04/17 21:00 05/13/17 08:19 Citalopram Hydrobromide (CeleXA) 20 mg DAILY PO 05/06/17 09:00 05/13/17 08:19 Lorazepam (Ativan) 0.5 mg Q8H PRN PO ANXIETY 05/05/17 21:15 05/07/17 19:36 Prochlorperazine Maleate (Compazine) 5 mg Q6H PRN PO NAUSEA OR VOMITING 05/06/17 17:30 05/07/17 18:03 Prochlorperazine Maleate (Compazine) 5 mg Q6H PRN PO BREAKTHROUGH NAUSEA 05/06/17 17:30 05/07/17 05:22 Lorazepam (Ativan Inj) 0.25 mg Q6H PRN IV PUSH ANXIETY 05/08/17 08:30 05/09/17 01:02 Furosemide (Lasix Inj) 20 mg BID@0900,1800 IV PUSH 05/10/17 18:00 05/13/17 08:19 Potassium Chloride (KCl) 20 meq BID PO 05/10/17 21:00 05/13/17 08:19 Potassium Chloride 100 ml @ 50 mls/hr Q2H PRN IV For Potassium 2.8 - 3.2 mEq/L 05/11/17 07:30 Potassium Chloride 100 ml @ 50 mls/hr Q2H PRN IV For Potassium 2.8 - 3.2 mEq/L 05/11/17 07:30 05/12/17 14:12 Potassium Bicarb/ Potassium Chloride (K-[place] Cl Eff) 50 meq UNSCH PRN PO For Potassium 3.3 - 3.5 mEq/L 05/11/17 07:30 Potassium Chloride 100 ml @ 25 mls/hr UNSCH PRN IV For Potassium 3.3 - 3.5 mEq/L 05/11/17 07:30 Potassium Chloride 100 ml @ 50 mls/hr Q2H PRN IV For Potassium 3.3 - 3.5 mEq/L 05/11/17 07:30 05/12/17 12:05 Magnesium Sulfate 4 gm/Sodium Chloride 100 ml @ 50 mls/hr UNSCH PRN IV For Magnesium 0.9 - 1.1 mg/dL 05/11/17 07:30 Magnesium Oxide (Mag-Ox) 800 mg UNSCH PRN PO For Magnesium 1.2 - 1.6 mg/dL 05/11/17 07:30 05/12/17 21:13 Magnesium Sulfate 2 gm/Sodium Chloride 100 ml @ 50 mls/hr UNSCH PRN IV For Magnesium 1.2 - 1.6 mg/dL 05/11/17 07:30 Potassium Phosphate (K-Phos) 2,000 mg Q4H PRN PO For Phosphorus < 2.5 mg/dL 05/11/17 07:30 Sodium Phosphate 30 mmol/Sodium Chloride 250 ml @ 42 mls/hr UNSCH PRN IV For Phosphorus < 2.5 mg/dL 05/11/17 07:30 Potassium Phosphate (K-Phos) 2,000 mg UNSCH PRN PO/TUBE SEE LABEL COMMENTS 05/11/17 07:30 Potassium Phosphate 30 mmol/ Sodium Chloride 260 ml @ 42 mls/hr UNSCH PRN IV SEE LABEL COMMENTS 05/11/17 07:30 OBJECTIVE: Vital Signs Date Time Temp Pulse Resp B/P (MAP) Pulse Ox O2 Delivery O2 Flow Rate FiO2 05/10/17 12:00 98.0 76 25 150/77 (101) 99 05/10/17 12:00 76 05/10/17 08:00 78 05/10/17 08:00 97.7 78 18 139/71 (93) 90 05/10/17 07:19 92 Nasal Cannula 4.00 05/10/17 07:00 94 Nasal Cannula 4.00 05/10/17 04:00 78 05/10/17 04:00 98.0 78 20 127/66 (86) 98 05/10/17 00:00 74 05/10/17 00:00 97.4 74 18 138/68 (91) 94 05/09/17 21:10 99 Nasal Cannula 5.00 05/09/17 20:00 97.2 81 20 135/68 (90) 96 05/09/17 20:00 74 05/09/17 19:00 100 Partial Non-Rebreather 3/8/18 16:00 82 05/09/17 16:00 97.4 82 19 152/77 (102) 94 Laboratory Tests Test 05/09/17 04:25 05/10/17 03:40 White Blood Count 8.3 TH/MM3 8.5 TH/MM3 Red Blood Count 3.34 MIL/MM3 3.52 MIL/MM3 Hemoglobin 9.0 GM/DL 9.5 GM/DL Hematocrit 26.8 % 28.0 % Mean Corpuscular Volume 80.2 FL 79.6 FL Mean Corpuscular Hemoglobin 27.0 PG 27.0 PG Mean Corpuscular Hemoglobin Concent 33.7 % 34.0 % Red Cell Distribution Width 14.9 % 14.7 % Platelet Count 139 TH/MM3 144 TH/MM3 Mean Platelet Volume 8.7 FL 8.7 FL Neutrophils (%) (Auto) 74.4 % 70.2 % Lymphocytes (%) (Auto) 9.7 % 11.2 % Monocytes (%) (Auto) 12.1 % 14.0 % Eosinophils (%) (Auto) 3.0 % 3.8 % Basophils (%) (Auto) 0.8 % 0.8 % Neutrophils # (Auto) 6.2 TH/MM3 6.0 TH/MM3 Lymphocytes # (Auto) 0.8 TH/MM3 1.0 TH/MM3 Monocytes # (Auto) 1.0 TH/MM3 1.2 TH/MM3 Eosinophils # (Auto) 0.3 TH/MM3 0.3 TH/MM3 Basophils # (Auto) 0.1 TH/MM3 0.1 TH/MM3 CBC Comment DIFF FINAL DIFF FINAL Differential Comment Laboratory Tests Test 05/09/17 04:25 05/10/17 03:40 Blood Urea Nitrogen 47 MG/DL 39 MG/DL Creatinine 2.02 MG/DL 1.55 MG/DL Random Glucose 123 MG/DL 124 MG/DL Calcium Level 8.5 MG/DL 8.4 MG/DL Sodium Level 140 MEQ/L 140 MEQ/L Potassium Level 3.4 MEQ/L 3.1 MEQ/L Chloride Level 104 MEQ/L 103 MEQ/L Carbon Dioxide Level 28.5 MEQ/L 29.2 MEQ/L Anion Gap 8 MEQ/L 8 MEQ/L Estimat Glomerular Filtration Rate 25 ML/MIN 33 ML/MIN Magnesium Level 1.5 MG/DL IMAGING: Chest X-Ray 05/13/17 0600 Signed Impressions: Service Date/Time: Saturday, May 13, 2017 03:48 - CONCLUSION: Unchanged bilateral pleural effusions and associated atelectasis versus infiltrates. Bobby Herndon Jr., MD Chest X-Ray 05/10/17 0000 Signed Impressions: Service Date/Time: Wednesday, May 10, 2017 08:28 - CONCLUSION: Increasing consolidation and pleural effusion. Significant pleural effusion is suspected. Srikanth Fox MD FACR Chest X-Ray 05/07/17 0600 Signed Impressions: Service Date/Time: Sunday, May 07, 2017 05:03 - CONCLUSION: Persistent moderate-sized bibasilar opacities representing pleural effusions with associated volume loss and/or airspace consolidation. The changes on the left have slightly increased from yesterday's examination. Cristian Dewitt MD Renal Ultrasound 05/07/17 0000 Signed Impressions: Service Date/Time: Sunday, May 07, 2017 14:35 - CONCLUSION: 1. No evidence of hydronephrosis. 2. Bilateral pleural effusions. 3. Large complex cystic/ solid mass in the pelvis. Max Carvajal MD Chest CT 05/03/17 0000 Signed Impressions: Service Date/Time: Wednesday, May 03, 2017 22:11 - CONCLUSION: 1. Moderate- sized left pleural effusion and small right pleural effusion. 2. Diffuse alveolar consolidation throughout the right mid and lower lung field and to a lesser extent the aerated portion left upper lung consistent with asymmetric pulmonary edema and/or pneumonia. Clinical correlation is recommended. 3. Left basilar compressive atelectasis and/or infiltrate. 4. Cardiomegaly and coronary artery calcifications. 5. Small pericardial effusion. 6. Cholelithiasis. 7. Degenerative changes within the thoracic spine. Yong Cox MD Abdomen/Pelvis CT 05/03/17 0000 Signed Impressions: Service Date/Time: Wednesday, May 03, 2017 22:11 - CONCLUSION: 1. Complex pelvic mass measuring 9.5 x 11.8 x 13.9 cm which raises the possibility of left ovarian neoplasm until proven otherwise. 2. Some ascites within the pelvis. 3. Moderate-sized left pleural effusion. 4. Small right pleural effusion. 5. Diffuse alveolar consolidation of the right lung and to a lesser extent the left lung base consistent with asymmetric pulmonary edema versus pneumonia. 6. Cardiomegaly. 7. Small pericardial effusion. Yong Cox MD PHYSICAL EXAMINATION: GENERAL: No acute distress. Awake and alert and oriented. HEENT: Extraocular movement is grossly intact. Pupils are reactive to light. No icterus. No conjunctival erythema. Oropharynx moist mucosa. No visible lesions. NECK: Supple without adenopathy or swelling. LUNGS: Decreased breath sounds. Slight basilar rhonchi. HEART: Regular, S1 and S2. No murmurs, rubs or gallops. ABDOMEN: Bowel sounds present, soft, no tenderness. EXTREMITIES: No clubbing, cyanosis or edema. SKIN: No rash. NEURO: Nonfocal. PSYCHIATRIC: Calm and cooperative. IMPRESSION: 1. Bilateral bibasilar opacities which are persistent. Likely representing pleural effusion. May need to have repeated thoracentesis. 2. Potential pneumonia but no fever or white blood cell count elevation. Pro-calcitonin level is low. 3. Acute kidney disease. 4. Pelvic mass. RECOMMENDATIONS: 1. Continue to diuresis. 2. Monitor without antibiotics. 3. Attempt to obtain sputum culture if possible. Patient will be given a container for sample collection. 4. Follow the clinical status. Discussed with RN. Ino Blackwell MD May 13, 2017 17:11
[2017-05-13] MEDS: ATORVASTATIN 80 MG TAB PO SCH (21:16)
[2017-05-13] MEDS: PROCHLORPERAZINE MALEATE 5 MG TAB PO PRN (21:17)
[2017-05-14] VITALS (17 sets, daily range): BP systolic 117–150; BP diastolic 63–85; PULSE 68–79; RESP 16–18; TEMP 97.3–99; O2SAT 95–99
[2017-05-14] MEDS: PROCHLORPERAZINE INJ 10 MG/2 ML VIAL IV PUSH PRN ×3 (00:49→17:26)
[2017-05-14] MEDS: CHLORHEXIDINE GLUCONATE 2 % 1 PACK (2 CLOTHS) TOP SCH (04:00)
[2017-05-14 06:49] LABS: AUTOMATED NEUTROPHIL # 3.8 TH/MM3 (1.8-7.7); BASOPHIL # 0.2 TH/MM3 (0-0.2); BASOPHIL % 2.7 % (0.0-2.0); EOSINOPHIL # 0.2 TH/MM3 (0-0.4); EOSINOPHIL % 3.1 % (0.0-4.0); HEMATOCRIT 27.2 % (35.0-46.0); HEMOGLOBIN 9.2 GM/DL (11.6-15.3); LYMPHOCYTE # 1.1 TH/MM3 (1.0-4.8); MEAN CELL VOLUME 80.4 FL (80.0-100.0); MEAN CORPUSCULAR HEMOGLOBIN 27.3 PG (27.0-34.0); MEAN CORPUSCULAR HGB CONC 33.9 % (32.0-36.0); MEAN PLATELET VOLUME 8.6 FL (7.0-11.0); MONO % 15.7 % (0.0-8.0); NEUT % 60.5 % (16.0-70.0); PLATELET COUNT 206 TH/MM3 (150-450); RED BLOOD COUNT 3.38 MIL/MM3 (4.00-5.30); RED CELL DISTRIBUTION WIDTH 14.8 % (11.6-17.2); WHITE BLOOD COUNT 6.2 TH/MM3 (4.0-11.0)
[2017-05-14 07:02] LABS: BICARBONATE 30.2 MEQ/L (21.0-32.0); CALCIUM 8.9 MG/DL (8.5-10.1); CREATININE 1.23 MG/DL (0.50-1.00); MAGNESIUM 1.3 MG/DL (1.5-2.5)
[2017-05-14] MEDS: INSULIN NovoLIN REGULAR SUPPLEMENTAL SCALE SQ SCH ×4 (08:00→21:00)
[2017-05-14] MEDS: SODIUM CHLORIDE 0.9% FLUSH 10 ML FLUSH IV FLUSH SCH ×2 (08:37→21:30)
[2017-05-14] MEDS: DOCUSATE SODIUM 50 MG/SENNA 8.6 MG TAB PO SCH ×3 (08:37→21:00)
[2017-05-14] MEDS: CLOPIDOGREL 75 MG TAB PO SCH (08:37)
[2017-05-14] MEDS: CITALOPRAM HYDROBROMIDE 20 MG TAB PO SCH (08:38)
[2017-05-14] MEDS: CARVEDILOL 3.125 MG TAB PO SCH ×2 (08:38→21:31)
[2017-05-14] MEDS: ASPIRIN 81 MG CHEW TAB PO SCH (08:38)
[2017-05-14] MEDS: PANTOPRAZOLE SOD 40 MG DELAYED RELEASE TAB PO SCH (08:38)
[2017-05-14] MEDS: POTASSIUM CHLORIDE 10 MEQ CAP PO SCH ×2 (08:38→21:32)
[2017-05-14] MEDS: FUROSEMIDE 40 MG/4 ML VIAL IV PUSH SCH ×2 (08:46→17:24)
--- NOTE | 2017-05-14 09:05 | HHI.PR ---
Subjective Remarks This is a pleasant 66 y/o Female who came to ER wit increased shortness of breath, Hypoxemia new onset of congestive heart failure, CT scan of the chest revealed evidence of bibasilar atelectasis, effusions, the possibility of pneumonia as well entertained. she was on antibiotics, required oxygen administration followed in Intensive care had consults by multiple specialties, patient support specialist followed for Acute respiratory insufficiency, had Thoracentesis, at this time status post Walk test and no need to go home on Oxygen also no need to go to SNF will go Home on HHC for PT and Skilled nurse. 05/14/17 stable in her bedroom, awaiting final by industrial relations specialist for discharge probable tomorrow, she will need to follow with industrial relations specialist and [facility] orthopedic cast specialist. no nausea, vomit or diarrhea. Objective Vital Signs Date Time Temp Pulse Resp B/P (MAP) Pulse Ox O2 Delivery O2 Flow Rate FiO2 05/14/17 08:20 99.0 79 18 150/85 (106) 05/14/17 06:00 72 05/14/17 05:00 77 05/14/17 04:00 95 Nasal Cannula 2.00 05/14/17 04:00 69 05/14/17 04:00 98.2 77 16 117/68 (84) 95 05/14/17 03:00 71 05/14/17 02:00 72 05/14/17 01:45 98.3 76 16 120/70 (87) 99 05/14/17 01:45 99 Nasal Cannula 2.00 05/14/17 00:00 97 Nasal Cannula 2.00 05/14/17 00:00 97.7 72 18 135/75 (95) 97 05/14/17 00:00 71 05/13/17 22:00 76 05/13/17 20:00 96 Nasal Cannula 2.00 05/13/17 20:00 98.6 79 20 142/72 (95) 96 05/13/17 20:00 79 05/13/17 19:03 96 Nasal Cannula 2.00 05/13/17 18:00 80 05/13/17 17:04 81 05/13/17 17:04 81 21 143/74 (97) 95 05/13/17 17:00 81 16 96 05/13/17 17:00 81 05/13/17 16:00 Nasal Cannula 2.00 50 05/13/17 16:00 77 05/13/17 16:00 98.4 77 18 143/74 (97) 100 05/13/17 14:00 80 15 95 05/13/17 14:00 80 05/13/17 13:58 80 05/13/17 13:58 80 17 136/66 (89) 95 05/13/17 13:00 76 20 98 05/13/17 13:00 76 05/13/17 12:00 76 05/13/17 12:00 98.6 76 25 136/66 (89) 99 05/13/17 12:00 Nasal Cannula 2.00 50 05/13/17 10:00 75 05/13/17 09:09 78 11 147/71 (96) 97 I/O 05/13/17 05/13/17 05/13/17 05/14/17 05/14/17 05/14/17 07:00 15:00 23:00 07:00 15:00 23:00 Intake Total 300 ml 240 ml 240 ml Output Total 550 ml 250 ml Balance -250 ml 240 ml -10 ml Intake Oral 300 ml 240 ml 240 ml Output Urine Total 550 ml 250 ml # Voids 5 # Bowel Movements 0 0 0 Result Diagram: 05/14/17 0518 05/14/17 0518 Imaging Last Impressions Chest X-Ray 05/13/17 0600 Signed Impressions: Service Date/Time: Saturday, May 13, 2017 03:48 - CONCLUSION: Unchanged bilateral pleural effusions and associated atelectasis versus infiltrates. Bobby Herndon Jr., MD Renal Ultrasound 05/07/17 0000 Signed Impressions: Service Date/Time: Sunday, May 07, 2017 14:35 - CONCLUSION: 1. No evidence of hydronephrosis. 2. Bilateral pleural effusions. 3. Large complex cystic/ solid mass in the pelvis. Max Carvajal MD Chest CT 05/03/17 0000 Signed Impressions: Service Date/Time: Wednesday, May 03, 2017 22:11 - CONCLUSION: 1. Moderate- sized left pleural effusion and small right pleural effusion. 2. Diffuse alveolar consolidation throughout the right mid and lower lung field and to a lesser extent the aerated portion left upper lung consistent with asymmetric pulmonary edema and/or pneumonia. Clinical correlation is recommended. 3. Left basilar compressive atelectasis and/or infiltrate. 4. Cardiomegaly and coronary artery calcifications. 5. Small pericardial effusion. 6. Cholelithiasis. 7. Degenerative changes within the thoracic spine. Yong Cox MD Abdomen/Pelvis CT 05/03/17 0000 Signed Impressions: Service Date/Time: Wednesday, May 03, 2017 22:11 - CONCLUSION: 1. Complex pelvic mass measuring 9.5 x 11.8 x 13.9 cm which raises the possibility of left ovarian neoplasm until proven otherwise. 2. Some ascites within the pelvis. 3. Moderate-sized left pleural effusion. 4. Small right pleural effusion. 5. Diffuse alveolar consolidation of the right lung and to a lesser extent the left lung base consistent with asymmetric pulmonary edema versus pneumonia. 6. Cardiomegaly. 7. Small pericardial effusion. Yong Cox MD Procedures 05/04-left thoracentesis-900 cc Other Results Laboratory Tests Test 05/03/17 20:00 05/04/17 01:57 05/04/17 04:39 05/04/17 09:27 Body Fluid Amylase Source PLEURAL Body Fluid Amylase 17 U/L Pleural Fluid pH 9.0 Prothrombin Time 13.1 SEC Prothromb Time International Ratio 1.3 RATIO Activated Partial Thromboplast Time 24.2 SEC Lactic Acid Level 1.8 mmol/L Lactate Dehydrogenase 321 U/L Troponin I 0.30 NG/ML Triglycerides Level 150 MG/DL Cholesterol Level 235 MG/DL LDL Cholesterol 172 MG/DL HDL Cholesterol 33.4 MG/DL Cholesterol/HDL Ratio 7.03 RATIO Amylase Level 19 U/L Lipase 52 U/L Tumor Marker Alpha Fetoprotein 2.1 NG/ML CA 19-9 Antigen 28.5 U/ML CA 125 Antigen 228.9 U/ML Thyroid Stimulating Hormone 3rd Gen 1.080 uIU/ML Urine Hyaline Casts 7 /lpf Microscopic Urinalysis Comment CATH-CULTURE IND Body Fluid Lipase Source PLEURAL Body Fluid Lipase LESS THAN 10 U/L Pleural Fluid Specific [place] 1.015 Pleural Fluid WBC 614 /MM3 Pleural Fluid RBC 02865 /MM3 Pleural Fluid Neutrophils 11 % Pleural Fluid Lymphocytes 80 % Pleural Fluid Monocytes 6 % Pleural Fluid Mesothelial Cells 3 % Pleural Fluid Total Protein 1.8 GM/DL Pleural Fluid Albumin 1.2 G/DL Pleural Fluid LDH 79 U/L Pleural Fluid Glucose 238 MG/DL Test 05/05/17 05:07 05/07/17 04:35 05/07/17 16:30 05/08/17 04:35 Hemoglobin A1c 9.2 % Blood Urea Nitrogen 49 MG/DL 49 MG/DL Creatinine 1.69 MG/DL 2.35 MG/DL Random Glucose 198 MG/DL 115 MG/DL Total Protein 5.5 GM/DL 5.1 GM/DL Albumin 2.6 GM/DL 3.03 GM/DL Calcium Level 8.5 MG/DL 8.2 MG/DL Phosphorus Level 3.5 MG/DL 2.9 MG/DL Magnesium Level 2.1 MG/DL 1.7 MG/DL Alkaline Phosphatase 71 U/L Aspartate Amino Transf (AST/SGOT) 38 U/L Alanine Aminotransferase (ALT/SGPT) 15 U/L Total Bilirubin 0.5 MG/DL Sodium Level 141 MEQ/L 139 MEQ/L Potassium Level 3.4 MEQ/L 4.0 MEQ/L Chloride Level 104 MEQ/L 103 MEQ/L Carbon Dioxide Level 27.3 MEQ/L 29.2 MEQ/L Total Creatine Kinase 268 U/L Creatine Kinase MB 11.0 NG/ML Creatine Kinase MB % 4.1 % Urine Color YELLOW Urine Turbidity HAZY Urine pH 5.5 Urine Specific [place] 1.020 Urine Protein 100 mg/dL Urine Glucose (UA) 150 mg/dL Urine Ketones TRACE mg/dL Urine Occult Blood MOD Urine Nitrite NEG Urine Bilirubin NEG Urine Urobilinogen LESS THAN 2.0 MG/DL Urine Leukocyte Esterase MOD Urine RBC /hpf Urine WBC 9 /hpf Urine Squamous Epithelial Cells 2 /hpf Urine Bacteria RARE /hpf Urine Mucus FEW /lpf Urine Eosinophils NONE SEEN /HPF B-Type Natriuretic Peptide 1646 PG/ML Albumin/Globulin Ratio 1.46 Pcdjv-7-Mwgsanfst 0.24 GM/DL Othtw-4-Mjlaxfzpq 0.69 GM/DL Beta Globulins 0.59 GM/DL Gamma Globulins 0.55 GM/DL Electrophoresis Pathologist Comment 25-Hydroxy Vitamin D Total 14.2 ng/ML Procalcitonin 0.18 ng/mL Parathyroid Hormone (Intact) 125.7 PG/ML Complement C3 91 MG/DL Complement C4 26 MG/DL Free [place] Light Chains 25.60 mg/L Free Lambda Light Chains 25.50 mg/L Free [place]/Lambda Light Chain Ratio 1.00 Hepatitis C Antibody NEGATIVE Test 05/10/17 03:40 05/14/17 05:18 Random Vancomycin Level 9.0 COMMENT White Blood Count 6.2 TH/MM3 Red Blood Count 3.38 MIL/MM3 Hemoglobin 9.2 GM/DL Hematocrit 27.2 % Mean Corpuscular Volume 80.4 FL Mean Corpuscular Hemoglobin 27.3 PG Mean Corpuscular Hemoglobin Concent 33.9 % Red Cell Distribution Width 14.8 % Platelet Count 206 TH/MM3 Mean Platelet Volume 8.6 FL Neutrophils (%) (Auto) 60.5 % Lymphocytes (%) (Auto) 18.0 % Monocytes (%) (Auto) 15.7 % Eosinophils (%) (Auto) 3.1 % Basophils (%) (Auto) 2.7 % Neutrophils # (Auto) 3.8 TH/MM3 Lymphocytes # (Auto) 1.1 TH/MM3 Monocytes # (Auto) 1.0 TH/MM3 Eosinophils # (Auto) 0.2 TH/MM3 Basophils # (Auto) 0.2 TH/MM3 CBC Comment DIFF FINAL Differential Comment Blood Urea Nitrogen 23 MG/DL Creatinine 1.23 MG/DL Random Glucose 137 MG/DL Calcium Level 8.9 MG/DL Magnesium Level 1.3 MG/DL Sodium Level 138 MEQ/L Potassium Level 3.8 MEQ/L Chloride Level 99 MEQ/L Carbon Dioxide Level 30.2 MEQ/L Anion Gap 9 MEQ/L Estimat Glomerular Filtration Rate 44 ML/MIN Objective Remarks General: No acute distress. Heart: Regular rate and rhythm. No murmur. Lungs: Decreased breath sounds throughout, L>R. No wheezing noted. Abdomen: Soft, nontender, nondistended. Extremities: No lower extremity edema. SCDs. Psych: Alert and oriented. Medications and IVs Current Medications Medications (Trade) Dose Ordered Sig/Lidia Route Start Time Stop Time Status Last Admin (NS Flush) 2 ml UNSCH PRN IV FLUSH 05/03/17 20:00 05/12/17 16:19 (NS Flush) 2 ml BID IV FLUSH 05/03/17 21:00 05/14/17 08:37 (Tylenol) 650 mg Q6H PRN PO 05/03/17 20:00 (Herrick 5-325 Mg) 1 tab Q4H PRN PO 05/03/17 20:00 (Morphine Inj) 2 mg Q2H PRN IV PUSH 05/03/17 20:00 05/07/17 01:05 (Zofran Inj) 4 mg Q6H PRN IV PUSH 05/03/17 20:00 05/13/17 18:14 (Albuterol Neb) 2.5 mg Q2HR NEB PRN INH 05/03/17 20:00 Miscellaneous Information 1 Q361D XX 05/03/17 20:00 (Chlorhexidine 2% Cloth) Taper DAILY@04 TOP 05/04/17 04:00 04/30/18 03:59 05/09/17 01:02 (Chlorhexidine 2% Cloth) 3 pack UNSCH PRN TOP 05/03/17 20:00 ([place]-Colace) 1 tab BID PO 05/03/17 21:00 05/13/17 08:19 (Milk Of Magnesia Liq) 30 ml Q12H PRN PO 05/03/17 20:00 (Senokot) 17.2 mg Q12H PRN PO 05/03/17 20:00 (Dulcolax Supp) 10 mg DAILY PRN RECTAL 05/03/17 20:00 (Lactulose Liq) 30 ml DAILY PRN PO 05/03/17 20:00 (Compazine Inj) 5 mg Q6H PRN IV PUSH 05/04/17 10:30 05/14/17 08:47 (Lipitor) 80 mg HS PO 05/05/17 21:00 05/13/17 21:16 (Aspirin Chew) 162 mg DAILY PO 05/05/17 09:00 05/14/17 08:38 (Plavix) 75 mg DAILY PO 05/05/17 09:00 05/14/17 08:37 (D50w (Vial) Inj) 50 ml UNSCH PRN IV PUSH 05/04/17 14:45 (Glucagon Inj) 1 mg UNSCH PRN OTHER 05/04/17 14:45 (NovoLIN R SUPPLEMENTAL SCALE) 1 ACHS SLIDING SCALE SQ 05/04/17 17:00 05/10/17 12:13 (Trandate Inj) 10 mg Q1HR PRN IV PUSH 05/04/17 14:45 (Apresoline Inj) 10 mg Q1HR PRN IV PUSH 05/04/17 14:45 (Nitroglycerin 2% Oint) 2 inch Q6HR PRN TOPICAL 05/04/17 14:45 (Protonix) 40 mg DAILY PO 05/05/17 09:00 05/14/17 08:38 (Compazine Inj) 5 mg Q6H PRN IV PUSH 05/04/17 20:00 05/12/17 16:19 (Coreg) 3.125 mg BID PO 05/04/17 21:00 05/14/17 08:38 (CeleXA) 20 mg DAILY PO 05/06/17 09:00 05/14/17 08:38 (Ativan) 0.5 mg Q8H PRN PO 05/05/17 21:15 05/07/17 19:36 (Compazine) 5 mg Q6H PRN PO 05/06/17 17:30 05/13/17 21:17 (Compazine) 5 mg Q6H PRN PO 05/06/17 17:30 05/07/17 05:22 (Ativan Inj) 0.25 mg Q6H PRN IV PUSH 05/08/17 08:30 05/09/17 01:02 (Lasix Inj) 20 mg BID@0900,1800 IV PUSH 05/10/17 18:00 05/14/17 08:46 (KCl) 20 meq BID PO 05/10/17 21:00 05/14/17 08:38 Potassium Chloride 100 ml @ 50 mls/hr Q2H PRN IV 05/11/17 07:30 Potassium Chloride 100 ml @ 50 mls/hr Q2H PRN IV 05/11/17 07:30 05/12/17 14:12 (K-Lyte Cl Eff) 50 meq UNSCH PRN PO 05/11/17 07:30 Potassium Chloride 100 ml @ 25 mls/hr UNSCH PRN IV 05/11/17 07:30 Potassium Chloride 100 ml @ 50 mls/hr Q2H PRN IV 05/11/17 07:30 05/12/17 12:05 Magnesium Sulfate 4 gm/Sodium Chloride 100 ml @ 50 mls/hr UNSCH PRN IV 05/11/17 07:30 (Mag-Ox) 800 mg UNSCH PRN PO 05/11/17 07:30 05/12/17 21:13 Magnesium Sulfate 2 gm/Sodium Chloride 100 ml @ 50 mls/hr UNSCH PRN IV 05/11/17 07:30 (K-Phos) 2,000 mg Q4H PRN PO 05/11/17 07:30 Sodium Phosphate 30 mmol/Sodium Chloride 250 ml @ 42 mls/hr UNSCH PRN IV 05/11/17 07:30 (K-Phos) 2,000 mg UNSCH PRN PO/TUBE 05/11/17 07:30 Potassium Phosphate 30 mmol/ Sodium Chloride 260 ml @ 42 mls/hr UNSCH PRN IV 05/11/17 07:30 A/P Assessment and Plan (1) Acute hypoxemic respiratory failure ICD Code: J96.01 - Acute respiratory failure with hypoxia (2) Sepsis ICD Code: A41.9 - Sepsis, unspecified organism (3) CAP (community acquired pneumonia) ICD Code: J18.9 - Pneumonia, unspecified organism (4) Elevated brain natriuretic peptide (BNP) level ICD Code: R79.89 - Other specified abnormal findings of blood chemistry (5) Elevated troponin ICD Code: R74.8 - Abnormal levels of other serum enzymes (6) Probable CHF (7) Acute kidney injury ICD Code: N17.9 - Acute kidney failure, unspecified (8) Hypertension ICD Code: I10 - Essential (primary) hypertension 1. Acute hypoxemic respiratory failure, bilateral pleural effusions, community- acquired pneumonia: Continue supplemental oxygen. Continue bronchodilators, incentive spirometry. Status post right thoracentesis on 05/03/17. Now on nasal cannula. Vancomycin discontinued secondary to renal failure. Appreciate infectious disease, pulmonology recommendations. Antibiotics discontinued by infectious disease. CXR shows worsening pleural effusion L>R. Repeat thoracentesis ordered again by pulmonology. Repeat chest x-ray shows bilateral pleural effusions are unchanged.recommended by industrial relations specialist to discharge Home and follow with him in one week. 2. Coronary artery disease, non-ST elevation ND: Status post cardiac catheterization with stent placement. Continue aspirin and Plavix. 3. Congestive heart failure, chronic systolic: Continue beta-darvin, aspirin, Plavix, DELANO inhibitor, statin. 4. Hyperlipidemia: Continue statin. 5. Acute kidney injury superimposed on chronic kidney disease: Appreciate nephrology recommendations. Monitor strict intake/output. Creatinine has improved. 6. Hypokalemia: Potassium remains low. Monitor labs and supplement per electrolyte protocol. 7. Pelvic mass: Appreciate medical and gynecologic oncology recommendations. Not able to do surgery at this point due to need for Plavix for cardiac stent. Cytology from thoracentesis is negative for malignant cells. DVT prophylaxis: SCDs, ROBEL solomon. GI prophylaxis: Protonix. Discharge Planning Expected in am tomorrow. Serafin Gibson MD May 14, 2017 09:05
[2017-05-14] MEDS ORDERED: MAGNESIUM SULFATE INJ 4 GM in DEXTROSE 5% IN WATER 100ML INJ 92 ML IV SCH ×2 (10:00)
[2017-05-14] MEDS: ATORVASTATIN 80 MG TAB PO SCH (21:31)
[2017-05-14] MEDS: MAGNESIUM OXIDE 400 MG TAB PO SCH (21:32)
[2017-05-15] VITALS (11 sets, daily range): BP systolic 118–143; BP diastolic 66–79; PULSE 70–81; RESP 16–20; TEMP 97.9–98.6; O2SAT 94–96
[2017-05-15] MEDS: CHLORHEXIDINE GLUCONATE 2 % 1 PACK (2 CLOTHS) TOP SCH (04:00)
[2017-05-15] MEDS: INSULIN NovoLIN REGULAR SUPPLEMENTAL SCALE SQ SCH ×2 (08:00→12:00)
[2017-05-15] MEDS: SODIUM CHLORIDE 0.9% FLUSH 10 ML FLUSH IV FLUSH SCH (09:00)
[2017-05-15] MEDS: CITALOPRAM HYDROBROMIDE 20 MG TAB PO SCH (09:30)
[2017-05-15] MEDS: DOCUSATE SODIUM 50 MG/SENNA 8.6 MG TAB PO SCH (09:31)
[2017-05-15] MEDS: MAGNESIUM OXIDE 400 MG TAB PO SCH (09:31)
[2017-05-15] MEDS: PANTOPRAZOLE SOD 40 MG DELAYED RELEASE TAB PO SCH (09:31)
[2017-05-15] MEDS: ASPIRIN 81 MG CHEW TAB PO SCH (09:31)
[2017-05-15] MEDS: CARVEDILOL 3.125 MG TAB PO SCH (09:31)
[2017-05-15] MEDS: CLOPIDOGREL 75 MG TAB PO SCH (09:31)
[2017-05-15] MEDS: POTASSIUM CHLORIDE 10 MEQ CAP PO SCH (09:32)
[2017-05-15] MEDS: FUROSEMIDE 40 MG/4 ML VIAL IV PUSH SCH (09:39)
[2017-05-15] MEDS: PROCHLORPERAZINE INJ 10 MG/2 ML VIAL IV PUSH PRN (09:45)
[2017-05-15] MEDS ORDERED: ATOR80TA45 PO (12:01)
[2017-05-15] MEDS ORDERED: CELE20TA PO (12:01)
[2017-05-15] MEDS ORDERED: CARV3.125 PO (12:01)
[2017-05-15] MEDS ORDERED: ASPI81 PO (12:01)
[2017-05-15] MEDS ORDERED: POTA10CA PO (12:01)
[2017-05-15] MEDS ORDERED: PANT40TA3 PO (12:01)
[2017-05-15] MEDS ORDERED: MAGN400T2 PO (12:01)
[2017-05-15] MEDS ORDERED: FURO1TAB60 PO (12:01)
[2017-05-15] MEDS ORDERED: PLAV75TA29 PO (12:01)
--- NOTE | 2017-05-15 12:02 | HHI.FF ---
Face to Face Verification Diagnosis: (1) Elevated troponin (2) Acute kidney injury (3) Sepsis (4) CAD (coronary artery disease) (5) CHF (congestive heart failure) (6) Pelvic mass (7) CKD (chronic kidney disease) stage 3, GFR 30-59 ml/min (8) CAP (community acquired pneumonia) Physical Therapy Order: Evaluate and Treat, Improve ambulation, Strength and gait training Home Health Nursing Order: Medical education Signs/symptoms of disease process CHF education Medication education-adverse effect Nursing assessment with vital signs I have seen patient Bhumi Simpson on 05/15/17. My clinical findings support the need for the requested home health care services because: Ltd mobility - disease progression I certify that my clinical findings support that this patient is homebound because: Unsafe to leave home unassisted Serafin Gibson MD May 15, 2017 12:02
--- NOTE | 2017-05-15 12:04 | HHI.PR ---
Subjective Remarks This is a pleasant 66 y/o Female who came to ER wit increased shortness of breath, Hypoxemia new onset of congestive heart failure, CT scan of the chest revealed evidence of bibasilar atelectasis, effusions, the possibility of pneumonia as well entertained. she was on antibiotics, required oxygen administration followed in Intensive care had consults by multiple specialties, family engagement specialist followed for Acute respiratory insufficiency, had Thoracentesis, at this time status post Walk test and no need to go home on Oxygen also no need to go to SNF will go Home on HHC for PT and Skilled nurse. 05/14/17 stable in her bedroom, awaiting final by hiv prevention specialist for discharge probable tomorrow, she will need to follow with hiv prevention specialist and CORE EXTRUDER hardwood flooring specialist. 05/15/17 seen in her bedroom in the presence of relative, okay to discharge as per hiv prevention specialist will continue management at home, no nausea, vomit or diarrhea. Objective Vital Signs Date Time Temp Pulse Resp B/P (MAP) Pulse Ox O2 Delivery O2 Flow Rate FiO2 05/15/17 09:30 96 Nasal Cannula 2.00 05/15/17 08:00 97.9 75 18 136/78 (97) 95 05/15/17 06:00 75 05/15/17 05:00 72 05/15/17 04:00 70 05/15/17 03:00 96 Nasal Cannula 2.00 05/15/17 03:00 98.6 78 16 118/66 (83) 96 05/15/17 03:00 70 05/15/17 02:00 70 05/15/17 01:00 70 05/15/17 00:00 70 05/14/17 23:30 96 Nasal Cannula 2.00 05/14/17 23:30 98.0 74 16 125/63 (83) 96 05/14/17 23:00 70 05/14/17 22:00 76 05/14/17 21:00 72 05/14/17 20:00 68 05/14/17 20:00 97 Nasal Cannula 2.00 05/14/17 20:00 97.9 78 16 126/68 (87) 97 05/14/17 19:06 Nasal Cannula 2.00 05/14/17 19:00 70 05/14/17 16:25 Nasal Cannula 2.00 50 3/13/18 16:21 97.3 76 18 125/70 (88) 05/14/17 15:51 97.3 76 18 125/70 (88) 96 I/O 05/14/17 05/14/17 05/14/17 05/15/17 05/15/17 05/15/17 07:00 15:00 23:00 07:00 15:00 23:00 Intake Total 240 ml 240 ml 240 ml Output Total 250 ml 600 ml Balance -10 ml 240 ml -360 ml Intake Oral 240 ml 240 ml 240 ml Output Urine Total 250 ml 600 ml # Bowel Movements 0 0 Result Diagram: 05/14/1718 05/14/1718 Imaging Last Impressions Chest X-Ray 05/13/17 0600 Signed Impressions: Service Date/Time: Saturday, May 13, 2017 03:48 - CONCLUSION: Unchanged bilateral pleural effusions and associated atelectasis versus infiltrates. Bobby Herndon Jr., MD Renal Ultrasound 05/07/17 0000 Signed Impressions: Service Date/Time: Sunday, May 07, 2017 14:35 - CONCLUSION: 1. No evidence of hydronephrosis. 2. Bilateral pleural effusions. 3. Large complex cystic/ solid mass in the pelvis. Max Carvajal MD Chest CT 05/03/17 0000 Signed Impressions: Service Date/Time: Wednesday, May 03, 2017 22:11 - CONCLUSION: 1. Moderate- sized left pleural effusion and small right pleural effusion. 2. Diffuse alveolar consolidation throughout the right mid and lower lung field and to a lesser extent the aerated portion left upper lung consistent with asymmetric pulmonary edema and/or pneumonia. Clinical correlation is recommended. 3. Left basilar compressive atelectasis and/or infiltrate. 4. Cardiomegaly and coronary artery calcifications. 5. Small pericardial effusion. 6. Cholelithiasis. 7. Degenerative changes within the thoracic spine. Yong Cox MD Abdomen/Pelvis CT 05/03/17 0000 Signed Impressions: Service Date/Time: Wednesday, May 03, 2017 22:11 - CONCLUSION: 1. Complex pelvic mass measuring 9.5 x 11.8 x 13.9 cm which raises the possibility of left ovarian neoplasm until proven otherwise. 2. Some ascites within the pelvis. 3. Moderate-sized left pleural effusion. 4. Small right pleural effusion. 5. Diffuse alveolar consolidation of the right lung and to a lesser extent the left lung base consistent with asymmetric pulmonary edema versus pneumonia. 6. Cardiomegaly. 7. Small pericardial effusion. Yong Cox MD Procedures 05/04-left thoracentesis-900 cc 05/04- Left heart catheterization due to NSTEMI decompensated congestive heart failure, elevated Left ventricular diastolic pressure Moderate to severe Mitral regurgitation, moderate to severe Pulmonary hypertension, 90% stenosis in the mid left anterior descending coronary artery status post Bare metal stent of mid LAD artery, EF 40-45%. Other Results Laboratory Tests Test 05/03/17 20:00 05/04/17 01:57 05/04/17 04:39 05/04/17 09:27 Body Fluid Amylase Source PLEURAL Body Fluid Amylase 17 U/L Pleural Fluid pH 9.0 Prothrombin Time 13.1 SEC Prothromb Time International Ratio 1.3 RATIO Activated Partial Thromboplast Time 24.2 SEC Lactic Acid Level 1.8 mmol/L Lactate Dehydrogenase 321 U/L Troponin I 0.30 NG/ML Triglycerides Level 150 MG/DL Cholesterol Level 235 MG/DL LDL Cholesterol 172 MG/DL HDL Cholesterol 33.4 MG/DL Cholesterol/HDL Ratio 7.03 RATIO Amylase Level 19 U/L Lipase 52 U/L Tumor Marker Alpha Fetoprotein 2.1 NG/ML CA 19-9 Antigen 28.5 U/ML CA 125 Antigen 228.9 U/ML Thyroid Stimulating Hormone 3rd Gen 1.080 uIU/ML Urine Hyaline Casts 7 /lpf Microscopic Urinalysis Comment CATH-CULTURE IND Body Fluid Lipase Source PLEURAL Body Fluid Lipase LESS THAN 10 U/L Pleural Fluid Specific [place] 1.015 Pleural Fluid WBC 614 /MM3 Pleural Fluid RBC 68718 /MM3 Pleural Fluid Neutrophils 11 % Pleural Fluid Lymphocytes 80 % Pleural Fluid Monocytes 6 % Pleural Fluid Mesothelial Cells 3 % Pleural Fluid Total Protein 1.8 GM/DL Pleural Fluid Albumin 1.2 G/DL Pleural Fluid LDH 79 U/L Pleural Fluid Glucose 238 MG/DL Test 05/05/17 05:07 05/07/17 04:35 05/07/17 16:30 05/08/17 04:35 Hemoglobin A1c 9.2 % Blood Urea Nitrogen 49 MG/DL 49 MG/DL Creatinine 1.69 MG/DL 2.35 MG/DL Random Glucose 198 MG/DL 115 MG/DL Total Protein 5.5 GM/DL 5.1 GM/DL Albumin 2.6 GM/DL 3.03 GM/DL Calcium Level 8.5 MG/DL 8.2 MG/DL Phosphorus Level 3.5 MG/DL 2.9 MG/DL Magnesium Level 2.1 MG/DL 1.7 MG/DL Alkaline Phosphatase 71 U/L Aspartate Amino Transf (AST/SGOT) 38 U/L Alanine Aminotransferase (ALT/SGPT) 15 U/L Total Bilirubin 0.5 MG/DL Sodium Level 141 MEQ/L 139 MEQ/L Potassium Level 3.4 MEQ/L 4.0 MEQ/L Chloride Level 104 MEQ/L 103 MEQ/L Carbon Dioxide Level 27.3 MEQ/L 29.2 MEQ/L Total Creatine Kinase 268 U/L Creatine Kinase MB 11.0 NG/ML Creatine Kinase MB % 4.1 % Urine Color YELLOW Urine Turbidity HAZY Urine pH 5.5 Urine Specific [place] 1.020 Urine Protein 100 mg/dL Urine Glucose (UA) 150 mg/dL Urine Ketones TRACE mg/dL Urine Occult Blood MOD Urine Nitrite NEG Urine Bilirubin NEG Urine Urobilinogen LESS THAN 2.0 MG/DL Urine Leukocyte Esterase MOD Urine RBC /hpf Urine WBC 9 /hpf Urine Squamous Epithelial Cells 2 /hpf Urine Bacteria RARE /hpf Urine Mucus FEW /lpf Urine Eosinophils NONE SEEN /HPF B-Type Natriuretic Peptide 1646 PG/ML Albumin/Globulin Ratio 1.46 Lxavc-9-Rxuxppvjv 0.24 GM/DL Kagdw-4-Brpqfisvk 0.69 GM/DL Beta Globulins 0.59 GM/DL Gamma Globulins 0.55 GM/DL Electrophoresis Pathologist Comment 25-Hydroxy Vitamin D Total 14.2 ng/ML Procalcitonin 0.18 ng/mL Parathyroid Hormone (Intact) 125.7 PG/ML Complement C3 91 MG/DL Complement C4 26 MG/DL Free [place] Light Chains 25.60 mg/L Free Lambda Light Chains 25.50 mg/L Free [place]/Lambda Light Chain Ratio 1.00 Hepatitis C Antibody NEGATIVE Test 05/10/17 03:40 05/14/17 05:18 05/15/17 06:48 Random Vancomycin Level 9.0 COMMENT White Blood Count 6.2 TH/MM3 Red Blood Count 3.38 MIL/MM3 Hemoglobin 9.2 GM/DL Hematocrit 27.2 % Mean Corpuscular Volume 80.4 FL Mean Corpuscular Hemoglobin 27.3 PG Mean Corpuscular Hemoglobin Concent 33.9 % Red Cell Distribution Width 14.8 % Platelet Count 206 TH/MM3 Mean Platelet Volume 8.6 FL Neutrophils (%) (Auto) 60.5 % Lymphocytes (%) (Auto) 18.0 % Monocytes (%) (Auto) 15.7 % Eosinophils (%) (Auto) 3.1 % Basophils (%) (Auto) 2.7 % Neutrophils # (Auto) 3.8 TH/MM3 Lymphocytes # (Auto) 1.1 TH/MM3 Monocytes # (Auto) 1.0 TH/MM3 Eosinophils # (Auto) 0.2 TH/MM3 Basophils # (Auto) 0.2 TH/MM3 CBC Comment DIFF FINAL Differential Comment Blood Urea Nitrogen 23 MG/DL Creatinine 1.23 MG/DL Random Glucose 137 MG/DL Calcium Level 8.9 MG/DL Magnesium Level 1.3 MG/DL 2.0 MG/DL Sodium Level 138 MEQ/L Potassium Level 3.8 MEQ/L Chloride Level 99 MEQ/L Carbon Dioxide Level 30.2 MEQ/L Anion Gap 9 MEQ/L Estimat Glomerular Filtration Rate 44 ML/MIN Objective Remarks General: No acute distress. Heart: Regular rate and rhythm. No murmur. Lungs: Decreased breath sounds throughout, L>R. No wheezing noted. Abdomen: Soft, nontender, nondistended. Extremities: No lower extremity edema. SCDs. Psych: Alert and oriented. Medications and IVs Current Medications Medications (Trade) Dose Ordered Sig/Lidia Route Start Time Stop Time Status Last Admin (NS Flush) 2 ml UNSCH PRN IV FLUSH 05/03/17 20:00 05/12/17 16:19 (NS Flush) 2 ml BID IV FLUSH 05/03/17 21:00 05/15/17 09:00 (Tylenol) 650 mg Q6H PRN PO 05/03/17 20:00 ([place] 5-325 Mg) 1 tab Q4H PRN PO 05/03/17 20:00 (Morphine Inj) 2 mg Q2H PRN IV PUSH 05/03/17 20:00 05/07/17 01:05 (Zofran Inj) 4 mg Q6H PRN IV PUSH 05/03/17 20:00 05/13/17 18:14 (Albuterol Neb) 2.5 mg Q2HR NEB PRN INH 05/03/17 20:00 Miscellaneous Information 1 Q361D XX 05/03/17 20:00 (Chlorhexidine 2% Cloth) Taper DAILY@04 TOP 05/04/17 04:00 04/30/18 03:59 05/09/17 01:02 (Chlorhexidine 2% Cloth) 3 pack UNSCH PRN TOP 05/03/17 20:00 ([place]-Colace) 1 tab BID PO 05/03/17 21:00 05/15/17 09:31 (Milk Of Magnesia Liq) 30 ml Q12H PRN PO 05/03/17 20:00 (Senokot) 17.2 mg Q12H PRN PO 05/03/17 20:00 (Dulcolax Supp) 10 mg DAILY PRN RECTAL 05/03/17 20:00 (Lactulose Liq) 30 ml DAILY PRN PO 05/03/17 20:00 (Compazine Inj) 5 mg Q6H PRN IV PUSH 05/04/17 10:30 05/15/17 09:45 (Lipitor) 80 mg HS PO 05/05/17 21:00 05/14/17 21:31 (Aspirin Chew) 162 mg DAILY PO 05/05/17 09:00 05/15/17 09:31 (Plavix) 75 mg DAILY PO 05/05/17 09:00 05/15/17 09:31 (D50w (Vial) Inj) 50 ml UNSCH PRN IV PUSH 05/04/17 14:45 (Glucagon Inj) 1 mg UNSCH PRN OTHER 05/04/17 14:45 (NovoLIN R SUPPLEMENTAL SCALE) 1 ACHS SLIDING SCALE SQ 05/04/17 17:00 05/14/17 12:00 (Trandate Inj) 10 mg Q1HR PRN IV PUSH 05/04/17 14:45 (Apresoline Inj) 10 mg Q1HR PRN IV PUSH 05/04/17 14:45 (Nitroglycerin 2% Oint) 2 inch Q6HR PRN TOPICAL 05/04/17 14:45 (Protonix) 40 mg DAILY PO 05/05/17 09:00 05/15/17 09:31 (Coreg) 3.125 mg BID PO 05/04/17 21:00 05/15/17 09:31 (CeleXA) 20 mg DAILY PO 05/06/17 09:00 05/15/17 09:30 (Ativan) 0.5 mg Q8H PRN PO 05/05/17 21:15 05/07/17 19:36 (Compazine) 5 mg Q6H PRN PO 05/06/17 17:30 05/13/17 21:17 (Compazine) 5 mg Q6H PRN PO 05/06/17 17:30 05/07/17 05:22 (Lasix Inj) 20 mg BID@0900,1800 IV PUSH 05/10/17 18:00 05/15/17 09:39 (KCl) 20 meq BID PO 05/10/17 21:00 05/15/17 09:32 (Mag-Ox) 400 mg Q12HR PO 05/14/17 21:00 05/15/17 09:31 A/P Assessment and Plan (1) Acute hypoxemic respiratory failure ICD Code: J96.01 - Acute respiratory failure with hypoxia (2) Sepsis ICD Code: A41.9 - Sepsis, unspecified organism (3) CAP (community acquired pneumonia) ICD Code: J18.9 - Pneumonia, unspecified organism (4) Elevated brain natriuretic peptide (BNP) level ICD Code: R79.89 - Other specified abnormal findings of blood chemistry (5) Elevated troponin ICD Code: R74.8 - Abnormal levels of other serum enzymes (6) Probable CHF (7) Acute kidney injury ICD Code: N17.9 - Acute kidney failure, unspecified (8) Hypertension ICD Code: I10 - Essential (primary) hypertension 1. Acute hypoxemic respiratory failure, bilateral pleural effusions, community- acquired pneumonia: Continue supplemental oxygen. Continue bronchodilators, incentive spirometry. Status post right thoracentesis on 05/03/17. Now on nasal cannula. Vancomycin discontinued secondary to renal failure. Appreciate infectious disease, pulmonology recommendations. Antibiotics discontinued by infectious disease. CXR shows worsening pleural effusion L>R. Repeat thoracentesis ordered again by pulmonology. Repeat chest x-ray shows bilateral pleural effusions are unchanged.recommended by hiv prevention specialist to discharge Home and follow with him in one week. 2. Coronary artery disease, non-ST elevation [place]: Status post cardiac catheterization with stent placement. Continue aspirin and Plavix. 05/04- Left heart catheterization due to NSTEMI decompensated congestive heart failure, elevated Left ventricular diastolic pressure Moderate to severe Mitral regurgitation, moderate to severe Pulmonary hypertension, 90% stenosis in the mid left anterior descending coronary artery status post Bare metal stent of mid LAD artery, EF 40-45% . 3. Congestive heart failure, chronic systolic: Continue beta-darvin, aspirin, Plavix, DELANO inhibitor, statin. 4. Hyperlipidemia: Continue statin. 5. Acute kidney injury superimposed on chronic kidney disease: Appreciate nephrology recommendations. Monitor strict intake/output. Creatinine has improved. 6. Hypokalemia: Potassium remains low. Monitor labs and supplement per electrolyte protocol. 7. Pelvic mass: Appreciate medical and gynecologic oncology recommendations. Not able to do surgery at this point due to need for Plavix for cardiac stent. Cytology from thoracentesis is negative for malignant cells. DVT prophylaxis: SCDalex, ROBEL solomon. GI prophylaxis: Protonix. Discharge Planning Discharge home on [facility] for PT and skilled nurse. Serafin Gibson MD May 15, 2017 12:04
--- NOTE | 2017-05-15 12:11 | HHI.DS ---
Discharge Summary Admission Date May 03, 2017 at 17:52 Discharge Date: May 15, 2017 Admitting Diagnosis (1) Acute hypoxemic respiratory failure ICD Code: J96.01 - Acute respiratory failure with hypoxia Diagnosis: Principal (2) Sepsis ICD Code: A41.9 - Sepsis, unspecified organism Diagnosis: Principal (3) CAP (community acquired pneumonia) ICD Code: J18.9 - Pneumonia, unspecified organism Diagnosis: Principal (4) Elevated brain natriuretic peptide (BNP) level ICD Code: R79.89 - Other specified abnormal findings of blood chemistry Diagnosis: Principal (5) Elevated troponin ICD Code: R74.8 - Abnormal levels of other serum enzymes Diagnosis: Principal (6) Probable CHF Diagnosis: Principal (7) Acute kidney injury ICD Code: N17.9 - Acute kidney failure, unspecified Diagnosis: Principal (8) Hypertension ICD Code: I10 - Essential (primary) hypertension Diagnosis: Secondary Procedures 3/3-left thoracentesis-900 cc 3/3- Left heart catheterization due to NSTEMI decompensated congestive heart failure, elevated Left ventricular diastolic pressure Moderate to severe Mitral regurgitation, moderate to severe Pulmonary hypertension, 90% stenosis in the mid left anterior descending coronary artery status post Bare metal stent of mid LAD artery, EF 40-45%. Brief History - From Admission Patient is a 66-year-old female with past medical history only significant for hypertension who presented to the [facility] ED with 2 day history of productive cough increasing shortness of breath and weakness. She thought that she had flu but did not seek treatment. She also has nausea and vomiting and some epigastric abdominal pain. Initial oxygen saturation in [facility] ED 86% on room air. Tachycardic heart rate 107. An ABG on 3 L nasal cannula showed PO2 of 55. WBC count was normal, creatinine was elevated at 1.6 and a BNP was elevated at 2340 troponin elevated mildly at 0.23. Patient denies chest pain. A chest x-ray showed bilateral pleural effusions moderate- sized versus infiltrate. Patient received azithromycin and Rocephin in the ED. Transferred to [facility] for admission. I evaluated the patient in the [place] ICU. She appears to be in moderate distress due to dyspnea. Cannot lie down flat. Bedside ultrasound showed large bilateral pleural effusions. I performed a diagnostic and therapeutic right thoracentesis and removed 1.5 L of L blood tinged fluid. Fluid studies are pending at this time. Patient appears to have CHF and pneumonia. A 2D echo is pending. I will place patient on cefepime and azithromycin. Give single dose of vancomycin. Also due to elevated BNP and bilateral large effusions and hypoxia, start IV Lasix 20 mg every 12. Received 40 mg of Lasix and [place] ED. CBC/BMP: 05/14/1718 05/14/17 0518 Significant Findings Laboratory Tests Test 05/12/17 19:31 05/13/17 03:37 05/14/17 05:18 05/15/17 06:48 Magnesium Level 1.4 MG/DL (1.5-2.5) 1.3 MG/DL (1.5-2.5) Red Blood Count 3.45 MIL/MM3 (4.00-5.30) 3.38 MIL/MM3 (4.00-5.30) Hemoglobin 9.1 GM/DL (11.6-15.3) 9.2 GM/DL (11.6-15.3) Hematocrit 27.9 % (35.0-46.0) 27.2 % (35.0-46.0) Mean Corpuscular Hemoglobin 26.4 PG (27.0-34.0) Monocytes (%) (Auto) 16.7 % (0.0-8.0) 15.7 % (0.0-8.0) Monocytes # (Auto) 1.2 TH/MM3 (0-0.9) 1.0 TH/MM3 (0-0.9) Blood Urea Nitrogen 24 MG/DL (7-18) 23 MG/DL (7-18) Creatinine 1.19 MG/DL (0.50-1.00) 1.23 MG/DL (0.50-1.00) Random Glucose 114 MG/DL (74-106) 137 MG/DL (74-106) Estimat Glomerular Filtration Rate 45 ML/MIN (>89) 44 ML/MIN (>89) Basophils (%) (Auto) 2.7 % (0.0-2.0) Imaging Last Impressions Chest X-Ray 05/13/17 0600 Signed Impressions: Service Date/Time: Saturday, May 13, 2017 03:48 - CONCLUSION: Unchanged bilateral pleural effusions and associated atelectasis versus infiltrates. Bobby Herndon Jr., MD Renal Ultrasound 05/07/17 0000 Signed Impressions: Service Date/Time: Sunday, May 07, 2017 14:35 - CONCLUSION: 1. No evidence of hydronephrosis. 2. Bilateral pleural effusions. 3. Large complex cystic/ solid mass in the pelvis. Max Carvajal MD Chest CT 05/03/17 0000 Signed Impressions: Service Date/Time: Wednesday, May 03, 2017 22:11 - CONCLUSION: 1. Moderate- sized left pleural effusion and small right pleural effusion. 2. Diffuse alveolar consolidation throughout the right mid and lower lung field and to a lesser extent the aerated portion left upper lung consistent with asymmetric pulmonary edema and/or pneumonia. Clinical correlation is recommended. 3. Left basilar compressive atelectasis and/or infiltrate. 4. Cardiomegaly and coronary artery calcifications. 5. Small pericardial effusion. 6. Cholelithiasis. 7. Degenerative changes within the thoracic spine. Yong Cox MD Abdomen/Pelvis CT 05/03/17 0000 Signed Impressions: Service Date/Time: Wednesday, May 03, 2017 22:11 - CONCLUSION: 1. Complex pelvic mass measuring 9.5 x 11.8 x 13.9 cm which raises the possibility of left ovarian neoplasm until proven otherwise. 2. Some ascites within the pelvis. 3. Moderate-sized left pleural effusion. 4. Small right pleural effusion. 5. Diffuse alveolar consolidation of the right lung and to a lesser extent the left lung base consistent with asymmetric pulmonary edema versus pneumonia. 6. Cardiomegaly. 7. Small pericardial effusion. Yong Cox MD PE at Discharge General: No acute distress. Heart: Regular rate and rhythm. No murmur. Lungs: Decreased breath sounds throughout, L>R. No wheezing noted. Abdomen: Soft, nontender, nondistended. Extremities: No lower extremity edema. SCDs. Psych: Alert and oriented. Hospital Course This is a pleasant 66 y/o Female who came to ER wit increased shortness of breath, Hypoxemia new onset of congestive heart failure, CT scan of the chest revealed evidence of bibasilar atelectasis, effusions, the possibility of pneumonia as well entertained. she was on antibiotics, required oxygen administration followed in Intensive care had consults by multiple specialties, counseling specialist followed for Acute respiratory insufficiency, had Thoracentesis, at this time status post Walk test and no need to go home on Oxygen also no need to go to SNF will go Home on [facility] for PT and Skilled nurse. 05/14/17 stable in her bedroom, awaiting final by corrosion control specialist for discharge probable tomorrow, she will need to follow with corrosion control specialist and DOCUMENT IMAGING MANAGER payroll tax specialist. 05/15/17 seen in her bedroom in the presence of relative, okay to discharge as per corrosion control specialist will continue management at home, no nausea, vomit or diarrhea. Assessment and Plan 1. Acute hypoxemic respiratory failure, bilateral pleural effusions, community- acquired pneumonia: Continue supplemental oxygen. Continue bronchodilators, incentive spirometry. Status post right thoracentesis on 05/03/17. Now on nasal cannula. Vancomycin discontinued secondary to renal failure. Appreciate infectious disease, pulmonology recommendations. Antibiotics discontinued by infectious disease. CXR shows worsening pleural effusion L>R. Repeat thoracentesis ordered again by pulmonology. Repeat chest x-ray shows bilateral pleural effusions are unchanged.recommended by corrosion control specialist to discharge Home and follow with him in one week. 2. Coronary artery disease, non-ST elevation [place]: Status post cardiac catheterization with stent placement. Continue aspirin and Plavix. 3/- Left heart catheterization due to NSTEMI decompensated congestive heart failure, elevated Left ventricular diastolic pressure Moderate to severe Mitral regurgitation, moderate to severe Pulmonary hypertension, 90% stenosis in the mid left anterior descending coronary artery status post Bare metal stent of mid LAD artery, EF 40-45% . 3. Congestive heart failure, chronic systolic: Continue beta-darvin, aspirin, Plavix, DELANO inhibitor, statin. 4. Hyperlipidemia: Continue statin. 5. Acute kidney injury superimposed on chronic kidney disease: Appreciate nephrology recommendations. Monitor strict intake/output. Creatinine has improved. 6. Hypokalemia: Potassium remains low. Monitor labs and supplement per electrolyte protocol. 7. Pelvic mass: Appreciate medical and gynecologic oncology recommendations. Not able to do surgery at this point due to need for Plavix for cardiac stent. Cytology from thoracentesis is negative for malignant cells. DVT prophylaxis: SCDs, ROBEL solomon. GI prophylaxis: Protonix. Discharge Planning Discharge home on [facility] for PT and skilled nurse. Pt Condition on Discharge: Good Discharge Disposition: Disch w/ Home Health Serv Discharge Time: > 30 minutes Discharge Instructions DIET: Follow Instructions for: Heart Healthy Diet Activities you can perform: Regular-No Restrictions Serafin Gibson MD May 15, 2017 12:11
[2017-05-15] MEDS ORDERED: WALKER WHEELS/F1 MIS (15:49)
--- NOTE | 2017-05-15 16:22 | HHI.PR ---
Subjective Remarks ALERT NO DISTRESS sitting in bed Objective Vital Signs Date Time Temp Pulse Resp B/P (MAP) Pulse Ox O2 Delivery O2 Flow Rate FiO2 05/15/17 12:05 79 05/15/17 12:00 98.0 75 20 143/79 (100) 94 05/15/17 09:30 96 Nasal Cannula 2.00 05/15/17 08:00 81 05/15/17 08:00 97.9 75 18 136/78 (97) 95 05/15/17 06:00 75 05/15/17 05:00 72 05/15/17 04:00 70 05/15/17 03:00 96 Nasal Cannula 2.00 05/15/17 03:00 98.6 78 16 118/66 (83) 96 05/15/17 03:00 70 05/15/17 02:00 70 05/15/17 01:00 70 05/15/17 00:00 70 05/14/17 23:30 96 Nasal Cannula 2.00 05/14/17 23:30 98.0 74 16 125/63 (83) 96 05/14/17 23:00 70 05/14/17 22:00 76 05/14/17 21:00 72 05/14/17 20:00 68 05/14/17 20:00 97 Nasal Cannula 2.00 05/14/17 20:00 97.9 78 16 126/68 (87) 97 05/14/17 19:06 Nasal Cannula 2.00 05/14/17 19:00 70 05/14/17 16:25 Nasal Cannula 2.00 50 05/14/17 16:21 97.3 76 18 125/70 (88) I/O 05/14/17 05/14/17 05/14/17 05/15/17 05/15/17 05/15/17 07:00 15:00 23:00 07:00 15:00 23:00 Intake Total 240 ml 240 ml 240 ml Output Total 250 ml 600 ml Balance -10 ml 240 ml -360 ml Intake Oral 240 ml 240 ml 240 ml Output Urine Total 250 ml 600 ml # Bowel Movements 0 0 Result Diagram: 05/14/1751705/14/17517 Procedures 05/04-left thoracentesis-900 cc 05/04- Left heart catheterization due to NSTEMI decompensated congestive heart failure, elevated Left ventricular diastolic pressure Moderate to severe Mitral regurgitation, moderate to severe Pulmonary hypertension, 90% stenosis in the mid left anterior descending coronary artery status post Bare metal stent of mid LAD artery, EF 40-45%. Objective Remarks GENERAL: SKIN: Warm and dry. HEAD: Atraumatic. Normocephalic. EYES: Pupils equal and round. No scleral icterus. No injection or drainage. ENT: No nasal bleeding or discharge. Mucous membranes pink and moist. NECK: Trachea midline. No JVD. CARDIOVASCULAR: Regular rate and rhythm. RESPIRATORY: No accessory muscle use. DECREASE BREATH SOUNDS AT BASIS. GASTROINTESTINAL: Abdomen soft, non-tender, nondistended. Hepatic and splenic margins not palpable. MUSCULOSKELETAL: Extremities without clubbing, cyanosis, or edema. No obvious deformities. NEUROLOGICAL: Awake and alert. No obvious cranial nerve deficits. Motor grossly within normal limits. Five out of 5 muscle strength in the arms and legs. Normal speech. PSYCHIATRIC: Appropriate mood and affect; insight and judgment normal. Assessment and Plan Assessment and Plan RESPIRATORY FAILURE BIBASILAR EFFUSIONS/ INFILTRATES IMPROVING PLAN D/C O2 if possible OK for discharge , office 1 week Trey Yang MD May 15, 2017 16:22
== END 2017-05-15 16:15 | disposition home health service (06) | DRG 853 ==
LOC: NEDDLT 12:04 → HIMN 17:52 → HCIS 05-14 01:32
PROVIDERS: ADMIT Internal Medicine; ATTEND Internal Medicine
PROC: 0W993ZX Drainage of Right Pleural Cavity, Percutaneous Approach, Diagnostic (ICD-10-PCS; 2017-05-03)
PROC: 3E0F7GC Introduction of Other Therapeutic Substance into Respiratory Tract, Via Natural or Artificial Opening (ICD-10-PCS; 2017-05-03)
PROC: 02703DZ Dilation of Coronary Artery, One Artery with Intraluminal Device, Percutaneous Approach (ICD-10-PCS; principal; 2017-05-04)
PROC: 4A023N8 Measurement of Cardiac Sampling and Pressure, Bilateral, Percutaneous Approach (ICD-10-PCS; 2017-05-04)
PROC: B2111ZZ Fluoroscopy of Multiple Coronary Arteries using Low Osmolar Contrast (ICD-10-PCS; 2017-05-04)
PROC: B2151ZZ Fluoroscopy of Left Heart using Low Osmolar Contrast (ICD-10-PCS; 2017-05-04)
PROC: 0W9B3ZX Drainage of Left Pleural Cavity, Percutaneous Approach, Diagnostic (ICD-10-PCS; 2017-05-04)
DX: A41.9 Sepsis, unspecified organism (principal); J96.01 Acute respiratory failure with hypoxia; I21.4 Non-ST elevation (NSTEMI) myocardial infarction; N17.9 Acute kidney failure, unspecified; J18.9 Pneumonia, unspecified organism; I13.0 Hypertensive heart and chronic kidney disease with heart failure and stage 1 through stage 4 chronic kidney disease, or unspecified chronic kidney disease; I31.3 Pericardial effusion (noninflammatory); R18.8 Other ascites; I50.42 Chronic combined systolic (congestive) and diastolic (congestive) heart failure; J98.11 Atelectasis; I45.2 Bifascicular block; I42.9 Cardiomyopathy, unspecified; N18.3 Chronic kidney disease, stage 3 (moderate); R11.2 Nausea with vomiting, unspecified; Z80.3 Family history of malignant neoplasm of breast; K80.20 Calculus of gallbladder without cholecystitis without obstruction; K21.9 Gastro-esophageal reflux disease without esophagitis; N83.8 Other noninflammatory disorders of ovary, fallopian tube and broad ligament; I25.10 Atherosclerotic heart disease of native coronary artery without angina pectoris; E78.5 Hyperlipidemia, unspecified; E83.42 Hypomagnesemia; E87.6 Hypokalemia; R00.0 Tachycardia, unspecified; D64.9 Anemia, unspecified; R73.9 Hyperglycemia, unspecified; I27.20 Pulmonary hypertension, unspecified; I34.0 Nonrheumatic mitral (valve) insufficiency
CPT/HCPCS: 32554; 36600; 71045; 71046; 71250; 74176; 76775; 76937; 80048; 80053; 80061; 80202; 81001; 82042; 82105; 82150; 82306; 82550; 82552; 82805; 82810; 82945; 82948; 83036; 83605; 83615; 83690; 83735; 83880; 83883; 83970; 83986; 84100; 84132; 84145; 84157; 84165; 84315; 84443; 84484; 85002; 85025; 85027; 85379; 85610; 85730; 86160; 86301; 86304; 86803; 87015; 87040; 87070; 87086; 87102; 87116; 87205; 87206; 87449; 88112; 88305; 89051; 92933; 93005; 93306; 93460; 94150; 94618; 94640; 94664; 96365; 96367; 96375; C1725; C1769; C1876; C1887; C1893; C9113; J0360; J0456; J0692; J0696; J0780; J1644; J1940; J2060; J2250; J2270; J2405; J2550; J3010; J3246; J3370; J3475; J3480; J7040; J7050; Q0164; Q9967